=== PATIENT | female | born 1935 | race Caucasian/White ===

== ENCOUNTER 2018-04-13 12:26 | Outpatient (CLI) | payer MEDICARE, BC | END 2018-04-13 12:27 | disposition home or self-care (01) | LOC: BICMAMMO 12:26 | PROVIDERS: ATTEND Internal Medicine | DX: N63.23 Unspecified lump in the left breast, lower outer quadrant (principal) | CPT/HCPCS: 76642; 77066; G0279 ==

== ENCOUNTER → 2018-04-27 | Day surgery (SDC) | payer MEDICARE, BC ==
--- NOTE | 2018-04-27 14:00 | ULT ---
ULTRASOUND GUIDED LEFT BREAST BIOPSY: Date: 04/27/18 HISTORY: Spiculated hypoechoic mass in the left breast. COMPARISON: 04/13/18. FINDINGS: Successful ultrasound guided biopsy of a left breast mass. A total of three 14 gauge cord biopsy samp les were obtained and placed directly in Formalin. Post biopsy clip was placed. Post biopsy mammogram s were performed to confirm needle placement. TECHNIQUE: Consent obtained to perform biopsy of a left breast mass with ultrasound guidance. Left breast was pr epped and draped in the sterile fashion. 1% lidocaine, buffered with sodium bicarbonate, was used for local anesthesia. Under sonographic guidance, three 14 gauge core biopsy samples were obtained and p laced directly in Formalin. Biopsy clip was placed and is approximately 1 cm medial to the lesion of interest. The patient tolerated the procedure well. No immediate postprocedure complications. IMPRESSION: Successful left breast stereotactic biopsy with ultrasound guidance. Final pathologic diagnosis pendi ng. Biopsy clip is 1 cm medial to the lesion. POS: [facility]
== END ==
LOC: BICULT 12:20
PROVIDERS: ATTEND Internal Medicine
PROC: 0HBU3ZX Excision of Left Breast, Percutaneous Approach, Diagnostic (ICD-10-PCS; principal; 2018-04-27)
DX: C50.512 Malignant neoplasm of lower-outer quadrant of left female breast (principal)
CPT/HCPCS: 19083; 88305; 88341; 88342

== ENCOUNTER 2019-07-26 15:53 | Inpatient (IN) | payer MEDICARE, BC ==
[2019-07-26] MEDS ORDERED: Diltiazem 125 MG/25 ML ONE (16:18)
[2019-07-26 16:34] LABS: #Eosinphils 0.1 thou/uL (0.0-0.7); #Lymphocytes 1.1 thou/uL (1.20-3.40); #Monocytes 0.4 thou/uL (0.11-0.59); #Neutrophils 4.6 thou/uL (1.40-6.50); %Basophils 0.7 % (0.0-1.0); %Eosinophils 1.8 % (0.0-10.0); %Lymphocytes 18.3 % (21.0-51.0); %Monocytes 6.2 % (0.0-10.0); %Neutrophils 72.9 % (42.0-75.0); Hemoglobin 11.7 g/dL (12.0-16.0); Mean Corpuscular HGB CONC 32.5 g/dL (32.0-36.0); Mean Corpuscular Hemoglobin 31.2 pg (27.0-31.0); Mean Platelet Volume 7.8 fL (7.4-10.4); Platelet Count 243 thou/uL (130-400); RBC Distribution Width 11.3 % (11.5-14.5); Red Blood Cell (RBC) Count 3.76 mill/uL (4.20-5.40); White Blood Cell (WBC) Count 6.2 thou/uL (4.8-10.8)
[2019-07-26] MEDS ORDERED: Diltiazem HCl 125 MG, Admixture Fee 1 EACH in Sodium Chloride 0.9% 100 ML IVPB SCH (16:45)
--- NOTE | 2019-07-26 16:53 | RAD ---
XR Chest 1 View Portable HISTORY: EKG changes. COMPARISON: None FINDINGS: The heart size is normal. The lungs are well expanded without focal areas of consolidation, pneumothorax or pleural effusions. There is evidence of old granulomatous disease. IMPRESSION: No radiographic evidence of acute cardiopulmonary process.
[2019-07-26 16:54] LABS: ALT (SGPT) 8 U/L (8-55); AST (SGOT) 17 U/L (5-34); Albumin 4.7 g/dL (3.4-4.8); Alkaline Phosphatase 85 U/L (40-110); Anion Gap 16 mmol/L (10-20); BUN (Urea Nitrogen) 16 mg/dL (9.8-20.1); Bilirubin, Total 0.4 mg/dL (0.2-1.2); Calc. Creatinine Clearance 0 mL/min (70-130); Calcium 9.8 mg/dL (7.8-10.44); Carbon Dioxide 32 mmol/L (23-31); Chloride 98 mmol/L (98-107); Estimated GFR-MDRD 34; Globulin 3.5 g/dL (2.4-3.5); Glucose 112 mg/dL (83-110); Magnesium 1.6 mg/dL (1.6-2.6); Protein, Total 8.2 g/dL (6.0-8.3); Sodium 142 mmol/L (136-145)
[2019-07-26] MEDS ORDERED: Aspirin Chewable 81 MG TAB ONE (16:57)
[2019-07-26] MEDS ORDERED: Enoxaparin Sodium 60 MG/0.6 ML SYRINGE ONE (18:05)
--- NOTE | 2019-07-26 18:46 | PDOC.EVN ---
Event Note - Event Note Event Note: [id number] HP
[2019-07-26 20:05] LABS: Troponin I 0.051 ng/mL (< 0.028)
--- NOTE | 2019-07-26 21:13 | HP ---
CHIEF COMPLAINT: New EKG changes. HISTORY OF PRESENT ILLNESS: Ms. Issa is an 83-year-old female with a past medical history of hypothyroidism, ? congestive heart failure, breast cancer treated with radiation and surgery, COPD, presented to the emergency room from her doctor's office with new EKG changes of new-onset atrial fibrillation. The patient reported weakness and fatigue lately. The patient also has been having a nonproductive cough. She had a sore throat and cold over Thanksgiving and has not been able to bounce back. Denies chest pain. Workup in the emergency room, the patient was found to be in atrial fibrillation with rapid ventricular response. The patient was given 20 mg of IV diltiazem, heart rate remains rapid. The patient was started on IV diltiazem drip. The patient is being admitted to hospital for further management. PAST MEDICAL HISTORY: 1. Hypothyroidism. 2. Breast cancer. 3. CHF ? 4. COPD. PAST SURGICAL HISTORY: 1. Left breast lumpectomy. 2. Lymph node removal. PAST PSYCHIATRIC HISTORY: Anxiety and depression. SOCIAL HISTORY: Denies alcohol drinking. Denies drug use. She is a former tobacco user. FAMILY HISTORY: Reviewed and noncontributory. HOME MEDICATIONS: Please see home medication reconciliation form for updated medications. ALLERGIES: ALLERGIC TO CIPRO, DARVON (PROPOXYPHENE). REVIEW OF SYSTEMS: Review of 14 systems is negative except what is mentioned in history of present illness. PHYSICAL EXAMINATION: GENERAL: The patient is awake, alert, does not appear to be in acute distress. VITAL SIGNS: Blood pressure 137/76, pulse is 122, respiratory rate is 16, temperature 98.4. HEAD: Normocephalic, atraumatic. NECK: Supple. No JVD. CHEST: Fair bilateral air entry. HEART: Irregularly irregular, tachycardic. ABDOMEN: Soft, nontender. Bowel sounds present. NEUROLOGIC: Awake, alert, oriented x3. PSYCH: Normal mood. EXTREMITIES: No clubbing, no cyanosis. GENITOURINARY: No suprapubic tenderness. No flank tenderness. MUSCULOSKELETAL: No back tenderness. No joint tenderness. LABORATORY DATA: Troponin 0.01. Sodium 142, potassium 4.0, BUN is 16, creatinine 1.4, glucose 112. WBC 6.2, hemoglobin 11.7, platelets 243. DIAGNOSTIC DATA: Chest x-ray, no acute finding. ASSESSMENT: 1. Atrial fibrillation with rapid ventricular response, new onset. 2. Congestive heart failure ? 3. Chronic obstructive pulmonary disease ? 4. Hypothyroidism. PLAN: 1. Admit. 2. Telemetry monitoring. 3. Continue with diltiazem drip. 4. Check TSH. 5. Serial troponins. 6. The patient was started on Lovenox in the ED. 7. 2D echo. 8. Consult Cardiology in a.m. for evaluation and further recommendations. 9. Reconcile home medications. 10. DVT prophylaxis. The patient is started on Lovenox, low-molecular weight heparin. 11. Expected length of stay, 2 midnights or more. Job ID: [id number]
[2019-07-26 21:37] VITALS: BMI 20.9
[2019-07-26] MEDS ORDERED: rOPINIRole HCl 0.5 MG TAB PO SCH (23:15)
[2019-07-26 23:20] LABS: Troponin I 0.043 ng/mL (< 0.028)
[2019-07-27 06:36] LABS: Anion Gap 11 mmol/L (10-20); BUN (Urea Nitrogen) 23 mg/dL (9.8-20.1); Calc. Creatinine Clearance 30 mL/min (70-130); Calcium 8.9 mg/dL (7.8-10.44); Carbon Dioxide 35 mmol/L (23-31); Chloride 102 mmol/L (98-107); Estimated GFR-MDRD 34; Glucose 92 mg/dL (83-110); Potassium 4.6 mmol/L (3.5-5.1); Sodium 143 mmol/L (136-145)
[2019-07-27] MEDS: Famotidine 20 MG TAB PO SCH (08:45)
[2019-07-27] MEDS ORDERED: Enoxaparin Sodium 60 MG/0.6 ML SYRINGE SC SCH (09:00)
[2019-07-27] MEDS ORDERED: Aspirin 325 mg Enteric Coated Tablet PO SCH (09:00)
[2019-07-27 10:28] LABS: #Eosinphils 0.2 thou/uL (0.0-0.7); #Lymphocytes 1.5 thou/uL (1.20-3.40); #Monocytes 0.5 thou/uL (0.11-0.59); #Neutrophils 4.9 thou/uL (1.40-6.50); %Basophils 0.5 % (0.0-1.0); %Eosinophils 3.4 % (0.0-10.0); %Lymphocytes 20.3 % (21.0-51.0); %Monocytes 7.1 % (0.0-10.0); %Neutrophils 68.8 % (42.0-75.0); Hemoglobin 9.6 g/dL (12.0-16.0); Mean Corpuscular HGB CONC 32.3 g/dL (32.0-36.0); Mean Corpuscular Hemoglobin 31.3 pg (27.0-31.0); Mean Corpuscular Volume 96.8 fL (78.0-98.0); Mean Platelet Volume 8.2 fL (7.4-10.4); Platelet Count 167 thou/uL (130-400); RBC Distribution Width 11.5 % (11.5-14.5); Red Blood Cell (RBC) Count 3.06 mill/uL (4.20-5.40); White Blood Cell (WBC) Count 7.2 thou/uL (4.8-10.8)
[2019-07-27] MEDS ORDERED: PROPOFOL 200 MG/20 ML VIAL ONE (10:34)
--- NOTE | 2019-07-27 10:34 | CON ---
DATE OF CONSULTATION: HISTORY OF PRESENT ILLNESS: The patient is an 83-year-old woman who presents with palpitations. The patient has no previous cardiac history. About a month ago, she started having fevers and chills and was diagnosed with bronchitis. She states that the date of prior to admission started noticing having palpitations. She has noticed increasing dyspnea. The patient also reported having substernal chest discomfort. PAST MEDICAL HISTORY: 1. Hypertension. 2. COPD. 3. Breast carcinoma. PAST SURGICAL HISTORY: Lumpectomy and lymph node removal. SOCIAL HISTORY: Former smoker. ALLERGIES: DARVON AND CIPROFLOXACIN. MEDICATIONS: 1. Cardizem 120 daily. 2. Potassium 10 daily. 3. Lasix 40 daily. 4. Losartan 25 daily. 5. Protonix 40 daily. 6. Synthroid 150 mcg daily. 7. Pravachol 40 at bedtime. 8. Wellbutrin 300 daily. 9. Trazodone 150 daily. REVIEW OF SYSTEMS: No history of easy bruising or bleeding or bright red blood per rectum. PHYSICAL EXAMINATION: GENERAL: This is a thin woman, in no acute distress. VITAL SIGNS: Blood pressure 92/45. NECK: Showed no jugular venous distention. LUNGS: Decreased breath sounds bilateral. HEART: Irregular rate and rhythm. Normal S1 and S2. ABDOMEN: Nondistended. EXTREMITIES: Show no edema. VASCULAR: Radial pulses 2+. LABORATORY DATA: Sodium 143, potassium 4.6, chloride 102, bicarbonate 35, BUN 23, and creatinine 1.48. Troponin was 0.043. White blood cell count 6.2, hemoglobin 11.7, hematocrit 36.1, and her platelets were 243. Her EKG revealed atrial fibrillation with an ST-T wave abnormality suggestive of ischemia. IMPRESSION: 1. New onset atrial fibrillation. 2. Chronic obstructive pulmonary disease. 3. Hypertension. 4. Dyslipidemia. This patient presents with a rapid atrial fibrillation. At this time, we would recommend proceeding with electrical cardioversion. The patient is already on Cardizem. We will check the patient's echocardiogram. We will consider adding an antiarrhythmic therapy. The patient will need long-term anticoagulation therapy. We will follow this patient with you through her hospitalization. Job ID: [id number] [facility]
[2019-07-27 10:55] LABS: Free T4 (Free Thyroxine) 1.19 ng/dL (0.70-1.48); Thyroid Stimulating Hormone 3.6748 uIU/mL (0.35-4.94)
[2019-07-27] MEDS ORDERED: Ketamine 50 MG/ML (10ML VIAL) ONE (11:21)
[2019-07-27] MEDS ORDERED: PROPOFOL 20 ML ONE (11:21)
--- NOTE | 2019-07-27 11:33 | PDOC.EVN ---
Event Note - Event Note Event Note: [id number] progress
--- NOTE | 2019-07-27 12:19 | PRG ---
DATE OF SERVICE: 07/27/2019 The patient is being followed today after she is admitted for new onset atrial fibrillation with rapid ventricular response. SUBJECTIVE: The patient is feeling okay except for coughing. The patient continues to be in atrial fibrillation. Rate is better controlled. The patient is being seen by trout farmer for further management and recommendations. OBJECTIVE: VITAL SIGNS: Blood pressure is 95/60, temperature 97.9, pulse is 78, respiratory rate is 16, and oxygen saturation 99% on 2 L/minute nasal cannula. HEAD AND NECK: Normocephalic and atraumatic. Neck is supple. CHEST: Fair bilateral air entry. HEART: Irregularly irregular. ABDOMEN: Soft and nontender. Bowel sounds present. NEUROLOGIC: Awake, alert, and oriented x3. PSYCHIATRIC: Normal mood. EXTREMITIES: No clubbing. No cyanosis. GENITOURINARY: No suprapubic tenderness. No flank tenderness. MUSCULOSKELETAL: No back tenderness. No joint tenderness. LABORATORY DATA: Troponin 0.01, 0.05, 0.04. Sodium 143, potassium 4.6, BUN is 23, creatinine 1.4, glucose 92. WBC 6.2, hemoglobin 11.7, and platelets 243. 2D echo pending. ASSESSMENT: 1. Atrial fibrillation with rapid ventricular response, new onset. 2. History of chronic obstructive pulmonary disease. 3. Hypothyroidism. PLAN: 1. Continue with telemetry monitoring. 2. Switch to oral diltiazem and discontinue diltiazem drip, as per trout farmer. Cardiology is being consulted for further management. 3. Continue with anticoagulation. 4. Check TSH. 5. DVT prophylaxis. 6. The patient is on anticoagulation. Job ID: [id number]
[2019-07-27] MEDS: Guaifenesin DM 100-10/5 ML UDCUP PO PRN ×2 (14:22→21:22)
--- NOTE | 2019-07-27 14:25 | OP ---
DATE OF PROCEDURE: 07/27/2019 PROCEDURE PERFORMED: Transesophageal echocardiogram. INDICATIONS: Destinee Issa is an 83-year-old woman with paroxysmal atrial fibrillation. DESCRIPTION OF PROCEDURE: The patient was taken to the PACU. The patient was sedated by Anesthesiology. A transesophageal probe was placed into the distal esophagus and stomach. Echocardiographic images were obtained. The transesophageal probe was removed. FINDINGS: 1. There appears to be normal left ventricular systolic function. 2. Moderate left atrial enlargement. 3. Normal mitral and aortic valves. 4. Mild mitral regurgitation. 5. Mild tricuspid regurgitation. 6. No thrombus noted in the left atrium or left atrial appendage. 7. Atherosclerotic debris in the descending aorta. IMPRESSION: No thrombus noted in the left atrium or left atrial appendage. Job ID: [id number]
--- NOTE | 2019-07-27 14:29 | OP ---
DATE OF PROCEDURE: 07/27/2019 PROCEDURE PERFORMED: Electrical cardioversion. INDICATION: An 83-year-old woman with paroxysmal atrial fibrillation. DESCRIPTION OF PROCEDURE: The patient was taken to the PACU. The patient was sedated by Anesthesiology. The patient was shocked with 200 joules of synchronized electricity and the patient converted to normal sinus rhythm. IMPRESSION: Successful electrical cardioversion. Job ID: [id number]
[2019-07-27] MEDS ORDERED: FLU VACC TS2019-20(65YR UP)/PF 180 MCG/0.5 ML SYRINGE IM ONE (14:45)
--- NOTE | 2019-07-27 16:43 | EKG ---
Test Reason : POST KIRSTEN/CARDIOVERSI Blood Pressure : / mmHG Vent. Rate : 076 BPM Atrial Rate : 076 BPM P-R Int : 154 ms QRS Dur : 092 ms QT Int : 446 ms P-R-T Axes : 066 009 058 degrees QTc Int : 501 ms Sinus rhythm with PAC's ST depression, consider subendocardial injury or digitalis effect Nonspecific T wave abnormality Prolonged QT Abnormal ECG When compared with ECG of 26-JUL-2019 16:06, (Unconfirmed) Sinus rhythm has replaced Atrial fibrillation Vent. rate has decreased BY [address] no longer depressed in Inferior leads Confirmed by DR. Tate MCGRATH (3) on 07/27/2019 4:43:29 PM Referred By: ONEYDA Confirmed By:DR. Tate MCGRATH
[2019-07-27] MEDS: traZODone HCl 150 MG TAB PO SCH (21:22)
[2019-07-27] MEDS: rOPINIRole HCl 0.5 MG TAB PO SCH (21:22)
[2019-07-27] MEDS: Pravastatin Sodium 40 MG TAB PO SCH (21:22)
[2019-07-27] MEDS: Apixaban 5 MG TAB PO SCH (21:22)
[2019-07-27] MEDS: Flecainide 50 MG TAB PO SCH (21:22)
[2019-07-28 05:29] LABS: Anion Gap 10 mmol/L (10-20); BUN (Urea Nitrogen) 19 mg/dL (9.8-20.1); Calc. Creatinine Clearance 37 mL/min (70-130); Calcium 8.5 mg/dL (7.8-10.44); Carbon Dioxide 32 mmol/L (23-31); Chloride 103 mmol/L (98-107); Estimated GFR-MDRD 43; Glucose 87 mg/dL (83-110); Potassium 3.5 mmol/L (3.5-5.1); Sodium 141 mmol/L (136-145)
[2019-07-28] MEDS: Acetaminophen 325 MG TAB PO PRN ×2 (06:16→15:32)
[2019-07-28] MEDS ORDERED: Labetalol HCl 100 MG/20 ML VIAL SLOW IVP PRN (07:22)
[2019-07-28] MEDS ORDERED: Loratadine 10 MG TAB PO PRN (07:22)
[2019-07-28] MEDS ORDERED: Diabetic Tussin 200 MG/10 ML UDCUP PO PRN (07:22)
[2019-07-28] MEDS ORDERED: Bisacodyl 10 MG SUPP PR PRN (07:22)
[2019-07-28] MEDS ORDERED: Loperamide HCl 2 MG CAP PO PRN (07:22)
[2019-07-28] MEDS ORDERED: Sodium Chloride 0.65% Nasal 44 ML BOT EA NARE PRN (07:22)
[2019-07-28] MEDS ORDERED: Metoclopramide HCl 10 MG TAB PO PRN (07:22)
[2019-07-28] MEDS ORDERED: Senokot S 8.6-50 MG TAB PO PRN (07:22)
[2019-07-28] MEDS ORDERED: Calcium Carbonate 500 MG ChewTAB PO PRN (07:22)
[2019-07-28] MEDS ORDERED: Cepastat Lozenges 1 LOZ PO PRN (07:22)
[2019-07-28] MEDS ORDERED: Zolpidem Tartrate 5 MG TAB PO PRN (07:22)
[2019-07-28] MEDS: Apixaban 5 MG TAB PO SCH ×2 (09:12→20:42)
[2019-07-28] MEDS: Flecainide 50 MG TAB PO SCH ×2 (09:12→20:42)
[2019-07-28] MEDS: Famotidine 20 MG TAB PO SCH (09:12)
--- NOTE | 2019-07-28 10:06 | PDOC.HOSPP ---
- Subjective Encounter Date: 07/28/19 Encounter Time: 07:50 Subjective: Patient seen and examined. No new complaints. No overnight events - Objective Vital Signs & Weight: Vital Signs (12 hours) Temp Pulse Resp BP Pulse Ox 07/28/19 07:34 97.9 F 71 16 138/65 98 07/28/19 03:41 98.8 F 77 20 124/58 L 98 Weight Weight 143 lb 12.8 oz I&O: 07/27/19 07/28/19 07/29/19 06:59 06:59 06:59 Intake Total 420 960 Output Total 400 900 Balance 20 60 Result Diagrams: 07/27/19 09:53 07/28/19 04:58 Radiology Reviewed by me: Yes EKG Reviewed by me: Yes Hospitalist ROS - Review of Systems ENT: denies: ear pain, ear discharge, nose pain, nose discharge, nose congestion , mouth pain, mouth swelling, throat pain, throat swelling, other Respiratory: denies: cough, dry, shortness of breath, hemoptysis, SOB with excertion, pleuritic pain, sputum, wheezing, other Cardiovascular: denies: chest pain, palpitations, orthopnea, paroxysmal noc. dyspnea, edema, light headedness, other Gastrointestinal: denies: nausea, vomiting, abdominal pain, diarrhea, constipation, melena, hematochezia, other Genitourinary: denies: dysuria, frequency, incontinence, hematuria, retention, other Musculoskeletal: denies: neck pain, shoulder pain, arm pain, back pain, hand pain, leg pain, foot pain, other - Medication Medications: Active Medications Generic Name Dose Route Start Last Admin Trade Name Chaitanyaq PRN Reason Stop Dose Admin Acetaminophen 650 mg 07/26/19 17:46 07/28/19 06:16 Tylenol PO 650 mg Q4H PRN Administration Headache/Fever/Mild Pain (1-3) Apixaban 5 mg 07/27/19 21:00 07/28/19 09:12 Eliquis PO 5 mg BID TENZIN Administration Diltiazem HCl 120 mg 07/28/19 09:00 07/28/19 09:12 Cardizem Cd PO 120 mg DAILY TENZIN Administration Famotidine 20 mg 07/27/19 09:00 07/28/19 09:12 Pepcid PO 20 mg DAILY TENZIN Administration Flecainide Acetate 50 mg 07/27/19 21:00 07/28/19 09:12 Tambocor PO 50 mg Q12HR TENZIN Administration Guaifenesin/Dextromethorphan 10 ml 07/27/19 13:33 07/27/19 21:22 Robitussin Dm PO 10 ml Q6H PRN Administration Cough Pravastatin Sodium 40 mg 07/27/19 21:00 07/27/19 21:22 Pravachol PO 40 mg QPM TENZIN Administration Ropinirole HCl 0.5 mg 07/27/19 21:00 07/27/19 21:22 Requip PO 0.5 mg HS TENZIN Administration Trazodone HCl 150 mg 07/27/19 21:00 07/27/19 21:22 Desyrel PO 150 mg HS TENZIN Administration - Exam General Appearance: NAD, awake alert Eye: PERRL, anicteric sclera ENT: normocephalic atraumatic, no oropharyngeal lesions Neck: supple, symmetric, no JVD Heart: RRR, no murmur, no gallops, no rubs Respiratory: CTAB, no wheezes, no rales Gastrointestinal: soft, non-tender, non-distended, normal bowel sounds Extremities: no cyanosis, no clubbing, no edema Skin: normal turgor, no lesions Neurological: no focal deficits Musculoskeletal: normal tone, normal strength Psychiatric: normal affect, normal behavior Hosp A/P (1) New onset atrial fibrillation Code(s): I48.91 - UNSPECIFIED ATRIAL FIBRILLATION Status: Acute (2) Hypertension Code(s): I10 - ESSENTIAL (PRIMARY) HYPERTENSION Status: Chronic (3) Dyslipidemia Code(s): E78.5 - HYPERLIPIDEMIA, UNSPECIFIED Status: Chronic (4) H/O malignant neoplasm of breast Code(s): Z85.3 - PERSONAL HISTORY OF MALIGNANT NEOPLASM OF BREAST Status: Chronic (5) Hypothyroidism Code(s): E03.9 - HYPOTHYROIDISM, UNSPECIFIED Status: Chronic - Plan old records reviewed/req s/p cardioversion, now nsr, on flecainide, elliquis, medication reviewed and continue to provide symptomatic treatment and supportive care
[2019-07-28] MEDS: rOPINIRole HCl 0.5 MG TAB PO SCH (20:42)
[2019-07-28] MEDS: Benzonatate 100 MG CAP PO PRN (20:42)
[2019-07-28] MEDS: Pravastatin Sodium 40 MG TAB PO SCH (20:43)
[2019-07-28] MEDS: traZODone HCl 150 MG TAB PO SCH (20:43)
[2019-07-28] MEDS: Guaifenesin DM 100-10/5 ML UDCUP PO PRN (20:43)
[2019-07-29] MEDS: Apixaban 5 MG TAB PO SCH (08:49)
[2019-07-29] MEDS: Famotidine 20 MG TAB PO SCH (08:50)
[2019-07-29] MEDS: Flecainide 50 MG TAB PO SCH (08:50)
[2019-07-29] MEDS: Benzonatate 100 MG CAP PO PRN (08:50)
--- NOTE | 2019-07-29 10:18 | PDOC.HOSPP ---
- Subjective Encounter Date: 07/29/19 Encounter Time: 07:25 Subjective: Patient seen and examined. No new complaints. No overnight events - Objective Vital Signs & Weight: Vital Signs (12 hours) Temp Pulse Resp BP BP Pulse Ox 07/29/19 07:24 97.9 F 67 18 119/56 L 95 07/29/19 03:49 98.4 F 66 20 109/50 L 99 Weight Weight 148 lb 12.8 oz I&O: 07/28/19 07/29/19 07/30/19 06:59 06:59 06:59 Intake Total 960 820 Output Total 900 200 Balance 60 620 Result Diagrams: 07/27/19 09:53 07/28/19 04:58 EKG Reviewed by me: Yes Hospitalist ROS - Review of Systems ENT: denies: ear pain, ear discharge, nose pain, nose discharge, nose congestion , mouth pain, mouth swelling, throat pain, throat swelling, other Respiratory: denies: cough, dry, shortness of breath, hemoptysis, SOB with excertion, pleuritic pain, sputum, wheezing, other Cardiovascular: denies: chest pain, palpitations, orthopnea, paroxysmal noc. dyspnea, edema, light headedness, other Gastrointestinal: denies: nausea, vomiting, abdominal pain, diarrhea, constipation, melena, hematochezia, other Genitourinary: denies: dysuria, frequency, incontinence, hematuria, retention, other Musculoskeletal: denies: neck pain, shoulder pain, arm pain, back pain, hand pain, leg pain, foot pain, other - Medication Medications: Active Medications Generic Name Dose Route Start Last Admin Trade Name Freq PRN Reason Stop Dose Admin Acetaminophen 650 mg 07/26/19 17:46 07/28/19 15:32 Tylenol PO 650 mg Q4H PRN Administration Headache/Fever/Mild Pain (1-3) Apixaban 5 mg 07/27/19 21:00 07/29/19 08:49 Eliquis PO 5 mg BID TENZIN Administration Benzonatate 100 mg 07/28/19 17:51 07/29/19 08:50 Tessalon PO 100 mg Q8H PRN Administration Cough Diltiazem HCl 120 mg 07/28/19 09:00 07/29/19 08:50 Cardizem Cd PO 120 mg DAILY TENZIN Administration Famotidine 20 mg 07/27/19 09:00 07/29/19 08:50 Pepcid PO 20 mg DAILY TENZIN Administration Flecainide Acetate 50 mg 07/27/19 21:00 07/29/19 08:50 Tambocor PO 50 mg Q12HR TENZIN Administration Guaifenesin 200 mg 07/28/19 07:22 07/28/19 17:02 Robitussin Sf PO 200 mg Q4H PRN Administration Cough Guaifenesin/Dextromethorphan 10 ml 07/27/19 13:33 07/28/19 20:43 Robitussin Dm PO 10 ml Q6H PRN Administration Cough Pravastatin Sodium 40 mg 07/27/19 21:00 07/28/19 20:43 Pravachol PO 40 mg QPM TENZIN Administration Ropinirole HCl 0.5 mg 07/27/19 21:00 07/28/19 20:42 Requip PO 0.5 mg HS TENZIN Administration Trazodone HCl 150 mg 07/27/19 21:00 07/28/19 20:43 Desyrel PO 150 mg HS TENZIN Administration - Exam General Appearance: NAD, awake alert Eye: PERRL, anicteric sclera ENT: normocephalic atraumatic, no oropharyngeal lesions Neck: supple, symmetric, no JVD, no thyromegaly Heart: RRR, no murmur, no gallops, no rubs Respiratory: CTAB, no wheezes, no rales Gastrointestinal: soft, non-tender, non-distended Extremities: no cyanosis, no clubbing, no edema Skin: normal turgor, no lesions Neurological: cranial nerve grossly intact, no focal deficits Musculoskeletal: normal tone, normal strength Psychiatric: normal affect, normal behavior Hosp A/P (1) New onset atrial fibrillation Code(s): I48.91 - UNSPECIFIED ATRIAL FIBRILLATION Status: Acute (2) Hypertension Code(s): I10 - ESSENTIAL (PRIMARY) HYPERTENSION Status: Chronic (3) Dyslipidemia Code(s): E78.5 - HYPERLIPIDEMIA, UNSPECIFIED Status: Chronic (4) H/O malignant neoplasm of breast Code(s): Z85.3 - PERSONAL HISTORY OF MALIGNANT NEOPLASM OF BREAST Status: Chronic (5) Hypothyroidism Code(s): E03.9 - HYPOTHYROIDISM, UNSPECIFIED Status: Chronic - Plan old records reviewed/req s/p cardioversion, now nsr, on flecainide, elliquis, medication reviewed and continue to provide symptomatic treatment and supportive care 07/29/19 stable for discharge, see discharge zander
[2019-07-29 11:42] VITALS: BP 113/55; TEMP 98.8
--- NOTE | 2019-07-29 14:45 | DIS ---
DATE OF ADMISSION: 07/26/2019 DATE OF DISCHARGE: 07/29/2019 PRIMARY CARE PHYSICIAN: Dr. Betsy Sierra. DISCHARGE DISPOSITION: Home. PRIMARY DISCHARGE DIAGNOSIS: New onset atrial fibrillation, status post cardioversion, converted to normal sinus rhythm. SECONDARY DISCHARGE DIAGNOSES: Hypothyroidism, hypertension, history of breast cancer, dyslipidemia. PRIMARY PROCEDURES/OPERATIONS: Transesophageal echocardiography, DC cardioversion. RADIOLOGICAL INVESTIGATION: Chest x-ray showed no acute cardiopulmonary process. Echocardiography showed normal EF. SIGNIFICANT LABORATORY DATA: WBC 7.2, hemoglobin 9.6, and platelets 167. Sodium 141, creatinine 1.21, calcium 8.5. Troponin 0.043. TSH 3.67. LFT normal. DISCHARGE MEDICATIONS: 1. Arimidex 1 mg p.o. daily. 2. Bupropion XL 300 mg p.o. daily. 3. Cardizem CD 120 mg p.o. daily. 4. Lasix 40 mg daily. 5. Ibandronate 150 mg every month. 6. Levothyroxine 100 mcg p.o. daily. 7. Losartan 25 mg p.o. daily. 8. Remeron 45 mg p.o. daily. 9. Protonix 40 mg daily. 10. Potassium chloride 10 mEq p.o. daily. 11. Pravastatin 40 mg p.o. at bedtime. 12. Ropinirole 0.5 mg p.o. at bedtime. 13. Trazodone 150 mg p.o. at bedtime. 14. Tambocor 50 mg p.o. twice daily. 15. Eliquis 5 mg p.o. b.i.d. 16. Tessalon 100 mg t.i.d. p.r.n. CONTRAINDICATION: None. CODE STATUS: Full code. INPATIENT TANK STAVE ASSEMBLER: Dr. Rodriguez, Cardiology, was following while in hospital. TEST RESULT PENDING ON DISCHARGE: None. ALLERGIES: CIPROFLOXACIN AND PROPOXYPHENE. DISCHARGE PLAN: Posthospital, the patient will follow up with primary care physician in one week. The patient will make appointment with Dr. Leonidas Gregorio in 2 to 3 weeks. HOSPITAL COURSE: An 83-year-old female with above-mentioned medical problem, who was admitted by Dr. Clancy. Please see his H and P for further details. The patient was admitted for palpitation and she was diagnosed with new onset atrial fibrillation based on electrocardiogram. The patient was treated with Cardizem as well as low dose of low molecular weight heparin. Cardiology was consulted and subsequently, the patient was recommended to go for electrocardioversion. Transesophageal echocardiography was done and subsequently, the patient had successful DC cardioversion and the patient converted to sinus rhythm. After that, the patient was observed in hospital for a couple of days. The patient was having dry cough and that is why we prescribed her Tessalon, which improved her cough, and the patient was also found with elevated troponin that was related to new onset atrial fibrillation with rapid ventricular response. By the time of discharge, she was in sinus rhythm and hemodynamically stable, asymptomatic, tolerating p.o. well. All new medication prescription sent to her pharmacy. We have advised to discontinue bupropion while on Tambocor for possible interaction with flecainide. Rest of medications, she will continue as per previous. The patient is seen and examined at bedside today. Please see my progress note from today for further detail. Job ID: [id number]
--- NOTE | 2019-07-30 16:17 | EKG ---
Test Reason : STAT Blood Pressure : / mmHG Vent. Rate : 069 BPM Atrial Rate : 069 BPM P-R Int : 158 ms QRS Dur : 096 ms QT Int : 422 ms P-R-T Axes : 081 035 060 degrees QTc Int : 452 ms Normal sinus rhythm Nonspecific ST and T wave abnormality Abnormal ECG When compared with ECG of 27-JUL-2019 11:56, QT has shortened Confirmed by DR. Tate MCGRATH ([id number]) on 07/30/2019 4:16:36 PM Referred By: MILTON Confirmed By:DR. Tate MCGRATH
--- NOTE | 2019-07-31 01:28 | PQF ---
YUNG THRASHER SALIM NOORJIBHAI MD [id number] [facility]257 [id number] CLINICAL DOCUMENTATION CLARIFICATION FORM: POST DISCHARGE Addendum to original discharge summary date: ____ Late entry note date: __ DATE: 07/31/19 ATTN: Owen Manning Please exercise your independent, professional judgment in responding to the clarification form. Clinical indicators are provided on the bottom of this form for your review Please check appropriate box(s): HEART FAILURE: A. TYPE: [ ] Systolic / HFrEF [ x ] Diastolic / HFpEF [ ] Combined Systolic / Diastolic B. ACUITY [ ] Acute [ ] Acute on Chronic [ x] Chronic [ ] Other diagnosis [ ] Unable to determine In addition, please specify: Present on Admission (POA): [x ] Yes [ ] No [ ] Unable to determine For continuity of documentation, please document condition throughout progress notes and discharge summary. Thank You. CLINICAL INDICATORS - SIGNS / SYMPTOMS / LABS H&P p1 07/26 Dr Venegas Presented to ER with new EKG changes of new-onset Atrial Fibrillation H&P p1 07/26 Dr Venegas Productive cough Operative report 07/27 Impression : Ejection fraction estimated 50-55% RISKS: H&P p1 07/26 History of ? Congestive heart failure H&P p2 07/26 atrial Fibrillation TREATMENTS: Medications: Home medication: Furosemide 40 mg PO daily SEP 22 Aspirin SEP 22 Cardizem H&P p2 07/26 Telemetry monitoring Operative report 07/27 KIRSTEN with Cardioversion (This form is maintained as a part of the permanent medical record) 2014 [employer]. All Rights Reserved Denise [email or web address] [not [email or web address]] [email or web address]
== END 2019-07-29 12:55 | disposition home or self-care (01) | DRG 309 ==
LOC: ERS 15:53 → 2NO 17:15
PROVIDERS: ADMIT Internal Medicine; ATTEND Internal Medicine
PROC: 5A2204Z Restoration of Cardiac Rhythm, Single (ICD-10-PCS; principal; 2019-07-27)
PROC: B24BZZ4 Ultrasonography of Heart with Aorta, Transesophageal (ICD-10-PCS; 2019-07-27)
PROC: 3E02340 Introduction of Influenza Vaccine into Muscle, Percutaneous Approach (ICD-10-PCS; 2019-07-27)
DX: I48.0 Paroxysmal atrial fibrillation (principal); I50.32 Chronic diastolic (congestive) heart failure; E03.9 Hypothyroidism, unspecified; E78.5 Hyperlipidemia, unspecified; J44.9 Chronic obstructive pulmonary disease, unspecified; F41.9 Anxiety disorder, unspecified; F32.9 Major depressive disorder, single episode, unspecified; I11.0 Hypertensive heart disease with heart failure; Z23 Encounter for immunization; Z79.890 Hormone replacement therapy; Z88.1 Allergy status to other antibiotic agents; Z88.8 Allergy status to other drugs, medicaments and biological substances; Z79.899 Other long term (current) drug therapy; Z85.3 Personal history of malignant neoplasm of breast
CPT/HCPCS: 36415; 71045; 80048; 80053; 83735; 84439; 84443; 84481; 84484; 85025; 90471; 90662; 92960; 93005; 93010; 93306; 93312; 94760; G0008; J1650; J2704; J3490

== ENCOUNTER 2019-09-07 07:52 | Inpatient (IN) | payer MEDICARE, BC ==
[2019-09-07 08:46] LABS: #Eosinphils 0.1 thou/uL (0.0-0.7); #Lymphocytes 1.3 thou/uL (1.20-3.40); #Monocytes 0.4 thou/uL (0.11-0.59); #Neutrophils 2.4 thou/uL (1.40-6.50); %Basophils 0.6 % (0.0-1.0); %Eosinophils 2.4 % (0.0-10.0); %Monocytes 9.8 % (0.0-10.0); %Neutrophils 56.1 % (42.0-75.0); Hemoglobin 5.9 g/dL (12.0-16.0); Mean Corpuscular HGB CONC 32.3 g/dL (32.0-36.0); Mean Corpuscular Hemoglobin 32.6 pg (27.0-31.0); Mean Platelet Volume 7.4 fL (7.4-10.4); Platelet Count 215 thou/uL (130-400); Prothrombin Time 13.3 SEC (12.0-14.7); Red Blood Cell (RBC) Count 1.82 mill/uL (4.20-5.40); White Blood Cell (WBC) Count 4.3 thou/uL (4.8-10.8)
[2019-09-07 08:58] LABS: ALT (SGPT) 7 U/L (8-55); AST (SGOT) 11 U/L (5-34); Albumin 3.6 g/dL (3.4-4.8); Alkaline Phosphatase 54 U/L (40-110); Anion Gap 11 mmol/L (10-20); BUN (Urea Nitrogen) 22 mg/dL (9.8-20.1); Bilirubin, Total 0.2 mg/dL (0.2-1.2); Calc. Creatinine Clearance 0 mL/min (70-130); Carbon Dioxide 28 mmol/L (23-31); Chloride 107 mmol/L (98-107); Estimated GFR-MDRD 34; Globulin 2.6 g/dL (2.4-3.5); Glucose 106 mg/dL (83-110); Potassium 4.3 mmol/L (3.5-5.1); Protein, Total 6.2 g/dL (6.0-8.3); Sodium 142 mmol/L (136-145)
[2019-09-07] MEDS ORDERED: Ondansetron PF 4 MG/2 ML Vial IVP PRN (09:38)
--- NOTE | 2019-09-07 09:49 | PDOC.HHP ---
Hospitalist HPI - History of Present Illness Anemia History of Present Illness: This is an 84-year-old female with past medical history of hypertension, hyperlipidemia, hypothyroidism, chronic kidney disease, and recent diagnosis of atrial fibrillation. She was placed on Eliquis at the time of her diagnosis. The patient stated that since her discharge from the hospital she has been experiencing gradual weakness and decrease in her energy. This has prompted her to rule visit with her family doctor who ran some blood tests that revealed presence of hemoglobin of 6. The patient was subsequently sent to the emergency department where a fecal occult blood test was found to be positive. The patient denies any nausea or vomiting and denies any black stools. She takes Protonix daily for acid reflux. Hospitalist ROS - Review of Systems All other systems reviewed; all pertinent +/- noted in HPI/Subj Hospitalist History - Past Medical History Cardiac: reports: AFIB, HTN, Hyperlipidemia Pulmonary: reports: COPD Renal/: reports: Chronic renal failure Other Medical History: Breast CA - Past Surgical History Other Surgical History: Left breast lumpectomy. Lymph node removal. - Family History Family History: reports: no pertinent history - Social History Smoking Status: Former smoker Alcohol: reports: None Drugs: reports: none - Exam General Appearance: NAD, awake alert Eye: PERRL, anicteric sclera ENT: normocephalic atraumatic Neck: supple, symmetric, no JVD Heart: RRR, no murmur, no gallops Respiratory: CTAB, no wheezes, no rales, no ronchi Gastrointestinal: soft, non-tender, non-distended, normal bowel sounds Neurological: cranial nerve grossly intact, no focal deficits Hospitalist Results - Labs Result Diagrams: 09/07/19 08:30 09/07/19 08:30 Lab results: WBC 4.3 thou/uL (4.8-10.8) L 09/07/19 08:30 Hgb 5.9 g/dL (12.0-16.0) L* 09/07/19 08:30 Hct 18.4 % (36.0-47.0) L 09/07/19 08:30 MCV 101.0 fL (78.0-98.0) H 09/07/19 08:30 Plt Count 215 thou/uL (130-400) 09/07/19 08:30 Neutrophils % 56.1 % (42.0-75.0) 09/07/19 08:30 Sodium 142 mmol/L (136-145) 09/07/19 08:30 Potassium 4.3 mmol/L (3.5-5.1) 09/07/19 08:30 Chloride 107 mmol/L (98-107) 09/07/19 08:30 Carbon Dioxide 28 mmol/L (23-31) 09/07/19 08:30 BUN 22 mg/dL (9.8-20.1) H 09/07/19 08:30 Creatinine 1.49 mg/dL (0.6-1.1) H 09/07/19 08:30 Glucose 106 mg/dL (83-110) 09/07/19 08:30 Calcium 9.0 mg/dL (7.8-10.44) 09/07/19 08:30 Total Bilirubin 0.2 mg/dL (0.2-1.2) 09/07/19 08:30 AST 11 U/L (5-34) 09/07/19 08:30 ALT 7 U/L (8-55) L 09/07/19 08:30 Alkaline Phosphatase 54 U/L (40-110) 09/07/19 08:30 Serum Total Protein 6.2 g/dL (6.0-8.3) 09/07/19 08:30 Albumin 3.6 g/dL (3.4-4.8) 09/07/19 08:30 Hospitalist H&P A/P - Problem (1) Afib Code(s): I48.91 - UNSPECIFIED ATRIAL FIBRILLATION Status: Acute (2) GI bleeding Code(s): K92.2 - GASTROINTESTINAL HEMORRHAGE, UNSPECIFIED Status: Acute (3) Anemia due to acute blood loss Code(s): D62 - ACUTE POSTHEMORRHAGIC ANEMIA Status: Acute (4) Hypertension Code(s): I10 - ESSENTIAL (PRIMARY) HYPERTENSION Status: Chronic (5) Dyslipidemia Code(s): E78.5 - HYPERLIPIDEMIA, UNSPECIFIED Status: Chronic (6) Hypothyroidism Code(s): E03.9 - HYPOTHYROIDISM, UNSPECIFIED Status: Chronic - Plan Plan: Placed in telemetry observation. Transfused 2 units of packed RBCs. Check H&H tomorrow. Start Protonix 40 mg IV twice daily. Eliquis has been placed on hold. Gastroenterology consulted.
[2019-09-07] MEDS ORDERED: Pantoprazole 40 MG VIAL IVP SCH ×2 (09:50→11:30)
[2019-09-07] MEDS ORDERED: Benzonatate 100 MG CAP PO PRN (10:08)
[2019-09-07] MEDS ORDERED: Pantoprazole 40 MG VIAL ONE (11:53)
[2019-09-07 14:15] VITALS: BMI 20.9
[2019-09-07] MEDS: Flecainide 50 MG TAB PO SCH ×2 (21:10→23:08)
[2019-09-07] MEDS: traZODone HCl 150 MG TAB PO SCH (21:10)
[2019-09-07] MEDS: Pantoprazole 40 MG VIAL IVP SCH (21:10)
[2019-09-07] MEDS: Atorvastatin Calcium 10 MG TAB PO SCH (21:10)
[2019-09-07] MEDS: rOPINIRole HCl 0.5 MG TAB PO SCH (21:10)
--- NOTE | 2019-09-08 00:11 | CON ---
DATE OF CONSULTATION: 09/07/2019 This is a GI inpatient consultation note. REQUESTING PHYSICIAN: Franklin Carlson MD. REASON FOR CONSULTATION: Anemia and heme-positive stool. HISTORY OF PRESENT ILLNESS: Destinee Issa is a very pleasant 84-year-old woman with a history of chronic kidney disease, COPD, and breast cancer. She was hospitalized early last month with new onset atrial fibrillation. She was started on Eliquis at that time. Notably, hemoglobin was 11.7 during that hospitalization. Over the past five or six weeks since then, the patient reports that she has had progressive fatigue, generalized weakness, and dizziness, as well as increase in nausea. There has been no vomiting or abdominal pain. She presented to her primary care physician whose lab workup demonstrated new severe anemia with hemoglobin of 6. The patient presented here for further evaluation. Hemoglobin is 5.9 and she is getting her 2nd unit of RBC transfusion this evening. Through all of this, the patient reports that she has had no overt bleeding from anywhere. She denies any epistaxis, gross hematuria, melena, or hematochezia. Her bowel movements generally appear normal and fairly regular. No abnormal vaginal bleeding. FOBT was checked and is positive. Her Eliquis is being held today. She was started on Protonix 40 mg IV q.12 hours. REVIEW OF SYSTEMS: Full review of systems including constitutional, head, eyes, ears, nose, throat, GI, , cardiovascular, respiratory, musculoskeletal, neurologic systems is negative except as noted in the HPI. PAST MEDICAL HISTORY: 1. Hypertension, hyperlipidemia, hypothyroidism, chronic kidney disease, atrial fibrillation, diagnosed July 2019. 2. GERD, on daily Protonix. 3. COPD. 4. Breast cancer, status post lumpectomy and radiation 2017. 5. Last colonoscopy in 2007 showing tortuous colon and internal hemorrhoids as well as sigmoid diverticulosis. 6. In 2002, colon polyp removed. 7. Hiatal hernia, demonstrated on 2002 EGD. SOCIAL HISTORY: She is a former smoker. No drug or alcohol abuse. FAMILY HISTORY: Negative for GI illness or malignancy. ALLERGIES: CIPROFLOXACIN, PROPOXYPHENE. OUTPATIENT MEDICATIONS: 1. DuoNebs p.r.n. 2. Arimidex. 3. Pravastatin. 4. Tessalon Perles. 5. Bupropion. 6. Diltiazem. 7. Flecainide. 8. Lasix 40 mg daily. 9. Synthroid. 10. Zofran p.r.n. 11. Protonix 40 mg daily. 12. Ropinirole. 13. Trazodone. 14. Eliquis 5 mg b.i.d. 15. Mirtazapine 45 mg daily. 16. Losartan. PHYSICAL EXAMINATION: VITAL SIGNS: Temperature 98.6, pulse 86, blood pressure 156/64, 96% oxygen saturation on 1 L nasal cannula. GENERAL: An 84-year-old woman, lying in bed comfortably, in no distress. SKIN: She is pale. No jaundice. No rashes were palpable. EYES: No scleral icterus. Extraocular movements intact. ENT: Mucous membranes moist. No oral lesions. LYMPH: No submandibular or supraclavicular lymphadenopathy. THYROID: Nontender to palpation. HEART: Regular rate and rhythm. LUNGS: Clear to auscultation bilaterally. ABDOMEN: Nondistended. Bowel sounds present. Soft, nontender to palpation. EXTREMITIES: No peripheral edema. LABORATORY STUDIES: Hemoglobin 5.9, MCV 101, WBC 4.3, platelets 215. INR 1.0, BUN only 22, creatinine 1.49. LFTs all normal with total bilirubin 0.2, alkaline phosphatase 54, AST 11, ALT 7, albumin 3.6. IMAGING STUDIES: None this admission. ASSESSMENT/PLAN: 1. Severe symptomatic anemia, macrocytic. 2. Heme-positive stool. 3. Atrial fibrillation, on Eliquis for the past 5 to 6 weeks. The patient's new anemia just over the past month since having started Eliquis is quite concerning for occult GI bleeding lesion. Stool is heme positive. She has not had any colonoscopy since 2007 and does have a prior history of colon polyps. We discussed my recommendation that we proceed with EGD and colonoscopy for further assessment. The patient agrees and desires to proceed. We need to hold the Eliquis for 2 days prior to the exam. It is being held today. So we will plan to continue to hold the Eliquis, give her clear liquid diet tomorrow, bowel preparation tomorrow evening, and proceed with EGD/colonoscopy the following day. Thank you for the consultation. Please call anytime with questions or concerns. Job ID: [id number]
[2019-09-08] MEDS ORDERED: rOPINIRole HCl 0.5 MG TAB PO SCH (02:15)
[2019-09-08 05:03] LABS: #Eosinphils 0.1 thou/uL (0.0-0.7); #Lymphocytes 1.1 thou/uL (1.20-3.40); #Monocytes 0.4 thou/uL (0.11-0.59); #Neutrophils 2.1 thou/uL (1.40-6.50); %Basophils 0.5 % (0.0-1.0); %Eosinophils 3.9 % (0.0-10.0); %Lymphocytes 30.1 % (21.0-51.0); %Neutrophils 55.5 % (42.0-75.0); Hemoglobin 8.2 g/dL (12.0-16.0); Mean Corpuscular Hemoglobin 31.8 pg (27.0-31.0); Mean Corpuscular Volume 93.5 fL (78.0-98.0); Mean Platelet Volume 7.7 fL (7.4-10.4); Platelet Count 160 thou/uL (130-400); RBC Distribution Width 15.7 % (11.5-14.5); Red Blood Cell (RBC) Count 2.58 mill/uL (4.20-5.40); White Blood Cell (WBC) Count 3.8 thou/uL (4.8-10.8)
[2019-09-08 05:12] LABS: Anion Gap 9 mmol/L (10-20); BUN (Urea Nitrogen) 15 mg/dL (9.8-20.1); Calc. Creatinine Clearance 39 mL/min (70-130); Calcium 8.3 mg/dL (7.8-10.44); Carbon Dioxide 28 mmol/L (23-31); Chloride 109 mmol/L (98-107); Estimated GFR-MDRD 47; Glucose 86 mg/dL (83-110); Iron 31 ug/dL (50-170); Iron Binding Capacity, Total 301 mcg/dL (265-497); Potassium 4.1 mmol/L (3.5-5.1); Sodium 142 mmol/L (136-145)
[2019-09-08 05:34] LABS: Ferritin 8.49 ng/mL (10-291)
--- NOTE | 2019-09-08 07:25 | PDOC.HOSPP ---
- Subjective Encounter Date: 09/08/19 Encounter Time: 07:24 Subjective: no abd pain, feels better post transfusion - Objective Vital Signs & Weight: Vital Signs (12 hours) Temp Pulse Pulse Resp BP BP Pulse Ox 09/07/19 23:23 97.9 F 62 16 107/75 98 09/07/19 21:26 98.2 F 75 16 138/52 L Weight Weight 142 lb Most Recent Monitor Data Heart Rate from ECG 67 I&O: 09/07/19 09/08/19 09/09/19 06:59 06:59 06:59 Intake Total 1770 Output Total 350 Balance 1420 Result Diagrams: 09/08/19 04:35 09/08/19 04:35 Hospitalist ROS - Medication Medications: Active Medications Generic Name Dose Route Start Last Admin Trade Name Freq PRN Reason Stop Dose Admin Atorvastatin Calcium 10 mg 09/07/19 21:00 09/07/19 21:10 Lipitor PO 10 mg HS TENZIN Administration Flecainide Acetate 50 mg 09/07/19 21:00 09/07/19 23:08 Tambocor PO Not Given Q12HR TENZIN Pantoprazole Sodium 40 mg 09/07/19 21:00 09/07/19 21:10 Protonix IVP 40 mg Q12HR TENZIN Administration Ropinirole HCl 0.5 mg 09/07/19 21:00 09/07/19 21:10 Requip PO 0.5 mg HS TENZIN Administration Trazodone HCl 150 mg 09/07/19 21:00 09/07/19 21:10 Desyrel PO 150 mg HS TENZIN Administration - Exam General Appearance: awake alert Neck: no JVD Heart: no murmur, irregular Respiratory: CTAB Gastrointestinal: soft, normal bowel sounds Extremities: no edema Hosp A/P (1) Atrial fibrillation with controlled ventricular response Code(s): I48.91 - UNSPECIFIED ATRIAL FIBRILLATION Status: Chronic (2) Anemia due to acute blood loss Code(s): D62 - ACUTE POSTHEMORRHAGIC ANEMIA Status: Acute (3) GI bleeding Code(s): K92.2 - GASTROINTESTINAL HEMORRHAGE, UNSPECIFIED Status: Acute Qualifiers: GI bleed type/associated pathology: unspecified gastrointestinal hemorrhage type Qualified Code(s): K92.2 - Gastrointestinal hemorrhage, unspecified (4) Dyslipidemia Code(s): E78.5 - HYPERLIPIDEMIA, UNSPECIFIED Status: Chronic (5) Hypertension Code(s): I10 - ESSENTIAL (PRIMARY) HYPERTENSION Status: Chronic Qualifiers: Hypertension type: essential hypertension Qualified Code(s): I10 - Essential (primary) hypertension (6) Hypothyroidism Code(s): E03.9 - HYPOTHYROIDISM, UNSPECIFIED Status: Chronic - Plan consult cardiology Endoscopy tomorrrow serial H&H hold ethan
[2019-09-08] MEDS: Bupropion 150 MG XL TAB PO SCH (08:05)
[2019-09-08] MEDS: Levothyroxine Sodium 100 MCG TAB PO SCH (08:06)
[2019-09-08] MEDS: Potassium Chloride 10 MEQ TAB PO SCH (08:06)
[2019-09-08] MEDS: Pantoprazole 40 MG VIAL IVP SCH ×2 (08:06→20:13)
[2019-09-08] MEDS: Anastrozole 1 MG TAB PO SCH (08:06)
[2019-09-08] MEDS: Furosemide 40 MG TAB PO SCH (08:06)
[2019-09-08] MEDS: Flecainide 50 MG TAB PO SCH ×2 (08:08→20:12)
[2019-09-08] MEDS ORDERED: Acetaminophen 325 MG TAB PO PRN (08:43)
[2019-09-08] MEDS ORDERED: GoLYTELY 4,000 ml Bottle PO SCH (09:00)
--- NOTE | 2019-09-08 09:45 | PRG ---
DATE OF SERVICE: 09/08/2019 SUBJECTIVE: Ms. Issa is feeling pretty well. She has a little bit more energy after transfusion yesterday, still feels a bit unstable. There has been no abdominal pain or nausea. She is tolerating clear liquids today. OBJECTIVE: VITAL SIGNS: Temperature 98.0, pulse 62, blood pressure 116/53, and 100% oxygen saturation on room air. GENERAL: No acute distress. Sitting up in bed comfortably. HEART: Regular rate and rhythm. LUNGS: Clear to auscultation bilaterally. ABDOMEN: Bowel sounds present. Soft and nontender. EXTREMITIES: No peripheral edema. LABORATORY STUDIES: Hemoglobin up to 8.2 after 2 units transfusion. WBC 3.8, platelets 160. INR is 1.0. Sodium 142, potassium 4.1, BUN 15, creatinine 1.12. Ferritin is only 8.49, iron 31, TIBC 301. Vitamin B12 was low at 162 and folic acid normal at 13.3. ASSESSMENT AND PLAN: 1. Iron-deficiency anemia. 2. Vitamin B12 deficiency. 3. Heme-positive stool. We are going to stick with the plan to administer bowel preparation this evening and proceed with EGD and colonoscopy tomorrow. I have advised that the patient can start the bowel prep a bit early to give her more time to get it down due to her tendency to nausea. She can also get a Zofran as needed to help her tolerate the prep. Following the procedure, the patient is going to need to be on iron and vitamin B12 supplementation going forward. Job ID: [id number]
--- NOTE | 2019-09-08 15:27 | CON ---
DATE OF CONSULTATION: 09/08/2019 REASON FOR CONSULTATION: GI bleed in the setting of Eliquis for atrial fibrillation. PRIMARY YOUTH ACCOMMODATION SUPPORT WORKER: Shola Rodriguez MD HISTORY OF PRESENT ILLNESS: Ms. Issa is a very pleasant 84-year-old white female, who comes to the hospital for feeling tired. She was admitted and found to have a really low hemoglobin of 5.9. She has been given several units of blood and she is up to 8.2 now. She was admitted in the hospital at the beginning of the year on the 26 of July for atrial fibrillation. She was started on Tambocor and Eliquis, and had a KIRSTEN cardioversion and successfully was converted to sinus rhythm and has maintained sinus rhythm since. She noticed feeling worse and worse in last few days, admitted with hemoglobin of 5, given blood transfusions, and scheduled to have endoscopies tomorrow. Cardiology has been consulted to help with stroke prophylaxis in the setting of GI bleed. PAST MEDICAL HISTORY: 1. Hypothyroidism. 2. History of breast cancer. 3. History of heart failure. 4. Paroxysmal atrial fibrillation. PAST SURGICAL HISTORY: 1. Left breast lumpectomy. 2. Lymph node removal. SOCIAL HISTORY: No alcohol, tobacco, or drugs. Former smoker. FAMILY HISTORY: Noncontributory. OUTPATIENT MEDICATIONS: 1. Flecainide 50 mg b.i.d. 2. Tessalon Perles. 3. Eliquis 5 mg b.i.d. 4. Trazodone. 5. Ropinirole. 6. Pravachol. 7. Potassium chloride. 8. Protonix. 9. Mirtazapine. 10. Losartan 25 mg a day. 11. Levothyroxine 100 mcg a day. 12. Ibandronate. 13. Furosemide 40 mg a day. 14. Diltiazem 120 mg a day. 15. Bupropion. 16. Arimidex. ALLERGIES: CIPROFLOXACIN AND DARVON CAUSED HER HIVES. REVIEW OF SYSTEMS: A 12-point review of systems was done and was all negative except stated in the history of present illness. PHYSICAL EXAMINATION: VITAL SIGNS: Temperature 97.5, pulse 81, respiratory rate 19, saturating 93% on room air, blood pressure 122/57. GENERAL: Awake, alert, and oriented x3. No distress. HEENT: Normocephalic and atraumatic. NECK: Supple. LUNGS: Clear. CARDIOVASCULAR: S1 and S2. No S3 or S4. No murmurs. ABDOMEN: Soft. Positive bowel sounds. EXTREMITIES: No edema. SKIN: Warm and dry. LABORATORY DATA: Laboratory work was reviewed. White count of 4.3, hemoglobin of 5.9 up to 8.2, hematocrit from 18 to 24, platelet count of 215. Coags were normal. Chemistries were unremarkable except for a creatinine of 1.49, down to 1.12 after blood transfusions. Ferritin was low at 8.4. Vitamin B12 was low at 162. Folate was normal. Most recent echocardiogram was done on the 27 of July on her last admission. EF was 50% to 55%, dilated left atrium. ASSESSMENT: 1. Paroxysmal atrial fibrillation. 2. Acute blood loss anemia. 3. Gastrointestinal bleed, most likely. 4. CHADS2-VASc score of 4 for a female, age above 75 and hypertension. PLAN: 1. Stop all anticoagulants and antiplatelets since her hemoglobin is stabilized. 2. Await GI recommendations as far as bleeding sources are concerned. Scheduled to have endoscopies tomorrow. 3. She will most likely not be a candidate for full anticoagulation. We spoke about Watchman device and Lariat device. She would probably be a candidate more for Lariat as the Watchman will require 3 months of full anticoagulation. It has only been one month and she already bled quite a few units. Thank you for letting us participate in the care of your patient. We will follow. Further recommendations per results of endoscopies and Dr. Rodriguez will follow up on Tuesday. Job ID: [id number]
[2019-09-08] MEDS: traZODone HCl 150 MG TAB PO SCH (20:12)
[2019-09-08] MEDS: rOPINIRole HCl 0.5 MG TAB PO SCH (20:12)
[2019-09-08] MEDS: Atorvastatin Calcium 10 MG TAB PO SCH (20:12)
[2019-09-09 04:02] LABS: #Eosinphils 0.1 thou/uL (0.0-0.7); #Lymphocytes 0.9 thou/uL (1.20-3.40); #Monocytes 0.4 thou/uL (0.11-0.59); #Neutrophils 2.3 thou/uL (1.40-6.50); %Basophils 0.4 % (0.0-1.0); %Eosinophils 3.3 % (0.0-10.0); %Lymphocytes 23.8 % (21.0-51.0); %Monocytes 11.1 % (0.0-10.0); %Neutrophils 61.5 % (42.0-75.0); Hemoglobin 8.9 g/dL (12.0-16.0); Mean Corpuscular HGB CONC 33.5 g/dL (32.0-36.0); Mean Corpuscular Hemoglobin 31.3 pg (27.0-31.0); Mean Corpuscular Volume 93.3 fL (78.0-98.0); Mean Platelet Volume 7.7 fL (7.4-10.4); Platelet Count 151 thou/uL (130-400); RBC Distribution Width 15.1 % (11.5-14.5); Red Blood Cell (RBC) Count 2.83 mill/uL (4.20-5.40); White Blood Cell (WBC) Count 3.8 thou/uL (4.8-10.8)
[2019-09-09 04:17] LABS: Anion Gap 13 mmol/L (10-20); BUN (Urea Nitrogen) 12 mg/dL (9.8-20.1); Calc. Creatinine Clearance 39 mL/min (70-130); Carbon Dioxide 29 mmol/L (23-31); Chloride 103 mmol/L (98-107); Estimated GFR-MDRD 47; Glucose 89 mg/dL (83-110); Potassium 3.6 mmol/L (3.5-5.1); Sodium 141 mmol/L (136-145)
[2019-09-09] MEDS ORDERED: Ketamine 50 MG/ML (10ML VIAL) ONE (07:44)
[2019-09-09] MEDS ORDERED: Scopolamine 1.5 mg/72 hour Patch ONE (07:49)
[2019-09-09] MEDS ORDERED: Ondansetron HCl/PF 4 MG/2 ML Vial IVP PRN (08:02)
[2019-09-09] MEDS ORDERED: Scopolamine 1.5 mg/72 hour Patch TD SCH (08:15)
[2019-09-09] MEDS ORDERED: PROPOFOL 200 MG/20 ML VIAL ONE (09:45)
[2019-09-09] MEDS: Bupropion 150 MG XL TAB PO SCH (09:46)
[2019-09-09] MEDS: Anastrozole 1 MG TAB PO SCH (09:46)
[2019-09-09] MEDS: Flecainide 50 MG TAB PO SCH ×2 (09:47→20:27)
[2019-09-09] MEDS: Levothyroxine Sodium 100 MCG TAB PO SCH (09:47)
[2019-09-09] MEDS: Furosemide 40 MG TAB PO SCH (09:47)
--- NOTE | 2019-09-09 09:47 | OP ---
DATE OF PROCEDURE: 09/09/2019 YOUTH LIAISON OFFICER SURGEON: None. PROCEDURES: 1. Esophagogastroduodenoscopy, diagnostic. 2. Colonoscopy with snare polypectomy. INDICATIONS: 1. Iron-deficiency anemia, new onset in the context of recently starting anticoagulation. 2. Vitamin B12 deficiency. 3. Heme-positive stool. MEDICATIONS: See Anesthesia record. FINDINGS: After discussion of the risks, benefits, and alternatives of the procedure, informed consent was obtained and witnessed. Pre-endoscopic cardiopulmonary examination was satisfactory. Time-out was performed before sedation was achieved. Sedation was achieved with Anesthesia assistance in the endoscopy unit. A Pentax adult upper endoscope was placed into the oropharynx and passed through the cricopharyngeus under direct visualization. The esophageal mucosa appeared normal throughout with a normal-appearing Z-line. The endoscope was advanced into the stomach. Forward and retroflexed views of the entire gastric mucosa were obtained. The gastric mucosa appeared normal throughout. The endoscope was advanced through the pylorus and into the first and second portions of the duodenum, which also appeared normal. The upper endoscope was completely withdrawn and the patient was repositioned. Digital rectal exam was performed, which was unremarkable. A Pentax adult colonoscope was inserted into the anus and passed forward to the cecum in the usual fashion. The cecal base was identified by the appendiceal orifice as well as the ileocecal valve. The terminal ileum was intubated and the ileal mucosa appeared normal. The colonoscope was slowly withdrawn in a gradual and circumferential manner with careful examination of the entire colonic mucosa. The quality of the prep was good. In the transverse colon, there was a single small 2 mm polyp. This was completely removed with cold snare and retrieved for pathology. There was diverticulosis of the sigmoid colon. Retroflexion in the rectum demonstrates internal hemorrhoids. The remainder of the colonoscopy was normal. The colonoscope was completely withdrawn and the patient allowed to recover. The patient tolerated the procedure well. There were no immediate postprocedure complications. IMPRESSION: 1. Normal EGD. 2. 2 mm transverse colon polyp, completely removed with cold snare and retrieved for pathology. 3. Sigmoid diverticulosis. 4. Internal hemorrhoids. 5. Otherwise normal colonoscopy to the terminal ileum. RECOMMENDATIONS: 1. Follow up pathology on the colon polyps. 2. No plan for repeat colonoscopy, due to the patient's age. 3. Continue with iron and vitamin B12 supplementation. 4. If the decision is made to restart anticoagulation, monitor hemoglobin and hematocrit closely as an outpatient. 5. Follow up in the GI Clinic with Dr. Joseph. If anemia is persistent or worsening, consideration could be given to outpatient small bowel capsule endoscopy. GI will sign off. Please call back if needed. Job ID: [id number]
[2019-09-09] MEDS: Sodium Chloride 0.9% (PF) 10 ML VIAL FS PRN ×2 (09:48→20:28)
[2019-09-09] MEDS: Pantoprazole 40 MG VIAL IVP SCH ×2 (09:48→20:28)
[2019-09-09] MEDS: Potassium Chloride 10 MEQ TAB PO SCH (09:48)
--- NOTE | 2019-09-09 14:28 | PDOC.HOSPP ---
- Subjective Encounter Date: 09/09/19 Subjective: S/P EGD and Colonoscopy Pt tolerated the procedure well tolerating clear liquids - Objective Vital Signs & Weight: Vital Signs (12 hours) Temp Pulse Resp BP Pulse Ox 09/09/19 12:19 97.9 F 65 14 131/60 100 09/09/19 10:09 96 09/09/19 09:47 67 09/09/19 09:39 97.5 F L 67 15 125/54 L 96 09/09/19 04:00 98.5 F 59 L 18 126/80 95 Weight Admit Weight 142 lb Weight 146 lb 3.2 oz Most Recent Monitor Data Heart Rate from ECG 67 I&O: 09/08/19 09/09/19 09/10/19 06:59 06:59 06:59 Intake Total 1770 Output Total 350 Balance 1420 Result Diagrams: 09/09/19 03:47 09/09/19 03:47 Hospitalist ROS - Medication Medications: Active Medications Generic Name Dose Route Start Last Admin Trade Name Freq PRN Reason Stop Dose Admin Acetaminophen 650 mg 09/08/19 08:43 09/08/19 09:18 Tylenol PO 650 mg Q4H PRN Administration Headache/Fever or Pain Anastrozole 1 mg 09/08/19 09:00 09/09/19 09:46 Arimidex PO 1 mg DAILY TENZIN Administration Atorvastatin Calcium 10 mg 09/07/19 21:00 09/08/19 20:12 Lipitor PO 10 mg HS TENZIN Administration Bupropion HCl 300 mg 09/08/19 09:00 09/09/19 09:46 Wellbutrin Xl PO 300 mg DAILY TENZIN Administration Diltiazem HCl 120 mg 09/08/19 09:00 09/09/19 09:47 Cardizem Cd PO 120 mg DAILY TENZIN Administration Flecainide Acetate 50 mg 09/07/19 21:00 09/09/19 09:47 Tambocor PO 50 mg Q12HR TENZIN Administration Furosemide 40 mg 09/08/19 09:00 09/09/19 09:47 Lasix PO 40 mg DAILY TENZIN Administration Levothyroxine Sodium 100 mcg 09/08/19 09:00 09/09/19 09:47 Synthroid PO 100 mcg DAILY TENZIN Administration Ondansetron HCl 4 mg 09/07/19 09:38 09/08/19 18:56 Zofran IVP 4 mg Q6H PRN Administration Nausea/Vomiting Pantoprazole Sodium 40 mg 09/07/19 21:00 09/09/19 09:48 Protonix IVP 40 mg Q12HR TENZIN Administration Potassium Chloride 10 meq 09/08/19 09:00 09/09/19 09:48 Klor-Con 10 PO 10 meq DAILY TENZIN Administration Scopolamine 1.5 mg 09/09/19 08:15 09/09/19 09:44 Transderm Scop TD Not Given Q3D TENZIN Sodium Chloride 10 ml 09/07/19 11:34 09/09/19 09:48 Normal Saline Pf FS 10 ml PRN PRN Administration RECONSTITUTION Trazodone HCl 150 mg 09/07/19 21:00 09/08/19 20:12 Desyrel PO 150 mg HS TENZIN Administration - Exam General Appearance: awake alert Eye: anicteric sclera ENT: normocephalic atraumatic, no oropharyngeal lesions Neck: supple, no JVD Heart: RRR, no murmur, no gallops, no rubs Respiratory: CTAB Gastrointestinal: soft, non-tender, non-distended, normal bowel sounds Hosp A/P (1) Afib Code(s): I48.91 - UNSPECIFIED ATRIAL FIBRILLATION Status: Acute (2) GI bleeding Code(s): K92.2 - GASTROINTESTINAL HEMORRHAGE, UNSPECIFIED Status: Acute Qualifiers: GI bleed type/associated pathology: unspecified gastrointestinal hemorrhage type Qualified Code(s): K92.2 - Gastrointestinal hemorrhage, unspecified (3) Anemia due to acute blood loss Code(s): D62 - ACUTE POSTHEMORRHAGIC ANEMIA Status: Acute (4) Hypertension Code(s): I10 - ESSENTIAL (PRIMARY) HYPERTENSION Status: Chronic Qualifiers: Hypertension type: essential hypertension Qualified Code(s): I10 - Essential (primary) hypertension (5) Dyslipidemia Code(s): E78.5 - HYPERLIPIDEMIA, UNSPECIFIED Status: Chronic (6) Hypothyroidism Code(s): E03.9 - HYPOTHYROIDISM, UNSPECIFIED Status: Chronic - Plan Status post EGD/COLONOSCOPY. EGD unremarkable Colonoscopy with snare biopsy of colonic polyp No further episodes of bleeding Advance to cardiac diet Eliquid on hold Likely DC in th AM
--- NOTE | 2019-09-09 17:40 | PDOC.CPN ---
- Subjective Date: 09/09/19 Time: 17:38 - Review of Systems General: denies: fever/chills, weight/appetite/sleep changes, night sweats, fatigue Respiratory: denies: cough, congestion, shortness of breath, exercise intolerance Cardiovascular: denies: chest pain, palpitation, edema, paroxysmal nocturnal dyspnea, orthopnea Gastrointestinal: denies: nausea, vomiting, diarrhea, constipation, abd pain, GI bleeding Musculoskeletal: denies: pain, tenderness, stiffness, swelling, arthritis/ arthralgias Neurological: denies: numbness, syncope, seizure, weakness - Objective Allergies/Adverse Reactions: Allergies Allergy/AdvReac Type Severity Reaction Status Date / Time ciprofloxacin [From Cipro] Allergy Intermediate Hives Verified 09/07/19 16:06 propoxyphene [From Darvon] Allergy Intermediate Hives Verified 09/07/19 16:06 Visit Medications: Current Medications Acetaminophen (Tylenol) 650 mg PO Q4H PRN PRN Reason: Headache/Fever or Pain Last Admin: 09/08/19 09:18 Dose: 650 mg Albuterol/Ipratropium (Duoneb) 3 ml NEB Q6H PRN PRN Reason: SOB &/or Wheezing Anastrozole (Arimidex) 1 mg PO DAILY [facility] Last Admin: 09/09/19 09:46 Dose: 1 mg Atorvastatin Calcium (Lipitor) 10 mg PO HS [facility] Last Admin: 09/08/19 20:12 Dose: 10 mg Benzonatate (Tessalon) 100 mg PO TIDPRN PRN PRN Reason: Cough Bupropion HCl (Wellbutrin Xl) 300 mg PO DAILY [facility] Last Admin: 09/09/19 09:46 Dose: 300 mg Diltiazem HCl (Cardizem Cd) 120 mg PO DAILY [facility] Last Admin: 09/09/19 09:47 Dose: 120 mg Flecainide Acetate (Tambocor) 50 mg PO Q12HR [facility] Last Admin: 09/09/19 09:47 Dose: 50 mg Furosemide (Lasix) 40 mg PO DAILY [facility] Last Admin: 09/09/19 09:47 Dose: 40 mg Levothyroxine Sodium (Synthroid) 100 mcg PO DAILY [facility] Last Admin: 09/09/19 09:47 Dose: 100 mcg Ondansetron HCl (Zofran) 4 mg IVP Q6H PRN PRN Reason: Nausea/Vomiting Last Admin: 09/08/19 18:56 Dose: 4 mg Pantoprazole Sodium (Protonix) 40 mg IVP Q12HR [facility] Last Admin: 09/09/19 09:48 Dose: 40 mg Potassium Chloride (Klor-Con 10) 10 meq PO DAILY [facility] Last Admin: 09/09/19 09:48 Dose: 10 meq Ropinirole HCl (Requip) 1 mg PO HS [facility] Scopolamine (Transderm Scop) 1.5 mg TD Q3D [facility] Last Admin: 09/09/19 09:44 Dose: Not Given Sodium Chloride (Flush - Normal Saline) 10 ml IVF PRN PRN PRN Reason: Saline Flush Sodium Chloride (Normal Saline Pf) 10 ml FS PRN PRN PRN Reason: RECONSTITUTION Last Admin: 09/09/19 09:48 Dose: 10 ml Trazodone HCl (Desyrel) 150 mg PO HS [facility] Last Admin: 09/08/19 20:12 Dose: 150 mg Vital Signs & Weight: Vital Signs Temp Pulse Resp BP Pulse Ox 09/09/19 16:13 98.1 F 60 15 101/55 L 99 09/09/19 12:19 97.9 F 65 14 131/60 100 09/09/19 10:09 96 09/09/19 09:47 67 09/09/19 09:39 97.5 F L 67 15 125/54 L 96 Admit Weight 142 lb Weight 146 lb 3.2 oz - Physical Exam General: alert & oriented x3 HEENT: mucus membranes moist Neck: supple neck Cardiac: regular rate and rhythm Lungs: clear to auscultation Neuro: grossly intact Abdomen: active bowel sounds Extremities: no edema Skin: clear Musculoskeletal: no pain - Labs Result Diagrams: 09/09/19 03:47 09/09/19 03:47 - Telemetry Sinus rhythms and dysrhythmias: sinus rhythm - Assessment/Plan Assessment/Plan: 1. GI bleeding. 2. Paroxysmal afib 3. CHADs VASc score of 4. PLAN: - Aspirin alone for stroke prophylaxis. - Would be a candidate for Lariat or watchman device. - Dr. Rodriguez to see tomorrow.
[2019-09-09] MEDS: Atorvastatin Calcium 10 MG TAB PO SCH (20:27)
[2019-09-09] MEDS: traZODone HCl 150 MG TAB PO SCH (20:27)
[2019-09-09] MEDS ORDERED: rOPINIRole HCl 1 MG TAB PO SCH (21:00)
[2019-09-10 04:34] LABS: Anion Gap 10 mmol/L (10-20); BUN (Urea Nitrogen) 14 mg/dL (9.8-20.1); Calc. Creatinine Clearance 34 mL/min (70-130); Calcium 7.8 mg/dL (7.8-10.44); Carbon Dioxide 32 mmol/L (23-31); Chloride 102 mmol/L (98-107); Estimated GFR-MDRD 36; Glucose 98 mg/dL (83-110); Potassium 3.9 mmol/L (3.5-5.1); Sodium 140 mmol/L (136-145)
[2019-09-10 06:01] LABS: Hemoglobin 7.6 g/dL (12.0-16.0); Mean Corpuscular HGB CONC 33.3 g/dL (32.0-36.0); Mean Corpuscular Hemoglobin 31.5 pg (27.0-31.0); Mean Corpuscular Volume 94.7 fL (78.0-98.0); Mean Platelet Volume 7.9 fL (7.4-10.4); Platelet Count 152 thou/uL (130-400); RBC Distribution Width 14.5 % (11.5-14.5); Red Blood Cell (RBC) Count 2.42 mill/uL (4.20-5.40); White Blood Cell (WBC) Count 3.5 thou/uL (4.8-10.8)
[2019-09-10] MEDS: Bupropion 150 MG XL TAB PO SCH (08:46)
[2019-09-10] MEDS: Flecainide 50 MG TAB PO SCH (08:47)
[2019-09-10] MEDS: Furosemide 40 MG TAB PO SCH (08:48)
[2019-09-10] MEDS: Potassium Chloride 10 MEQ TAB PO SCH (08:48)
[2019-09-10] MEDS: Anastrozole 1 MG TAB PO SCH (08:48)
[2019-09-10] MEDS: Levothyroxine Sodium 100 MCG TAB PO SCH (08:48)
[2019-09-10] MEDS: Pantoprazole 40 MG VIAL IVP SCH (08:49)
[2019-09-10] MEDS: Sodium Chloride 0.9% (PF) 10 ML VIAL FS PRN (08:49)
[2019-09-10 08:59] LABS: Eosinophils 2 % (0-10); Hypochromia SLIGHT = 6-15 cells (100X) (0-5/hpf); Lymphocytes 21 % (21-51); MDiff Complete? YES; Monocytes 6 % (0-10); Neutrophil 71 % (42-75); Ovalocytes SLIGHT = 2-5 cells (100X) (0-1/hpf); Platelet Morphology Comment Appears Adequate; Polychromasia SLIGHT = 2-3 cells (100X) (0-2/hpf)
[2019-09-10 11:31] VITALS: BP 112/57; TEMP 98
--- NOTE | 2019-09-10 12:52 | CON ---
DATE OF CONSULTATION: 09/10/2019 HISTORY OF PRESENT ILLNESS: I am seeing Ms. 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 Her problems are: 1. Paroxysmal atrial fibrillation. a. Initially received flecainide, stopped due to interaction with Bupropion, now on Multaq in sinus rhythm. 2. History of diastolic heart failure. a. LVEF 50% to 55%, moderate left atrial enlargement and mild right atrial enlargement, mild MR and TR on echo 07/27/2019. 3. CHADS-VASc score of 5 with history of heart failure, hypertension, age, and gender. Previously on Eliquis. a. GI bleed with anemia, prompted discontinuation of Eliquis this admission. b. Upper and lower GI evaluations so far negative for definite bleeding spot, although internal hemorrhoids and sigmoid diverticulosis were seen. 4. History of hypothyroidism. ALLERGIES: CIPROFLOXACIN AND PROPOXYPHENE. MEDICATIONS: At home included: 1. Ibandronate. 2. Levothyroxine. 3. Ropinirole. 4. Trazodone. 5. Atorvastatin. 6. Bupropion. 7. Pantoprazole. 8. Losartan. 9. Furosemide. 10. Anastrozole. 11. Potassium. 12. Mirtazapine. 13. Diltiazem CD 120 mg a day. 14. Flecainide 50 mg twice a day. 15. Apixaban. 16. Benzonatate. 17. The patient has been on Multaq. SUBJECTIVE: Ms. Issa is here after she was found to be severely anemic, hemoglobin of 6. GI bleed was suspected. Her anticoagulation was stopped and she received 2 units of packed red blood cells on the and now hemoglobin levels improved. Her fatigue and tiredness, which was the main symptom has also improved. She denies palpitations at this point. No dizziness or loss of consciousness. No stroke-like symptoms. No neurological deficit. No angina to suggest myocardial process. Rest of 12-point review of system otherwise unremarkable. PAST MEDICAL HISTORY: Past history as above. She has history of breast cancer and left breast lumpectomy and lymph node removal as well. She has been noted to have atrial fibrillation. Last admission in July, after which she was started on flecainide. According to the patient, she was later switched to Multaq due to interaction, but currently she is still on flecainide at this time. SOCIAL HISTORY: The patient denies smoking, EtOH, or drug abuse. Her daughter and son in the room at the time of exam. FAMILY HISTORY: Not contributory. OBJECTIVE DATA: VITAL SIGNS: Blood pressure 139/57, heart rate 60, respirations 14, and temperature 97.9 degrees Fahrenheit. GENERAL: Alert and oriented woman, in no apparent distress. NECK: Supple. Jugular veins not distended. CHEST: Coarse without crackles. HEART: Sounds are regular to rate and rhythm. No murmur or gallop. ABDOMEN: Benign. Bowel sounds positive. EXTREMITIES: Lower extremities without edema, clubbing, or cyanosis. Pulses are adequate. NEUROLOGIC: The patient is nonfocal. MUSCULOSKELETAL: Without joint swelling or deformity. SKIN: Without rash. DATABASE: EKG is reviewed revealing on admission sinus rhythm, no significant ST-T changes, some sinus bradycardia in the 50s are noted. LABORATORY DATA: White blood cell count is 3.5 today, hemoglobin at 7.6, and platelet count is 152. INR 1. Sodium 140, potassium 3.9, BUN is 14, and creatinine is 1.39. The AST and ALT are 11 and 7. INR is 1.0 on admission. ASSESSMENT AND PLAN: Ms. Issa is an 84-year-old woman with history of diastolic heart failure and hypertension, who presented with an atrial fibrillation episode last month following after an upper respiratory tract infection. She underwent a KIRSTEN-guided cardioversion and was placed on antiarrhythmic agents. Also Eliquis was initiated and she maintained sinus rhythm currently. On the other hand, her hemoglobin was found to be severely depressed in the 6 range, required transfusions. Gastroenterology evaluation revealed diverticulosis and hemorrhoids, but no active bleeding. Consideration for capsule endoscopy is planned for outpatient. At this point, she is off anticoagulants and maintain sinus rhythm. We did discuss the issues regarding potential future recurrences of atrial fibrillation and related stroke. Likely at this point, she is still maintaining sinus rhythm on antiarrhythmic agents. On the other hand, longer-term left atrial appendage occlusion would be a strong consideration. We discussed also the differences between a Watchman versus Lariat procedure. For now, she is not clear by Gastroenterology to go back on anticoagulants, but if that becomes feasible, full dose or even half does Eliquis would let her undergo the Watchman device procedure. This will be likely a more simple procedure than a Lariat procedure, which is considered for people with episode of contraindication to anticoagulants. At this point, we agreed to have them follow up with Dr. Joseph, who may have her undergo a videoendoscopy. I will make arrangements to have her follow up in our office after Dr. Joseph potential cleared her for starting for entire anticoagulation. In the meantime, we will continue the flecainide or Multaq of Dr. Rodriguez's choice. We will again see her in three weeks. Job ID: [id number]
[2019-09-10] MEDS ORDERED: Dronedarone HCl 400 MG TAB PO SCH (17:00)
--- NOTE | 2019-09-10 23:47 | DIS ---
DATE OF ADMISSION: 09/08/2019 DATE OF DISCHARGE: 09/10/2019 HISTORY OF PRESENT ILLNESS AND HOSPITAL COURSE: This is an 84-year-old female with past medical history of hypertension, hyperlipidemia, hypothyroidism, chronic kidney disease, and recent diagnosis of atrial fibrillation, on Eliquis. The patient stated that since her discharge from the hospital, she has been experiencing weakness and decrease in her energy. She followed up with her family doctor and laboratory work revealed anemia. The patient was transferred to the emergency department, where a fecal occult blood test was positive. She was admitted to the hospital and GI Service were consulted. The patient underwent EGD and colonoscopy, where EGD showed no acute abnormalities and colonoscopy revealed presence of a colonic polyp that was biopsied. No further episodes of bleeding were noted in the hospital. The patient also received blood transfusion. Eliquis has been placed on hold. She was seen by Cardiology during her hospital stay and aspirin was recommended for CVA prophylaxis and consideration for Watchman device was also recommended. The patient will follow with her PCP in 1 week and was recommended to follow with Cardiology in 1 to 2 weeks as well. DISCHARGE DIAGNOSES: 1. Gastrointestinal bleeding. 2. Atrial fibrillation. 3. Anemia due to acute blood loss. 4. Hypertension. 5. Hyperlipidemia. 6. Hypothyroidism. DISCHARGE MEDICATIONS: 1. Aspirin 81 mg orally daily. 2. mg orally daily. 3. Benzonatate 100 mg orally 3 times a day. 4. Bupropion 300 mg orally daily. 5. Diltiazem 120 mg extended release orally daily. 6. Flecainide 50 mg orally q.12 hours. 7. Furosemide 40 mg orally daily. 8. Levothyroxine 100 mcg orally daily. 9. Potassium chloride 10 mEq orally daily. 10. Pravastatin 40 mg orally nightly. 11. Ropinirole 1 mg orally nightly. 12. Trazodone 50 mg orally nightly. 13. Losartan 25 mg orally daily. 14. Mirtazapine 45 mg orally daily. 15. Pantoprazole 40 mg orally daily. 16. Ibandronate 150 mg orally every 30 days. Job ID: [id number]
--- NOTE | 2019-09-11 04:28 | PQF ---
YUNG THRASHER MOEZ [id number] [facility] [id number] CLINICAL DOCUMENTATION CLARIFICATION FORM: POST DISCHARGE Addendum to original discharge summary date: ____ Late entry note date: __ DATE:09/11/2019 ATTN: Franklin Hedrick Please exercise your independent, professional judgment in responding to the clarification form. Clinical indicators are provided on the bottom of this form for your review In your clinical opinion based on clinical findings below, can you please identify the etiology of GI bleed if due to: Please check appropriate box(s): [ > ] Adverse effect of Eliquis [ ] Diverticulosis [ > ] Colon Polyp [ ] Internal Hemorrhoids [ ] Other diagnosis [ ] Unable to determine In addition, please specify: Present on Admission (POA): [ > ] Yes [ ] No [ ] Unable to determine For continuity of documentation, please document condition throughout progress notes and discharge summary. Thank You. CLINICAL INDICATORS - SIGNS / SYMPTOMS / LABS Chemistry Hematology 09/07 WBC 4.3, RBC 1.82, Hgb 5.9, Hct 18.4 Microbiology 09/07 - stool occult blood positive H&P p1 09/07 Dr Carlson recent diagnosis of Afib. She was placed on Eliquis at the time of her diagnosis H&P p1 09/07 Dr Carlson The pt stated that since her discharge from the hospital she has been experiencing gradual weakness and decrease in her energy H&P p1 09/07 Dr Carlson prompted her to rule visit with her family doctor who ran some blood tests that revealed presence of hemoglobin of 6. H&P p1 09/07 Dr Carlson The pt was subsequent sent to ED where a fecal occult blood test was found to be positive GE consult p3 09/07 Dr Hicks The pt new anemia just over the past month since having started Eliquis is quite concerning of occult GI bleeding lesion Operative report p2 09/09 Impression: Colon polyp, Sigmoid Diverticulosis, Internal hemorrhoids DS p1 09/10 Dr Carlson colonoscopy revealed presence of a colonic polyp that was biopsied. No further episodes of bleeding were noted. RISK FACTORS H&P p1 09/07 84 year-old Female H&P p1 09/07 HTN H&P p1 09/07 Hyperlipidemia H&P p1 09/07 CKD H&P p1 09/07 Former Smoker H&P p1 09/07 Afib on Eliquis H&P p1 09/07 Acid reflux on Protonix H&P p3 09/07 Anemia due to acute blood loss TREATMENTS: SEP 23 IV Zofran 4mg SEP 23 IV Protonix 40mg SEP 23 IVF 1L SEP 23 Transderm Scop 1.5 mg TD Microbiology stool occult blood test ordered 09/07 Blood bank 09/07 - 2U PRBC H&P p3 09/07 Placed in telemetry observation H&P p3 09/07 Eliquis has been placed on hold H&P p3 09/07 Check H&H GE consult 09/07 Cain Worrell EGD performed by Dr Hicks on 09/[address] Hicks on 09/09 (This form is maintained as a part of the permanent medical record) 2014 [employer] All Rights Reserved [email or web address]
== END 2019-09-10 12:50 | disposition home or self-care (01) | DRG 378 ==
LOC: ERS 07:52 → 2SW 13:51 → OBSVTOIN 09-08 07:13 → 2NO 09-08 10:13
PROVIDERS: ADMIT Internal Medicine; ATTEND Internal Medicine
PROC: 30233N1 Transfusion of Nonautologous Red Blood Cells into Peripheral Vein, Percutaneous Approach (ICD-10-PCS; 2019-09-07)
PROC: 0DBL8ZZ Excision of Transverse Colon, Via Natural or Artificial Opening Endoscopic (ICD-10-PCS; principal; 2019-09-09)
PROC: 0DJ08ZZ Inspection of Upper Intestinal Tract, Via Natural or Artificial Opening Endoscopic (ICD-10-PCS; 2019-09-09)
DX: K92.2 Gastrointestinal hemorrhage, unspecified (principal); D62 Acute posthemorrhagic anemia; I50.32 Chronic diastolic (congestive) heart failure; I13.0 Hypertensive heart and chronic kidney disease with heart failure and stage 1 through stage 4 chronic kidney disease, or unspecified chronic kidney disease; D68.32 Hemorrhagic disorder due to extrinsic circulating anticoagulants; E78.5 Hyperlipidemia, unspecified; E03.9 Hypothyroidism, unspecified; N18.9 Chronic kidney disease, unspecified; J44.9 Chronic obstructive pulmonary disease, unspecified; K21.9 Gastro-esophageal reflux disease without esophagitis; E53.8 Deficiency of other specified B group vitamins; I48.0 Paroxysmal atrial fibrillation; K64.8 Other hemorrhoids; K57.30 Diverticulosis of large intestine without perforation or abscess without bleeding; K63.5 Polyp of colon; T45.515A Adverse effect of anticoagulants, initial encounter; Z87.891 Personal history of nicotine dependence; Z79.899 Other long term (current) drug therapy; Z79.01 Long term (current) use of anticoagulants; Z79.890 Hormone replacement therapy; Z88.1 Allergy status to other antibiotic agents; Z88.8 Allergy status to other drugs, medicaments and biological substances; Z85.3 Personal history of malignant neoplasm of breast
CPT/HCPCS: 36415; 36430; 80048; 80053; 82274; 82607; 82728; 82746; 83540; 83550; 85025; 85610; 85730; 86850; 86900; 86901; 88305; 96374; C9113; J2405; J2704; P9016

== ENCOUNTER 2019-09-29 22:56 | Observation (INO) | payer MEDICARE, BC ==
--- NOTE | 2019-09-29 23:47 | RAD ---
Chest AP view INDICATION: Dyspnea COMPARISON: July 26, 2019 FINDINGS: Lungs: Chronic lung changes are stable Cardiac silhouette: Mild cardiomegaly is stable Pulmonary vasculature: Normal Pleural spaces: No pleural effusion or pneumothorax is demonstrated. Upper abdomen: No abnormality seen. Osseous structures: No acute osseous abnormality. Additional findings: None. IMPRESSION: No acute cardiopulmonary abnormality.
[2019-09-30 01:02] LABS: #Eosinphils 0.1 thou/uL (0.0-0.7); #Lymphocytes 0.4 thou/uL (1.20-3.40); #Monocytes 0.4 thou/uL (0.11-0.59); #Neutrophils 3.8 thou/uL (1.40-6.50); %Basophils 0.2 % (0.0-1.0); %Eosinophils 1.4 % (0.0-10.0); %Lymphocytes 9.1 % (21.0-51.0); %Monocytes 8.2 % (0.0-10.0); %Neutrophils 81.1 % (42.0-75.0); Hemoglobin 9.1 g/dL (12.0-16.0); Mean Corpuscular HGB CONC 32.7 g/dL (32.0-36.0); Mean Corpuscular Hemoglobin 31.4 pg (27.0-31.0); Mean Corpuscular Volume 96.2 fL (78.0-98.0); Mean Platelet Volume 8.7 fL (7.4-10.4); Platelet Count 149 thou/uL (130-400); RBC Distribution Width 14.9 % (11.5-14.5); Red Blood Cell (RBC) Count 2.89 mill/uL (4.20-5.40); White Blood Cell (WBC) Count 4.7 thou/uL (4.8-10.8)
[2019-09-30 01:22] LABS: ALT (SGPT) 8 U/L (8-55); AST (SGOT) 13 U/L (5-34); Albumin 3.7 g/dL (3.4-4.8); Alkaline Phosphatase 54 U/L (40-110); Anion Gap 11 mmol/L (10-20); BUN (Urea Nitrogen) 11 mg/dL (9.8-20.1); Bilirubin, Total 0.4 mg/dL (0.2-1.2); Calc. Creatinine Clearance 0 mL/min (70-130); Calcium 9.6 mg/dL (7.8-10.44); Carbon Dioxide 30 mmol/L (23-31); Chloride 100 mmol/L (98-107); Estimated GFR-MDRD 65; Glucose 98 mg/dL (83-110); Potassium 3.7 mmol/L (3.5-5.1); Protein, Total 6.7 g/dL (6.0-8.3); Sodium 137 mmol/L (136-145)
[2019-09-30 04:21] VITALS: BMI 21.2
[2019-09-30] MEDS ORDERED: Nitroglycerin 0.4 MG TAB (25 Tab Bottle) PO PRN (04:36)
--- NOTE | 2019-09-30 04:41 | HP ---
PRIMARY CARE: Betsy Sierra MD PRIMARY TELECOMMUNICATIONS EQUIPMENT INSTALLER: Shola Rodriguez MD CHIEF COMPLAINT: Chest discomfort. HISTORY OF PRESENT ILLNESS: The patient is an 84-year-old female with paroxysmal atrial fibrillation, hypertension, and hyperlipidemia, presented to the emergency room with above complaints. In July of this year, the patient was admitted to the hospital with new onset atrial fibrillation, requiring cardioversion. She was discharged to home on Eliquis. Next month, she presented with GI bleeding. She underwent EGD and colonoscopy, and Eliquis was discontinued. She was on flecainide at that time. Postdischarge, she was evaluated by Cardiology, and flecainide was changed to Multaq per the patient's report. The patient presented to the emergency room with chest discomfort along with shortness of breath that has been ongoing since this morning. The chest discomfort was precordial, 8/10, with some shortness of breath. She also has some dry cough. She felt lightheaded and weak. She denies any nausea, vomiting, diaphoresis, or palpitations. No recent immobilization travel reported. PAST MEDICAL HISTORY: 1. Paroxysmal atrial fibrillation, not an anticoagulation candidate. 2. Recent hospitalization for GI bleed. 3. Hypertension. 4. Hyperlipidemia. 5. Hypothyroidism. 6. COPD with chronic hypoxic respiratory failure, on 1 L O2 nasal cannula. 7. History of breast cancer, status post lumpectomy. 8. Anxiety. PAST SURGICAL HISTORY: 1. Left breast lumpectomy. 2. KIRSTEN cardioversion in July of 2019. 3. Lymph node removal. ALLERGIES: THE PATIENT IS ALLERGIC TO CIPROFLOXACIN AND PROPOXYPHENE. CURRENT HOME MEDICATIONS: The patient is unable to recall all of her home medications. She states that flecainide was recently changed to Multaq. All other home medications were unchanged from last admission. SOCIAL HISTORY: The patient currently lives at [facility]. Denies current use of smoking, alcohol, or drug use. She is full code and makes her own decision with the help of her daughter. FAMILY HISTORY: Negative for heart disease. REVIEW OF SYSTEMS: All other review of systems were reviewed and were found negative. PHYSICAL EXAMINATION: VITAL SIGNS: Temperature 99.4, respirations 28, pulse of 89, blood pressure of 145/77, and O2 saturation 98% on 2 L nasal cannula. GENERAL: An 84-year-old female in no apparent distress. Symptomatically feels much better. HEENT: Head, atraumatic and normocephalic. Sclerae anicteric. Moist mucous membranes. No oral lesion. NECK: Supple. No JVD. No carotid bruit. LUNGS: Clear to auscultation bilaterally. No wheezing, rales, or rhonchi. HEART: S1 and S2 present. Regular rate and rhythm. No rubs or gallops. ABDOMEN: Soft, nontender. Bowel sounds present. No rebound or guarding. No costovertebral angle tenderness. EXTREMITIES: No edema or calf tenderness. NEUROLOGIC: Grossly nonfocal. Moves all 4 extremities. PSYCHIATRY: Alert, awake, and oriented x3. SKIN: Warm and dry. LYMPH NODES: No palpable lymph nodes in the neck. PERIPHERAL VASCULAR: Radial pulses palpable bilaterally. MUSCULOSKELETAL: No joint swelling tenderness. LABORATORY FINDINGS: CBC showed WBC 4.7 with hemoglobin 9.1, hematocrit 27.8, and platelets 149. Chemistry showed sodium 137, potassium 3.7, chloride 100, bicarb 30, BUN 11, and creatinine 0.84. BNP 552. Troponin of 0.031 with normal CK-MB. Chest x-ray by my review was negative for infiltrate. EKG by my review showed sinus rhythm with T-wave changes in the lateral leads. IMPRESSION: 1. Chest discomfort, rule out acute coronary syndrome. 2. Abnormal EKG with prolonged QT. 3. Chronic obstructive pulmonary disease with chronic respiratory failure, on home oxygen. 4. Paroxysmal atrial fibrillation. Anticoagulation recently discontinued due to gastrointestinal bleeding. 5. Hypertension. 6. Hypothyroidism. 7. Hyperlipidemia. 8. History of breast cancer. 9. Chronic leukopenia. PLAN: The patient will be monitored on the telemetry unit. Cardiology will be consulted. We will repeat EKG on a daily basis. We will resume home medications based on recent discharge summary. Continue aspirin for stroke prophylaxis. Nebulizer treatment as needed. The patient understands the above plan of care. Job ID: [id number]
[2019-09-30] MEDS ORDERED: Acetaminophen 325 MG TAB PO PRN (04:52)
[2019-09-30] MEDS ORDERED: Senokot S 8.6-50 MG TAB PO PRN (04:52)
[2019-09-30] MEDS ORDERED: Calcium Carbonate 500 MG ChewTAB PO PRN (04:52)
[2019-09-30 05:32] LABS: Troponin I 0.037 ng/mL (< 0.028)
[2019-09-30] MEDS: Levothyroxine Sodium 100 MCG TAB PO SCH (06:04)
[2019-09-30] MEDS ORDERED: Magnesium 2 GM/50 ML 2 GM in Premix Bag 1 BAG IVPB SCH (07:00)
[2019-09-30] MEDS: Aspirin 81 mg Enteric Coated Tablet PO SCH (08:18)
[2019-09-30] MEDS: Dronedarone HCl 400 MG TAB PO SCH ×2 (08:18→16:39)
[2019-09-30] MEDS: Anastrozole 1 MG TAB PO SCH (08:18)
[2019-09-30] MEDS: Bupropion 150 MG XL TAB PO SCH (08:19)
[2019-09-30] MEDS: Furosemide 40 MG TAB PO SCH (08:19)
[2019-09-30] MEDS: Mirtazapine 15 MG TAB PO SCH (08:19)
[2019-09-30] MEDS: Potassium Chloride 10 MEQ TAB PO SCH (08:19)
[2019-09-30] MEDS: Mometasone/Formoterol 120 PUFF INHALER INH SCH ×2 (08:23→19:08)
[2019-09-30] MEDS: Benzonatate 100 MG CAP PO PRN ×2 (08:24→16:39)
[2019-09-30] MEDS ORDERED: Pantoprazole 40 MG GRANULES PACKET PO SCH (09:00)
[2019-09-30] MEDS ORDERED: Losartan 25 MG TAB PO SCH (09:00)
--- NOTE | 2019-09-30 11:53 | CON ---
DATE OF CONSULTATION: 09/30/2019 REASON FOR CONSULTATION: Chest tightness and shortness of breath. PRIMARY MANAGER: Dr. Shola Rodriguez. HISTORY OF PRESENT ILLNESS: Ms. Issa is a pleasant 84-year-old white female, who comes to the hospital after feeling very short of breath and having some chest tightness yesterday. She was at home, she noted she started coughing up with phlegm earlier yesterday and then started to feel a lot more short of breath than normal. She became very concerned that she may be going back into atrial fibrillation, so she decided to call 911. EMS arrived, and they brought her in for evaluation. During her initial evaluation, she voiced some chest tightness in the midsternal area, so she was admitted for rule out. So far, her troponins have been in the indeterminate range and a BNP of 552. Cardiology has been consulted for further evaluation. Ms. Issa was seen this morning. She is pain free, and her only issue is she continues to have the cough productive of clear sputum. She states that her shortness of breath is pretty much at baseline. She has a history of COPD and paroxysmal atrial fibrillation. Cannot be on anticoagulation due to GI bleeding, hemoglobin went as low as 6 with just one month of Eliquis. PAST MEDICAL HISTORY: 1. Paroxysmal atrial fibrillation. 2. Recent GI bleeding precluding any use of anticoagulation. 3. Hypertension. 4. Hyperlipidemia. 5. Hypothyroidism. 6. COPD with chronic home O2. 7. History of breast cancer, status post lumpectomy. 8. Anxiety. SURGICAL HISTORY: 1. Left breast lumpectomy. 2. KIRSTEN, cardioversion in July of this year. 3. Lymph node removal. OUTPATIENT MEDICATIONS: 1. Multaq 400 mg b.i.d. 2. Arimidex. 3. Ibandronate. 4. Aspirin 81 a day. 5. Diltiazem 120 mg a day. 6. Tessalon Perles. 7. Levothyroxine 100 mcg a day. 8. Furosemide 40 mg a day. 9. Potassium chloride 10 mEq a day. 10. Pantoprazole. 11. Mirtazapine. 12. Losartan 25 mg a day. 13. Trazodone. 14. Ropinirole. 15. Bupropion. 16. Pravastatin 40 mg q.h.s. ALLERGIES: 1. CIPROFLOXACIN GIVES HER HIVES. 2. PROPOXYPHENE FROM DARVON GIVES HER HIVES. SOCIAL HISTORY: No alcohol, tobacco, or drugs. Lives in [facility]. FAMILY HISTORY: Noncontributory. REVIEW OF SYSTEMS: A 12-point review of systems was done and was all negative unless stated in the history of present illness. PHYSICAL EXAMINATION: VITAL SIGNS: Temperature 98.2, pulse 85, respiratory rate 20, saturating 98% on 2 L nasal cannula, and blood pressure 132/59. GENERAL: Awake, alert, and oriented x3, in no distress. HEENT: Normocephalic and atraumatic. NECK: Supple. LUNGS: Have reduced breath sounds with expiratory wheezes. CARDIOVASCULAR: S1 and S2. No S3 or S4. No murmurs. ABDOMEN: Soft, positive bowel sounds. EXTREMITIES: Trace edema. SKIN: Warm and dry. LABORATORY DATA: Laboratory work was reviewed. CBC with a white count of 4.7, hemoglobin 9.1, hematocrit 27.8, and platelet count of 149. Chemistry was completely normal with a GFR of 65. Creatinine was 0.84. BNP was 552. Troponin is 0.03, 0.03, and 0.04 with a normal CK-MB. EKG was reviewed, normal sinus rhythm. No ischemic changes. Chest x-ray showed no acute cardiopulmonary abnormality. ASSESSMENT AND PLAN: 1. Chest tightness. 2. Chronic obstructive pulmonary disease with possible exacerbation. 3. Shortness of breath, improved. 4. History of gastrointestinal bleed. PLAN: 1. We will further risk stratify with a nuclear stress test. We will do Lexiscan given her history of COPD. 2. She may need some nebs and a small steroid course. We will defer to primary team for this. 3. Further recommendations per results of stress testing. No evidence of acute coronary syndrome at this time. Her mildly elevated troponins is likely from her chronic right-sided high pressures from COPD. Thank you for letting us to participate in the care of your patient. Dr. Rodriguez, her primary vp design, will follow up in the morning. Job ID: [id number]
[2019-09-30] MEDS ORDERED: Regadenoson 0.4 MG/5 ML SYRINGE ONE (13:11)
--- NOTE | 2019-09-30 16:56 | NM ---
NUCLEAR MEDICINE CARDIAC MYOCARDIAL PERFUSION SPECT EJECTION FRACTION STUDY WALL MOTION CINE: DATE: 09/30/2019 HISTORY: 84-year-old female with hypertension and hyperlipidemia presents with chest pain TECHNIQUE: Number of days: 1 Rest study: Technetium 99m-sestamibi (Cardiolite) dose: 10.2 mCi Pharmacologic stress: Lexiscan dose: 0.4 mg Stress study: Technetium 99m-sestamibi (Cardiolite) dose: 28.3 mCi FINDINGS: CARDIAC (MYOCARDIAL PERFUSION) SPECT There are no reversible myocardial perfusion defects. EJECTION FRACTION STUDY Left ventricular EF = 41 % WALL MOTION CINE Mild septal hypokinesis. IMPRESSION: 1. No evidence of reversible ischemia. 2. Low left ventricular ejection fraction.
--- NOTE | 2019-09-30 18:07 | PDOC.HOSPP ---
- Subjective Encounter Date: 09/30/19 Encounter Time: 18:06 Subjective: pt up in bed still feels tired and has a cough. she has been dealing with this cough for a while now. - Objective Vital Signs & Weight: Vital Signs (12 hours) Temp Pulse Resp BP Pulse Ox 09/30/19 16:00 97.6 F 74 16 137/63 98 09/30/19 11:30 98.4 F 104 H 20 133/61 95 09/30/19 08:23 85 16 09/30/19 07:38 98.2 F 85 20 132/59 L 98 Weight Weight 143 lb 11.2 oz I&O: 09/29/19 09/30/19 10/01/19 05:59 06:59 06:59 Intake Total 50 Output Total Balance 50 Result Diagrams: 09/29/19 00:51 09/29/19 00:51 Hospitalist ROS - Review of Systems Respiratory: reports: cough Cardiovascular: reports: chest pain Gastrointestinal: denies: nausea, vomiting, abdominal pain, diarrhea, constipation, melena, hematochezia, other Genitourinary: denies: dysuria, frequency, incontinence, hematuria, retention, other - Medication Medications: Active Medications Generic Name Dose Route Start Last Admin Trade Name Freq PRN Reason Stop Dose Admin Anastrozole 1 mg 09/30/19 09:00 09/30/19 08:18 Arimidex PO 1 mg DAILY TENZIN Administration Aspirin 81 mg 09/30/19 09:00 09/30/19 08:18 Ecotrin PO 81 mg DAILY TENZIN Administration Benzonatate 100 mg 09/30/19 04:50 09/30/19 16:39 Tessalon PO 100 mg TID PRN Administration Cough Bupropion HCl 300 mg 09/30/19 09:00 09/30/19 08:19 Wellbutrin Xl PO 300 mg DAILY TENZIN Administration Diltiazem HCl 120 mg 09/30/19 09:00 09/30/19 08:18 Cardizem Cd PO 120 mg DAILY TENZIN Administration Dronedarone 400 mg 09/30/19 08:00 09/30/19 16:39 Multaq PO 400 mg BID-WM TENZIN Administration Furosemide 40 mg 09/30/19 09:00 09/30/19 08:19 Lasix PO 40 mg DAILY TENZIN Administration Levothyroxine Sodium 100 mcg 09/30/19 06:00 09/30/19 06:04 Synthroid PO 100 mcg 0600 TENZIN Administration Mirtazapine 45 mg 09/30/19 09:00 09/30/19 08:19 Remeron PO 45 mg DAILY TENZIN Administration Mometasone Furoate/Formoterol Fumar 2 puff 09/30/19 06:30 09/30/19 08:23 Dulera 200 Mcg/5 Mcg Inhaler INH 2 puff BID-RT TENZIN Administration Potassium Chloride 10 meq 09/30/19 09:00 09/30/19 08:19 Klor-Con 10 PO 10 meq DAILY TENZIN Administration - Exam Neck: negative: supple, symmetric, no JVD, no thyromegaly, no lymphadenopathy, no carotid bruit, JVD Heart: negative: RRR, no murmur, no gallops, no rubs, normal peripheral pulses, irregular, diminshed peripheral pulses, murmur present, II/IV, III/IV Respiratory: wheezes Gastrointestinal: negative: soft, non-tender, non-distended, normal bowel sounds , no palpable masses, no hepatomegaly, no splenomegaly, no bruit, no guarding, no rigidity, tender to palpation, distended, diminished bowl sounds, voluntary guarding Extremities: 1+ LE edema Hosp A/P (1) Chest pain Code(s): R07.9 - CHEST PAIN, UNSPECIFIED Status: Acute (2) Elevated troponin Code(s): R79.89 - OTHER SPECIFIED ABNORMAL FINDINGS OF BLOOD CHEMISTRY Status : Acute (3) COPD (chronic obstructive pulmonary disease) Status: Acute (4) Anemia due to acute blood loss Code(s): D62 - ACUTE POSTHEMORRHAGIC ANEMIA Status: Acute (5) GI bleeding Code(s): K92.2 - GASTROINTESTINAL HEMORRHAGE, UNSPECIFIED Status: Acute Qualifiers: GI bleed type/associated pathology: unspecified gastrointestinal hemorrhage type Qualified Code(s): K92.2 - Gastrointestinal hemorrhage, unspecified (6) Hypothyroidism Code(s): E03.9 - HYPOTHYROIDISM, UNSPECIFIED Status: Chronic - Plan mild elevated trops, stress test done ef of 41%, otherwise normal. will await cardio recommendation. per pt and her daughter she has been having this cough for some time now. she was a smoker 2 pack a day. will start her on some steroids and duonebs. she is also on lisinopril not sure if this is contributing to her cough. However she states she cough's up white phlegm. will also put her on ppi iv to see if this helps here. she recently had a pill capsule to see if any bleed from small bowel. she is suppose to follow up with EP for possible watchman procedure. Her hh is stable. she is in SR. Her qtc was prolonged repeat ekg normal. she has another one for jonathan.
[2019-09-30] MEDS: Pantoprazole 40 MG VIAL IVP SCH (20:00)
[2019-09-30] MEDS ORDERED: Atorvastatin Calcium 10 MG TAB PO SCH (21:00)
[2019-09-30] MEDS ORDERED: rOPINIRole HCl 1 MG TAB PO SCH (21:00)
[2019-09-30] MEDS ORDERED: traZODone HCl 150 MG TAB PO SCH (21:00)
[2019-09-30] MEDS ORDERED: methylPREDNISolone Sod Succ 40 MG VIAL IVP SCH (21:00)
[2019-10-01] MEDS: Levothyroxine Sodium 100 MCG TAB PO SCH (04:50)
[2019-10-01 04:51] LABS: #Lymphocytes 0.2 thou/uL (1.20-3.40); #Neutrophils 2.8 thou/uL (1.40-6.50); %Basophils 0.3 % (0.0-1.0); %Eosinophils 0.3 % (0.0-10.0); %Lymphocytes 6.4 % (21.0-51.0); %Monocytes 1.4 % (0.0-10.0); %Neutrophils 91.5 % (42.0-75.0); Hemoglobin 7.8 g/dL (12.0-16.0); Mean Corpuscular HGB CONC 33.1 g/dL (32.0-36.0); Mean Corpuscular Hemoglobin 31.6 pg (27.0-31.0); Mean Corpuscular Volume 95.4 fL (78.0-98.0); Mean Platelet Volume 8.4 fL (7.4-10.4); Platelet Count 123 thou/uL (130-400); RBC Distribution Width 14.9 % (11.5-14.5); Red Blood Cell (RBC) Count 2.47 mill/uL (4.20-5.40); White Blood Cell (WBC) Count 3.1 thou/uL (4.8-10.8)
[2019-10-01 05:09] LABS: Anion Gap 11 mmol/L (10-20); BUN (Urea Nitrogen) 12 mg/dL (9.8-20.1); Calc. Creatinine Clearance 43 mL/min (70-130); Calcium 8.4 mg/dL (7.8-10.44); Carbon Dioxide 30 mmol/L (23-31); Chloride 98 mmol/L (98-107); Estimated GFR-MDRD 52; Glucose 129 mg/dL (83-110); Potassium 3.8 mmol/L (3.5-5.1); Sodium 135 mmol/L (136-145)
[2019-10-01] MEDS: Mometasone/Formoterol 120 PUFF INHALER INH SCH (08:06)
[2019-10-01] MEDS: Bupropion 150 MG XL TAB PO SCH (08:58)
[2019-10-01] MEDS: Dronedarone HCl 400 MG TAB PO SCH (08:59)
[2019-10-01] MEDS: Anastrozole 1 MG TAB PO SCH (08:59)
[2019-10-01] MEDS: Aspirin 81 mg Enteric Coated Tablet PO SCH (08:59)
[2019-10-01] MEDS: Furosemide 40 MG TAB PO SCH (08:59)
[2019-10-01] MEDS: Losartan 25 MG TAB PO SCH ×2 (09:00→09:06)
[2019-10-01] MEDS: Mirtazapine 15 MG TAB PO SCH (09:00)
[2019-10-01] MEDS: Potassium Chloride 10 MEQ TAB PO SCH (09:00)
[2019-10-01] MEDS: Pantoprazole 40 MG VIAL IVP SCH (09:01)
--- NOTE | 2019-10-01 09:54 | PDOC.HOSPP ---
- Subjective Encounter Date: 10/01/19 Encounter Time: 09:52 Subjective: just a little weak - Objective Vital Signs & Weight: Vital Signs (12 hours) Temp Pulse Resp BP BP Pulse Ox 10/01/19 09:04 80 103/57 L 10/01/19 08:05 82 16 96 10/01/19 07:41 97.8 F 71 16 114/53 L 97 10/01/19 03:54 97.9 F 72 18 100/49 L 97 09/30/19 23:35 98.4 F 81 16 104/49 L 96 09/30/19 23:14 77 16 94 L Weight Weight 141 lb 6.4 oz I&O: 09/30/19 10/01/19 10/02/19 06:59 06:59 06:59 Intake Total 1010 Output Total 400 Balance 610 Result Diagrams: 10/01/19 04:39 10/01/19 04:39 Hospitalist ROS - Medication Medications: Active Medications Generic Name Dose Route Start Last Admin Trade Name Freq PRN Reason Stop Dose Admin Albuterol/Ipratropium 3 ml 09/30/19 19:00 10/01/19 08:05 Duoneb NEB 3 ml [id number] TENZIN Administration Anastrozole 1 mg 09/30/19 09:00 10/01/19 08:59 Arimidex PO 1 mg DAILY TENZIN Administration Aspirin 81 mg 09/30/19 09:00 10/01/19 08:59 Ecotrin PO 81 mg DAILY TENZIN Administration Atorvastatin Calcium 10 mg 09/30/19 21:00 09/30/19 20:00 Lipitor PO 10 mg HS TENZIN Administration Benzonatate 100 mg 09/30/19 04:50 09/30/19 16:39 Tessalon PO 100 mg TID PRN Administration Cough Bupropion HCl 300 mg 09/30/19 09:00 10/01/19 08:58 Wellbutrin Xl PO 300 mg DAILY TENZIN Administration Diltiazem HCl 120 mg 09/30/19 09:00 10/01/19 08:59 Cardizem Cd PO 120 mg DAILY TENZIN Administration Dronedarone 400 mg 09/30/19 08:00 10/01/19 08:59 Multaq PO 400 mg BID-WM TENZIN Administration Furosemide 40 mg 09/30/19 09:00 10/01/19 08:59 Lasix PO 40 mg DAILY TENZIN Administration Levothyroxine Sodium 100 mcg 09/30/19 06:00 10/01/19 04:50 Synthroid PO 100 mcg 0600 TENZIN Administration Losartan Potassium 25 mg 10/01/19 09:00 10/01/19 09:06 Cozaar PO 25 mg DAILY TENZIN Administration Methylprednisolone Sodium Succinate 40 mg 09/30/19 21:00 09/30/19 20:00 Solu-Medrol IVP 40 mg HS TENZIN Administration Mirtazapine 45 mg 09/30/19 09:00 10/01/19 09:00 Remeron PO 45 mg DAILY TENZIN Administration Mometasone Furoate/Formoterol Fumar 2 puff 09/30/19 06:30 10/01/19 08:06 Dulera 200 Mcg/5 Mcg Inhaler INH 2 puff BID-RT TENZIN Administration Pantoprazole Sodium 40 mg 09/30/19 21:00 10/01/19 09:01 Protonix IVP 40 mg Q12HR TENZIN Administration Potassium Chloride 10 meq 09/30/19 09:00 10/01/19 09:00 Klor-Con 10 PO 10 meq DAILY TENZIN Administration Ropinirole HCl 1 mg 09/30/19 21:00 09/30/19 20:01 Requip PO 1 mg HS TENZIN Administration Sodium Chloride 10 ml 09/30/19 04:36 10/01/19 09:09 Flush - Normal Saline IVF 10 ml PRN PRN Administration Saline Flush Trazodone HCl 150 mg 09/30/19 21:00 09/30/19 20:01 Desyrel PO 150 mg HS TENZIN Administration - Exam General Appearance: awake alert Neck: no JVD Heart: no murmur, irregular Respiratory: CTAB Gastrointestinal: soft, non-distended, normal bowel sounds Extremities: no edema Hosp A/P (1) Chest pain Code(s): R07.9 - CHEST PAIN, UNSPECIFIED Status: Acute (2) Anemia, iron deficiency Code(s): D50.9 - IRON DEFICIENCY ANEMIA, UNSPECIFIED Status: Acute Qualifiers: Iron deficiency anemia type: chronic blood loss Qualified Code(s): D50.0 - Iron deficiency anemia secondary to blood loss (chronic) (3) COPD (chronic obstructive pulmonary disease) Status: Acute Qualifiers: COPD type: unspecified COPD Qualified Code(s): J44.9 - Chronic obstructive pulmonary disease, unspecified (4) Afib Code(s): I48.91 - UNSPECIFIED ATRIAL FIBRILLATION Status: Chronic (5) Hypertension Code(s): I10 - ESSENTIAL (PRIMARY) HYPERTENSION Status: Chronic Qualifiers: Hypertension type: essential hypertension Qualified Code(s): I10 - Essential (primary) hypertension (6) Hypothyroidism Code(s): E03.9 - HYPOTHYROIDISM, UNSPECIFIED Status: Chronic - Plan discuss with Dr Jennifer judd current meds load with IV iron
[2019-10-01] MEDS ORDERED: Iron, Sodium Ferric Gluconate 125 MG in Sodium Chloride 0.9% 100 ML IVPB SCH (10:15)
[2019-10-01 12:02] VITALS: BP 150/64; TEMP 98.2
--- NOTE | 2019-10-01 18:21 | DIS ---
DATE OF ADMISSION: 09/30/2019 DATE OF DISCHARGE: 10/01/2019 DISPOSITION: Discharged home. PRIMARY CARE PROVIDER: Betsy Sierra MD DISCHARGE DIAGNOSES: Chest pain, iron-deficiency anemia, chronic obstructive pulmonary disease, atrial fibrillation, hypertension, and hypothyroidism. DISCHARGE MEDICATIONS: 1. Multaq 400 mg p.o. b.i.d. 2. Arimidex 1 mg a day. 3. Ibandronate 150 mg p.o. q.30 days. 4. Aspirin 81 mg a day. 5. Diltiazem 120 mg a day. 6. Levothyroxine 100 mcg a day. 7. Lasix 40 mg a day. 8. Potassium 10 mEq a day. 9. Protonix 40 mg a day. 10. Mirtazapine 45 mg a day. 11. Losartan 25 mg a day. 12. Trazodone 150 mg a day. 13. Ropinirole 1 mg a day. 14. BuSpar 300 mg a day. 15. Pravastatin 40 mg a day. ALLERGIES: TO CIPRO AND PROPOXYPHENE. CODE STATUS: Full. PENDING AT TIME OF DISCHARGE: Nothing. DIET: Heart healthy. HOSPITAL COURSE: The patient admitted to the hospital through the emergency department with chest pain etc. EKG showed sinus rhythm with T-wave changes. Laboratory; white count 4.7, hemoglobin 9.1, and platelet count 149,000. Comprehensive metabolic profile normal. Troponin 0.03, 0.037, 0.04. Nuclear medicine cardiac stress test. No evidence for reversible ischemia. EF was related at 41%; however, the recent echocardiogram has revealed an EF of 50% to 55%. We discussed with her gastroenterology physician Dr. Shola Rodriguez, he agreed with discharge. She was discharged to follow up with her PCP in 3 days on current medications. Job ID: [id number] MTDD
--- NOTE | 2019-10-06 14:47 | EKG ---
Test Reason : Blood Pressure : / mmHG Vent. Rate : 092 BPM Atrial Rate : 092 BPM P-R Int : 200 ms QRS Dur : 094 ms QT Int : 518 ms P-R-T Axes : 110 025 134 degrees QTc Int : 640 ms Sinus rhythm with occasional Premature ventricular complexes Prolonged QT Abnormal ECG Confirmed by AIDAN PANIAGUA M.D. ([id number]), subeditor GALLO FAROOQ ([id number]) on 10/06/2019 2:47:17 PM Referred By: Confirmed By:AIDAN PANIAGUA M.D.
== END 2019-10-01 15:27 | disposition home or self-care (01) ==
LOC: ERS 22:56 → 2SW 09-30 03:18
PROVIDERS: ADMIT Internal Medicine; ATTEND Internal Medicine
DX: R07.89 Other chest pain (principal); D50.9 Iron deficiency anemia, unspecified; J44.9 Chronic obstructive pulmonary disease, unspecified; I48.91 Unspecified atrial fibrillation; I10 Essential (primary) hypertension; E03.9 Hypothyroidism, unspecified; R79.89 Other specified abnormal findings of blood chemistry; D62 Acute posthemorrhagic anemia; K92.2 Gastrointestinal hemorrhage, unspecified; I48.0 Paroxysmal atrial fibrillation; E78.5 Hyperlipidemia, unspecified; F41.9 Anxiety disorder, unspecified; Z85.3 Personal history of malignant neoplasm of breast; Z98.890 Other specified postprocedural states; Z79.899 Other long term (current) drug therapy; Z79.82 Long term (current) use of aspirin; Z88.1 Allergy status to other antibiotic agents; Z88.8 Allergy status to other drugs, medicaments and biological substances
CPT/HCPCS: 36415; 71045; 78452; 80048; 80053; 82553; 83735; 83880; 84484; 85025; 93005; 93010; 93017; 94640; 94664; 94760; A9500; C9113; J2785; J2916; J2920; J3475; J3490; J7620

== ENCOUNTER 2019-10-02 16:22 | Inpatient (IN) | payer MEDICARE, BC ==
[2019-10-02 16:45] LABS: Actual Bicarbonate (HCO3a) 29.9 mEq/L (22-28); Analyzer IN Cardio ER; Base Excess (BEa) 4.6 mEq/L (-2.0 to +3.0); Calcium, Ionized 1.17 mmol/L (1.12-1.30); Carboxyhemoglobin (COHb) 0.5 gm% (0.0-3.0); Hemoglobin (Hb) 10.3 g/dL (12.0-16.0); O2 Tension (PaO2) 60.6 mmHg (> 60.0); Potassium - ABG Lab 3.56 mmol/L (3.70-5.30); Puncture Site RRA; pH, Arterial 7.41 (7.35-7.45)
[2019-10-02] MEDS ORDERED: Vancomycin 1 GM/200 ML BAG ONE (16:51)
[2019-10-02] MEDS ORDERED: Cefepime 2 GM VIAL ONE (16:51)
[2019-10-02] MEDS ORDERED: methylPREDNISolone Sod Succ/PF 125 MG/2 ML VIAL ONE (16:54)
--- NOTE | 2019-10-02 16:54 | RAD ---
EXAM: CHEST ONE VIEW PORTABLE: 10/02/19 HISTORY: Dyspnea and shortness of breath. COMPARISON: 09/29/19. FINDINGS: Hyperinflation and scattered interstitial and reticulonodular parenchymal changes noted bilaterally. Old granulomatous disease. These markings in the mid and lower lung zones do appear more prominent th an on prior study raising concern for some acute bilateral pneumonitis or asymmetric edema. No overt pleural effusion. IMPRESSION: Bilateral hyperinflation and increased interstitial and reticulonodular parenchymal changes bilateral ly. More marked in the bases than seen on the prior study. POS: [facility]
[2019-10-02 16:55] LABS: #Lymphocytes 1.1 thou/uL (1.20-3.40); #Monocytes 0.5 thou/uL (0.11-0.59); #Neutrophils 7.2 thou/uL (1.40-6.50); %Basophils 0.1 % (0.0-1.0); %Eosinophils 0.2 % (0.0-10.0); %Monocytes 5.3 % (0.0-10.0); %Neutrophils 82.4 % (42.0-75.0); Hemoglobin 7.6 g/dL (12.0-16.0); Mean Corpuscular HGB CONC 32.1 g/dL (32.0-36.0); Mean Corpuscular Hemoglobin 31.2 pg (27.0-31.0); Mean Platelet Volume 8.2 fL (7.4-10.4); Platelet Count 204 thou/uL (130-400); RBC Distribution Width 15.4 % (11.5-14.5); Red Blood Cell (RBC) Count 2.43 mill/uL (4.20-5.40); White Blood Cell (WBC) Count 8.8 thou/uL (4.8-10.8)
[2019-10-02 17:17] LABS: ALT (SGPT) 10 U/L (8-55); AST (SGOT) 31 U/L (5-34); Albumin 3.8 g/dL (3.4-4.8); Alkaline Phosphatase 49 U/L (40-110); Anion Gap 16 mmol/L (10-20); BUN (Urea Nitrogen) 14 mg/dL (9.8-20.1); Bilirubin, Total 0.5 mg/dL (0.2-1.2); CK (CPK) 141 U/L (29-168); Calc. Creatinine Clearance 0 mL/min (70-130); Calcium 9.2 mg/dL (7.8-10.44); Carbon Dioxide 25 mmol/L (23-31); Chloride 100 mmol/L (98-107); Estimated GFR-MDRD 51; Globulin 3.6 g/dL (2.4-3.5); Glucose 104 mg/dL (83-110); Protein, Total 7.4 g/dL (6.0-8.3); Sodium 137 mmol/L (136-145)
[2019-10-02 17:38] LABS: CKMB 2.4 ng/mL (0-6.6)
[2019-10-02] MEDS ORDERED: Acetaminophen 500 MG TAB ONE (19:14)
[2019-10-02] MEDS ORDERED: Albuterol Sulfate 2.5 mg/3 ml Neb NEB PRN (20:39)
[2019-10-02] MEDS ORDERED: Acetaminophen 650 MG Suppository PR PRN (20:39)
[2019-10-02] MEDS ORDERED: Ondansetron PF 4 MG/2 ML Vial IVP PRN (20:39)
[2019-10-02] MEDS ORDERED: Bacteriostatic Water 30 ML VIAL FS PRN (21:11)
[2019-10-02 21:12] LABS: Troponin I 0.099 ng/mL (< 0.028)
--- NOTE | 2019-10-02 21:16 | HP ---
PRIMARY CARE PHYSICIAN: Dr. Betsy Sierra. CHIEF COMPLAINT: Shortness of breath and cough. HISTORY OF PRESENT ILLNESS: This is an 84-year-old white female, who was just in the hospital observation for chest pain, had a little cough with it at that time and some shortness of breath. She had a nuclear medicine stress test that was negative for any evidence of ischemia and her symptoms had improved. She looked good yesterday, hence she was discharged home with some cough medicines. The patient reports that she got severely worse as far as her cough and her breathing last night; dry cough, nonproductive, lots of chest congestion and with the cough she has felt like she could not breathe at all. She is on 1 L of oxygen at home typically. This morning, the patient was worst. They called her primary care doctor who told her to call an ambulance. When EMS got there, she was hypoxic into the 70s, was put on BiPAP and given nebs and brought into the ER. Here, she has been given further DuoNeb, given methylprednisolone. She was also found to be febrile to 101.9 and was given Tylenol and blood cultures drawn, was started on vancomycin and cefepime. A flu has not yet been collected, but is currently being collected. The patient did have a negative lactic acid. She was given just 1 L of fluid. The patient is feeling a little bit better on the BiPAP, still having some increased work of breathing, but much improved and not having the severe coughing fits anymore. She has been hospitalized for COPD in the past, but not since 2013. REVIEW OF SYSTEMS: CONSTITUTIONAL: No fevers or chills at home, just a fever here in the emergency room. EYES: No double vision or blurred vision. ENT: No congestion or drainage. She had a little bit of sore throat earlier. CARDIOVASCULAR: No current chest pain. Had chest pain when she came into the hospital a few days ago that has since resolved. No palpitations or racing heart. PULMONARY: See HPI. She does have wheezing and chest tightness. GASTROINTESTINAL: No abdominal pain. She has had some persistent nausea for the last 3 to 5 days. No vomiting. No diarrhea or constipation. She has not had any recent bowel movements; however, since she was cleaned out for colonoscopy and then for a pill study to look for a source for bleeding from when she was put on blood thinners for her atrial fibrillation, has not really been eating well since then. GENITOURINARY: No dysuria or hematuria. MUSCULOSKELETAL: No muscle aches or joint pain. SKIN: No rashes or lesions noted. NEUROLOGICAL: She has a little bit of tingling in her fingers of her left hand earlier, that has resolved now. No other focal neurologic symptoms. PAST MEDICAL HISTORY: 1. Paroxysmal atrial fibrillation. Not an anticoagulation candidate. 2. Recent GI bleed. Unknown source with negative EGD, colonoscopy, and a pill study. 3. COPD with chronic hypoxic respiratory failure, on 1 L O2 nasal cannula at home. 4. Hypertension. 5. Hyperlipidemia. 6. Hypothyroidism. 7. History of breast cancer status post lumpectomy and radiation therapy. 8. Restless legs syndrome. PAST PSYCHIATRIC HISTORY: Positive for anxiety. PAST SURGICAL HISTORY: 1. Left breast lumpectomy. 2. KIRSTEN cardioversion in July 2019. 3. Lumpectomy. SOCIAL HISTORY: The patient currently lives at [facility]. No tobacco, alcohol, or illicit drug use currently. She quit smoking 20 or so years ago. She is a full code. Should she be incapacitated, her son and daughter would be her medical decision makers. Their names are Jose Issa and Chaya Petty. FAMILY HISTORY: Negative for heart disease. ALLERGIES: 1. CIPROFLOXACIN. 2. LISINOPRIL. 3. PROPOXYPHENE. PHYSICAL EXAMINATION: VITAL SIGNS: Blood pressure 121/52, pulse 81, respirations between 20 and 25 right now on BiPAP, temperature 101.9, O2 saturation 98% on BiPAP. GENERAL: This is a well-developed, well-nourished, elderly female, in mild respiratory distress, doing okay on the BiPAP. HEENT: Pupils are equal, round, and reactive to light. Oropharynx with dry mucous membranes. NECK: Supple. No lymphadenopathy. No thyroid nodules or enlargement. HEART: Regular rate and rhythm. No murmurs, rubs, or gallops. LUNGS: She has some tight breath sounds bilaterally. Scattered wheezes. No focal rhonchi or crackles. Decent air movement into all lung gonzalez. ABDOMEN: Soft, nontender to palpation. Normoactive bowel sounds. No hepatosplenomegaly or other masses. EXTREMITIES: No clubbing, cyanosis, or edema. SKIN: No rashes or other lesions noted. NEUROLOGIC: Intact strength and sensation to all extremities. No facial droop. PSYCHIATRIC: Alert and oriented x3. Normal mood and affect. LABORATORY DATA: CBC with a white blood cell count of 8.8, hemoglobin 7.6, hematocrit 23.6, platelet count 204. Hemoglobin was 7.8 yesterday, so relatively stable. Arterial blood gas did show a pH of 7.41, pCO2 of 48, and pO2 of 60 on BiPAP. Complete metabolic panel was within normal limits. Troponin was indeterminate at 0.076, which is a little bit up from the last few days, but CK-MB is normal. Lactic acid was negative, 2.0. IMAGING STUDIES: Chest x-ray; I did review the chest x-ray done in the emergency room along with the radiologist's report. The patient does have some bilateral scarring and COPD changes in the bilateral lung gonzalez along with bilateral hyperinflation. It does seem a little well marked in the bases and seen on the prior study from a few days ago. All of the lung markings are in the same spots as the previous scarring seen, but it does appear more prominent. Uncertain if this is development of infiltrates or just a different penetration of film. ASSESSMENT: 1. Acute on chronic respiratory failure with hypoxia, likely secondary to chronic obstructive pulmonary disease exacerbation along with infection. We will continue steroids and nebulizer treatments, antibiotics and BiPAP. We will get Pulmonology consult once the patient in the IMCU. 2. Sepsis with fever and elevated respiratory rate. The patient does have a normal white count. I am suspicious that the possibility of having picked up flu somewhere. Could be another viral infection as well versus development of a pneumonia. We will continue the cefepime and vancomycin for now. Blood cultures are pending and we are awaiting the flu test. Should the flu test come back positive, we may be able to back off on some of the antibiotics. 3. Chronic obstructive pulmonary disease exacerbation. 4. Atrial fibrillation. We will continue the patient's Multaq and aspirin. 5. History of gastrointestinal bleed while on atrial fibrillation anticoagulation. We will hold any Lovenox for now and we will monitor hemoglobin closely and transfuse as needed. 6. Deep venous thrombosis prophylaxis. Put the patient on sequential compression devices while in bed. 7. Gastrointestinal prophylaxis. We will continue the patient's Protonix. 8. Restless legs syndrome. We will continue the patient's ropinirole along with her medications to help her sleep at night. 9. Code status. The patient is a full code. Should she be incapacitated, her children, Jose Issa and Chaya Petty will be her medical decision makers. Job ID: [id number] MTDD
[2019-10-02] MEDS ORDERED: Famotidine/PF 20 mg/2ml Vial ONE (21:50)
[2019-10-02] MEDS: Famotidine/PF 20 mg/2ml Vial SLOW IVP SCH (22:00)
[2019-10-02] MEDS: Atorvastatin Calcium 10 MG TAB PO SCH (22:07)
[2019-10-02] MEDS: rOPINIRole HCl 1 MG TAB PO SCH (22:07)
[2019-10-02] MEDS: traZODone HCl 150 MG TAB PO SCH (22:08)
[2019-10-02 23:50] LABS: Troponin I 0.097 ng/mL (< 0.028)
[2019-10-03] MEDS: methylPREDNISolone Sod Succ 40 MG VIAL IVP SCH ×4 (04:09→17:42)
[2019-10-03 04:39] LABS: Anion Gap 13 mmol/L (10-20); BUN (Urea Nitrogen) 16 mg/dL (9.8-20.1); Calc. Creatinine Clearance 53 mL/min (70-130); Calcium 8.4 mg/dL (7.8-10.44); Carbon Dioxide 22 mmol/L (23-31); Chloride 105 mmol/L (98-107); Estimated GFR-MDRD 65; Glucose 126 mg/dL (83-110); Potassium 4.4 mmol/L (3.5-5.1); Sodium 136 mmol/L (136-145)
[2019-10-03] MEDS: Cefepime 2 GM in Sodium Chloride 0.9% 100 ML IVPB SCH ×2 (05:51→16:17)
[2019-10-03] MEDS: Levothyroxine Sodium 100 MCG TAB PO SCH (05:52)
[2019-10-03] MEDS ORDERED: IBANDRONATE SODIUM 150 MG PO SCH (06:00)
[2019-10-03 07:34] LABS: #Lymphocytes 0.3 thou/uL (1.20-3.40); #Monocytes 0.1 thou/uL (0.11-0.59); #Neutrophils 5.4 thou/uL (1.40-6.50); %Eosinophils 0.1 % (0.0-10.0); %Monocytes 2.2 % (0.0-10.0); %Neutrophils 92.7 % (42.0-75.0); Hemoglobin 8.8 g/dL (12.0-16.0); Mean Corpuscular HGB CONC 32.3 g/dL (32.0-36.0); Mean Corpuscular Hemoglobin 31.5 pg (27.0-31.0); Mean Corpuscular Volume 97.6 fL (78.0-98.0); Mean Platelet Volume 8.7 fL (7.4-10.4); Platelet Count 122 thou/uL (130-400); RBC Distribution Width 15.3 % (11.5-14.5); White Blood Cell (WBC) Count 5.8 thou/uL (4.8-10.8)
[2019-10-03] MEDS: Losartan 25 MG TAB PO SCH (08:50)
[2019-10-03] MEDS: Mirtazapine 15 MG TAB PO SCH (08:51)
[2019-10-03] MEDS: Furosemide 40 MG TAB PO SCH (08:51)
[2019-10-03] MEDS: Anastrozole 1 MG TAB PO SCH (08:51)
[2019-10-03] MEDS: Dronedarone HCl 400 MG TAB PO SCH ×2 (08:51→16:17)
[2019-10-03] MEDS: Aspirin 81 mg Enteric Coated Tablet PO SCH (08:51)
[2019-10-03] MEDS: Pantoprazole 40 MG GRANULES PACKET PO SCH (08:52)
[2019-10-03] MEDS: Potassium Chloride 10 MEQ TAB PO SCH (08:52)
[2019-10-03] MEDS: Famotidine/PF 20 mg/2ml Vial SLOW IVP SCH (08:52)
[2019-10-03] MEDS: Bupropion 150 MG XL TAB PO SCH (08:52)
[2019-10-03] MEDS: Vancomycin 1 GM in Premix Bag 1 BAG IVPB SCH (08:54)
[2019-10-03] MEDS ORDERED: Prevnar 13-Val Conj/PF 0.5 ML SYRINGE IM ONE (09:00)
[2019-10-03] MEDS ORDERED: FLU VACC TS2019-20(65YR UP)/PF 180 MCG/0.5 ML SYRINGE IM ONE (09:00)
[2019-10-03] MEDS: Acetaminophen 325 MG TAB PO PRN (10:09)
[2019-10-03] MEDS: Senokot S 8.6-50 MG TAB PO PRN (10:09)
--- NOTE | 2019-10-03 10:42 | PDOC.HOSPP ---
- Subjective Encounter Date: 10/03/19 Encounter Time: 12:30 Subjective: Patient feeling much better. Off Bipap since last night. Cough and SOB improved some. - Objective Vital Signs & Weight: Vital Signs (12 hours) Temp Pulse Pulse BP BP Pulse Ox Pulse Ox 10/03/19 09:14 87 92 141/62 H 140/73 96 10/03/19 08:00 95 10/03/19 07:38 98 F 10/03/19 03:45 96.4 F L Pulse Ox 10/03/19 09:14 97 10/03/19 08:00 10/03/19 07:38 10/03/19 03:45 Weight Weight 144 lb 2 oz Most Recent Monitor Data Heart Rate from ECG 81 NIBP 141/62 NIBP BP-Mean 88 Respiration from ECG 26 SpO2 95 Result Diagrams: 10/03/19 07:15 10/03/19 03:27 Hospitalist ROS - Review of Systems Constitutional: denies: fever, chills Respiratory: reports: cough, shortness of breath Cardiovascular: denies: chest pain, palpitations, orthopnea Gastrointestinal: denies: nausea, vomiting, abdominal pain Genitourinary: denies: dysuria, hematuria - Medication Medications: Active Medications Generic Name Dose Route Start Last Admin Trade Name Freq PRN Reason Stop Dose Admin Acetaminophen 650 mg 10/02/19 20:39 10/03/19 10:09 Tylenol PO 650 mg Q4H PRN Administration Headache/Fever/Mild Pain (1-3) Albuterol/Ipratropium 3 ml 10/03/19 01:00 10/03/19 08:22 Duoneb NEB Not Given [id number] TENZIN Anastrozole 1 mg 10/03/19 09:00 10/03/19 08:51 Arimidex PO 1 mg DAILY TENZIN Administration Aspirin 81 mg 10/03/19 09:00 10/03/19 08:51 Ecotrin PO 81 mg DAILY TENZIN Administration Atorvastatin Calcium 10 mg 10/02/19 21:00 10/02/19 22:07 Lipitor PO 10 mg HS TENZIN Administration Bupropion HCl 300 mg 10/03/19 09:00 10/03/19 08:52 Wellbutrin Xl PO 300 mg DAILY TENZIN Administration Dronedarone 400 mg 10/03/19 08:00 10/03/19 08:51 Multaq PO 400 mg BID-WM TENZIN Administration Famotidine 20 mg 10/02/19 21:00 10/03/19 08:52 Pepcid SLOW IVP 20 mg Q12HR TENZIN Administration Furosemide 40 mg 10/03/19 09:00 10/03/19 08:51 Lasix PO 40 mg DAILY TENZIN Administration Cefepime HCl 2 gm/ Sodium 100 mls @ 200 mls/hr 10/03/19 05:00 10/03/19 05:51 Chloride IVPB 100 mls 0500,1700 TENZIN Administration Vancomycin HCl 1 gm/ Device 200 mls @ 200 mls/hr 10/03/19 09:00 10/03/19 08: 54 IVPB 200 mls 0900 TENZIN Administration Levothyroxine Sodium 100 mcg 10/03/19 06:00 10/03/19 05:52 Synthroid PO 100 mcg 0600 TENZIN Administration Losartan Potassium 25 mg 10/03/19 09:00 10/03/19 08:50 Cozaar PO 25 mg DAILY TENZIN Administration Methylprednisolone Sodium Succinate 40 mg 10/02/19 23:59 10/03/19 05:53 Solu-Medrol IVP 40 mg Q6HR TENZIN Administration Mirtazapine 45 mg 10/03/19 09:00 10/03/19 08:51 Remeron PO 45 mg DAILY TENZIN Administration Pantoprazole Sodium 40 mg 10/03/19 09:00 10/03/19 08:52 Protonix PO 40 mg DAILY TENZIN Administration Potassium Chloride 10 meq 10/03/19 08:00 10/03/19 08:52 Klor-Con 10 PO 10 meq QAM-WM TENZIN Administration Ropinirole HCl 1 mg 10/02/19 21:00 10/02/19 22:07 Requip PO 1 mg HS TENZIN Administration Senna/Docusate Sodium 2 tab 10/02/19 20:39 10/03/19 10:09 Senokot S PO 2 tab BIDPRN PRN Administration Constipation Sodium Chloride 10 ml 10/03/19 09:00 10/03/19 08:54 Flush - Normal Saline IVF 10 ml Q12HR TENZIN Administration Trazodone HCl 150 mg 10/02/19 21:00 10/02/19 22:08 Desyrel PO 150 mg HS TENZIN Administration - Exam General Appearance: NAD, awake alert ENT: moist mucosa Heart: RRR, no murmur, no gallops, no rubs Respiratory - other findings: scattered wheezes and decrease breath sounds bilaterally, mild inc WOB Gastrointestinal: soft, non-tender, non-distended, normal bowel sounds Psychiatric: normal affect, normal behavior, A&O x 3 Hosp A/P (1) Acute and chronic respiratory failure with hypoxia Code(s): J96.21 - ACUTE AND CHRONIC RESPIRATORY FAILURE WITH HYPOXIA Status: Acute (2) COPD with exacerbation Code(s): J44.1 - CHRONIC OBSTRUCTIVE PULMONARY DISEASE W (ACUTE) EXACERBATION Status: Acute (3) Sepsis Code(s): A41.9 - SEPSIS, UNSPECIFIED ORGANISM Status: Acute (4) Chronic atrial fibrillation Code(s): I48.20 - CHRONIC ATRIAL FIBRILLATION, UNSPECIFIED Status: Chronic (5) Hx of gastrointestinal hemorrhage Code(s): Z87.19 - PERSONAL HISTORY OF OTHER DISEASES OF THE DIGESTIVE SYSTEM Status: Chronic (6) Anemia due to gastrointestinal blood loss Code(s): D50.0 - IRON DEFICIENCY ANEMIA SECONDARY TO BLOOD LOSS (CHRONIC) Status: Chronic (7) Restless leg syndrome Status: Chronic - Plan Flu negative, WBC normal, possibly viral vs. pneumonia. On Cefepime and Vancomycin since 10/02/2019 Steroids, nebs, Bipap Pulmonology consult DVT proph: SCDs Spoke with Dr. Joseph, EGD and colonoscopy neg, pill endoscopy with possible mass in ileum, if H/H starts dropping should get a CT enterography and notify her.
--- NOTE | 2019-10-03 20:14 | CON ---
DATE OF CONSULTATION: 10/03/2019 HISTORY OF PRESENT ILLNESS: Destinee Issa is an 84-year-old female, who has COPD. She is followed at [facility]. She says she has been feeling poorly with shortness of breath and cough for 3 months. Her primary care physician called her in a prescription for nebulizer. She says she has not felt like going to any body's office. She subsequently presented here with shortness of breath. She lives across the [address] in [facility]. Her chest radiograph was abnormal. She was actually in the hospital on September 28, , and and discharged on the . She came back on the . Chest x-ray on the was unremarkable. Chest x-ray now shows bilateral lower lung field infiltrates consistent with pneumonia. She did have a negative stress test when she was in the hospital on the . PAST MEDICAL HISTORY: Remarkable for: 1. Atrial fibrillation. 2. History of GI bleed. 3. History of hypertension. 4. History of lipid disorder. 5. Hypothyroidism, on replacement. 6. Chronic hypoxic respiratory failure on oxygen at home reportedly for COPD. 7. History of breast cancer, status post lumpectomy. 8. History of cardioversion in July of this year for atrial fibrillation. 9. History of lymph node biopsy with her lumpectomy. She reports Cipro and Darvocet intolerance. She is not sure which she is putting in her nebulizer. MEDICATIONS: Here have been reviewed. SOCIAL HISTORY: She is nonsmoker and nondrinker. FAMILY HISTORY: Negative for lung disease in early age. REVIEW OF SYSTEMS: Otherwise negative. PHYSICAL EXAMINATION: VITAL SIGNS: She is afebrile, heart rate 79, respiratory rate is 18, oximetry is 96%, and blood pressure 131/59. HEENT: Pupils are equal. Sclerae are anicteric. NECK: Supple. No lymphadenopathy. LUNGS: Remarkable for diffuse wheezes that are mild. She has crackles at both lung bases posteriorly. HEART: Regular rhythm. S1 and S2 are normal. ABDOMEN: Soft and nontender. EXTREMITIES: Without clubbing, cyanosis, or edema. LABORATORY DATA: White count 5.8, hemoglobin 8.8, platelets 122. Electrolytes are unremarkable. Creatinine is 0.8. IMPRESSION: 1. Pneumonia. 2. Underlying chronic obstructive pulmonary disease. 3. Chronic hypoxic respiratory failure, on oxygen. PLAN: Antibiotics, nebulizer treatments, steroids, happy to follow the other physicians following her. TIME SPENT: This is a 50-minute consult, 50% of the time spent on the unit coordinating care. Job ID: [id number] ANDRIA
[2019-10-03] MEDS: rOPINIRole HCl 1 MG TAB PO SCH (20:39)
[2019-10-03] MEDS: Famotidine 20 MG TAB PO SCH (20:39)
[2019-10-03] MEDS: guaiFENesin ER 600 MG TAB PO SCH (20:39)
[2019-10-03] MEDS: Atorvastatin Calcium 10 MG TAB PO SCH (20:39)
[2019-10-03] MEDS: traZODone HCl 150 MG TAB PO SCH (20:39)
[2019-10-03] MEDS: Benzonatate 100 MG CAP PO PRN (20:40)
[2019-10-04] MEDS: methylPREDNISolone Sod Succ 40 MG VIAL IVP SCH ×5 (00:16→23:52)
[2019-10-04] MEDS: Guaifenesin DM 100-10/5 ML UDCUP PO PRN (00:20)
[2019-10-04 05:16] LABS: #Lymphocytes 0.2 thou/uL (1.20-3.40); #Monocytes 0.2 thou/uL (0.11-0.59); #Neutrophils 6.7 thou/uL (1.40-6.50); %Eosinophils 0.1 % (0.0-10.0); %Lymphocytes 3.3 % (21.0-51.0); %Monocytes 2.6 % (0.0-10.0); Hemoglobin 7.8 g/dL (12.0-16.0); Mean Corpuscular HGB CONC 32.7 g/dL (32.0-36.0); Mean Corpuscular Hemoglobin 31.6 pg (27.0-31.0); Mean Corpuscular Volume 96.6 fL (78.0-98.0); Platelet Count 127 thou/uL (130-400); RBC Distribution Width 15.1 % (11.5-14.5); Red Blood Cell (RBC) Count 2.46 mill/uL (4.20-5.40); White Blood Cell (WBC) Count 7.2 thou/uL (4.8-10.8)
[2019-10-04] MEDS: Cefepime 2 GM in Sodium Chloride 0.9% 100 ML IVPB SCH ×2 (05:27→18:10)
[2019-10-04] MEDS: Levothyroxine Sodium 100 MCG TAB PO SCH (05:27)
[2019-10-04] MEDS: Benzonatate 100 MG CAP PO PRN (05:30)
[2019-10-04 05:44] LABS: Anion Gap 12 mmol/L (10-20); BUN (Urea Nitrogen) 21 mg/dL (9.8-20.1); Calc. Creatinine Clearance 43 mL/min (70-130); Calcium 8.5 mg/dL (7.8-10.44); Carbon Dioxide 28 mmol/L (23-31); Chloride 102 mmol/L (98-107); Estimated GFR-MDRD 51; Glucose 118 mg/dL (83-110); Potassium 3.3 mmol/L (3.5-5.1); Sodium 139 mmol/L (136-145)
--- NOTE | 2019-10-04 08:21 | PDOC.HOSPP ---
- Subjective Encounter Date: 10/04/19 Encounter Time: 11:40 Subjective: Patient feeling a bit better today. No fever. Getting up with help some today. - Objective Vital Signs & Weight: Vital Signs (12 hours) Temp Pulse Resp BP Pulse Ox 10/04/19 07:31 90 L 10/04/19 07:29 83 16 90 L 10/04/19 03:35 98.5 F 78 18 126/60 92 L 10/03/19 23:55 97.7 F 75 18 117/57 L 94 L 10/03/19 23:50 98 Weight Admit Weight 144 lb 2 oz Weight 143 lb 1.6 oz Most Recent Monitor Data Heart Rate from ECG 88 NIBP 123/46 NIBP BP-Mean 81 Respiration from ECG 33 SpO2 92 I&O: 10/03/19 10/04/19 10/05/19 06:59 06:59 06:59 Intake Total 880 112 Output Total 690 200 Balance 190 -88 Result Diagrams: 10/04/19 04:38 10/04/19 04:38 Hospitalist ROS - Review of Systems Constitutional: denies: fever, chills Respiratory: reports: cough, shortness of breath Cardiovascular: denies: chest pain, palpitations, orthopnea Gastrointestinal: denies: nausea, vomiting, abdominal pain - Medication Medications: Active Medications Generic Name Dose Route Start Last Admin Trade Name Freq PRN Reason Stop Dose Admin Acetaminophen 650 mg 10/02/19 20:39 10/03/19 10:09 Tylenol PO 650 mg Q4H PRN Administration Headache/Fever/Mild Pain (1-3) Albuterol/Ipratropium 3 ml 10/03/19 01:00 10/04/19 07:29 Duoneb NEB 3 ml [id number] TENZIN Administration Anastrozole 1 mg 10/03/19 09:00 10/03/19 08:51 Arimidex PO 1 mg DAILY TENZIN Administration Aspirin 81 mg 10/03/19 09:00 10/03/19 08:51 Ecotrin PO 81 mg DAILY TENZIN Administration Atorvastatin Calcium 10 mg 10/02/19 21:00 10/03/19 20:39 Lipitor PO 10 mg HS TENZIN Administration Benzonatate 100 mg 10/02/19 20:39 10/04/19 05:30 Tessalon PO 100 mg TID PRN Administration Cough Bupropion HCl 300 mg 10/03/19 09:00 10/03/19 08:52 Wellbutrin Xl PO 300 mg DAILY TENZIN Administration Dronedarone 400 mg 10/03/19 08:00 10/03/19 16:17 Multaq PO 400 mg BID-WM TENZIN Administration Famotidine 20 mg 10/03/19 21:00 10/03/19 20:39 Pepcid PO 20 mg Q12HR TENZIN Administration Furosemide 40 mg 10/03/19 09:00 10/03/19 08:51 Lasix PO 40 mg DAILY TENZIN Administration Guaifenesin 600 mg 10/03/19 21:00 10/03/19 20:39 Mucinex PO 600 mg Q12HR TENZIN Administration Guaifenesin/Dextromethorphan 15 ml 10/02/19 20:39 10/04/19 00:20 Robitussin Dm PO 15 ml Q4H PRN Administration Cough Cefepime HCl 2 gm/ Sodium 100 mls @ 200 mls/hr 10/03/19 05:00 10/04/19 05:27 Chloride IVPB 100 mls 0500,1700 TENZIN Administration Vancomycin HCl 1 gm/ Device 200 mls @ 200 mls/hr 10/03/19 09:00 10/03/19 08: 54 IVPB 200 mls 0900 TENZIN Administration Levothyroxine Sodium 100 mcg 10/03/19 06:00 10/04/19 05:27 Synthroid PO 100 mcg 0600 TENZIN Administration Losartan Potassium 25 mg 10/03/19 09:00 10/03/19 08:50 Cozaar PO 25 mg DAILY TENZIN Administration Methylprednisolone Sodium Succinate 40 mg 10/02/19 23:59 10/04/19 05:27 Solu-Medrol IVP 40 mg Q6HR TENZIN Administration Mirtazapine 45 mg 10/03/19 09:00 10/03/19 08:51 Remeron PO 45 mg DAILY TENZIN Administration Pantoprazole Sodium 40 mg 10/03/19 09:00 10/03/19 08:52 Protonix PO 40 mg DAILY TENZIN Administration Potassium Chloride 10 meq 10/03/19 08:00 10/03/19 08:52 Klor-Con 10 PO 10 meq QAM-WM TENZIN Administration Ropinirole HCl 1 mg 10/02/19 21:00 10/03/19 20:39 Requip PO 1 mg HS TENZIN Administration Senna/Docusate Sodium 2 tab 10/02/19 20:39 10/03/19 10:09 Senokot S PO 2 tab BIDPRN PRN Administration Constipation Sodium Chloride 10 ml 10/03/19 09:00 10/03/19 20:43 Flush - Normal Saline IVF 10 ml Q12HR TENZIN Administration Sodium Chloride 10 ml 10/02/19 21:11 10/04/19 05:30 Flush - Normal Saline IVF 10 ml PRN PRN Administration Saline Flush Trazodone HCl 150 mg 10/02/19 21:00 10/03/19 20:39 Desyrel PO 150 mg HS TENZIN Administration - Exam General Appearance: NAD, awake alert ENT: moist mucosa Heart: RRR, no murmur, no gallops, no rubs Respiratory: no rales, no ronchi Respiratory - other findings: mild wheezing Gastrointestinal: soft, non-tender, non-distended, normal bowel sounds Psychiatric: normal affect, normal behavior, A&O x 3 Hosp A/P (1) Acute and chronic respiratory failure with hypoxia Code(s): J96.21 - ACUTE AND CHRONIC RESPIRATORY FAILURE WITH HYPOXIA Status: Acute (2) COPD with exacerbation Code(s): J44.1 - CHRONIC OBSTRUCTIVE PULMONARY DISEASE W (ACUTE) EXACERBATION Status: Acute (3) Pneumonia Code(s): J18.9 - PNEUMONIA, UNSPECIFIED ORGANISM Status: Acute (4) Sepsis Code(s): A41.9 - SEPSIS, UNSPECIFIED ORGANISM Status: Resolved (5) Chronic atrial fibrillation Code(s): I48.20 - CHRONIC ATRIAL FIBRILLATION, UNSPECIFIED Status: Chronic (6) Hx of gastrointestinal hemorrhage Code(s): Z87.19 - PERSONAL HISTORY OF OTHER DISEASES OF THE DIGESTIVE SYSTEM Status: Chronic (7) 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 On Cefepime and Vancomycin since 04/2020 Steroids, nebs, Bipap Pulmonology consult- appreciate Dr. Escalera's imput DVT proph: SCDs Spoke with Dr. Joseph, EGD and colonoscopy neg, pill endoscopy with possible mass in ileum, if H/H starts dropping should get a CT enterography and notify her.
[2019-10-04 08:28] LABS: Vancomycin, Trough 12.2 ug/mL
[2019-10-04] MEDS ORDERED: Potassium Chloride 20 MEQ TAB PO SCH (08:30)
[2019-10-04] MEDS: Bupropion 150 MG XL TAB PO SCH (09:15)
[2019-10-04] MEDS: Mirtazapine 15 MG TAB PO SCH (09:15)
[2019-10-04] MEDS: Anastrozole 1 MG TAB PO SCH (09:15)
[2019-10-04] MEDS: Famotidine 20 MG TAB PO SCH ×2 (09:15→21:06)
[2019-10-04] MEDS: Furosemide 40 MG TAB PO SCH (09:15)
[2019-10-04] MEDS: Dronedarone HCl 400 MG TAB PO SCH ×2 (09:16→18:10)
[2019-10-04] MEDS: Potassium Chloride 10 MEQ TAB PO SCH (09:16)
[2019-10-04] MEDS: Losartan 25 MG TAB PO SCH (09:16)
[2019-10-04] MEDS: Pantoprazole 40 MG GRANULES PACKET PO SCH (09:16)
[2019-10-04] MEDS: Aspirin 81 mg Enteric Coated Tablet PO SCH (09:16)
[2019-10-04] MEDS: guaiFENesin ER 600 MG TAB PO SCH ×2 (09:16→21:06)
[2019-10-04] MEDS: Vancomycin 1 GM in Premix Bag 1 BAG IVPB SCH (09:17)
--- NOTE | 2019-10-04 11:52 | PRG ---
DATE OF SERVICE: 10/04/2019 SUBJECTIVE: Ms. Issa says she feels maybe a little bit better. She had just gotten up, walked into the bathroom, come back to bed when I saw her. OBJECTIVE: VITAL SIGNS: She is afebrile. Heart rates in the 80s, respiratory rates in the teens, oximetry is 90% on 3 L, and blood pressure 126/60. LUNGS: Still remarkable for wheezes bilaterally. HEART: Regular rhythm. ABDOMEN: Soft. IMPRESSION: 1. Pneumonia. 2. Chronic obstructive pulmonary disease exacerbation. 3. Anemia, hemoglobin 7.8 today. PLAN: Continue antibiotics, steroids, and nebulizer treatments. I have encouraged her to spend more time up in a chair today. Job ID: [id number]
[2019-10-04] MEDS: Ondansetron ODT 4 MG TAB PO PRN (11:59)
[2019-10-04] MEDS: traZODone HCl 150 MG TAB PO SCH (21:04)
[2019-10-04] MEDS: rOPINIRole HCl 1 MG TAB PO SCH (21:06)
[2019-10-04] MEDS: Atorvastatin Calcium 10 MG TAB PO SCH (21:06)
[2019-10-05] MEDS: Benzonatate 100 MG CAP PO PRN ×2 (01:32→20:36)
[2019-10-05] MEDS: Cefepime 2 GM in Sodium Chloride 0.9% 100 ML IVPB SCH ×2 (05:29→17:10)
[2019-10-05] MEDS: Levothyroxine Sodium 100 MCG TAB PO SCH (06:04)
[2019-10-05] MEDS: methylPREDNISolone Sod Succ 40 MG VIAL IVP SCH ×3 (06:05→17:11)
[2019-10-05] MEDS: Ondansetron ODT 4 MG TAB PO PRN (08:31)
[2019-10-05] MEDS: Bupropion 150 MG XL TAB PO SCH (08:32)
[2019-10-05] MEDS: Pantoprazole 40 MG GRANULES PACKET PO SCH (08:32)
[2019-10-05] MEDS: Mirtazapine 15 MG TAB PO SCH (08:33)
[2019-10-05] MEDS: Furosemide 40 MG TAB PO SCH (08:34)
[2019-10-05] MEDS: Famotidine 20 MG TAB PO SCH ×2 (08:34→20:36)
[2019-10-05] MEDS: guaiFENesin ER 600 MG TAB PO SCH ×2 (08:34→20:36)
[2019-10-05] MEDS: Potassium Chloride 10 MEQ TAB PO SCH (08:34)
[2019-10-05] MEDS: Aspirin 81 mg Enteric Coated Tablet PO SCH (08:35)
[2019-10-05] MEDS: Losartan 25 MG TAB PO SCH (08:35)
[2019-10-05] MEDS: Anastrozole 1 MG TAB PO SCH (08:35)
[2019-10-05] MEDS: Dronedarone HCl 400 MG TAB PO SCH ×2 (08:35→17:11)
[2019-10-05] MEDS: Vancomycin 1 GM in Premix Bag 1 BAG IVPB SCH (11:29)
--- NOTE | 2019-10-05 16:31 | PDOC.HOSPP ---
- Subjective Encounter Date: 10/05/19 Encounter Time: 08:00 Subjective: Pt seen for followup re; COPD exacerbation. Feels better. - Objective Vital Signs & Weight: Vital Signs (12 hours) Temp Pulse Pulse Resp BP BP Pulse Ox 10/05/19 15:22 98.2 F 88 18 123/75 91 L 10/05/19 12:30 85 20 92 L 10/05/19 11:27 98.2 F 86 18 136/106 H 91 L 10/05/19 09:37 95 124/75 10/05/19 07:24 89 L 10/05/19 07:23 92 16 88 L 10/05/19 07:11 98.2 F 80 18 135/62 91 L Pulse Ox Pulse Ox Pulse Ox 10/05/19 15:22 10/05/19 12:30 10/05/19 11:27 10/05/19 09:37 84 L 94 L 91 L 10/05/19 07:24 10/05/19 07:23 10/05/19 07:11 Weight Admit Weight 144 lb 2 oz Weight 144 lb 8 oz Most Recent Monitor Data Heart Rate from ECG 88 NIBP 123/46 NIBP BP-Mean 81 Respiration from ECG 33 SpO2 92 I&O: 10/04/19 10/05/19 10/06/19 06:59 06:59 06:59 Intake Total 880 937 Output Total 690 600 Balance 190 337 Result Diagrams: 10/04/19 04:38 10/04/19 04:38 Additional Labs: Labs and MARs reviewed by me EKG Reviewed by me: Yes (Tele: NSR) Hospitalist ROS - Review of Systems Constitutional: denies: fever, chills, sweats, weakness, malaise Respiratory: reports: cough, sputum. denies: dry, shortness of breath, hemoptysis, SOB with excertion, pleuritic pain, wheezing Cardiovascular: denies: chest pain, palpitations, orthopnea, paroxysmal noc. dyspnea, edema, light headedness Gastrointestinal: denies: nausea, vomiting, abdominal pain, diarrhea, constipation, melena, hematochezia Genitourinary: denies: dysuria, frequency, incontinence, hematuria, retention Skin: denies: rash, lesions, steve, bruising - Medication Medications: Active Medications Generic Name Dose Route Start Last Admin Trade Name Freq PRN Reason Stop Dose Admin Acetaminophen 650 mg 10/02/19 20:39 10/03/19 10:09 Tylenol PO 650 mg Q4H PRN Administration Headache/Fever/Mild Pain (1-3) Albuterol/Ipratropium 3 ml 10/03/19 01:00 10/05/19 12:30 Duoneb NEB 3 ml [id number] TENZIN Administration Anastrozole 1 mg 10/03/19 09:00 10/05/19 08:35 Arimidex PO 1 mg DAILY TENZIN Administration Aspirin 81 mg 10/03/19 09:00 10/05/19 08:35 Ecotrin PO 81 mg DAILY TENZIN Administration Atorvastatin Calcium 10 mg 10/02/19 21:00 10/04/19 21:06 Lipitor PO 10 mg HS TENZIN Administration Benzonatate 100 mg 10/02/19 20:39 10/05/19 01:32 Tessalon PO 100 mg TID PRN Administration Cough Bupropion HCl 300 mg 10/03/19 09:00 10/05/19 08:32 Wellbutrin Xl PO 300 mg DAILY TENZIN Administration Dronedarone 400 mg 10/03/19 08:00 10/05/19 08:35 Multaq PO 400 mg BID-WM TENZIN Administration Famotidine 20 mg 10/03/19 21:00 10/05/19 08:34 Pepcid PO 20 mg Q12HR TENZIN Administration Furosemide 40 mg 10/03/19 09:00 10/05/19 08:34 Lasix PO 40 mg DAILY TENZIN Administration Guaifenesin 600 mg 10/03/19 21:00 10/05/19 08:34 Mucinex PO 600 mg Q12HR TENZIN Administration Guaifenesin/Dextromethorphan 15 ml 10/02/19 20:39 10/04/19 00:20 Robitussin Dm PO 15 ml Q4H PRN Administration Cough Cefepime HCl 2 gm/ Sodium 100 mls @ 200 mls/hr 10/03/19 05:00 10/05/19 05:29 Chloride IVPB 100 mls 0500,1700 TENZIN Administration Vancomycin HCl 1 gm/ Device 200 mls @ 200 mls/hr 10/03/19 09:00 10/05/19 11: 29 IVPB 200 mls 0900 TENZIN Administration Levothyroxine Sodium 100 mcg 10/03/19 06:00 10/05/19 06:04 Synthroid PO 100 mcg 0600 TENZIN Administration Losartan Potassium 25 mg 10/03/19 09:00 10/05/19 08:35 Cozaar PO 25 mg DAILY TENZIN Administration Methylprednisolone Sodium Succinate 40 mg 10/02/19 23:59 10/05/19 11:29 Solu-Medrol IVP 40 mg Q6HR TENZIN Administration Mirtazapine 45 mg 10/03/19 09:00 10/05/19 08:33 Remeron PO 45 mg DAILY TENZIN Administration Ondansetron HCl 4 mg 10/02/19 20:39 10/05/19 08:31 Zofran Odt PO 4 mg Q6H PRN Administration Nausea/Vomiting Pantoprazole Sodium 40 mg 10/03/19 09:00 10/05/19 08:32 Protonix PO 40 mg DAILY TENZIN Administration Potassium Chloride 10 meq 10/03/19 08:00 10/05/19 08:34 Klor-Con 10 PO 10 meq QAM-WM TENZIN Administration Ropinirole HCl 1 mg 10/02/19 21:00 10/04/19 21:06 Requip PO 1 mg HS TENZIN Administration Senna/Docusate Sodium 2 tab 10/02/19 20:39 10/03/19 10:09 Senokot S PO 2 tab BIDPRN PRN Administration Constipation Sodium Chloride 10 ml 10/03/19 09:00 10/05/19 08:36 Flush - Normal Saline IVF 10 ml Q12HR TENZIN Administration Sodium Chloride 10 ml 10/02/19 21:11 10/05/19 05:29 Flush - Normal Saline IVF 10 ml PRN PRN Administration Saline Flush Trazodone HCl 150 mg 10/02/19 21:00 10/04/19 21:04 Desyrel PO 150 mg HS TENZIN Administration - Exam General Appearance: awake alert Eye: anicteric sclera ENT: normocephalic atraumatic Neck: supple, symmetric, no thyromegaly, no lymphadenopathy Heart: RRR, no gallops, no rubs, normal peripheral pulses Respiratory: CTAB, no wheezes, no rales, no ronchi, normal chest expansion Gastrointestinal: soft, non-tender, non-distended, normal bowel sounds Psychiatric: normal affect, normal behavior, A&O x 3 Hosp A/P - Plan continue antibiotics, PT/OT - Assessment (1) COPD with exacerbation Code(s): J44.1 - CHRONIC OBSTRUCTIVE PULMONARY DISEASE W (ACUTE) EXACERBATION Status: Acute (2) Acute and chronic respiratory failure with hypoxia Code(s): J96.21 - ACUTE AND CHRONIC RESPIRATORY FAILURE WITH HYPOXIA Status: Acute (3) Pneumonia Code(s): J18.9 - PNEUMONIA, UNSPECIFIED ORGANISM Status: Acute (4) Restless leg syndrome Status: Chronic (5) Chronic atrial fibrillation Code(s): I48.20 - CHRONIC ATRIAL FIBRILLATION, UNSPECIFIED Status: Chronic (6) Sepsis Code(s): A41.9 - SEPSIS, UNSPECIFIED ORGANISM Status: Resolved - Plan Continue cefepime and vancomycin, follow cultures. Continue staroids and bronchodilators. Ambulate patient. Check AM labs.
--- NOTE | 2019-10-05 19:04 | PRG ---
DATE OF SERVICE: 10/05/2019 SUBJECTIVE: Ms. Issa is afebrile. OBJECTIVE: VITAL SIGNS: Heart rate is 88, respiratory rate is 18, oximetry is 91% on 2 L, blood pressure is 123/75. GENERAL: She walked 20 feet today. She says she feels even better today than she felt yesterday. She is not coughing near as much. LUNGS: Remarkable for crackles at both bases. HEART: Regular rhythm. ABDOMEN: Soft. LABORATORY DATA: No new lab today. IMPRESSION: 1. Pneumonia. 2. Underlying chronic obstructive pulmonary disease, clinically improved. We need to get her a nebulizer, all she has at home is Anoro. Reviewed her cultures. They are negative. She continues to improve, so we can stop her IV antimicrobial therapy at this point in time and switch her off IV steroids as well. 3. We will continue to follow. I have put an order into arrange for home nebulizer. Job ID: [id number]
[2019-10-05] MEDS: rOPINIRole HCl 1 MG TAB PO SCH (20:36)
[2019-10-05] MEDS: Atorvastatin Calcium 10 MG TAB PO SCH (20:36)
[2019-10-05] MEDS: Cefdinir 300 MG CAP PO SCH (20:36)
[2019-10-05] MEDS: traZODone HCl 150 MG TAB PO SCH (20:37)
[2019-10-05] MEDS: Guaifenesin DM 100-10/5 ML UDCUP PO PRN (21:19)
[2019-10-06] MEDS: Levothyroxine Sodium 100 MCG TAB PO SCH (04:47)
[2019-10-06] MEDS: Benzonatate 100 MG CAP PO PRN ×2 (04:47→20:46)
[2019-10-06 04:49] LABS: #Lymphocytes 0.4 thou/uL (1.20-3.40); #Monocytes 0.3 thou/uL (0.11-0.59); #Neutrophils 5.9 thou/uL (1.40-6.50); %Basophils 0.5 % (0.0-1.0); %Eosinophils 0.1 % (0.0-10.0); %Lymphocytes 6.5 % (21.0-51.0); Hemoglobin 7.8 g/dL (12.0-16.0); Mean Corpuscular HGB CONC 32.7 g/dL (32.0-36.0); Mean Corpuscular Hemoglobin 31.6 pg (27.0-31.0); Mean Corpuscular Volume 96.5 fL (78.0-98.0); Mean Platelet Volume 8.8 fL (7.4-10.4); Platelet Count 169 thou/uL (130-400); RBC Distribution Width 15.1 % (11.5-14.5); Red Blood Cell (RBC) Count 2.46 mill/uL (4.20-5.40); White Blood Cell (WBC) Count 6.7 thou/uL (4.8-10.8)
[2019-10-06 05:13] LABS: Anion Gap 13 mmol/L (10-20); BUN (Urea Nitrogen) 26 mg/dL (9.8-20.1); Calc. Creatinine Clearance 34 mL/min (70-130); Carbon Dioxide 30 mmol/L (23-31); Chloride 99 mmol/L (98-107); Estimated GFR-MDRD 38; Glucose 102 mg/dL (83-110); Potassium 4.2 mmol/L (3.5-5.1); Sodium 138 mmol/L (136-145)
[2019-10-06] MEDS: Dronedarone HCl 400 MG TAB PO SCH ×2 (08:50→17:53)
[2019-10-06] MEDS: Mirtazapine 15 MG TAB PO SCH (08:50)
[2019-10-06] MEDS: Cefdinir 300 MG CAP PO SCH ×2 (08:51→20:46)
[2019-10-06] MEDS: Aspirin 81 mg Enteric Coated Tablet PO SCH (08:51)
[2019-10-06] MEDS: guaiFENesin ER 600 MG TAB PO SCH ×2 (08:51→20:46)
[2019-10-06] MEDS: Bupropion 150 MG XL TAB PO SCH (08:51)
[2019-10-06] MEDS: Potassium Chloride 10 MEQ TAB PO SCH (08:51)
[2019-10-06] MEDS: Famotidine 20 MG TAB PO SCH ×2 (08:51→20:47)
[2019-10-06] MEDS: predniSONE 20 MG TAB PO SCH (08:51)
[2019-10-06] MEDS: Furosemide 40 MG TAB PO SCH (08:52)
[2019-10-06] MEDS: Pantoprazole 40 MG GRANULES PACKET PO SCH (08:52)
[2019-10-06] MEDS: Anastrozole 1 MG TAB PO SCH (08:52)
[2019-10-06] MEDS: Vancomycin 1 GM in Premix Bag 1 BAG IVPB SCH (08:52)
[2019-10-06] MEDS: Losartan 25 MG TAB PO SCH (08:52)
--- NOTE | 2019-10-06 16:04 | PDOC.HOSPP ---
- Subjective Encounter Date: 10/06/19 Encounter Time: 08:40 Subjective: Pt seen for followup re: COPD exacerbation. Feels better today. - Objective Vital Signs & Weight: Vital Signs (12 hours) Temp Pulse Resp BP Pulse Ox 10/06/19 13:36 82 16 10/06/19 08:00 98.3 F 76 20 158/63 H 93 L 10/06/19 07:49 93 L 10/06/19 07:45 76 16 Weight Admit Weight 144 lb 2 oz Weight 144 lb 8 oz Most Recent Monitor Data Heart Rate from ECG 88 NIBP 123/46 NIBP BP-Mean 81 Respiration from ECG 33 SpO2 92 I&O: 10/05/19 10/06/19 10/07/19 06:59 06:59 06:59 Intake Total 937 1530 Output Total 600 1750 Balance 337 -220 Result Diagrams: 10/06/19 04:30 10/06/19 04:30 Additional Labs: Labs and MARs reviewed by me EKG Reviewed by me: Yes (Tele: NSR) Hospitalist ROS - Review of Systems Respiratory: reports: SOB with excertion Cardiovascular: denies: chest pain, palpitations, orthopnea, paroxysmal noc. dyspnea, edema, light headedness Gastrointestinal: denies: nausea, vomiting, abdominal pain, diarrhea, constipation, melena, hematochezia - Medication Medications: Active Medications Generic Name Dose Route Start Last Admin Trade Name Freq PRN Reason Stop Dose Admin Acetaminophen 650 mg 10/02/19 20:39 10/03/19 10:09 Tylenol PO 650 mg Q4H PRN Administration Headache/Fever/Mild Pain (1-3) Albuterol/Ipratropium 3 ml 10/03/19 01:00 10/06/19 13:36 Duoneb NEB 3 ml [id number] TENZIN Administration Anastrozole 1 mg 10/03/19 09:00 10/06/19 08:52 Arimidex PO 1 mg DAILY TENZIN Administration Aspirin 81 mg 10/03/19 09:00 10/06/19 08:51 Ecotrin PO 81 mg DAILY TENZIN Administration Atorvastatin Calcium 10 mg 10/02/19 21:00 10/05/19 20:36 Lipitor PO 10 mg HS TENZIN Administration Benzonatate 100 mg 10/02/19 20:39 10/06/19 04:47 Tessalon PO 100 mg TID PRN Administration Cough Bupropion HCl 300 mg 10/03/19 09:00 10/06/19 08:51 Wellbutrin Xl PO 300 mg DAILY TENZIN Administration Cefdinir 300 mg 10/05/19 21:00 10/06/19 08:51 Omnicef PO 300 mg BID TENZIN Administration Dronedarone 400 mg 10/03/19 08:00 10/06/19 08:50 Multaq PO 400 mg BID-WM TENZIN Administration Famotidine 20 mg 10/03/19 21:00 10/06/19 08:51 Pepcid PO 20 mg Q12HR TENZIN Administration Furosemide 40 mg 10/03/19 09:00 10/06/19 08:52 Lasix PO 40 mg DAILY TENZIN Administration Guaifenesin 600 mg 10/03/19 21:00 10/06/19 08:51 Mucinex PO 600 mg Q12HR TENZIN Administration Guaifenesin/Dextromethorphan 15 ml 10/02/19 20:39 10/05/19 21:19 Robitussin Dm PO 15 ml Q4H PRN Administration Cough Vancomycin HCl 1 gm/ Device 200 mls @ 200 mls/hr 10/03/19 09:00 10/06/19 08: 52 IVPB 200 mls 0900 TENZIN Administration Levothyroxine Sodium 100 mcg 10/03/19 06:00 10/06/19 04:47 Synthroid PO 100 mcg 0600 TENZIN Administration Losartan Potassium 25 mg 10/03/19 09:00 10/06/19 08:52 Cozaar PO 25 mg DAILY TENZIN Administration Mirtazapine 45 mg 10/03/19 09:00 10/06/19 08:50 Remeron PO 45 mg DAILY TENZIN Administration Ondansetron HCl 4 mg 10/02/19 20:39 10/05/19 08:31 Zofran Odt PO 4 mg Q6H PRN Administration Nausea/Vomiting Pantoprazole Sodium 40 mg 10/03/19 09:00 10/06/19 08:52 Protonix PO 40 mg DAILY TENZIN Administration Potassium Chloride 10 meq 10/03/19 08:00 10/06/19 08:51 Klor-Con 10 PO 10 meq QAM-WM TENZIN Administration Prednisone 40 mg 10/06/19 08:00 10/06/19 08:51 Prednisone PO 40 mg QAM-WM TENZIN Administration Ropinirole HCl 1 mg 10/02/19 21:00 10/05/19 20:36 Requip PO 1 mg HS TENZIN Administration Senna/Docusate Sodium 2 tab 10/02/19 20:39 10/03/19 10:09 Senokot S PO 2 tab BIDPRN PRN Administration Constipation Sodium Chloride 10 ml 10/03/19 09:00 10/06/19 08:52 Flush - Normal Saline IVF 10 ml Q12HR TENZIN Administration Sodium Chloride 10 ml 10/02/19 21:11 10/05/19 05:29 Flush - Normal Saline IVF 10 ml PRN PRN Administration Saline Flush Trazodone HCl 150 mg 10/02/19 21:00 10/05/19 20:37 Desyrel PO 150 mg HS TENZIN Administration - Exam General Appearance: awake alert Eye: anicteric sclera ENT: normocephalic atraumatic Neck: supple Heart: RRR Respiratory: CTAB Gastrointestinal: soft, non-tender Psychiatric: normal affect, normal behavior Hosp A/P - Plan PT/OT, out of bed/ambulate - Assessment (1) COPD with exacerbation Code(s): J44.1 - CHRONIC OBSTRUCTIVE PULMONARY DISEASE W (ACUTE) EXACERBATION Status: Acute (2) Acute and chronic respiratory failure with hypoxia Code(s): J96.21 - ACUTE AND CHRONIC RESPIRATORY FAILURE WITH HYPOXIA Status: Acute (3) Pneumonia Code(s): J18.9 - PNEUMONIA, UNSPECIFIED ORGANISM Status: Acute (4) Restless leg syndrome Status: Chronic (5) Chronic atrial fibrillation Code(s): I48.20 - CHRONIC ATRIAL FIBRILLATION, UNSPECIFIED Status: Chronic (6) Sepsis Code(s): A41.9 - SEPSIS, UNSPECIFIED ORGANISM Status: Resolved - Plan Antibiotics discontinued today. Steroids switched to oral. Ambulate patient.
--- NOTE | 2019-10-06 17:02 | PRG ---
DATE OF SERVICE: 10/06/2019 SUBJECTIVE: Ms. Issa did well overnight. She says she feels better than she felt yesterday. OBJECTIVE: VITAL SIGNS: She is afebrile, heart rate is 83, respiratory rate is 18, oximetry is 93% on a 2 L cannula, and blood pressure 136/66. LUNGS: She still has crackles at her lung bases and mild wheezes. She says she is coughing up more sputum now and more easily. HEART: Regular rhythm. ABDOMEN: Soft. LABORATORY DATA: White count 6.7, hemoglobin 7.8, and platelets 169. Electrolytes are normal. Creatinine is 1.3. Intake and output were negative 220. ASSESSMENT AND PLAN: Lasix probably should be held given a rising creatinine. Activity can be increased. She is still on IV vancomycin, so I have discontinued this. There are no positive cultures. Job ID: [id number]
[2019-10-06] MEDS: Guaifenesin DM 100-10/5 ML UDCUP PO PRN (20:47)
[2019-10-06] MEDS: Atorvastatin Calcium 10 MG TAB PO SCH (20:47)
[2019-10-06] MEDS: rOPINIRole HCl 1 MG TAB PO SCH (20:50)
[2019-10-06] MEDS: traZODone HCl 150 MG TAB PO SCH (20:50)
[2019-10-07 04:48] LABS: #Lymphocytes 0.7 thou/uL (1.20-3.40); #Monocytes 0.4 thou/uL (0.11-0.59); #Neutrophils 4.1 thou/uL (1.40-6.50); %Basophils 0.2 % (0.0-1.0); %Eosinophils 0.1 % (0.0-10.0); %Neutrophils 77.8 % (42.0-75.0); Hemoglobin 7.9 g/dL (12.0-16.0); Mean Corpuscular HGB CONC 32.7 g/dL (32.0-36.0); Mean Corpuscular Hemoglobin 31.7 pg (27.0-31.0); Mean Platelet Volume 8.1 fL (7.4-10.4); Platelet Count 182 thou/uL (130-400); RBC Distribution Width 15.2 % (11.5-14.5); Red Blood Cell (RBC) Count 2.49 mill/uL (4.20-5.40); White Blood Cell (WBC) Count 5.3 thou/uL (4.8-10.8)
[2019-10-07] MEDS: Levothyroxine Sodium 100 MCG TAB PO SCH (04:50)
[2019-10-07] MEDS: Benzonatate 100 MG CAP PO PRN ×2 (04:50→21:00)
[2019-10-07] MEDS: Guaifenesin DM 100-10/5 ML UDCUP PO PRN ×2 (04:51→21:01)
[2019-10-07 05:05] LABS: Anion Gap 9 mmol/L (10-20); BUN (Urea Nitrogen) 27 mg/dL (9.8-20.1); Calc. Creatinine Clearance 33 mL/min (70-130); Calcium 7.9 mg/dL (7.8-10.44); Carbon Dioxide 36 mmol/L (23-31); Chloride 101 mmol/L (98-107); Estimated GFR-MDRD 37; Glucose 93 mg/dL (83-110); Potassium 3.4 mmol/L (3.5-5.1); Sodium 143 mmol/L (136-145)
[2019-10-07] MEDS: Potassium Chloride 10 MEQ TAB PO SCH (09:00)
[2019-10-07] MEDS: Aspirin 81 mg Enteric Coated Tablet PO SCH (09:00)
[2019-10-07] MEDS: Bupropion 150 MG XL TAB PO SCH (09:00)
[2019-10-07] MEDS: Cefdinir 300 MG CAP PO SCH ×2 (09:00→21:00)
[2019-10-07] MEDS: Famotidine 20 MG TAB PO SCH ×2 (09:00→21:00)
[2019-10-07] MEDS: guaiFENesin ER 600 MG TAB PO SCH ×2 (09:00→21:00)
[2019-10-07] MEDS: Mirtazapine 15 MG TAB PO SCH (09:00)
[2019-10-07] MEDS: predniSONE 20 MG TAB PO SCH (09:00)
[2019-10-07] MEDS: Anastrozole 1 MG TAB PO SCH (09:00)
[2019-10-07] MEDS: Dronedarone HCl 400 MG TAB PO SCH ×2 (09:00→16:56)
[2019-10-07] MEDS: Senokot S 8.6-50 MG TAB PO PRN (09:09)
[2019-10-07] MEDS ORDERED: Potassium Chloride 20 MEQ TAB PO SCH (10:00)
[2019-10-07] MEDS ORDERED: hydrALAZINE 20 MG/ML VIAL SLOW IVP PRN (11:34)
--- NOTE | 2019-10-07 12:35 | PDOC.HOSPP ---
- Subjective Encounter Date: 10/07/19 Encounter Time: 08:00 Subjective: Pt seen for followup for COPD exacerbation. Feels better. - Objective Vital Signs & Weight: Vital Signs (12 hours) Temp Pulse Resp BP Pulse Ox 10/07/19 12:00 78 20 134/64 92 L 10/07/19 08:00 98.0 F 78 20 186/75 H 92 L 10/07/19 07:34 90 19 10/07/19 05:11 98.5 F 73 14 108/50 L 91 L 10/07/19 01:08 92 L Weight Admit Weight 144 lb 2 oz Weight 144 lb 8 oz Most Recent Monitor Data Heart Rate from ECG 88 NIBP 123/46 NIBP BP-Mean 81 Respiration from ECG 33 SpO2 92 I&O: 10/06/19 10/07/19 10/08/19 06:59 06:59 06:59 Intake Total 1530 1010 Output Total 1750 750 Balance -220 260 Result Diagrams: 10/07/19 04:30 10/07/19 04:30 Additional Labs: Labs and MARs reviewed by me EKG Reviewed by me: Yes (Tele: NSR) Hospitalist ROS - Review of Systems Cardiovascular: denies: chest pain, palpitations, orthopnea, paroxysmal noc. dyspnea, edema, light headedness Gastrointestinal: denies: nausea, vomiting, abdominal pain, diarrhea, constipation, melena, hematochezia - Medication Medications: Active Medications Generic Name Dose Route Start Last Admin Trade Name Freq PRN Reason Stop Dose Admin Acetaminophen 650 mg 10/02/19 20:39 10/03/19 10:09 Tylenol PO 650 mg Q4H PRN Administration Headache/Fever/Mild Pain (1-3) Albuterol/Ipratropium 3 ml 10/03/19 01:00 10/07/19 07:34 Duoneb NEB 3 ml [id number] TENZIN Administration Anastrozole 1 mg 10/03/19 09:00 10/07/19 09:00 Arimidex PO 1 mg DAILY TENZIN Administration Aspirin 81 mg 10/03/19 09:00 10/07/19 09:00 Ecotrin PO 81 mg DAILY TENZIN Administration Atorvastatin Calcium 10 mg 10/02/19 21:00 10/06/19 20:47 Lipitor PO 10 mg HS TENZIN Administration Benzonatate 100 mg 10/02/19 20:39 10/07/19 04:50 Tessalon PO 100 mg TID PRN Administration Cough Bupropion HCl 300 mg 10/03/19 09:00 10/07/19 09:00 Wellbutrin Xl PO 300 mg DAILY TENZIN Administration Cefdinir 300 mg 10/05/19 21:00 10/07/19 09:00 Omnicef PO 300 mg BID TENZIN Administration Dronedarone 400 mg 10/03/19 08:00 10/07/19 09:00 Multaq PO 400 mg BID-WM TENZIN Administration Famotidine 20 mg 10/03/19 21:00 10/07/19 09:00 Pepcid PO 20 mg Q12HR TENZIN Administration Guaifenesin 600 mg 10/03/19 21:00 10/07/19 09:00 Mucinex PO 600 mg Q12HR TENZIN Administration Guaifenesin/Dextromethorphan 15 ml 10/02/19 20:39 10/07/19 04:51 Robitussin Dm PO 15 ml Q4H PRN Administration Cough Levothyroxine Sodium 100 mcg 10/03/19 06:00 10/07/19 04:50 Synthroid PO 100 mcg 0600 TENZIN Administration Mirtazapine 45 mg 10/03/19 09:00 10/07/19 09:00 Remeron PO 45 mg DAILY TENZIN Administration Ondansetron HCl 4 mg 10/02/19 20:39 10/05/19 08:31 Zofran Odt PO 4 mg Q6H PRN Administration Nausea/Vomiting Pantoprazole Sodium 40 mg 10/07/19 09:00 10/07/19 09:00 Protonix PO 40 mg DAILY TENZIN Administration Potassium Chloride 10 meq 10/03/19 08:00 10/07/19 09:00 Klor-Con 10 PO 10 meq QAM-WM TENZIN Administration Prednisone 40 mg 10/06/19 08:00 10/07/19 09:00 Prednisone PO 40 mg QAM-WM TENZIN Administration Ropinirole HCl 1 mg 10/02/19 21:00 10/06/19 20:50 Requip PO 1 mg HS TENZIN Administration Senna/Docusate Sodium 2 tab 10/02/19 20:39 10/07/19 09:09 Senokot S PO 2 tab BIDPRN PRN Administration Constipation Sodium Chloride 10 ml 10/03/19 09:00 10/07/19 09:01 Flush - Normal Saline IVF 10 ml Q12HR TENZIN Administration Sodium Chloride 10 ml 10/02/19 21:11 10/05/19 05:29 Flush - Normal Saline IVF 10 ml PRN PRN Administration Saline Flush Trazodone HCl 150 mg 10/02/19 21:00 10/06/19 20:50 Desyrel PO 150 mg HS TENZIN Administration - Exam General Appearance: awake alert Eye: anicteric sclera ENT: moist mucosa Neck: supple Heart: RRR, no rubs Respiratory: CTAB Gastrointestinal: soft, non-tender Musculoskeletal: normal tone Psychiatric: normal affect, normal behavior Hosp A/P - Plan out of bed/ambulate - Assessment (1) COPD with exacerbation Code(s): J44.1 - CHRONIC OBSTRUCTIVE PULMONARY DISEASE W (ACUTE) EXACERBATION Status: Acute (2) Acute renal failure Code(s): J96.21 - ACUTE AND CHRONIC RESPIRATORY FAILURE WITH HYPOXIA Status: Acute (3) Pneumonia Code(s): J18.9 - PNEUMONIA, UNSPECIFIED ORGANISM Status: Acute (4) Restless leg syndrome Status: Chronic (5) Chronic atrial fibrillation Code(s): I48.20 - CHRONIC ATRIAL FIBRILLATION, UNSPECIFIED Status: Chronic (6) Sepsis Code(s): A41.9 - SEPSIS, UNSPECIFIED ORGANISM Status: Resolved (7) Acute and chronic respiratory failure with hypoxia Code(s): J96.21 - ACUTE AND CHRONIC RESPIRATORY FAILURE WITH HYPOXIA Status: Resolved - Plan DC Cozaar for renal failure. Provide IV hydration and recheck creatinine. Antibiotics discontinued. Steroids switched to oral. Ambulate patient.
[2019-10-07] MEDS: NS 0.9% w/ 20 MEQ KCL 1,000 ML/1,000 ML BAG IV SCH (13:07)
--- NOTE | 2019-10-07 14:21 | PRG ---
DATE OF SERVICE: 10/07/2019 SUBJECTIVE: Ms. Issa says she continues to feel better each day. She did not walk as far today she says. OBJECTIVE: VITAL SIGNS: Heart rate 78, respiratory rate 20, oximetry is 92% on 2 L, blood pressure 135/75. LUNGS: Unchanged. HEART: Unchanged. ABDOMEN: Unchanged. IMPRESSION: 1. Pneumonia. 2. Underlying chronic obstructive pulmonary disease. 3. Deconditioning. 4. Anemia with a hemoglobin of 7.9, which has been stable for 3 days. PLAN: She probably needs reticulocyte count to see if she is making red cells. If she is not, she will probably benefit from a unit of blood. She does have borderline elevated mean corpuscular volume. It does not clinically appear to be blood loss related. Continue with supportive care and placement in a skilled facility eventually. Job ID: [id number]
[2019-10-07] MEDS: Atorvastatin Calcium 10 MG TAB PO SCH (21:00)
[2019-10-07] MEDS: traZODone HCl 150 MG TAB PO SCH (21:00)
[2019-10-07] MEDS: rOPINIRole HCl 1 MG TAB PO SCH (21:00)
[2019-10-08] MEDS: NS 0.9% w/ 20 MEQ KCL 1,000 ML/1,000 ML BAG IV SCH ×2 (02:40→16:14)
[2019-10-08] MEDS: Benzonatate 100 MG CAP PO PRN (02:49)
[2019-10-08] MEDS: Guaifenesin DM 100-10/5 ML UDCUP PO PRN ×2 (02:49→21:31)
[2019-10-08] MEDS: Levothyroxine Sodium 100 MCG TAB PO SCH (02:49)
[2019-10-08 06:42] LABS: #Eosinphils 0.1 thou/uL (0.0-0.7); #Lymphocytes 1.1 thou/uL (1.20-3.40); #Monocytes 0.6 thou/uL (0.11-0.59); #Neutrophils 4.7 thou/uL (1.40-6.50); %Basophils 0.1 % (0.0-1.0); %Eosinophils 0.9 % (0.0-10.0); %Lymphocytes 16.7 % (21.0-51.0); %Monocytes 9.8 % (0.0-10.0); %Neutrophils 72.5 % (42.0-75.0); Hemoglobin 8.1 g/dL (12.0-16.0); Mean Corpuscular HGB CONC 31.5 g/dL (32.0-36.0); Mean Corpuscular Hemoglobin 30.7 pg (27.0-31.0); Mean Corpuscular Volume 97.4 fL (78.0-98.0); Mean Platelet Volume 8.2 fL (7.4-10.4); Platelet Count 227 thou/uL (130-400); RBC Distribution Width 15.4 % (11.5-14.5); Red Blood Cell (RBC) Count 2.65 mill/uL (4.20-5.40); White Blood Cell (WBC) Count 6.5 thou/uL (4.8-10.8)
[2019-10-08 07:20] LABS: Anion Gap 11 mmol/L (10-20); BUN (Urea Nitrogen) 23 mg/dL (9.8-20.1); Calc. Creatinine Clearance 36 mL/min (70-130); Calcium 8.5 mg/dL (7.8-10.44); Carbon Dioxide 28 mmol/L (23-31); Chloride 104 mmol/L (98-107); Estimated GFR-MDRD 42; Glucose 78 mg/dL (83-110); Potassium 4.2 mmol/L (3.5-5.1); Sodium 139 mmol/L (136-145)
[2019-10-08] MEDS: Mirtazapine 15 MG TAB PO SCH (09:30)
[2019-10-08] MEDS: Dronedarone HCl 400 MG TAB PO SCH ×2 (09:31→16:14)
[2019-10-08] MEDS: Cefdinir 300 MG CAP PO SCH ×2 (09:31→21:30)
[2019-10-08] MEDS: Potassium Chloride 10 MEQ TAB PO SCH (09:31)
[2019-10-08] MEDS: guaiFENesin ER 600 MG TAB PO SCH ×2 (09:31→21:30)
[2019-10-08] MEDS: Bupropion 150 MG XL TAB PO SCH (09:31)
[2019-10-08] MEDS: Aspirin 81 mg Enteric Coated Tablet PO SCH (09:31)
[2019-10-08] MEDS: Anastrozole 1 MG TAB PO SCH (09:32)
[2019-10-08] MEDS: Famotidine 20 MG TAB PO SCH (09:32)
[2019-10-08] MEDS: predniSONE 20 MG TAB PO SCH (09:32)
--- NOTE | 2019-10-08 10:14 | PRG ---
DATE OF SERVICE: 10/08/2019 SUBJECTIVE: Destinee Issa says she is feeling better. She is still coughing at night. OBJECTIVE: VITAL SIGNS: She is afebrile. Heart rate is 80, respiratory rate is 18, oximetry is 98%. LUNGS: Clear. HEART: Regular rhythm. ABDOMEN: Soft. IMPRESSION AND PLAN: 1. Pneumonia. 2. Chronic obstructive pulmonary disease. Overall, she is clinically improving and could be transferred to a skilled facility at some point. We will change her Tessalon Perles to around the clock. Job ID: [id number]
[2019-10-08 13:49] VITALS: BMI 21.3
[2019-10-08] MEDS: Benzonatate 100 MG CAP PO SCH ×2 (16:13→21:30)
--- NOTE | 2019-10-08 16:55 | PDOC.HOSPP ---
- Subjective Encounter Date: 10/08/19 Encounter Time: 11:30 Subjective: pt up in bed feels well and wants to go home. - Objective Vital Signs & Weight: Vital Signs (12 hours) Temp Pulse Pulse Resp BP BP Pulse Ox 10/08/19 16:00 98.4 F 77 16 133/67 96 10/08/19 13:50 92 107/70 10/08/19 12:47 79 16 10/08/19 12:00 97.8 F 78 16 138/64 98 10/08/19 08:00 99.0 F 80 18 133/59 L 98 10/08/19 07:10 93 L 10/08/19 07:08 83 16 Pulse Ox Pulse Ox 10/08/19 16:00 10/08/19 13:50 93 L 93 L 10/08/19 12:47 10/08/19 12:00 10/08/19 08:00 10/08/19 07:10 10/08/19 07:08 Weight Admit Weight 144 lb 2 oz Weight 144 lb 8 oz Most Recent Monitor Data Heart Rate from ECG 88 NIBP 123/46 NIBP BP-Mean 81 Respiration from ECG 33 SpO2 92 I&O: 10/07/19 10/08/19 10/09/19 06:59 06:59 06:59 Intake Total 1010 2230 Output Total 750 400 Balance 260 1830 Result Diagrams: 10/08/19 06:22 10/08/19 06:21 Hospitalist ROS - Review of Systems Respiratory: denies: cough, dry, shortness of breath, hemoptysis, SOB with excertion, pleuritic pain, sputum, wheezing, other Cardiovascular: denies: chest pain, palpitations, orthopnea, paroxysmal noc. dyspnea, edema, light headedness, other Gastrointestinal: denies: nausea, vomiting, abdominal pain, diarrhea, constipation, melena, hematochezia, other - Medication Medications: Active Medications Generic Name Dose Route Start Last Admin Trade Name Freq PRN Reason Stop Dose Admin Acetaminophen 650 mg 10/02/19 20:39 10/03/19 10:09 Tylenol PO 650 mg Q4H PRN Administration Headache/Fever/Mild Pain (1-3) Albuterol/Ipratropium 3 ml 10/03/19 01:00 10/08/19 12:47 Duoneb NEB 3 ml [id number] TENZIN Administration Anastrozole 1 mg 10/03/19 09:00 10/08/19 09:32 Arimidex PO 1 mg DAILY TENZIN Administration Aspirin 81 mg 10/03/19 09:00 10/08/19 09:31 Ecotrin PO 81 mg DAILY TENZIN Administration Atorvastatin Calcium 10 mg 10/02/19 21:00 10/07/19 21:00 Lipitor PO 10 mg HS TENZIN Administration Benzonatate 200 mg 10/08/19 15:00 10/08/19 16:13 Tessalon PO 200 mg TID TENZIN Administration Bupropion HCl 300 mg 10/03/19 09:00 10/08/19 09:31 Wellbutrin Xl PO 300 mg DAILY TENZIN Administration Cefdinir 300 mg 10/05/19 21:00 10/08/19 09:31 Omnicef PO 300 mg BID TENZIN Administration Dronedarone 400 mg 10/03/19 08:00 10/08/19 16:14 Multaq PO 400 mg BID-WM TENZIN Administration Guaifenesin 600 mg 10/03/19 21:00 10/08/19 09:31 Mucinex PO 600 mg Q12HR TENZIN Administration Guaifenesin/Dextromethorphan 15 ml 10/02/19 20:39 10/08/19 02:49 Robitussin Dm PO 15 ml Q4H PRN Administration Cough Potassium Chloride/Sodium Chloride 1,000 ml in 1,000 mls @ 75 mls/hr 10/07/19 11:45 10/08/19 16:14 Ns 0.9% W/ 20 Meq Kcl IV Not Given .[id number] [facility] [place] Levothyroxine Sodium 100 mcg 10/03/19 06:00 10/08/19 02:49 Synthroid PO 100 mcg 0600 TENZIN Administration Mirtazapine 45 mg 10/03/19 09:00 10/08/19 09:30 Remeron PO 45 mg DAILY TENZIN Administration Ondansetron HCl 4 mg 10/02/19 20:39 10/05/19 08:31 Zofran Odt PO 4 mg Q6H PRN Administration Nausea/Vomiting Pantoprazole Sodium 40 mg 10/07/19 09:00 10/08/19 09:32 Protonix PO 40 mg DAILY TENZIN Administration Potassium Chloride 10 meq 10/03/19 08:00 03/16/20 09:31 Klor-Con 10 PO 10 meq QAM-WM TENZIN Administration Prednisone 40 mg 10/06/19 08:00 10/08/19 09:32 Prednisone PO 40 mg QAM-WM TENZIN Administration Ropinirole HCl 1 mg 10/02/19 21:00 10/07/19 21:00 Requip PO 1 mg HS TENZIN Administration Senna/Docusate Sodium 2 tab 10/02/19 20:39 10/07/19 09:09 Senokot S PO 2 tab BIDPRN PRN Administration Constipation Sodium Chloride 10 ml 10/03/19 09:00 10/08/19 09:32 Flush - Normal Saline IVF 10 ml Q12HR TENZIN Administration Sodium Chloride 10 ml 10/02/19 21:11 10/05/19 05:29 Flush - Normal Saline IVF 10 ml PRN PRN Administration Saline Flush Trazodone HCl 150 mg 10/02/19 21:00 10/07/19 21:00 Desyrel PO 150 mg HS TENZIN Administration - Exam Neck: negative: supple, symmetric, no JVD, no thyromegaly, no lymphadenopathy, no carotid bruit, JVD Heart: negative: RRR, no murmur, no gallops, no rubs, normal peripheral pulses, irregular, diminshed peripheral pulses, murmur present, II/IV, III/IV Respiratory: negative: CTAB, no wheezes, no rales, no ronchi, normal chest expansion, no tachypnea, normal percussion, rales, rhonchi, tachypneic, wheezes Extremities: 1+ LE edema Hosp A/P - Plan (1) COPD with exacerbation Code(s): J44.1 - CHRONIC OBSTRUCTIVE PULMONARY DISEASE W (ACUTE) EXACERBATION Status: Acute (2) Acute renal failure Code(s): J96.21 - ACUTE AND CHRONIC RESPIRATORY FAILURE WITH HYPOXIA Status: Acute (3) Pneumonia Code(s): J18.9 - PNEUMONIA, UNSPECIFIED ORGANISM Status: Acute (4) Restless leg syndrome Status: Chronic (5) Chronic atrial fibrillation Code(s): I48.20 - CHRONIC ATRIAL FIBRILLATION, UNSPECIFIED Status: Chronic (6) Sepsis Code(s): A41.9 - SEPSIS, UNSPECIFIED ORGANISM Status: Resolved (7) Acute and chronic respiratory failure with hypoxia Code(s): J96.21 - ACUTE AND CHRONIC RESPIRATORY FAILURE WITH HYPOXIA Status: Resolved - Plan DC Cozaar for renal failure. Provide IV hydration and recheck creatinine. Antibiotics discontinued. Steroids switched to oral. Ambulate patient. 10/07 pt to go to snf, spoke with case management. Her creatinine is improving. will check bmp in am.
[2019-10-08] MEDS: Ondansetron ODT 4 MG TAB PO PRN (21:30)
[2019-10-08] MEDS: rOPINIRole HCl 1 MG TAB PO SCH (21:30)
[2019-10-08] MEDS: Atorvastatin Calcium 10 MG TAB PO SCH (21:30)
[2019-10-08] MEDS: traZODone HCl 150 MG TAB PO SCH (21:35)
[2019-10-09] MEDS: NS 0.9% w/ 20 MEQ KCL 1,000 ML/1,000 ML BAG IV SCH ×2 (01:02→18:10)
[2019-10-09] MEDS: Levothyroxine Sodium 100 MCG TAB PO SCH (05:36)
[2019-10-09 05:37] LABS: Anion Gap 12 mmol/L (10-20); BUN (Urea Nitrogen) 18 mg/dL (9.8-20.1); Calc. Creatinine Clearance 42 mL/min (70-130); Carbon Dioxide 23 mmol/L (23-31); Chloride 107 mmol/L (98-107); Estimated GFR-MDRD 49; Glucose 81 mg/dL (83-110); Potassium 4.6 mmol/L (3.5-5.1); Sodium 137 mmol/L (136-145)
[2019-10-09] MEDS: Bupropion 150 MG XL TAB PO SCH (10:03)
[2019-10-09] MEDS: Cefdinir 300 MG CAP PO SCH ×2 (10:04→20:48)
[2019-10-09] MEDS: Aspirin 81 mg Enteric Coated Tablet PO SCH (10:04)
[2019-10-09] MEDS: Benzonatate 100 MG CAP PO SCH ×3 (10:06→20:47)
[2019-10-09] MEDS: predniSONE 20 MG TAB PO SCH (10:06)
[2019-10-09] MEDS: Mirtazapine 15 MG TAB PO SCH (10:07)
[2019-10-09] MEDS: Famotidine 20 MG TAB PO SCH (10:07)
[2019-10-09] MEDS: Anastrozole 1 MG TAB PO SCH (10:07)
[2019-10-09] MEDS: Potassium Chloride 10 MEQ TAB PO SCH (10:07)
[2019-10-09] MEDS: guaiFENesin ER 600 MG TAB PO SCH ×2 (10:08→20:47)
[2019-10-09] MEDS: Acetaminophen 325 MG TAB PO PRN (10:08)
[2019-10-09] MEDS: Dronedarone HCl 400 MG TAB PO SCH ×2 (10:08→16:19)
[2019-10-09] MEDS ORDERED: guaiFENesin/Codeine Phosphate 200 mg/20 mg 10 ml UD Cup PO PRN (13:18)
--- NOTE | 2019-10-09 15:26 | PRG ---
DATE OF SERVICE: 10/09/2019 SUBJECTIVE: Destinee Issa says she is feeling well. She still has cough. She is getting a fever blister. OBJECTIVE: LUNGS: Free of wheezes. HEART: Regular rhythm. ABDOMEN: Soft and nontender. EXTREMITIES: Without edema. In my opinion, she is ready to go into the rehab environment. I will prescribe an antiviral for her fever blisters. Job ID: [id number]
[2019-10-09] MEDS ORDERED: rOPINIRole HCl 1 MG TAB PO SCH ×2 (17:32→17:45)
[2019-10-09] MEDS: Atorvastatin Calcium 10 MG TAB PO SCH (20:47)
[2019-10-09] MEDS: traZODone HCl 150 MG TAB PO SCH (20:48)
[2019-10-10] MEDS: Levothyroxine Sodium 100 MCG TAB PO SCH (05:41)
--- NOTE | 2019-10-10 07:35 | PDOC.HOSPP ---
- Subjective Encounter Date: 10/09/19 Encounter Time: 10:15 Subjective: pt up in bed no complains. she is awaiting placement. - Objective Vital Signs & Weight: Vital Signs (12 hours) Temp Pulse Resp BP Pulse Ox 10/10/19 04:00 98.9 F 77 20 123/68 93 L 10/10/19 00:13 75 18 98 10/09/19 20:00 98.4 F 75 20 123/57 L 93 L Weight Admit Weight 144 lb 2 oz Weight 144 lb 8 oz Most Recent Monitor Data Heart Rate from ECG 88 NIBP 123/46 NIBP BP-Mean 81 Respiration from ECG 33 SpO2 92 I&O: 10/09/19 10/10/19 10/11/19 06:59 06:59 06:59 Intake Total 1680 1010 Output Total 400 500 Balance 1280 510 Result Diagrams: 10/08/19 06:22 10/09/19 04:30 Hospitalist ROS - Review of Systems Cardiovascular: denies: chest pain, palpitations, orthopnea, paroxysmal noc. dyspnea, edema, light headedness, other Gastrointestinal: denies: nausea, vomiting, abdominal pain, diarrhea, constipation, melena, hematochezia, other Genitourinary: denies: dysuria, frequency, incontinence, hematuria, retention, other - Medication Medications: Active Medications Generic Name Dose Route Start Last Admin Trade Name Freq PRN Reason Stop Dose Admin Acetaminophen 650 mg 10/02/19 20:39 10/09/19 10:08 Tylenol PO 650 mg Q4H PRN Administration Headache/Fever/Mild Pain (1-3) Albuterol/Ipratropium 3 ml 10/03/19 01:00 10/10/19 00:13 Duoneb NEB 3 ml [id number] TENZIN Administration Anastrozole 1 mg 10/03/19 09:00 10/09/19 10:07 Arimidex PO 1 mg DAILY TENZIN Administration Aspirin 81 mg 10/03/19 09:00 10/09/19 10:04 Ecotrin PO 81 mg DAILY TENZIN Administration Atorvastatin Calcium 10 mg 10/02/19 21:00 10/09/19 20:47 Lipitor PO 10 mg HS TENZIN Administration Benzonatate 200 mg 10/08/19 15:00 10/09/19 20:47 Tessalon PO 200 mg TID TENZIN Administration Bupropion HCl 300 mg 10/03/19 09:00 10/09/19 10:03 Wellbutrin Xl PO 300 mg DAILY TENZIN Administration Cefdinir 300 mg 10/05/19 21:00 10/09/19 20:48 Omnicef PO 300 mg BID TENZIN Administration Dronedarone 400 mg 10/03/19 08:00 10/09/19 16:19 Multaq PO 400 mg BID-WM TENZIN Administration Famotidine 20 mg 10/09/19 09:00 10/09/19 10:07 Pepcid PO 20 mg DAILY TENZIN Administration Guaifenesin 600 mg 10/03/19 21:00 10/09/19 20:47 Mucinex PO 600 mg Q12HR TENZIN Administration Guaifenesin/Codeine Phosphate 5 ml 10/09/19 13:18 10/09/19 20:48 Robitussin Ac PO 5 ml HS PRN Administration Cough Guaifenesin/Dextromethorphan 15 ml 10/02/19 20:39 10/08/19 21:31 Robitussin Dm PO 15 ml Q4H PRN Administration Cough Levothyroxine Sodium 100 mcg 10/03/19 06:00 10/10/19 05:41 Synthroid PO 100 mcg 0600 TENZIN Administration Mirtazapine 45 mg 10/03/19 09:00 10/09/19 10:07 Remeron PO 45 mg DAILY TENZIN Administration Ondansetron HCl 4 mg 10/02/19 20:39 10/08/19 21:30 Zofran Odt PO 4 mg Q6H PRN Administration Nausea/Vomiting Pantoprazole Sodium 40 mg 10/07/19 09:00 10/09/19 10:06 Protonix PO 40 mg DAILY TENZIN Administration Potassium Chloride 10 meq 10/03/19 08:00 10/09/19 10:07 Klor-Con 10 PO 10 meq QAM-WM TENZIN Administration Prednisone 40 mg 10/06/19 08:00 10/09/19 10:06 Prednisone PO 40 mg QAM-WM TENZIN Administration Senna/Docusate Sodium 2 tab 10/02/19 20:39 10/07/19 09:09 Senokot S PO 2 tab BIDPRN PRN Administration Constipation Sodium Chloride 10 ml 10/03/19 09:00 10/09/19 20:48 Flush - Normal Saline IVF 10 ml Q12HR TENZIN Administration Sodium Chloride 10 ml 10/02/19 21:11 10/05/19 05:29 Flush - Normal Saline IVF 10 ml PRN PRN Administration Saline Flush Trazodone HCl 150 mg 10/02/19 21:00 10/09/19 20:48 Desyrel PO 150 mg HS TENZIN Administration - Exam Heart: negative: RRR, no murmur, no gallops, no rubs, normal peripheral pulses, irregular, diminshed peripheral pulses, murmur present, II/IV, III/IV Respiratory: rhonchi, wheezes Gastrointestinal: negative: soft, non-tender, non-distended, normal bowel sounds , no palpable masses, no hepatomegaly, no splenomegaly, no bruit, no guarding, no rigidity, tender to palpation, distended, diminished bowl sounds, voluntary guarding Extremities: negative: no cyanosis, no clubbing, no edema, 1+ LE edema, 2+ LE edema, clubbing Hosp A/P - Plan (1) COPD with exacerbation Code(s): J44.1 - CHRONIC OBSTRUCTIVE PULMONARY DISEASE W (ACUTE) EXACERBATION Status: Acute (2) Acute renal failure Code(s): J96.21 - ACUTE AND CHRONIC RESPIRATORY FAILURE WITH HYPOXIA Status: Acute (3) Pneumonia Code(s): J18.9 - PNEUMONIA, UNSPECIFIED ORGANISM Status: Acute (4) Restless leg syndrome Status: Chronic (5) Chronic atrial fibrillation Code(s): I48.20 - CHRONIC ATRIAL FIBRILLATION, UNSPECIFIED Status: Chronic (6) Sepsis Code(s): A41.9 - SEPSIS, UNSPECIFIED ORGANISM Status: Resolved (7) Acute and chronic respiratory failure with hypoxia Code(s): J96.21 - ACUTE AND CHRONIC RESPIRATORY FAILURE WITH HYPOXIA Status: Resolved - Plan DC Cozaar for renal failure. Provide IV hydration and recheck creatinine. Antibiotics discontinued. Steroids switched to oral. Ambulate patient. 10/07 pt to go to snf, spoke with case management. Her creatinine is improving. will check bmp in am. 10/08 pt is ready to go to snf. However i was notified by the [facility] that they will not be able to take her since she has a cough. she has been tx and is currently not infectious.
[2019-10-10] MEDS ORDERED: valACYclovir 500 MG TAB PO SCH (09:00)
--- NOTE | 2019-10-10 09:20 | PRG ---
DATE OF SERVICE: 10/10/2019 OBJECTIVE: VITAL SIGNS: Ms. Issa is afebrile, heart rate 77, respiratory rate is 20, oximetry is 93, and blood pressure 123/68. LUNGS: Clear. HEART: Regular rhythm. ABDOMEN: Soft. She says her cough is better. IMPRESSION: 1. Pneumonia. 2. Chronic obstructive pulmonary disease. 3. Deconditioning, to go to rehab. PLAN: Continue supportive care. She probably needs 4 to 6 more days of p.o. antibiotics. Job ID: [id number]
[2019-10-10] MEDS: predniSONE 20 MG TAB PO SCH (09:39)
[2019-10-10] MEDS: Dronedarone HCl 400 MG TAB PO SCH ×2 (09:39→16:25)
[2019-10-10] MEDS: Potassium Chloride 10 MEQ TAB PO SCH (09:39)
[2019-10-10] MEDS: Benzonatate 100 MG CAP PO SCH ×2 (09:40→14:25)
[2019-10-10] MEDS: Aspirin 81 mg Enteric Coated Tablet PO SCH (09:40)
[2019-10-10] MEDS: Bupropion 150 MG XL TAB PO SCH (09:40)
[2019-10-10] MEDS: Anastrozole 1 MG TAB PO SCH (09:40)
[2019-10-10] MEDS: Famotidine 20 MG TAB PO SCH (09:41)
[2019-10-10] MEDS: Mirtazapine 15 MG TAB PO SCH (09:41)
[2019-10-10] MEDS: guaiFENesin ER 600 MG TAB PO SCH (09:41)
[2019-10-10] MEDS: Cefdinir 300 MG CAP PO SCH (09:41)
[2019-10-10] MEDS: Guaifenesin DM 100-10/5 ML UDCUP PO PRN (13:16)
[2019-10-10 16:42] VITALS: BP 163/71; TEMP 99.4
[2019-10-10] MEDS ORDERED: rOPINIRole HCl 1 MG TAB PO SCH (21:00)
--- NOTE | 2019-10-10 21:04 | DIS ---
DATE OF ADMISSION: 10/02/2019 DATE OF DISCHARGE: 10/10/2019 DISCHARGE DIAGNOSES: As of the followin. Chronic obstructive pulmonary disease exacerbation. 2. Acute renal failure, resolved. 3. Pneumonia, currently on antibiotics. 4. Restless legs syndrome. 5. Chronic atrial fibrillation, paroxsymal, currently in sinus rhythm. 6. Sepsis, resolved. 7. Acute on chronic respiratory failure with hypoxia, currently on O2 2 L. Because of her recent gastrointestinal bleed, anticoagulation was stopped. HOSPITAL COURSE: The patient is a very pleasant 84-year-old female who initially presented to the hospital with shortness of breath and cough. Prior to this admission, she had just recently been discharged from the hospital a few days, prior to her current admission with chest pain. At this time, she underwent a nuclear stress test which was negative. She normally is on 1 L of oxygen at home however. However, when she went home, she started having significant amount of dry cough and chest congestion and became very short of breath at this time. She was brought into the ER and was found to be hypoxic in the 70s. She was put on BiPAP and was taken into the IMCU. She continued to improve. She also had a temperature of 101. She was put on hospital-acquired pneumonia antibiotics with vancomycin and cefepime. She was seen by Pulmonary also. The patient's condition continued to improve. Her oxygenation was at from 1 to 2 L. She was then transitioned to oral antibiotics and has been doing well ever since. Due to the fact that she lives alone, a group home facility has been recommended and that is where she is going to be going. HOME MEDICATIONS: Will be as of the following; 1. Requip 1 p.o. at bedtime. 2. Potassium 10 mEq daily. 3. Pravastatin 40 mg at bedtime. 4. Bupropion 300 mg daily. 5. Ropinirole 1 mg at bedtime. 6. Trazodone 150 mg at bedtime. 7. Levothyroxine 100 mcg daily. 8. Losartan 25 mg daily. 9. Mirtazapine mg daily. 10. Pantoprazole 40 mg daily. 11. Multaq 400 mg twice a day. 12. Furosemide 20 mg daily. 13. Arimidex 1 mg p.o. daily. 14. Aspirin 81 mg daily. 15. Tessalon Perles 100 mg t.i.d. p.r.n. 16. Diltiazem 120 mg daily. 17. Lorazepam 0.5 q.4 hours p.r.n. PHYSICAL EXAMINATION: VITAL SIGNS: Temperature 99.4, pulse 80, O2 saturation is 94% on 2 L, respirations 18, and blood pressure 163/71. GENERAL: She is awake, alert, and oriented x3. distress. CV: S1, S2 present. No murmurs, rubs, or gallops. LUNGS: She has some mild rhonchi to the lower lung area. ABDOMEN: Soft and nontender. Bowel sounds are present x2. EXTREMITIES: She has no edema. Again, she will continue her antibiotics for an additional 5 or 6 days. Her steroids will be tapered off per group home facility. Job ID: [id number]
== END 2019-10-10 19:35 | DRG 871 ==
LOC: ERS 16:22 → ERHOLD 20:19 → IMCU/EMU 10-03 03:46 → 2NO 10-03 15:02
PROVIDERS: ADMIT Emergency Medicine; ATTEND Emergency Medicine
DX: A41.9 Sepsis, unspecified organism (principal); J96.21 Acute and chronic respiratory failure with hypoxia; J18.9 Pneumonia, unspecified organism; J44.1 Chronic obstructive pulmonary disease with (acute) exacerbation; I48.20 Chronic atrial fibrillation, unspecified; N17.9 Acute kidney failure, unspecified; J44.0 Chronic obstructive pulmonary disease with (acute) lower respiratory infection; G25.81 Restless legs syndrome; I10 Essential (primary) hypertension; E03.9 Hypothyroidism, unspecified; D64.9 Anemia, unspecified; R53.81 Other malaise; Z79.01 Long term (current) use of anticoagulants; Z91.048 Other nonmedicinal substance allergy status
CPT/HCPCS: 36415; 71045; 78452; 80048; 80053; 80202; 82550; 82553; 82728; 82805; 83540; 83605; 83735; 83880; 84484; 85025; 85046; 87040; 87804; 90471; 90670; 93005; 93017; 94640; 94660; 94664; 94760; 96361; 96365; 96367; 96375; 96376; A9500; C9113; G0009; G0378; J0692; J2785; J2916; J2920; J2930; J3370; J3475; J3480; J3490; J7512; J7620; Q0162; S0028

== ENCOUNTER 2020-05-05 13:25 | Outpatient (CLI) | payer MEDICARE, BC ==
--- NOTE | 2020-05-05 14:19 | MMO ---
Bilateral MAMMO Bilat Screen DDI+MILI. CLINICAL HISTORY: Patient is 84 years old and is seen for diagnostic exam. The patient has no family history of breast cancer. The patient has no personal history of cancer. The patient has a history of left Ultrasound Guided Core Biopsy in April, - dcis and left Lumpectomy in 2018 - dcis. VIEWS: The views performed were: bilateral craniocaudal with tomosynthesis; bilateral mediolateral oblique with tomosynthesis; and bilateral mediolateral with tomosynthesis. FILMS COMPARED: The present examination has been compared to prior imaging studies performed at [facility] on 04/13/2018, and at [facility] on 04/10/2010, 10/06/2011 and 10/11/2012. This study has been interpreted with the assistance of computer-aided detection. MAMMOGRAM FINDINGS: There are scattered fibroglandular densities. Post op distortion outer left breast. Skin thickening from XRT. Recommend 6 month follow up left breast to confirm stability. In the right breast, there are no suspicious masses, calcifications or areas of architectural distortion. IMPRESSION: FINDING IN THE LEFT BREAST IS PROBABLY BENIGN. FOLLOW-UP IN 6 MONTHS IS RECOMMENDED. THE RESULTS OF THIS EXAM WERE SENT TO THE PATIENT. ACR BI-RADS Category 3 - Probably benign finding - short interval follow-up suggested. [facility] will notify the patient of the need for additional imaging services. MAMMOGRAPHY NOTE: 1. A negative mammogram report should not delay a biopsy if a dominant of clinically suspicious mass is present. 2. Approximately 10% to 15% of breast cancers are not detected by mammography. 3. Adenosis and dense breasts may obscure an underlying neoplasm. Reported by: LYRIC JOYCE MD Electonically Signed: [id number]
--- NOTE | 2020-05-05 14:38 | BD ---
EXAM: Bone densitometry using DEXA HISTORY: 84 yo female. Screening for postmenopausal osteoporosis FINDINGS: L1--bone mineral density 0.693 g/sq cm; T score -2.7 ; Z score -0.2 L2--bone mineral density 0.733 g/sq cm; T score -2.7 ; Z score 0.1 L3--bone mineral density 0.845 g/sq cm; T score -2.2 ; Z score 0.7 L4--bone mineral density 0.922 g/sq cm; T score -1.3 ; Z score 1.7 Total L1-L4--bone mineral density 0.803 g/sq cm; T score -2.2 ; Z score 0.6 Left femoral neck--bone mineral density0.560; T score -2.6 ; Z score -0.2 Total proximal left femur--bone mineral density 0.659; T score -2.3 ; Z score -0.1 IMPRESSION: Osteoporosis
== END 2020-05-05 13:26 | disposition home or self-care (01) ==
LOC: BICMAMMO 13:25
PROVIDERS: ATTEND Internal Medicine Hematology & Oncology
DX: Z13.820 Encounter for screening for osteoporosis (principal); Z78.0 Asymptomatic menopausal state; M81.0 Age-related osteoporosis without current pathological fracture; C50.112 Malignant neoplasm of central portion of left female breast
CPT/HCPCS: 77066; 77080; G0279; 77063; 77067

== ENCOUNTER 2020-05-30 11:30 | Inpatient (IN) | payer MEDICARE, BC ==
[2020-05-30] MEDS ORDERED: Dexamethasone 10 MG/ML VIAL ONE (12:46)
[2020-05-30] MEDS ORDERED: Albuterol 200 PUFF (6.7GM INHALER) ONE (12:46)
[2020-05-30 12:48] LABS: #Eosinphils 0.1 thou/uL (0.0-0.7); #Lymphocytes 0.9 thou/uL (1.20-3.40); #Monocytes 0.4 thou/uL (0.11-0.59); %Basophils 0.3 % (0.0-1.0); %Eosinophils 2.4 % (0.0-10.0); %Monocytes 9.3 % (0.0-10.0); %Neutrophils 67.9 % (42.0-75.0); Hemoglobin 10.1 g/dL (12.0-16.0); Mean Corpuscular HGB CONC 33.3 g/dL (32.0-36.0); Mean Corpuscular Hemoglobin 33.2 pg (27.0-31.0); Mean Corpuscular Volume 99.9 fL (78.0-98.0); Mean Platelet Volume 8.9 fL (7.4-10.4); Platelet Count 170 thou/uL (130-400); RBC Distribution Width 11.3 % (11.5-14.5); Red Blood Cell (RBC) Count 3.04 mill/uL (4.20-5.40); White Blood Cell (WBC) Count 4.3 thou/uL (4.8-10.8)
--- NOTE | 2020-05-30 13:03 | RAD ---
EXAM: CHEST ONE VIEW HISTORY: Dyspnea and shortness of breath for 2 to 3 days. Diminished right lung sounds. COMPARISON: 10/02/2019 FINDINGS: Cardiac silhouette is magnified by projection. There are emphysematous changes present within the krunal gs bilaterally greater in the upper lung zones. There are mild chronic interstitial lung changes present. Pleural and parenchymal lung changes are present at the right lung base suggesting a right p leural effusion with patchy opacity right lung base possibly representing atelectasis or pneumonia. Calcified granuloma right midlung zone is present. No other interval change. IMPRESSION: 1. Pleural and parenchymal changes right lung base. Findings are compatible with right pleural effusi on with parenchymal opacity likely due to atelectasis versus pneumonia. Follow-up to resolution is recommended. 2. Chronic lung changes.
[2020-05-30] MEDS ORDERED: cefTRIAXone\\ROCEPHIN 2 GM VIAL ONE (13:30)
[2020-05-30] MEDS ORDERED: Azithromycin 500 MG VIAL ONE (13:30)
[2020-05-30 13:47] LABS: ALT (SGPT) 8 U/L (8-55); AST (SGOT) 10 U/L (5-34); Albumin 3.7 g/dL (3.4-4.8); Alkaline Phosphatase 65 U/L (40-110); BUN (Urea Nitrogen) 26 mg/dL (9.8-20.1); Bilirubin, Total 0.2 mg/dL (0.2-1.2); Calc. Creatinine Clearance 0 mL/min (70-130); Calcium 9.6 mg/dL (7.8-10.44); Estimated GFR-MDRD 41; Glucose 81 mg/dL (83-110); Protein, Total 6.7 g/dL (6.0-8.3)
[2020-05-30 14:00] LABS: Anion Gap 13 mmol/L (10-20); Carbon Dioxide 39 mmol/L (23-31); Chloride 97 mmol/L (98-107); Potassium 3.8 mmol/L (3.5-5.1); Sodium 145 mmol/L (136-145)
[2020-05-30] MEDS ORDERED: Iopamidol-370 76% 500 ML 1 ML ONE (14:09)
--- NOTE | 2020-05-30 15:48 | CT ---
CTA CHEST WITH CONTRAST: 05/30/20 Axial tomograms obtained with multiplanar reconstruction and 3D postprocessing. INDICATIONS: Dyspnea. FINDINGS: Pulmonary arteries show adequate enhancement. No evidence of pulmonary embolus identified. Thoracic aorta shows atherosclerotic changes. No dissection or aneurysm. Images of the lung show severe chronic lung parenchymal changes. There is severe bilateral emphysemat ous changes with bullous formation and fibrotic change. There is a small right pleural effusion with right lower lobe atelectasis. The mediastinum shows nonspecific lymph nodes. Subcarinal adenopathy is noted with subcarinal lymph n ode measuring up to 2.5 cm. Images through the upper abdomen unremarkable. IMPRESSION: 1. No evidence of pulmonary embolus. 2. Nonspecific mediastinal lymph nodes with subcarinal adenopathy. 3. Moderate sized right pleural effusion with right lower lobe atelectasis. 4. Severe chronic lung parenchymal emphysematous change. POS: AH
[2020-05-30 16:44] LABS: SARS-CoV-2 NAA Rapid Test Not Detected (NotDetected)
[2020-05-30 17:02] LABS: Bilirubin Negative (Negative); Blood, Urine Negative (Negative); Clarity Clear (Clear); Glucose, Urine (Dipstick) Normal (Negative); Ketone, Urine Negative (Negative); Leukocyte Negative Leu/uL (Negative); Nitrite Negative (Negative); Protein, Urine (Dipstick) Negative (Neg-Trace); Specific Gravity, Urine 1.018 (1.002-1.036); Urobilinogen Normal mg/dL (Less than 2); pH, Urine 6.5 (5.0-9.0)
[2020-05-30] MEDS ORDERED: Senokot S 8.6-50 MG TAB PO PRN (17:33)
[2020-05-30] MEDS ORDERED: Furosemide 40 MG/4 ML VIAL SLOW IVP SCH (18:00)
[2020-05-30] MEDS ORDERED: methylPREDNISolone Sod Succ 40 MG VIAL IVP SCH (18:00)
[2020-05-30] MEDS ORDERED: Sodium Chloride 0.9% 10 ML ONE ×2 (21:13→21:25)
[2020-05-30] MEDS: Atorvastatin Calcium 10 MG TAB PO SCH (21:27)
[2020-05-30] MEDS: rOPINIRole HCl 1 MG TAB PO SCH (21:27)
[2020-05-30] MEDS: traZODone HCl 150 MG TAB PO SCH (21:27)
[2020-05-30 22:39] VITALS: BMI 19.9
--- NOTE | 2020-05-30 22:46 | HP ---
CHIEF COMPLAINT: Shortness of breath. HISTORY OF PRESENT ILLNESS: Patient is a very pleasant 84-year-old female, with a history of COPD, currently on 2 L of oxygen, who comes to the hospital with worsening shortness of breath for the past few days. Patient states that since the weekend, she has been having worsening shortness of breath. She upped her oxygen to 3 L. She has shortness of breath on exertion. She denies any chest tightness, any nausea, vomiting, or diarrhea. However, she has not been eating very much and has lost a lot of weight. Patient states that she was supposed to see her traveling inventory associate today, however, because she started feeling worse, she came into the hospital for further evaluation. PAST MEDICAL HISTORY: 1. She has a history of COPD. She is on oxygen. 2. She has a history of paroxysmal atrial fibrillation, not on anticoagulation. 3. She had a GI bleed. 4. Hypertension. 5. Hyperlipidemia. 6. Hypothyroidism. 7. History of breast cancer, status post lumpectomy and radiation and restless legs syndrome. REVIEW OF SYSTEMS: All negative for the ones mentioned in the HPI. PAST SURGICAL HISTORY: She has a history of left breast lumpectomy, KIRSTEN, cardioversion in July 2019. SOCIAL HISTORY: She lives at [facility]. Denies any alcohol use. She is a former smoker. Denies any tobacco use currently or drug use. She quit smoking about 20 or so years ago. She is a full code. FAMILY HISTORY: Negative for heart disease. ALLERGIES: SHE IS ALLERGIC TO CIPROFLOXACIN, LISINOPRIL, AND PROPOXYPHENE. MEDICATIONS: As of the followin. She is on Multaq 400 mg twice a day. 2. Bupropion 300 mg daily. 3. Aspirin 81 mg daily. 4. Arimidex 1 mg p.o. daily. 5. Protonix 40 mg daily. 6. Lorazepam 0.5 q.4 hours as needed. 7. Diltiazem 120 mg daily. 8. Furosemide 40 mg daily. 9. Tessalon Perles 100 mg t.i.d. 10. Potassium 10 mEq daily. 11. one inhalation b.i.d. 12. Levothyroxine 100 mcg daily. 13. Losartan 25 mg daily. 14. Mirtazapine 45 mg daily. 15. Pravastatin 40 mg daily. 16. Requip 1 mg p.o. at bedtime. 17. Trazodone 150 mg p.o. at bedtime. PHYSICAL EXAMINATION: VITAL SIGNS: As of the following; temperature of 98.3, 29, 99% on 3 L, 109/51, and 74. GENERAL: She is awake, alert, and oriented x2. Appears in mild distress. She appears malnourished. CV: S1, S2 present. No murmurs, rubs, or gallops. ABDOMEN: Soft and nontender. Bowel sounds are present x2. LUNGS: She has decreased breath sounds to the right lung with dullness on percussion. No wheezing noted. EXTREMITY: Mild 1 to 2+ lower extremity pitting edema. NEUROVASCULAR: There are no focal deficits noted. SKIN: No cuts, lesions, or bruises noted. LABORATORY RESULTS: As of the following; WBCs of 4.3, hemoglobin of 10.1, hematocrit of 30.4, and platelets of 170. Chemistry; sodium of 145, potassium of 3.8, BUN of 26, and creatinine 1.26. Her BNP is 126. Her troponin x1 was negative. She did have a CTA which indicated no evidence of pulmonary embolism, nonspecific mediastinal lymphadenopathy, moderate size right pleural effusion with right lower lobe atelectasis and severe chronic lung parenchymal emphysematous changes. ASSESSMENT AND PLAN: Patient is a very pleasant 84-year-old female, who presents to the hospital with complaints of shortness of breath. 1. Acute hypoxic respiratory failure. Patient is currently oxygen on 3 to 4 L. She has on the CTA a very large right pleural effusion, which appears to be new. She did have an echocardiogram earlier this year, which indicated an EF of 50% to 55%. EKG did not show any ST elevation or ST depression. We will start the patient on IV diuretics. She is taking oral diuretics. I did tell her that most likely she will require thoracentesis. She does follow with Pulmonology. We will get Pulmonology to see the patient. However, she would require diagnostic thoracentesis given the fact that she does also have changes on her CAT scan that shows that she does have some nonspecific mediastinal lymphadenopathy. I will start her on some steroids for now. No embolism has been noted. 2. Mild acute kidney injury. We will continue to monitor. We will hold her losartan. 3. Atrial fibrillation. She is currently sinus. I will continue her home medications. She is not a candidate for anticoagulation given her previous risk of gastrointestinal bleed. 4. Deep venous thrombosis prophylaxis. We will put patient on subcu Lovenox. 5. History of breast cancer. We will continue her Arimidex. Job ID: [id number]
[2020-05-31] MEDS: Levothyroxine Sodium 100 MCG TAB PO SCH (06:21)
[2020-05-31 06:22] LABS: Anion Gap 14 mmol/L (10-20); BUN (Urea Nitrogen) 27 mg/dL (9.8-20.1); Calc. Creatinine Clearance 34 mL/min (70-130); Calcium 8.8 mg/dL (7.8-10.44); Carbon Dioxide 34 mmol/L (23-31); Chloride 98 mmol/L (98-107); Estimated GFR-MDRD 42; Glucose 131 mg/dL (83-110); Sodium 142 mmol/L (136-145)
[2020-05-31 06:22] LABS: #Lymphocytes 0.3 thou/uL (1.20-3.40); #Monocytes 0.1 thou/uL (0.11-0.59); #Neutrophils 3.3 thou/uL (1.40-6.50); %Eosinophils 0.1 % (0.0-10.0); %Lymphocytes 8.2 % (21.0-51.0); %Monocytes 1.9 % (0.0-10.0); %Neutrophils 89.8 % (42.0-75.0); Hemoglobin 9.8 g/dL (12.0-16.0); Mean Corpuscular HGB CONC 33.5 g/dL (32.0-36.0); Mean Corpuscular Hemoglobin 33.8 pg (27.0-31.0); Mean Platelet Volume 8.3 fL (7.4-10.4); Platelet Count 148 thou/uL (130-400); RBC Distribution Width 11.2 % (11.5-14.5); Red Blood Cell (RBC) Count 2.88 mill/uL (4.20-5.40); White Blood Cell (WBC) Count 3.7 thou/uL (4.8-10.8)
[2020-05-31] MEDS ORDERED: Sodium Chloride 0.9% 10 ML ONE (08:48)
[2020-05-31] MEDS: Aspirin 81 mg Enteric Coated Tablet PO SCH (08:54)
[2020-05-31] MEDS: Mirtazapine 30 MG TAB PO SCH (08:55)
[2020-05-31] MEDS: Dronedarone HCl 400 MG TAB PO SCH ×2 (08:56→17:34)
[2020-05-31] MEDS: Bupropion 150 MG XL TAB PO SCH (08:57)
[2020-05-31] MEDS: Anastrozole 1 MG TAB PO SCH (08:58)
[2020-05-31] MEDS: Enoxaparin Sodium 40 MG/0.4 ML SYRINGE SC SCH (08:58)
[2020-05-31] MEDS ORDERED: Losartan 25 MG TAB PO SCH (09:00)
[2020-05-31] MEDS ORDERED: Furosemide 40 MG/4 ML VIAL SLOW IVP SCH (09:00)
[2020-05-31] MEDS: methylPREDNISolone Sod Succ 40 MG VIAL IVP SCH (09:02)
--- NOTE | 2020-05-31 17:16 | PDOC.HOSPP ---
- Subjective Encounter Date: 05/31/20 Encounter Time: 09:00 Subjective: Patient seen and examined for shortness of breath/pleural effusion. Denies any cough. Short of breath on [id number] exertion. Denies any chest pain, palpitations or syncope. - Objective Vital Signs & Weight: Vital Signs (12 hours) Temp Pulse Resp BP Pulse Ox 05/31/20 16:38 97.9 F 81 20 111/50 L 94 L 05/31/20 14:40 77 20 95 05/31/20 12:24 99.1 F 79 18 119/56 L 94 L 05/31/20 08:16 96 05/31/20 07:52 98.6 F 69 21 H 113/53 L 96 05/31/20 07:35 96 05/31/20 07:33 72 16 96 Weight Admit Weight 135 lb Weight 135 lb I&O: 05/30/20 05/31/20 06/01/20 06:59 06:59 06:59 Intake Total 360 Output Total 400 400 Balance -40 -400 Result Diagrams: 05/31/20 06:06 05/31/20 05:47 Additional Labs: Abnormal Lab Results - Last 48 hrs 05/30/20 12:19: Chloride 97 L, Carbon Dioxide 39 H, BUN 26 H, Creatinine 1.26 H 05/30/20 12:19: D-Dimer 0.90 H 05/30/20 12:20: B-Natriuretic Peptide 126.2 H 05/30/20 12:20: WBC 4.3 L, RBC 3.04 L, Hgb 10.1 L, Hct 30.4 L, MCV 99.9 H, MCH 33.2 H, RDW 11.3 L, Lymphocytes % 20.0 L, Lymphocytes # 0.9 L 05/31/20 05:47: Carbon Dioxide 34 H, BUN 27 H, Creatinine 1.23 H 05/31/20 06:06: WBC 3.7 L, RBC 2.88 L, Hgb 9.8 L, Hct 29.1 L, MCV 101.0 H, MCH 33.8 H, RDW 11.2 L, Neutrophils % 89.8 H, Lymphocytes % 8.2 L, Lymphocytes # 0.3 L, Monocytes # 0.1 L Radiology Reviewed by me: Yes (CT chestright-sided pleural effusion) Hospitalist ROS - Review of Systems Constitutional: reports: weakness. denies: fever, chills, sweats, malaise, oth er Gastrointestinal: denies: nausea, vomiting, abdominal pain, diarrhea, co nstipation, melena, hematochezia, other - Medication Medications: Active Medications Generic Name Dose Route Start Last Admin Trade Name Freq PRN Reason Stop Dose Admin Albuterol/Ipratropium 3 ml 05/30/20 19:00 05/31/20 14:40 Ipratropium/Albuterol Sulfate 3 Ml Neb NEB 3 ml [id number] TENZIN Administration Anastrozole 1 mg 05/31/20 09:00 05/31/20 08:58 Anastrozole 1 Mg Tab PO 1 mg DAILY TENZIN Administration Aspirin 81 mg 05/31/20 09:00 05/31/20 08:54 Aspirin 81 Mg Enteric Coated Tablet PO 81 mg DAILY TENZIN Administration Atorvastatin Calcium 10 mg 05/30/20 21:00 05/30/20 21:27 Atorvastatin Calcium 10 Mg Tab PO 10 mg HS TENZIN Administration Bupropion HCl 300 mg 05/31/20 09:00 05/31/20 08:57 Bupropion 150 Mg Xl Tab PO 300 mg DAILY TENZIN Administration Dronedarone 400 mg 05/31/20 08:00 05/31/20 08:56 Dronedarone Hcl 400 Mg Tab PO 400 mg BID-WM TENZIN Administration Enoxaparin Sodium 40 mg 05/31/20 09:00 05/31/20 08:58 Enoxaparin Sodium 40 Mg/0.4 Ml Syringe SC Not Given 0900 TENZIN Furosemide 40 mg 05/31/20 09:00 05/31/20 08:59 Furosemide 40 Mg/4 Ml Vial SLOW IVP 40 mg DAILY TENZIN Administration Levothyroxine Sodium 100 mcg 05/31/20 06:00 05/31/20 06:21 Levothyroxine Sodium 100 Mcg Tab PO 100 mcg 0600 TENZIN Administration Methylprednisolone Sodium Succinate 40 mg 05/31/20 09:00 05/31/20 09:02 Methylprednisolone Sod Succ 40 Mg Vial IVP 40 mg DAILY TENZIN Administration Mirtazapine 45 mg 05/31/20 09:00 05/31/20 08:55 Mirtazapine 30 Mg Tab PO 45 mg DAILY TENZIN Administration Ropinirole HCl 1 mg 05/30/20 21:00 05/30/20 21:27 Ropinirole Hcl 1 Mg Tab PO 1 mg HS TENZIN Administration Trazodone HCl 150 mg 05/30/20 21:00 05/30/20 21:27 Trazodone Hcl 150 Mg Tab PO 150 mg HS TENZIN Administration - Exam General Appearance: ill appearing Neck: supple, no JVD Heart: RRR, no gallops, no rubs, normal peripheral pulses Respiratory: no wheezes, no rales, rhonchi Respiratory - other findings: Diminished air entry right base Gastrointestinal: soft, non-tender, no guarding, no rigidity Extremities: no cyanosis, no clubbing Neurological: no new deficit Psychiatric: normal affect, A&O x 3 Hosp A/P - Plan DVT proph w/lovenox, DVT proph w/SCDs Acute on chronic hypoxic respiratory failure COPD exacerbation Right-sided pleural effusion Paroxysmal atrial fibrillationnot anticoagulation candidate due to GI bleeding Restless leg syndrome Hypothyroidism Hyperlipidemia Hypertension History of breast cancer Chronic anemia suspected due to nutritional deficiency CKD stage III Plan: Continue nebulizer treatments with IV steroids. Add doxycycline. Await pulmonary input. Recheck labs in a.m. Continue other medications as above continue IV Lasix. Continue home dose of aspirin with Multaq
[2020-05-31] MEDS: traZODone HCl 150 MG TAB PO SCH (21:08)
[2020-05-31] MEDS: Doxycycline 100 MG CAP PO SCH (21:09)
[2020-05-31] MEDS: Atorvastatin Calcium 10 MG TAB PO SCH (21:09)
[2020-05-31] MEDS: rOPINIRole HCl 1 MG TAB PO SCH (21:09)
[2020-06-01 05:56] LABS: #Lymphocytes 0.8 thou/uL (1.20-3.40); #Monocytes 0.4 thou/uL (0.11-0.59); #Neutrophils 5.3 thou/uL (1.40-6.50); %Basophils 0.2 % (0.0-1.0); %Eosinophils 0.2 % (0.0-10.0); %Lymphocytes 12.6 % (21.0-51.0); %Monocytes 6.5 % (0.0-10.0); %Neutrophils 80.5 % (42.0-75.0); Hemoglobin 8.8 g/dL (12.0-16.0); Mean Corpuscular HGB CONC 33.2 g/dL (32.0-36.0); Mean Corpuscular Hemoglobin 33.2 pg (27.0-31.0); Mean Platelet Volume 8.2 fL (7.4-10.4); Platelet Count 151 thou/uL (130-400); RBC Distribution Width 11.5 % (11.5-14.5); Red Blood Cell (RBC) Count 2.64 mill/uL (4.20-5.40); White Blood Cell (WBC) Count 6.5 thou/uL (4.8-10.8)
[2020-06-01 06:15] LABS: ALT (SGPT) 7 U/L (8-55); AST (SGOT) 10 U/L (5-34); Albumin 3.2 g/dL (3.4-4.8); Alkaline Phosphatase 46 U/L (40-110); BUN (Urea Nitrogen) 33 mg/dL (9.8-20.1); Bilirubin, Total 0.2 mg/dL (0.2-1.2); CRP (Inflammatory) Less than 0.50 mg/dL (= or < 0.5); Calc. Creatinine Clearance 28 mL/min (70-130); Calcium 8.7 mg/dL (7.8-10.44); Estimated GFR-MDRD 34; Globulin 2.8 g/dL (2.4-3.5); Glucose 94 mg/dL (83-110); Magnesium 1.9 mg/dL (1.6-2.6); Phosphorus 4.5 mg/dL (2.3-4.7)
[2020-06-01 06:24] LABS: Anion Gap 17 mmol/L (10-20); Carbon Dioxide 32 mmol/L (23-31); Chloride 98 mmol/L (98-107); Potassium 3.3 mmol/L (3.5-5.1); Sodium 144 mmol/L (136-145)
[2020-06-01] MEDS: Levothyroxine Sodium 100 MCG TAB PO SCH (06:25)
[2020-06-01] MEDS: Dronedarone HCl 400 MG TAB PO SCH ×2 (09:05→16:56)
[2020-06-01] MEDS: Doxycycline 100 MG CAP PO SCH ×2 (09:05→21:47)
[2020-06-01] MEDS: Bupropion 150 MG XL TAB PO SCH (09:06)
[2020-06-01] MEDS: Mirtazapine 30 MG TAB PO SCH (09:06)
[2020-06-01] MEDS: Anastrozole 1 MG TAB PO SCH (09:07)
[2020-06-01] MEDS: methylPREDNISolone Sod Succ 40 MG VIAL IVP SCH (09:08)
[2020-06-01] MEDS: Enoxaparin Sodium 40 MG/0.4 ML SYRINGE SC SCH (09:08)
[2020-06-01] MEDS ORDERED: Potassium Chloride 20 MEQ TAB PO SCH ×2 (10:00→17:00)
[2020-06-01] MEDS ORDERED: Famotidine 20 MG TAB PO SCH (10:00)
[2020-06-01] MEDS ORDERED: Sodium Chloride 0.65% Nasal 44 ML BOT EA NARE PRN ×2 (12:41→12:45)
--- NOTE | 2020-06-01 12:43 | PDOC.HOSPP ---
- Subjective Encounter Date: 06/01/20 Encounter Time: 10:15 Subjective: Patient seen and examined for respiratory failure. No significant change in shortness of breath. Dry cough. Denies any chest pain, palpitations or syncope. - Objective Vital Signs & Weight: Vital Signs (12 hours) Temp Pulse Resp BP Pulse Ox 06/01/20 12:00 98.7 F 80 16 123/57 L 98 06/01/20 08:45 98 F 80 20 138/62 95 06/01/20 08:00 95 06/01/20 06:40 72 12 06/01/20 05:00 98 F 84 20 116/56 L 94 L Weight Admit Weight 135 lb Weight 135 lb I&O: 05/31/20 06/01/20 06/02/20 06:59 06:59 06:59 Intake Total 360 460 240 Output Total 400 800 Balance -40 -340 240 Result Diagrams: 06/01/20 05:44 06/01/20 05:44 Radiology Reviewed by me: Yes (Chest x-rayreviewed) Hospitalist ROS - Review of Systems Cardiovascular: denies: chest pain, palpitations, orthopnea, paroxysmal noc. dyspnea, edema, light headedness, other Gastrointestinal: denies: nausea, vomiting, abdominal pain, diarrhea, constipation, melena, hematochezia, other - Medication Medications: Active Medications Generic Name Dose Route Start Last Admin Trade Name Freq PRN Reason Stop Dose Admin Anastrozole 1 mg 05/31/20 09:00 06/01/20 09:07 Anastrozole 1 Mg Tab PO 1 mg DAILY TENZIN Administration Aspirin 81 mg 05/31/20 09:00 05/31/20 08:54 Aspirin 81 Mg Enteric Coated Tablet PO 81 mg DAILY TENZIN Administration Atorvastatin Calcium 10 mg 05/30/20 21:00 05/31/20 21:09 Atorvastatin Calcium 10 Mg Tab PO 10 mg HS TENZIN Administration Bupropion HCl 300 mg 05/31/20 09:00 06/01/20 09:06 Bupropion 150 Mg Xl Tab PO 300 mg DAILY ETNZIN Administration Doxycycline Hyclate 100 mg 05/31/20 21:00 06/01/20 09:05 Doxycycline 100 Mg Cap PO 100 mg BID TENZIN Administration Dronedarone 400 mg 05/31/20 08:00 06/01/20 09:05 Dronedarone Hcl 400 Mg Tab PO 400 mg BID-WM TENZIN Administration Furosemide 40 mg 05/31/20 09:00 05/31/20 08:59 Furosemide 40 Mg/4 Ml Vial SLOW IVP 40 mg DAILY TENZIN Administration Levothyroxine Sodium 100 mcg 05/31/20 06:00 06/01/20 06:25 Levothyroxine Sodium 100 Mcg Tab PO 100 mcg 0600 TENZIN Administration Methylprednisolone Sodium Succinate 40 mg 05/31/20 09:00 06/01/20 09:08 Methylprednisolone Sod Succ 40 Mg Vial IVP 40 mg DAILY TENZIN Administration Mirtazapine 45 mg 05/31/20 09:00 06/01/20 09:06 Mirtazapine 30 Mg Tab PO 45 mg DAILY TENZIN Administration Ropinirole HCl 1 mg 05/30/20 21:00 05/31/20 21:09 Ropinirole Hcl 1 Mg Tab PO 1 mg HS TENZIN Administration Trazodone HCl 150 mg 05/30/20 21:00 05/31/20 21:08 Trazodone Hcl 150 Mg Tab PO 150 mg HS TENZIN Administration - Exam General Appearance: ill appearing Heart: RRR, no gallops Respiratory: no wheezes, rhonchi Respiratory - other findings: Diminished air entry at bases Gastrointestinal: soft, non-tender, no guarding, no rigidity Extremities: no cyanosis Neurological: no new deficit Psychiatric: normal affect, A&O x 3 Hosp A/P - Plan DVT proph w/lovenox, DVT proph w/SCDs Acute on chronic hypoxic respiratory failure COPD exacerbation Right-sided pleural effusion Paroxysmal atrial fibrillationnot anticoagulation candidate due to GI bleeding Restless leg syndrome Hypothyroidism Hyperlipidemia Hypertension History of breast cancer Chronic anemia suspected due to nutritional deficiency CKD stage III History of vitamin B12 deficiency Plan: Pulmonary input appreciated. Hold IV Lasix due to worsening creatinine. Continue doxycycline. Continue IV steroids add incentive spirometry replace potassium. Recheck labs in a.m. Continue nebulizer treatments. Continue other medications as above. Add vitamin B12 supplementation.
[2020-06-01 13:20] LABS: Fluid, pH - Pleural Fld 7.46 (7.60 - 7.66)
[2020-06-01 13:59] LABS: Pleural Fluid, Protein 3.1 g/dL; RBC Count-Automated (BF) 1771 /cu.mm; WBC/Nucleated-Auto (BF) 312 uL
--- NOTE | 2020-06-01 14:01 | CON ---
DATE OF CONSULTATION: 06/01/2020 HISTORY OF PRESENT ILLNESS: Destinee Issa is a pleasant 84-year-old female, who was seen by me earlier in the year with pneumonia in both lower lobes. She says she recovered from that 2 weeks ago, felt quite well. About 8 days ago, she started getting short of breath while she is ambulating in the house. She denies having fever. PAST MEDICAL HISTORY: Remarkable for; 1. COPD. 2. History of atrial fibrillation. 3. History of GI bleed in the past. 4. Hypertension. 5. Lipid disorder. 6. History of hypothyroidism. 7. History of restless legs. 8. History of lumpectomy and radiation. 9. History of cardioversion and transesophageal echo early this year. FAMILY HISTORY: Negative for lung disease in early age. SOCIAL HISTORY: She lives in assisted living. She is a nonsmoker and nondrinker. REVIEW OF SYSTEMS: Ten-point is otherwise negative. HOME MEDICATIONS: Have been reviewed. There are 17 of them. PHYSICAL EXAMINATION: GENERAL: She is very pleasant, comfortable, lying flat in bed. VITAL SIGNS: She is afebrile. Heart rate is 84, respiratory rate is 20, oximetry is 94% on 2 L, blood pressure is 116/56. HEENT: Pupils are equal. Sclerae are anicteric. NECK: Supple. LUNGS: Remarkable for decreased breath sounds at the right base. HEART: Regular rhythm. There is a grade 2/6 systolic murmur. ABDOMEN: Soft and nontender. EXTREMITIES: Without clubbing, cyanosis, or edema. LABORATORY DATA: White count 6.5, hemoglobin 8.8, platelets 151. Sodium 144, potassium 3.3, chloride 98, bicarb 32, BUN 33, creatinine 1.49. IMPRESSION: Right pleural effusion. I have looked for a CT scan. This appears to be loculated. There is fluid atypically and fluid inferiorly and posteriorly and very little fluid in between. I think thoracentesis would be low yield as far as removing all of the fluid. I will discuss with Cardiothoracic Surgery. If they want me to try that 1st, I will be happy to, but my gut feeling is that she will need thoracoscopy. This was a 50 min consult with greater than 50% of the time spent on the unit with coordination of care excluding procedures. Job ID: [id number] [facility]
[2020-06-01 14:17] LABS: Body Fluid Source Pleural Fluid; Clarity Hazy (Clear); Tube # EDTA
[2020-06-01 14:18] LABS: BF Color Yellow
[2020-06-01 14:20] LABS: BF Segmented Neutrophils 14 %; Cell Count Non Hematic 46 %; Lymphocytes 40 %
[2020-06-01] MEDS: Aspirin 81 mg Enteric Coated Tablet PO SCH (16:56)
[2020-06-01] MEDS: Folic Acid 1 MG TAB PO SCH (21:46)
[2020-06-01] MEDS: Famotidine 20 MG TAB PO SCH (21:46)
[2020-06-01] MEDS: Cyanocobalamin (Vitamin B-12) 1,000 MCG TAB PO SCH (21:47)
[2020-06-01] MEDS: traZODone HCl 150 MG TAB PO SCH (21:47)
[2020-06-01] MEDS: rOPINIRole HCl 1 MG TAB PO SCH (21:49)
[2020-06-01] MEDS: Atorvastatin Calcium 10 MG TAB PO SCH (21:49)
--- NOTE | 2020-06-02 05:52 | OP ---
DATE OF PROCEDURE: 06/01/2020 INDICATIONS: Mrs. Issa had pleural effusion. It was discussed with her. We elected to attempt to tap it first. She gave consent. Risks of bleeding, infection, and lung collapse were explained. DESCRIPTION OF PROCEDURE: Right posterior hemithorax was cleansed with Betadine. 10 mL of 1% lidocaine was used to anesthetize the skin and the pleura. An 8-Pashto [id number] catheter was inserted over the rib into the pleural space. 1 L of turbid yellow pleural fluid was evacuated without any air being aspirated. Protein is 3.1, LDH is 131, glucose 106. PH on blood gas machine was 7.46. She had 112 white cells, 1771 red cells, predominantly lymphocytes. We are going to repeat a noncontrast CT in the morning to see if the apical fluid was evacuated. If it is a small amount, we may be able to simply watch this as long as this is culture negative. I would bet the cytology will be negative. She said she instantly felt better after the tap. Job ID: [id number]
[2020-06-02] MEDS: Levothyroxine Sodium 100 MCG TAB PO SCH (06:01)
[2020-06-02 07:15] LABS: #Lymphocytes 1.2 thou/uL (1.20-3.40); #Monocytes 0.5 thou/uL (0.11-0.59); #Neutrophils 4.7 thou/uL (1.40-6.50); %Basophils 0.5 % (0.0-1.0); %Eosinophils 0.7 % (0.0-10.0); %Lymphocytes 18.5 % (21.0-51.0); %Monocytes 7.3 % (0.0-10.0); Hemoglobin 8.6 g/dL (12.0-16.0); Mean Corpuscular HGB CONC 33.2 g/dL (32.0-36.0); Mean Corpuscular Hemoglobin 33.4 pg (27.0-31.0); Mean Platelet Volume 8.8 fL (7.4-10.4); Platelet Count 145 thou/uL (130-400); RBC Distribution Width 11.6 % (11.5-14.5); Red Blood Cell (RBC) Count 2.57 mill/uL (4.20-5.40); White Blood Cell (WBC) Count 6.5 thou/uL (4.8-10.8)
[2020-06-02 07:34] LABS: Anion Gap 11 mmol/L (10-20); BUN (Urea Nitrogen) 30 mg/dL (9.8-20.1); Calc. Creatinine Clearance 38 mL/min (70-130); Calcium 9.1 mg/dL (7.8-10.44); Carbon Dioxide 33 mmol/L (23-31); Chloride 101 mmol/L (98-107); Estimated GFR-MDRD 47; Glucose 84 mg/dL (83-110); Potassium 3.8 mmol/L (3.5-5.1); Sodium 141 mmol/L (136-145)
[2020-06-02] MEDS: Doxycycline 100 MG CAP PO SCH ×2 (07:55→21:03)
[2020-06-02] MEDS: Multivit, Therapeutic 1 TAB PO SCH (07:55)
[2020-06-02] MEDS: Aspirin 81 mg Enteric Coated Tablet PO SCH (07:55)
[2020-06-02] MEDS: Famotidine 20 MG TAB PO SCH (07:56)
[2020-06-02] MEDS: Enoxaparin Sodium 30 MG/0.3 ML SYRINGE SC SCH (07:56)
[2020-06-02] MEDS: methylPREDNISolone Sod Succ 40 MG VIAL IVP SCH (07:56)
[2020-06-02] MEDS: Mirtazapine 30 MG TAB PO SCH (08:49)
[2020-06-02] MEDS: Bupropion 150 MG XL TAB PO SCH (08:50)
[2020-06-02] MEDS: Anastrozole 1 MG TAB PO SCH (08:50)
[2020-06-02] MEDS: Dronedarone HCl 400 MG TAB PO SCH ×2 (08:51→17:18)
--- NOTE | 2020-06-02 09:17 | CT ---
CT Chest WO Con History: Pleural effusion Comparison: CT angiogram chest May 30, 2020 Findings: Slight size decrease mild-moderate right layering pleural effusion. Mild loculation of pleural fluid within the right lung base and along the right major fissure. Extensive centrilobular emphysema. No pneumothorax. No significant left-sided pleural effusion. Abnormal pleural-based nodules along the right middle lobe axial image 40 measures up to 8 mm. There is also a pleural-based nodule axial image 43 measuring up to 8 mm. These nodules appear new from 2014 and are relatively similar to the most recent CT examination. There is new nodularity of the right lower lobe posterior basal segment concerning for underlying mas s. There are also abnormal parietal pleural nodules along the posterior right pleural space, for instance axial image 55 and 59. Right major fissure perifissural nodule measures 5 mm axial image 46. Calcified precarinal lymph nodes. Heart size is enlarged. No significant pericardial effusion. Interposition of bowel between the right hemidiaphragm and the liver. Hypodensity superior pole right kidney measures over fluid attenuation is concerning for possible malignant process. Impression: 1. Slight interval size decrease right layering pleural effusion with new nodularity along the life science research assistant ior right lower lobe parenchyma as well as abnormal pleural nodules concerning for malignancy. Cytologic evaluation of pleural fluid recommended. 2. Abnormal mass superior pole right kidney concerning for malignancy. Dr. Escalera notified of findings via [employer] at 9:15 AM. Transcribed Date/Time: 06/02/2020 10:17 AM
--- NOTE | 2020-06-02 15:53 | PRG ---
DATE OF SERVICE: 06/02/2020 OBJECTIVE: VITAL SIGNS: Ms. Issa is afebrile. Heart rate is in the 70s, respiratory rate in the teens, oximetry is 98% on 2 L, blood pressure 119/47. LUNGS: Clear. HEART: Regular rhythm. ABDOMEN: Soft. DIAGNOSTIC DATA: Chest CT shows significant improvement in the right pleural effusion. No longer does appear that fluid is loculated apically or inferiorly. Radiologist read out pulmonary nodules saying that they are worrisome for malignancy. With calcified mediastinal lymphadenopathy, it is unlikely these are malignant. Thoracentesis fluid is exudative. PH was over 7.4. Pathology is pending. This most likely represents a sterile parapneumonic effusion. No further workup or thoracoscopy is indicated at this time. She will need a followup chest CT without contrast in 3 to 4 months. I do not see any adjacent infiltrates on her CT suggestive that she currently has a pneumonia. Her steroids can be stopped. She is not bronchospastic. A low dose of prednisone is reasonable, is an option. We should have cytology back tomorrow. It is imperative that we get this back with her history flynn cancer and the unusual presentation of fluid without an infiltrate. Job ID: [id number] [facility]
[2020-06-02] MEDS: Acetaminophen 325 MG TAB PO PRN (16:09)
[2020-06-02] MEDS: guaiFENesin ER 600 MG TAB PO SCH (21:01)
[2020-06-02] MEDS: traZODone HCl 150 MG TAB PO SCH (21:01)
[2020-06-02] MEDS: Folic Acid 1 MG TAB PO SCH (21:01)
[2020-06-02] MEDS: Cyanocobalamin (Vitamin B-12) 1,000 MCG TAB PO SCH (21:01)
[2020-06-02] MEDS: rOPINIRole HCl 1 MG TAB PO SCH (21:02)
[2020-06-02] MEDS: Atorvastatin Calcium 10 MG TAB PO SCH (21:03)
[2020-06-02] MEDS: Lorazepam 0.5 MG TAB PO PRN (21:07)
--- NOTE | 2020-06-02 21:15 | PDOC.HOSPP ---
- Subjective Encounter Date: 06/02/20 Encounter Time: 09:30 Subjective: Patient seen and examined for respiratory failure. Shortness of breath improving. Denies any fever or chills. No overnight events. - Objective Vital Signs & Weight: Vital Signs (12 hours) Temp Pulse Resp BP Pulse Ox 06/02/20 19:31 16 06/02/20 19:15 99.1 F 75 18 116/50 L 99 06/02/20 16:10 98.9 F 82 20 123/52 L 96 06/02/20 14:52 76 16 98 06/02/20 12:56 98.9 F 78 20 119/47 L 96 06/02/20 10:45 75 16 97 Weight Admit Weight 135 lb Weight 135 lb I&O: 06/01/20 06/02/20 06/03/20 06:59 06:59 06:59 Intake Total 460 980 Output Total 800 700 700 Balance -340 280 -700 Result Diagrams: 06/02/20 06:55 06/02/20 06:55 Additional Labs: Abnormal Lab Results - Last 48 hrs 06/01/20 05:44: Potassium 3.3 L, Carbon Dioxide 32 H, BUN 33 H, Creatinine 1.49 H, ALT 7 L, Albumin 3.2 L, Albumin/Globulin Ratio 1.1 L 06/01/20 05:44: RBC 2.64 L, Hgb 8.8 L, Hct 26.4 L, MCV 100.0 H, MCH 33.2 H, Neutrophils % 80.5 H, Lymphocytes % 12.6 L, Lymphocytes # 0.8 L 06/01/20 13:00: Fluid Clarity Hazy H 06/02/20 06:55: RBC 2.57 L, Hgb 8.6 L, Hct 25.9 L, MCV 101.0 H, MCH 33.4 H, Lymphocytes % 18.5 L 06/02/20 06:55: Carbon Dioxide 33 H, BUN 30 H, Creatinine 1.11 H Microbiology - Entire Visit 06/01/20 13:00 Paracentesis fluid Body Fluid Culture - Preliminary Radiology Reviewed by me: Yes (Chest CT scanreviewed) Hospitalist ROS - Review of Systems Cardiovascular: denies: chest pain, palpitations, orthopnea, paroxysmal noc. dyspnea, edema, light headedness, other Gastrointestinal: denies: nausea, vomiting, abdominal pain, diarrhea, constipation, melena, hematochezia, other - Medication Medications: Active Medications Generic Name Dose Route Start Last Admin Trade Name Freq PRN Reason Stop Dose Admin Acetaminophen 650 mg 05/30/20 17:33 06/02/20 16:09 Acetaminophen 325 Mg Tab PO 650 mg Q6H PRN Administration Headache/Fever/Mild Pain (1-3) Albuterol/Ipratropium 3 ml 06/01/20 14:30 06/02/20 19:31 Ipratropium/Albuterol Sulfate 3 Ml Neb NEB 3 ml [id number] TENZIN Administration Anastrozole 1 mg 05/31/20 09:00 06/02/20 08:50 Anastrozole 1 Mg Tab PO 1 mg DAILY TENZIN Administration Aspirin 81 mg 05/31/20 09:00 06/02/20 07:55 Aspirin 81 Mg Enteric Coated Tablet PO 81 mg DAILY TENZIN Administration Atorvastatin Calcium 10 mg 05/30/20 21:00 06/02/20 21:03 Atorvastatin Calcium 10 Mg Tab PO 10 mg HS TENZIN Administration Bupropion HCl 300 mg 05/31/20 09:00 06/02/20 08:50 Bupropion 150 Mg Xl Tab PO 300 mg DAILY TENZIN Administration Cyanocobalamin 1,000 mcg 06/01/20 21:00 06/02/20 21:01 Cyanocobalamin (Vitamin B-12) 1,000 Mcg Tab PO 1,000 mcg HS TENZIN Administration Doxycycline Hyclate 100 mg 05/31/20 21:00 06/02/20 21:03 Doxycycline 100 Mg Cap PO 100 mg BID TENZIN Administration Dronedarone 400 mg 05/31/20 08:00 06/02/20 17:18 Dronedarone Hcl 400 Mg Tab PO 400 mg BID-WM TENZIN Administration Enoxaparin Sodium 30 mg 06/02/20 09:00 06/02/20 07:56 Enoxaparin Sodium 30 Mg/0.3 Ml Syringe SC Not Given 899 TENZIN Folic Acid 1 mg 06/01/20 21:00 06/02/20 21:01 Folic Acid 1 Mg Tab PO 1 mg HS TENZIN Administration Furosemide 40 mg 05/31/20 09:00 05/31/20 08:59 Furosemide 40 Mg/4 Ml Vial SLOW IVP 40 mg DAILY TENZIN Administration Guaifenesin 600 mg 06/02/20 21:00 06/02/20 21:01 Guaifenesin Er 600 Mg Tab PO 600 mg Q12HR TENZIN Administration Levothyroxine Sodium 100 mcg 05/31/20 06:00 06/02/20 06:01 Levothyroxine Sodium 100 Mcg Tab PO 100 mcg 0600 TENZIN Administration Lorazepam 0.5 mg 05/30/20 17:47 06/02/20 21:07 Lorazepam 0.5 Mg Tab PO 0.5 mg Q4H PRN Administration Anxiety Mirtazapine 45 mg 05/31/20 09:00 06/02/20 08:49 Mirtazapine 30 Mg Tab PO 45 mg DAILY TENZIN Administration Multivitamins 1 tab 06/02/20 09:00 06/02/20 07:55 Multivit, Therapeutic 1 Tab PO 1 tab DAILY TENZIN Administration Ropinirole HCl 1 mg 05/30/20 21:00 06/02/20 21:02 Ropinirole Hcl 1 Mg Tab PO 1 mg HS TENZIN Administration Sodium Chloride 10 ml 06/01/20 21:00 06/02/20 21:01 Flush - Normal Saline 10 Ml Syringe IVF 10 ml Q12HR TENZIN Administration Trazodone HCl 150 mg 05/30/20 21:00 06/02/20 21:01 Trazodone Hcl 150 Mg Tab PO 150 mg HS TENZIN Administration - Exam General Appearance: NAD Neck: supple Heart: RRR, no gallops Respiratory: no wheezes, rhonchi Gastrointestinal: soft, non-tender, normal bowel sounds Extremities: no cyanosis Neurological: no new deficit Hosp A/P - Plan DVT proph w/lovenox, DVT proph w/SCDs Acute on chronic hypoxic respiratory failure COPD exacerbation Right-sided pleural effusion Paroxysmal atrial fibrillationnot anticoagulation candidate due to GI bleeding Restless leg syndrome Hypothyroidism Hyperlipidemia Hypertension History of breast cancer Chronic anemia suspected due to nutritional deficiency CKD stage III History of vitamin B12 deficiency Chronic respiratory failure on 2 L home oxygen Plan: Await cytology. Renal function improving. Continue doxycycline. Change IV steroids to po. Continue incentive spirometry. Potassium normal. Resume home health care at discharge. Continue other medications as above. Discharge 24 hours if stable
[2020-06-03] MEDS: Levothyroxine Sodium 100 MCG TAB PO SCH (05:04)
[2020-06-03] MEDS: Acetaminophen 325 MG TAB PO PRN ×2 (09:22→16:20)
[2020-06-03] MEDS: Doxycycline 100 MG CAP PO SCH ×2 (09:23→21:18)
[2020-06-03] MEDS: guaiFENesin ER 600 MG TAB PO SCH ×2 (09:23→21:18)
[2020-06-03] MEDS: Aspirin 81 mg Enteric Coated Tablet PO SCH (09:23)
[2020-06-03] MEDS: predniSONE 20 MG TAB PO SCH (09:23)
[2020-06-03] MEDS: Famotidine 20 MG TAB PO SCH (09:23)
[2020-06-03] MEDS: Multivit, Therapeutic 1 TAB PO SCH (09:23)
[2020-06-03] MEDS: Mirtazapine 30 MG TAB PO SCH (09:24)
[2020-06-03] MEDS: Enoxaparin Sodium 30 MG/0.3 ML SYRINGE SC SCH (09:24)
[2020-06-03] MEDS: Dronedarone HCl 400 MG TAB PO SCH ×2 (10:44→16:43)
[2020-06-03] MEDS: Anastrozole 1 MG TAB PO SCH (10:44)
[2020-06-03] MEDS: Bupropion 150 MG XL TAB PO SCH (10:45)
[2020-06-03] MEDS ORDERED: Iopamidol-370 76% 500 ML 1 ML ONE (10:49)
[2020-06-03] MEDS: Lorazepam 0.5 MG TAB PO PRN ×2 (14:22→21:22)
--- NOTE | 2020-06-03 14:32 | CT ---
CT OF THE ABDOMEN AND PELVIS WITH AND WITHOUT IV CONTRAST: 06/03/20 INDICATION: Evaluate renal mass with history of breast cancer and left lumpectomy. COMPARISON: Prior CT of the chest dated 06/02/20. FINDINGS: The soft tissue mass involving the superior pole of the right kidney is consistent with renal malign sandy and measures 3.9 x 4.2 x 3.7 cm. The lesion is heterogeneously enhancing and is consistent with a solid mass. There is no evidence of suggest presence of extension into the right renal vein. There is a proteinaceous cyst measuring 1.2 cm involving the superior pole of the right kidney. There is an additional 1.1 cm proteinaceous cyst involving the superior pole of the left kidney. No hydron ephrosis is evident. No gross urothelial lesion is evident. The mass lesion does cause some mass effe ct on the superior calyx of the right kidney without definite invasion. Moderate sized right pleural effusions with pleural nodularity and basilar atelectasis. No suspicious hepatic lesion is evident. The gallbladder, pancreas, adrenal glands, and spleen appear within normal limits. There is a moderate amount of retained stool in the colon. reproductive structures, rectum and perire ctal soft tissues are unremarkable appearing. There is diffuse osteopenia. There is scattered degenerative and osteoarthritic change. No definite a cute osseous abnormality is evident. IMPRESSION: 1. Enhancing solid mass superior pole right kidney consistent with renal malignancy. 2. No evidence to suggest presence of intra-abdominal or intrapelvic metastatic disease. 3. Moderate sized right pleural effusion with right basilar atelectasis is slightly more pronoun gregory than on the prior exam. There is some enhancing soft tissue nodules seen within the right pleural suspicious for pleural based metastatic disease. POS: RADHA
--- NOTE | 2020-06-03 14:49 | PRG ---
DATE OF SERVICE: 06/03/2020 Destinee Issa's pathology is still pending. I discussed her CAT scan after the tap with Radiology. They felt that there might be a mass in the kidney on the last few cuts, so we ordered an abdomen and pelvis CT. There does appear to be a mass in the kidney. The call was that there were subpleural nodules . It is unclear to me though whether or not these are actual metastatic lesions or related to recent inflammatory process or the effusion. She also has calcified nodes which come with granulomarous disease. We will have to wait for the results of the above test. She is supposed to follow up with me after last admission and did not. I am concerned about her failing to follow up. It would be nice if we get at least a plan in place if it does appear that there is a malignancy in the kidney when there is a final interpretation of the CT. Also if there is a mass and effusion is reklated it will come back....which is why she is in hospital. Job ID: [id number] MTDD
--- NOTE | 2020-06-03 16:17 | PDOC.HOSPP ---
- Subjective Encounter Date: 06/03/20 Encounter Time: 14:00 Subjective: Patient seen and examined for respiratory failure. Denies new shortness of breath. Feels generally weak. No chest pain or palpitations. - Objective Vital Signs & Weight: Vital Signs (12 hours) Temp Pulse Resp BP Pulse Ox 06/03/20 14:57 79 16 99 06/03/20 12:00 97.9 F 78 20 114/56 L 98 06/03/20 11:20 79 16 97 06/03/20 08:00 98.5 F 73 20 123/58 L 99 06/03/20 07:37 78 16 98 06/03/20 07:00 98 06/03/20 05:00 98.0 F 75 18 101/49 L Weight Admit Weight 135 lb Weight 135 lb I&O: 06/02/20 06/03/20 06/04/20 06:59 06:59 06:59 Intake Total 980 Output Total 700 700 Balance 280 -700 Result Diagrams: 06/02/20 06:55 06/02/20 06:55 Radiology Reviewed by me: Yes (CT abdomenrenal mass) Hospitalist ROS - Review of Systems Cardiovascular: denies: chest pain, palpitations, orthopnea, paroxysmal noc. dyspnea, edema, light headedness, other Gastrointestinal: denies: nausea, vomiting, abdominal pain, diarrhea, constipati on, melena, hematochezia, other - Medication Medications: Active Medications Generic Name Dose Route Start Last Admin Trade Name Freq PRN Reason Stop Dose Admin Acetaminophen 650 mg 05/30/20 17:33 06/03/20 09:22 Acetaminophen 325 Mg Tab PO 650 mg Q6H PRN Administration Headache/Fever/Mild Pain (1-3) Albuterol/Ipratropium 3 ml 06/01/20 14:30 06/03/20 14:57 Ipratropium/Albuterol Sulfate 3 Ml Neb NEB 3 ml [id number] TENZIN Administration Anastrozole 1 mg 05/31/20 09:00 06/03/20 10:44 Anastrozole 1 Mg Tab PO 1 mg DAILY TENZIN Administration Aspirin 81 mg 05/31/20 09:00 06/03/20 09:23 Aspirin 81 Mg Enteric Coated Tablet PO 81 mg DAILY TENZIN Administration Atorvastatin Calcium 10 mg 05/30/20 21:00 06/02/20 21:03 Atorvastatin Calcium 10 Mg Tab PO 10 mg HS TENZIN Administration Bupropion HCl 300 mg 05/31/20 09:00 06/03/20 10:45 Bupropion 150 Mg Xl Tab PO 300 mg DAILY TENZIN Administration Cyanocobalamin 1,000 mcg 06/01/20 21:00 06/02/20 21:01 Cyanocobalamin (Vitamin B-12) 1,000 Mcg Tab PO 1,000 mcg HS TENZIN Administration Doxycycline Hyclate 100 mg 05/31/20 21:00 06/03/20 09:23 Doxycycline 100 Mg Cap PO 100 mg BID TENZIN Administration Dronedarone 400 mg 05/31/20 08:00 06/03/20 10:44 Dronedarone Hcl 400 Mg Tab PO 400 mg BID-WM TENZIN Administration Enoxaparin Sodium 30 mg 06/02/20 09:00 06/03/20 09:24 Enoxaparin Sodium 30 Mg/0.3 Ml Syringe SC Not Given 0900 TENZIN Famotidine 20 mg 06/03/20 09:00 06/03/20 09:23 Famotidine 20 Mg Tab PO 20 mg DAILY TENZIN Administration Folic Acid 1 mg 06/01/20 21:00 06/02/20 21:01 Folic Acid 1 Mg Tab PO 1 mg HS TENZIN Administration Guaifenesin 600 mg 06/02/20 21:00 06/03/20 09:23 Guaifenesin Er 600 Mg Tab PO 600 mg Q12HR TENZIN Administration Levothyroxine Sodium 100 mcg 05/31/20 06:00 06/03/20 05:04 Levothyroxine Sodium 100 Mcg Tab PO 100 mcg 0600 TENZIN Administration Lorazepam 0.5 mg 05/30/20 17:47 06/03/20 14:22 Lorazepam 0.5 Mg Tab PO 0.5 mg Q4H PRN Administration Anxiety Mirtazapine 45 mg 05/31/20 09:00 06/03/20 09:24 Mirtazapine 30 Mg Tab PO 45 mg DAILY TENZIN Administration Multivitamins 1 tab 06/02/20 09:00 06/03/20 09:23 Multivit, Therapeutic 1 Tab PO 1 tab DAILY TENZIN Administration Prednisone 20 mg 06/03/20 08:00 06/03/20 09:23 Prednisone 20 Mg Tab PO 20 mg QAM-WM TENZIN Administration Ropinirole HCl 1 mg 05/30/20 21:00 06/02/20 21:02 Ropinirole Hcl 1 Mg Tab PO 1 mg HS TENZIN Administration Sodium Chloride 10 ml 06/01/20 21:00 06/03/20 09:25 Flush - Normal Saline 10 Ml Syringe IVF 10 ml Q12HR TENZIN Administration Trazodone HCl 150 mg 05/30/20 21:00 06/02/20 21:01 Trazodone Hcl 150 Mg Tab PO 150 mg HS TENZIN Administration - Exam General Appearance: NAD Heart: RRR, no gallops Respiratory: no wheezes, no ronchi Gastrointestinal: soft, non-distended, normal bowel sounds Extremities: no cyanosis Neurological: no new deficit Hosp A/P - Plan DVT proph w/SCDs Acute on chronic hypoxic respiratory failure COPD exacerbation Right-sided pleural effusion? Malignants/p thoracentesis this admission Renal masssuspected malignant Paroxysmal atrial fibrillationnot anticoagulation candidate due to GI bleeding Restless leg syndrome Hypothyroidism Hyperlipidemia Hypertension History of breast cancerfollows Dr. Henderson (last seen in March) Chronic anemia suspected due to nutritional deficiency CKD stage III History of vitamin B12 deficiency Chronic respiratory failure on 2 L home oxygen Plan: Cytology pending. Continue doxycycline with low-dose steroid. CT abdomen reviewed. I discussed with urology Dr. Olmos who will see the patient on 06/13 as outpatient. I also discussed with oncology service. Patient normally follows Dr. Henderson for breast cancer. Will continue other medications as above. Continue nebulizer treatments. DC planning. Radiology investigations: Chest x-ray11/6right-sided pleural effusion CTA chest11/6nonspecific mediastinal lymph node, moderate size right-sided pleural effusion CT chest11/9posterior right lower lobe parenchymal changes with pleural nodules concerning for malignancy with abnormal mass in the right kidney concerning for malignancy. CT avzrrov05/10enhancing solid mass in the superior pole of the right kidney consistent with renal malignancy. Moderate size right pleural effusion with rig ht basilar atelectasis. Enhancing soft tissue nodules within the right pleura suspicious for metastatic disease.
[2020-06-03] MEDS: Atorvastatin Calcium 10 MG TAB PO SCH (21:18)
[2020-06-03] MEDS: Cyanocobalamin (Vitamin B-12) 1,000 MCG TAB PO SCH (21:18)
[2020-06-03] MEDS: Folic Acid 1 MG TAB PO SCH (21:18)
[2020-06-03] MEDS: traZODone HCl 150 MG TAB PO SCH (21:18)
[2020-06-03] MEDS: rOPINIRole HCl 1 MG TAB PO SCH (21:18)
[2020-06-04] MEDS: Acetaminophen 325 MG TAB PO PRN ×2 (02:50→14:32)
[2020-06-04] MEDS: Levothyroxine Sodium 100 MCG TAB PO SCH (06:05)
[2020-06-04] MEDS: Doxycycline 100 MG CAP PO SCH ×2 (09:22→21:08)
[2020-06-04] MEDS: predniSONE 20 MG TAB PO SCH (09:22)
[2020-06-04] MEDS: Aspirin 81 mg Enteric Coated Tablet PO SCH (09:22)
[2020-06-04] MEDS: guaiFENesin ER 600 MG TAB PO SCH ×2 (09:22→21:08)
[2020-06-04] MEDS: Famotidine 20 MG TAB PO SCH (09:22)
[2020-06-04] MEDS: Multivit, Therapeutic 1 TAB PO SCH (09:22)
[2020-06-04] MEDS: Enoxaparin Sodium 30 MG/0.3 ML SYRINGE SC SCH (09:22)
[2020-06-04] MEDS: Anastrozole 1 MG TAB PO SCH (09:23)
[2020-06-04] MEDS: Dronedarone HCl 400 MG TAB PO SCH ×2 (09:23→17:31)
[2020-06-04] MEDS: Bupropion 150 MG XL TAB PO SCH (09:23)
[2020-06-04] MEDS: Mirtazapine 30 MG TAB PO SCH (09:26)
--- NOTE | 2020-06-04 11:01 | RAD ---
Exam: Chest one view HISTORY:Pleural effusion. Shortness of breath. Comparison: 05/30/2020 FINDINGS: Cardiac silhouette:Enlarged Aorta: Atherosclerotic Pulmonary vessels: Normal Costophrenic angles: Persistent right-sided pleural effusion. LUNGS: Scattered parenchymal opacities, greatest in the right lung base. The degree of parenchymal op acification has not changed. Pneumothorax: None Osseous abnormalities: None IMPRESSION: No significant interval change.
--- NOTE | 2020-06-04 12:45 | CON ---
DATE OF CONSULTATION: 06/04/2020 HISTORY OF PRESENT ILLNESS: I was called by Dr. Escalera to see Destinee Issa. She had a pleural effusion causing significant shortness of breath that was tapped on Tuesday. Cytology has shown malignant cells which were returned as probable small cell. She has had a CT of her abdomen, showing renal mass. 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 I have been asked to see her to place a PleurX catheter on the right. PAST MEDICAL HISTORY: 1. COPD. 2. History of atrial fibrillation. 3. History of GI bleed. 4. Hypertension. 5. Dyslipidemia. 6. Hypothyroidism. 7. History of breast cancer, status post lumpectomy and radiation. PAST SURGICAL HISTORY: As above. CURRENT MEDICATIONS: Noted. ALLERGIES: 1. CIPROFLOXACIN. 2. PROPOXYPHENE. 3. LISINOPRIL. PHYSICAL EXAMINATION: GENERAL: This is a thin elderly woman, resting comfortably. LUNGS: Diminished breath sounds over both bases. There is dullness to percussion of the right base. HEART: Rhythm is regular. ABDOMEN: Soft and nontender. ASSESSMENT AND PLAN: I have reviewed her chest x-ray series and CT scans. Dr. Escalera tapped a liter off her on Tuesday. I would like to give her another day or 2 to reaccumulate and then plan for right PleurX catheter placement. Job ID: [id number]
--- NOTE | 2020-06-04 14:24 | PDOC.HOSPP ---
- Subjective Encounter Date: 06/04/20 Encounter Time: 10:30 Subjective: Patient seen and examined for respiratory failure. More short of breath this morning. Denies any cough or wheezing. No fever or chills reported. - Objective Vital Signs & Weight: Vital Signs (12 hours) Temp Pulse Resp BP BP Pulse Ox 06/04/20 12:51 78 20 100 06/04/20 11:49 98.0 F 76 22 H 116/56 L 98 06/04/20 09:15 74 20 99 06/04/20 08:00 99 06/04/20 07:54 98.0 F 81 22 H 133/63 97 06/04/20 06:00 98.5 F 79 15 138/51 L 98 06/04/20 02:43 18 98 Weight Admit Weight 135 lb Weight 135 lb I&O: 06/03/20 06/04/20 06/05/20 06:59 06:59 06:59 Intake Total 980 280 Output Total 700 1000 Balance -700 -20 280 Result Diagrams: 06/02/20 06:55 06/02/20 06:55 Additional Labs: Microbiology - Entire Visit 06/01/20 13:00 Paracentesis fluid Body Fluid Culture - Preliminary Radiology Reviewed by me: Yes (Chest x-rayno new changes) Hospitalist ROS - Review of Systems Cardiovascular: denies: chest pain, palpitations, orthopnea, paroxysmal noc. dyspnea, edema, light headedness, other Gastrointestinal: denies: nausea, vomiting, abdominal pain, diarrhea, c onstipation, melena, hematochezia, other - Medication Medications: Active Medications Generic Name Dose Route Start Last Admin Trade Name Chaitanyaq PRN Reason Stop Dose Admin Acetaminophen 650 mg 05/30/20 17:33 06/04/20 02:50 Acetaminophen 325 Mg Tab PO 650 mg Q6H PRN Administration Headache/Fever/Mild Pain (1-3) Albuterol/Ipratropium 3 ml 06/01/20 14:30 06/04/20 12:51 Ipratropium/Albuterol Sulfate 3 Ml Neb NEB 3 ml [id number] TENZIN Administration Albuterol/Ipratropium 3 ml 06/01/20 11:53 06/04/20 09:15 Ipratropium/Albuterol Sulfate 3 Ml Neb NEB 3 ml Q2H PRN Administration SOB &/or Wheezing Anastrozole 1 mg 05/31/20 09:00 06/04/20 09:23 Anastrozole 1 Mg Tab PO 1 mg DAILY TENZIN Administration Aspirin 81 mg 05/31/20 09:00 06/04/20 09:22 Aspirin 81 Mg Enteric Coated Tablet PO 81 mg DAILY TENZIN Administration Atorvastatin Calcium 10 mg 05/30/20 21:00 06/03/20 21:18 Atorvastatin Calcium 10 Mg Tab PO 10 mg HS TENZIN Administration Bupropion HCl 300 mg 05/31/20 09:00 06/04/20 09:23 Bupropion 150 Mg Xl Tab PO 300 mg DAILY TENZIN Administration Cyanocobalamin 1,000 mcg 06/01/20 21:00 06/03/20 21:18 Cyanocobalamin (Vitamin B-12) 1,000 Mcg Tab PO 1,000 mcg HS TENZIN Administration Doxycycline Hyclate 100 mg 05/31/20 21:00 06/04/20 09:22 Doxycycline 100 Mg Cap PO 100 mg BID TENZIN Administration Dronedarone 400 mg 05/31/20 08:00 06/04/20 09:23 Dronedarone Hcl 400 Mg Tab PO 400 mg BID-WM TENZIN Administration Enoxaparin Sodium 30 mg 06/02/20 09:00 06/04/20 09:22 Enoxaparin Sodium 30 Mg/0.3 Ml Syringe SC Not Given 09 TENZIN Famotidine 20 mg 06/03/20 09:00 06/04/20 09:22 Famotidine 20 Mg Tab PO 20 mg DAILY TENZIN Administration Folic Acid 1 mg 06/01/20 21:00 06/03/20 21:18 Folic Acid 1 Mg Tab PO 1 mg HS TENZIN Administration Guaifenesin 600 mg 06/02/20 21:00 06/04/20 09:22 Guaifenesin Er 600 Mg Tab PO 600 mg Q12HR TENZIN Administration Levothyroxine Sodium 100 mcg 05/31/20 06:00 06/04/20 06:05 Levothyroxine Sodium 100 Mcg Tab PO 100 mcg 0600 ETNZIN Administration Lorazepam 0.5 mg 05/30/20 17:47 06/03/20 21:22 Lorazepam 0.5 Mg Tab PO 0.5 mg Q4H PRN Administration Anxiety Mirtazapine 45 mg 05/31/20 09:00 06/04/20 09:26 Mirtazapine 30 Mg Tab PO 45 mg DAILY TENZIN Administration Multivitamins 1 tab 06/02/20 09:00 06/04/20 09:22 Multivit, Therapeutic 1 Tab PO 1 tab DAILY TENZIN Administration Prednisone 20 mg 06/03/20 08:00 06/04/20 09:22 Prednisone 20 Mg Tab PO 20 mg QAM-WM TENZIN Administration Ropinirole HCl 1 mg 05/30/20 21:00 06/03/20 21:18 Ropinirole Hcl 1 Mg Tab PO 1 mg HS TENZIN Administration Sodium Chloride 10 ml 06/01/20 21:00 06/04/20 09:24 Flush - Normal Saline 10 Ml Syringe IVF 10 ml Q12HR TENZIN Administration Trazodone HCl 150 mg 05/30/20 21:00 06/03/20 21:18 Trazodone Hcl 150 Mg Tab PO 150 mg HS TENZIN Administration - Exam General Appearance: ill appearing Neck: supple, no JVD Heart: RRR, no rubs Respiratory: no wheezes, rales, rhonchi, tachypneic Gastrointestinal: soft, non-tender, no guarding, no rigidity Extremities: no cyanosis Musculoskeletal: generalized weakness Psychiatric: normal affect, A&O x 3 Hosp A/P - Plan DVT proph w/SCDs Acute on chronic hypoxic respiratory failure COPD exacerbation Right-sided pleural effusion? Malignants/p thoracentesis Renal masssuspected malignant Follow-up with urology on 06/13 Paroxysmal atrial fibrillationnot anticoagulation candidate due to GI bleeding Restless leg syndrome Hypothyroidism Hyperlipidemia Hypertension History of breast cancerfollows Dr. Henderson (last seen in March) Chronic anemia suspected due to nutritional deficiency CKD stage III History of vitamin B12 deficiency Chronic respiratory failure on 2 L home oxygen Plan: Await cytology. Patient will probably require Pleurx catheter. Continue nebulizer treatment with steroids and doxycycline. Repeat chest x-ray reviewed. Continue Multaq, anastrozole, Lipitor and other medications as above. Recheck labs in a.m. Radiology investigations: Chest x-ray11/6right-sided pleural effusion CTA chest116nonspecific mediastinal lymph node, moderate size right-sided pleural effusion CT chest9posterior right lower lobe parenchymal changes with pleural nodules concerning for malignancy with abnormal mass in the right kidney concerning for malignancy. CT [id number] solid mass in the superior pole of the right kidney consistent with renal malignancy. Moderate size right pleural effusion with right basilar atelectasis. Enhancing soft tissue nodules within the right pleur a suspicious for metastatic disease.
--- NOTE | 2020-06-04 16:48 | PRG ---
DATE OF SERVICE: 06/04/2020 SUBJECTIVE: Destinee Issa is afebrile. OBJECTIVE: VITAL SIGNS: Heart rates in the 70s, respiratory rates in the 20s. She is afebrile. Her O2 for some reason was turned up to 4 L a minute. She is on 2 L a minute earlier and her sats were 99%. Blood pressure 116/56. LUNGS: Remarkable for decreased breath sounds at the right base. HEART: Regular rhythm. ABDOMEN: Soft. She says she does not feel as good as she did yesterday. Preliminary on the pleural fluid is small cell. The origin of small cell at this point in time unclear. She does have a renal mass. IMPRESSION: Malignant effusion. I asked Dr. Delgado to consider placing a tunneled catheter. By Tuesday, she will have more fluid accumulation and this can be done. He agreed. She will need to stay in the hospital . By Tuesday, we will also have an idea more of whether or not more specimens are needed. Pathologist whom I had talked to today felt he had adequate fluid to make final diagnosis with special stains. Job ID: [id number]
[2020-06-04] MEDS: traMADol HCl 50 MG TAB PO PRN (17:30)
[2020-06-04] MEDS: Cyanocobalamin (Vitamin B-12) 1,000 MCG TAB PO SCH (21:05)
[2020-06-04] MEDS: Atorvastatin Calcium 10 MG TAB PO SCH (21:07)
[2020-06-04] MEDS: rOPINIRole HCl 1 MG TAB PO SCH (21:08)
[2020-06-04] MEDS: Folic Acid 1 MG TAB PO SCH (21:08)
[2020-06-04] MEDS: traZODone HCl 150 MG TAB PO SCH (21:08)
[2020-06-05] MEDS: Lorazepam 0.5 MG TAB PO PRN ×3 (02:18→22:43)
[2020-06-05] MEDS: traMADol HCl 50 MG TAB PO PRN ×3 (02:18→22:43)
[2020-06-05] MEDS: Levothyroxine Sodium 100 MCG TAB PO SCH (06:17)
[2020-06-05 07:33] LABS: #Eosinphils 0.1 thou/uL (0.0-0.7); #Monocytes 0.5 thou/uL (0.11-0.59); #Neutrophils 3.7 thou/uL (1.40-6.50); %Basophils 0.5 % (0.0-1.0); %Eosinophils 2.1 % (0.0-10.0); %Lymphocytes 18.6 % (21.0-51.0); %Monocytes 9.6 % (0.0-10.0); %Neutrophils 69.3 % (42.0-75.0); Hemoglobin 8.7 g/dL (12.0-16.0); Mean Corpuscular HGB CONC 31.2 g/dL (32.0-36.0); Mean Corpuscular Hemoglobin 32.6 pg (27.0-31.0); Mean Platelet Volume 8.1 fL (7.4-10.4); Platelet Count 158 thou/uL (130-400); RBC Distribution Width 11.4 % (11.5-14.5); Red Blood Cell (RBC) Count 2.68 mill/uL (4.20-5.40); White Blood Cell (WBC) Count 5.4 thou/uL (4.8-10.8)
[2020-06-05 07:52] LABS: Anion Gap 8 mmol/L (10-20); BUN (Urea Nitrogen) 23 mg/dL (9.8-20.1); Calc. Creatinine Clearance 43 mL/min (70-130); Calcium 8.7 mg/dL (7.8-10.44); Carbon Dioxide 31 mmol/L (23-31); Chloride 104 mmol/L (98-107); Estimated GFR-MDRD 55; Glucose 77 mg/dL (83-110); Sodium 139 mmol/L (136-145)
[2020-06-05] MEDS: Doxycycline 100 MG CAP PO SCH (08:28)
[2020-06-05] MEDS: Famotidine 20 MG TAB PO SCH (08:28)
[2020-06-05] MEDS: Enoxaparin Sodium 30 MG/0.3 ML SYRINGE SC SCH (08:29)
[2020-06-05] MEDS: predniSONE 20 MG TAB PO SCH (08:29)
[2020-06-05] MEDS: guaiFENesin ER 600 MG TAB PO SCH ×2 (08:29→20:40)
[2020-06-05] MEDS: Multivit, Therapeutic 1 TAB PO SCH (08:29)
[2020-06-05] MEDS: Bupropion 150 MG XL TAB PO SCH (08:30)
[2020-06-05] MEDS: Aspirin 81 mg Enteric Coated Tablet PO SCH (08:32)
[2020-06-05] MEDS: Anastrozole 1 MG TAB PO SCH (08:33)
[2020-06-05] MEDS: Mirtazapine 30 MG TAB PO SCH (08:34)
[2020-06-05] MEDS: Dronedarone HCl 400 MG TAB PO SCH ×2 (08:35→18:10)
--- NOTE | 2020-06-05 15:00 | PDOC.HOSPP ---
- Subjective Encounter Date: 06/05/20 Encounter Time: 09:30 Subjective: Patient seen and examined for respiratory failure due to pleural effusion. Short of breath on minimal exertion. Denies any chest pain or palpitations. - Objective Vital Signs & Weight: Vital Signs (12 hours) Temp Pulse Resp BP Pulse Ox 06/05/20 12:22 77 20 100 06/05/20 11:44 97.9 F 76 22 H 120/76 99 06/05/20 08:21 75 18 99 06/05/20 08:00 96 06/05/20 07:53 98.6 F 81 24 H 134/63 97 Weight Admit Weight 135 lb Weight 135 lb I&O: 06/04/20 06/05/20 06/06/20 06:59 06:59 06:59 Intake Total 980 1160 Output Total 1000 750 Balance -20 410 Result Diagrams: 06/05/20 06:56 06/05/20 06:56 Additional Labs: Abnormal Lab Results - Last 48 hrs 06/05/20 06:56: Anion Gap 8 L, BUN 23 H 06/05/20 06:56: RBC 2.68 L, Hgb 8.7 L, Hct 28.0 L, MCV 104.0 H, MCH 32.6 H, MCHC 31.2 L, RDW 11.4 L, Lymphocytes % 18.6 L, Lymphocytes # 1.0 L Microbiology - Entire Visit 06/01/20 13:00 Paracentesis fluid Body Fluid Culture - Preliminary Radiology Reviewed by me: Yes (Chest x-raypleural effusion) Hospitalist ROS - Review of Systems Cardiovascular: denies: chest pain, palpitations, orthopnea, paroxysmal noc. dyspnea, edema, light headedness, other Gastrointestinal: denies: nausea, vomiting, abdominal pain, diarrhea, constipation, melena, hematochezia, other - Medication Medications: Active Medications Generic Name Dose Route Start Last Admin Trade Name Freq PRN Reason Stop Dose Admin Acetaminophen 650 mg 05/30/20 17:33 06/04/20 14:32 Acetaminophen 325 Mg Tab PO 650 mg Q6H PRN Administration Headache/Fever/Mild Pain (1-3) Albuterol/Ipratropium 3 ml 06/01/20 14:30 06/05/20 12:22 Ipratropium/Albuterol Sulfate 3 Ml Neb NEB 3 ml [id number] TENZIN Administration Albuterol/Ipratropium 3 ml 06/01/20 11:53 06/04/20 09:15 Ipratropium/Albuterol Sulfate 3 Ml Neb NEB 3 ml Q2H PRN Administration SOB &/or Wheezing Anastrozole 1 mg 05/31/20 09:00 06/05/20 08:33 Anastrozole 1 Mg Tab PO 1 mg DAILY TENZIN Administration Aspirin 81 mg 05/31/20 09:00 06/05/20 08:32 Aspirin 81 Mg Enteric Coated Tablet PO 81 mg DAILY TENZIN Administration Atorvastatin Calcium 10 mg 05/30/20 21:00 06/04/20 21:07 Atorvastatin Calcium 10 Mg Tab PO 10 mg HS TENZIN Administration Bupropion HCl 300 mg 05/31/20 09:00 06/05/20 08:30 Bupropion 150 Mg Xl Tab PO 300 mg DAILY TENZIN Administration Cyanocobalamin 1,000 mcg 06/01/20 21:00 06/04/20 21:05 Cyanocobalamin (Vitamin B-12) 1,000 Mcg Tab PO 1,000 mcg HS TENZIN Administration Doxycycline Hyclate 100 mg 05/31/20 21:00 06/05/20 08:28 Doxycycline 100 Mg Cap PO 100 mg BID TENZIN Administration Dronedarone 400 mg 05/31/20 08:00 06/05/20 08:35 Dronedarone Hcl 400 Mg Tab PO 400 mg BID-WM TENZIN Administration Enoxaparin Sodium 30 mg 06/02/20 09:00 06/05/20 08:29 Enoxaparin Sodium 30 Mg/0.3 Ml Syringe SC Not Given 0900 TENZIN Famotidine 20 mg 06/03/20 09:00 06/05/20 08:28 Famotidine 20 Mg Tab PO 20 mg DAILY TENZIN Administration Folic Acid 1 mg 06/01/20 21:00 06/04/20 21:08 Folic Acid 1 Mg Tab PO 1 mg HS TENZIN Administration Guaifenesin 600 mg 06/02/20 21:00 06/05/20 08:29 Guaifenesin Er 600 Mg Tab PO 600 mg Q12HR TENZIN Administration Levothyroxine Sodium 100 mcg 05/31/20 06:00 06/05/20 06:17 Levothyroxine Sodium 100 Mcg Tab PO 100 mcg 0600 TENZIN Administration Lorazepam 0.5 mg 05/30/20 17:47 06/05/20 10:44 Lorazepam 0.5 Mg Tab PO 0.5 mg Q4H PRN Administration Anxiety Mirtazapine 45 mg 05/31/20 09:00 06/05/20 08:34 Mirtazapine 30 Mg Tab PO 45 mg DAILY TENZIN Administration Multivitamins 1 tab 06/02/20 09:00 06/05/20 08:29 Multivit, Therapeutic 1 Tab PO 1 tab DAILY TENZIN Administration Prednisone 20 mg 06/03/20 08:00 06/05/20 08:29 Prednisone 20 Mg Tab PO 20 mg QAM-WM TENZIN Administration Ropinirole HCl 1 mg 05/30/20 21:00 06/04/20 21:08 Ropinirole Hcl 1 Mg Tab PO 1 mg HS TENZIN Administration Sodium Chloride 10 ml 06/01/20 21:00 06/05/20 08:40 Flush - Normal Saline 10 Ml Syringe IVF Not Given Q12HR TENZIN Tramadol HCl 50 mg 06/04/20 17:03 06/05/20 10:44 Tramadol Hcl 50 Mg Tab PO 50 mg Q4H PRN Administration Moderate Pain (4-6) Trazodone HCl 150 mg 05/30/20 21:00 06/04/20 21:08 Trazodone Hcl 150 Mg Tab PO 150 mg HS TENZIN Administration - Exam General Appearance: NAD Heart: RRR, no gallops Respiratory: no wheezes, tachypneic Respiratory - other findings: Diminished air entry at bases Gastrointestinal: soft, non-distended Extremities: no cyanosis Neurological: no new deficit Hosp A/P - Plan DVT proph w/SCDs Acute on chronic hypoxic respiratory failure COPD exacerbation Right-sided pleural effusion? Malignants/p thoracentesis Renal masssuspected malignant Follow-up with urology on 06/13 Paroxysmal atrial fibrillation not anticoagulation candidate due to GI bleeding Restless leg syndrome Hypothyroidism Hyperlipidemia Hypertension History of breast cancerfollows Dr. Hendesron (last seen in March) Chronic anemia suspected due to nutritional deficiency SULEIMAN on CKD stage IIIimproving History of vitamin B12 deficiency Chronic respiratory failure on 2 L home oxygen Plan: Pleurx catheter in a.m. Continue nebulizer treatments. Discontinue doxycycline. Hold Lovenox for Pleurx catheter. Renal function improving. Continue Multaq, levothyroxine and other medications as above. Patient is declining inpatient rehab. Resume home health care at discharge Radiology investigations: Chest x-ray11/6right-sided pleural effusion CTA chest11/6nonspecific mediastinal lymph node, moderate size right-sided pleural effusion CT chest11/9posterior right lower lobe parenchymal changes with pleural nodules concerning for malignancy with abnormal mass in the right kidney concerning for malignancy. CT [id number] solid mass in the superior pole of the right kidney consistent with renal malignancy. Moderate size right pleural effusion with right basilar atelectasis. Enhancing soft tissue nodules within the right pleura suspicious for metastatic disease.
--- NOTE | 2020-06-05 19:12 | PRG ---
DATE OF SERVICE: 06/05/2020 Ms. Issa remains stable. 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 The only way to sort through this would be with a renal biopsy. She is tentatively scheduled for tunneled pleural catheter tomorrow since clinically her pleural effusion appears to be recurring. She is not short of breath at rest, so there is no reason to retap her prior to the procedure. Pleural fluid makes procedure easier to perform. We will continue to follow. Job ID: [id number]
[2020-06-05] MEDS: traZODone HCl 150 MG TAB PO SCH (20:40)
[2020-06-05] MEDS: Atorvastatin Calcium 10 MG TAB PO SCH (20:40)
[2020-06-05] MEDS: Cyanocobalamin (Vitamin B-12) 1,000 MCG TAB PO SCH (20:40)
[2020-06-05] MEDS: Folic Acid 1 MG TAB PO SCH (20:40)
[2020-06-05] MEDS: rOPINIRole HCl 1 MG TAB PO SCH (20:40)
[2020-06-06] MEDS ORDERED: CEFAZOLIN 2 GM in Premix Bag 1 BAG IVPB SCH (07:30)
[2020-06-06] MEDS: Levothyroxine Sodium 100 MCG TAB PO SCH (07:32)
[2020-06-06] MEDS ORDERED: Fentanyl 100 MCG/2 ML VIAL ONE ×2 (09:19→10:23)
[2020-06-06] MEDS ORDERED: Midazolam HCl 2 mg/2 ml Vial ONE (09:19)
[2020-06-06] MEDS ORDERED: Ondansetron HCl/PF 4 MG/2 ML Vial IVP PRN (10:05)
--- NOTE | 2020-06-06 10:12 | OP ---
DATE OF PROCEDURE: 06/06/2020 PREOPERATIVE DIAGNOSIS: Malignant right pleural effusion. POSTOPERATIVE DIAGNOSIS: Malignant right pleural effusion. PROCEDURE PERFORMED: Right PleurX catheter placement. ANESTHESIA: 1% lidocaine for local with IV sedation provided by Dr. Tello Larson. ESTIMATED BLOOD LOSS: Minimal. TOTAL DRAINAGE: 1500 mL. DESCRIPTION OF PROCEDURE: After consent was obtained, the patient was brought to the operating room and placed in supine position on the operating table. Appropriate central line was placed and IV sedation begun. Right chest wall was prepped and draped in usual sterile fashion. Skin was anesthetized with 1% lidocaine. Percutaneous access to the thorax was obtained and a guidewire passed. The catheter was tunneled from the midclavicular line over to the access point. The access point was then dilated and the catheter passed into the thorax. 1500 mL was then drained. The catheter was secured with silk suture. Sterile dressings were applied. The patient tolerated the procedure well and was transferred to the recovery room in stable condition. Job ID: [id number]
[2020-06-06] MEDS ORDERED: PROPOFOL 200 MG/20 ML VIAL ONE (10:14)
[2020-06-06] MEDS ORDERED: Ondansetron PF 4 MG/2 ML Vial ONE (10:27)
[2020-06-06 11:09] VITALS: TEMP 98
[2020-06-06] MEDS ORDERED: Ondansetron PF 4 MG/2 ML Vial IVP SCH (12:15)
[2020-06-06] MEDS: traMADol HCl 50 MG TAB PO PRN (12:30)
[2020-06-06] MEDS: Dronedarone HCl 400 MG TAB PO SCH (13:45)
[2020-06-06] MEDS: Anastrozole 1 MG TAB PO SCH (13:45)
[2020-06-06] MEDS: Bupropion 150 MG XL TAB PO SCH (13:45)
[2020-06-06] MEDS: Aspirin 81 mg Enteric Coated Tablet PO SCH (13:45)
[2020-06-06] MEDS: Famotidine 20 MG TAB PO SCH (13:45)
[2020-06-06] MEDS: predniSONE 20 MG TAB PO SCH (13:45)
[2020-06-06] MEDS: guaiFENesin ER 600 MG TAB PO SCH (13:46)
[2020-06-06] MEDS: Mirtazapine 30 MG TAB PO SCH (13:47)
[2020-06-06] MEDS: Multivit, Therapeutic 1 TAB PO SCH (13:47)
--- NOTE | 2020-06-06 14:34 | PDOC.HOSPP ---
- Subjective Encounter Date: 06/06/20 Encounter Time: 08:30 Subjective: Patient seen and examined for respiratory failure due to malignant pleural effusion. No significant change in shortness of breath overnight. Some dry cough. No fever or chills. - Objective Vital Signs & Weight: Vital Signs (12 hours) Temp Pulse Resp BP BP Pulse Ox 06/06/20 12:35 74 119/59 L 06/06/20 12:05 70 119/53 L 06/06/20 11:35 69 118/44 L 06/06/20 11:05 98.0 F 70 20 121/53 L 06/06/20 08:00 97.9 F 78 22 H 137/61 99 06/06/20 07:01 73 16 99 Weight Admit Weight 135 lb Weight 135 lb I&O: 06/05/20 06/06/20 06/07/20 06:59 06:59 06:59 Intake Total 1160 720 Output Total 750 1000 Balance 410 -280 Result Diagrams: 06/05/20 06:56 06/05/20 06:56 Additional Labs: Abnormal Lab Results - Last 48 hrs 06/05/20 06:56: Anion Gap 8 L, BUN 23 H 06/05/20 06:56: RBC 2.68 L, Hgb 8.7 L, Hct 28.0 L, MCV 104.0 H, MCH 32.6 H, MCHC 31.2 L, RDW 11.4 L, Lymphocytes % 18.6 L, Lymphocytes # 1.0 L Microbiology - Entire Visit 06/01/20 13:00 Paracentesis fluid Body Fluid Culture - Final Radiology Reviewed by me: Yes (Chest x-rayreviewed) Hospitalist ROS - Review of Systems Cardiovascular: denies: chest pain, palpitations, orthopnea, paroxysmal noc. dyspnea, edema, light headedness, other Gastrointestinal: denies: nausea, vomiting, abdominal pain, diarrhea, constipation, melena, hematochezia, other - Medication Medications: Active Medications Generic Name Dose Route Start Last Admin Trade Name Freq PRN Reason Stop Dose Admin Acetaminophen 650 mg 05/30/20 17:33 06/04/20 14:32 Acetaminophen 325 Mg Tab PO 650 mg Q6H PRN Administration Headache/Fever/Mild Pain (1-3) Albuterol/Ipratropium 3 ml 06/01/20 14:30 06/06/20 13:41 Ipratropium/Albuterol Sulfate 3 Ml Neb NEB 3 ml [id number] TENZIN Administration Albuterol/Ipratropium 3 ml 06/01/20 11:53 06/04/20 09:15 Ipratropium/Albuterol Sulfate 3 Ml Neb NEB 3 ml Q2H PRN Administration SOB &/or Wheezing Anastrozole 1 mg 05/31/20 09:00 06/06/20 13:45 Anastrozole 1 Mg Tab PO Not Given DAILY TENZIN Aspirin 81 mg 05/31/20 09:00 06/06/20 13:45 Aspirin 81 Mg Enteric Coated Tablet PO Not Given DAILY TENZIN Atorvastatin Calcium 10 mg 05/30/20 21:00 06/05/20 20:40 Atorvastatin Calcium 10 Mg Tab PO 10 mg HS TENZIN Administration Bupropion HCl 300 mg 05/31/20 09:00 06/06/20 13:45 Bupropion 150 Mg Xl Tab PO Not Given DAILY TENZIN Cyanocobalamin 1,000 mcg 06/01/20 21:00 06/05/20 20:40 Cyanocobalamin (Vitamin B-12) 1,000 Mcg Tab PO 1,000 mcg HS TENZIN Administration Dronedarone 400 mg 05/31/20 08:00 06/06/20 13:45 Dronedarone Hcl 400 Mg Tab PO Not Given BID-WM TENZIN Enoxaparin Sodium 30 mg 06/02/20 09:00 06/05/20 08:29 Enoxaparin Sodium 30 Mg/0.3 Ml Syringe SC Not Given 0900 TENZIN Famotidine 20 mg 06/03/20 09:00 06/06/20 13:45 Famotidine 20 Mg Tab PO Not Given DAILY TENZIN Folic Acid 1 mg 06/01/20 21:00 06/05/20 20:40 Folic Acid 1 Mg Tab PO 1 mg HS TENZIN Administration Guaifenesin 600 mg 06/02/20 21:00 06/06/20 13:46 Guaifenesin Er 600 Mg Tab PO Not Given Q12HR TENZIN Levothyroxine Sodium 100 mcg 05/31/20 06:00 06/06/20 07:32 Levothyroxine Sodium 100 Mcg Tab PO Not Given 0600 TENZIN Lorazepam 0.5 mg 05/30/20 17:47 06/05/20 22:43 Lorazepam 0.5 Mg Tab PO 0.5 mg Q4H PRN Administration Anxiety Mirtazapine 45 mg 05/31/20 09:00 06/06/20 13:47 Mirtazapine 30 Mg Tab PO Not Given DAILY TENZIN Multivitamins 1 tab 06/02/20 09:00 06/06/20 13:47 Multivit, Therapeutic 1 Tab PO Not Given DAILY TENZIN Prednisone 20 mg 06/03/20 08:00 06/06/20 13:45 Prednisone 20 Mg Tab PO Not Given QAM-WM TENZIN Ropinirole HCl 1 mg 05/30/20 21:00 06/05/20 20:40 Ropinirole Hcl 1 Mg Tab PO 1 mg HS TENZIN Administration Sodium Chloride 10 ml 06/01/20 21:00 06/06/20 13:47 Flush - Normal Saline 10 Ml Syringe IVF Not Given Q12HR TENZIN Tramadol HCl 50 mg 06/04/20 17:03 06/06/20 12:30 Tramadol Hcl 50 Mg Tab PO 50 mg Q4H PRN Administration Moderate Pain (4-6) Trazodone HCl 150 mg 05/30/20 21:00 06/05/20 20:40 Trazodone Hcl 150 Mg Tab PO 150 mg HS TENZIN Administration - Exam Heart: RRR, no gallops Respiratory: no wheezes, rhonchi Gastrointestinal: soft, non-distended Extremities: no cyanosis Neurological: no new deficit Hosp A/P - Plan DVT proph w/SCDs Acute on chronic hypoxic respiratory failure COPD exacerbation Malignant right-sided pleural effusions/p thoracentesis Renal masssuspected malignant Follow-up with urology on 06/13 Paroxysmal atrial fibrillation not anticoagulation candidate due to GI bleeding Restless leg syndrome Hypothyroidism Hyperlipidemia Hypertension History of breast cancerfollows Dr. Henderson (last seen in March) Chronic anemia suspected due to nutritional deficiency SULEIMAN on CKD stage IIIimproving History of vitamin B12 deficiency Chronic respiratory failure on 2 L home oxygen Plan: Pleurx catheter today. Lovenox on hold due to procedure. Continue Multaq, levothyroxine, prednisone with nebulizer treatments. DC later today if cleared by consultants. Continue other medications as above. Continue physical therapy. Patient is declining nursing home facility or rehab. Home health care at discharge. Radiology investigations: Chest x-ray6right-sided pleural effusion CTA chest6nonspecific mediastinal lymph node, moderate size right-sided pleural effusion CT chest11/9posterior right lower lobe parenchymal changes with pleural nodules concerning for malignancy with abnormal mass in the right kidney concerning for malignancy. CT limftgb04/10enhancing solid mass in the superior pole of the right kidney consistent with renal malignancy. Moderate size right pleural effusion with right basilar atelectasis. Enhancing soft tissue nodules within the right pleura suspicious for metastatic disease.
--- NOTE | 2020-06-06 17:05 | PDOC.DS.DS ---
Provider - Provider Date of Admission: 05/30/20 16:36 Date of Discharge: 06/06/20 Admitting Provider: Vane Muhammad MD Consultations: Pulmonary, Other (Cardiovascular) Primary Care Physician: David Henderson MD Course - Hospital Course Hospital Course: Patient is a 84-year-old female with COPD on 2 L home oxygen presented to the hospital on 05/30 with worsening shortness of breath. CT angiogram of the chest showed moderate size right pleural effusion with right lower lobe atelectasis. Patient underwent thoracentesis on 06/02 draining approximately 1 L of turbid yellow pleural fluid. 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 Patient underwent Pleurx catheter draining approximately 1500 mL on the day of discharge. She has been cleared by consultants for discharge. Patient underwent a CT scan of the abdomen and pelvis on 06/03 that was consistent with enhancing solid mass in the superior pole of the right kidney. I discussed with urology who will see the patient on 06/13. I also discussed with oncology service. Patient will follow up with oncology on 06/10. 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 Henderson (last seen in March) Chronic anemia suspected due to nutritional deficiency SULEIMAN on CKD stage IIIimproving History of vitamin B12 deficiency Chronic respiratory failure on 2 L home oxygen Resuscitation Status: 05/30/20 17:33 Resuscitation Status Routine Resuscitation Status: FULL: Full Resuscitation - Labs Lab Results: 06/05/20 06:56 06/05/20 06:56 Abnormal Lab Results - Last 48 hrs 06/05/20 06:56: Anion Gap 8 L, BUN 23 H 06/05/20 06:56: RBC 2.68 L, Hgb 8.7 L, Hct 28.0 L, MCV 104.0 H, MCH 32.6 H, MCHC 31.2 L, RDW 11.4 L, Lymphocytes % 18.6 L, Lymphocytes # 1.0 L Microbiology - Entire Visit 06/01/20 13:00 thoracentesis fluid Body Fluid Culture - Final - Diagnostic Interpretation Other Additional comments: Chest x-ray6right-sided pleural effusion CTA chest116nonspecific mediastinal lymph node, moderate size right-sided pleural effusion CT chest119posterior right lower lobe parenchymal changes with pleural nodules concerning for malignancy with abnormal mass in the right kidney concerning for malignancy. CT [id number] solid mass in the superior pole of the right kidney consistent with renal malignancy. Moderate size right pleural effusion with right basilar atelectasis. Enhancing soft tissue nodules within the right pleura suspicious for metastatic disease. - Physical Exam Vitals: Vital Signs (12 hours) Temp Pulse Resp BP BP Pulse Ox Pulse Ox 06/06/20 15:20 100 06/06/20 14:35 74 16 129/62 06/06/20 12:35 74 119/59 L 06/06/20 12:05 70 119/53 L 06/06/20 11:35 69 118/44 L 06/06/20 11:05 98.0 F 70 20 121/53 L 06/06/20 08:00 97.9 F 78 22 H 137/61 99 06/06/20 07:01 73 16 99 Pulse Ox 06/06/20 15:20 93 L 06/06/20 14:35 06/06/20 12:35 06/06/20 12:05 06/06/20 11:35 06/06/20 11:05 06/06/20 08:00 06/06/20 07:01 Weight Admit Weight 135 lb Weight 135 lb Physical Exam: The patient was seen and examined on the day of discharge. Plan - Discharge Medications Prescriptions: Folic Acid [Folvite] 1 mg PO DAILY #30 tab predniSONE 10 mg PO ASDIR #10 tab Cyanocobalamin (Vitamin B-12) [Vitamin B-12] 1,000 mcg PO DAILY #30 tab Home Medications: Medication Instructions Recorded Confirmed Type Anastrozole [Arimidex] 1 mg PO DAILY 07/26/19 05/30/20 History Diltiazem HCl [Diltiazem 24Hr Cd] 120 mg PO DAILY PRN 07/26/19 05/30/20 History Furosemide 40 mg PO DAILY 07/26/19 05/30/20 History Ibandronate Sodium 150 mg PO Q30D 07/26/19 05/30/20 History Levothyroxine Sodium [Euthyrox] 100 mcg PO DAILY 07/26/19 05/30/20 History Losartan Potassium 25 mg PO DAILY 07/26/19 05/30/20 History Mirtazapine 45 mg PO DAILY 07/26/19 05/30/20 History Pantoprazole Sodium [Protonix] 40 mg PO DAILY 07/26/19 05/30/20 History Potassium Chloride [Klor-Con 10] 10 meq PO DAILY 07/26/19 05/30/20 History Pravastatin Sodium [Pravachol] 40 mg PO HS 07/26/19 05/30/20 History buPROPion HCl [buPROPion HCl XL] 300 mg PO DAILY 07/26/19 05/30/20 History traZODone HCl [Trazodone HCl] 150 mg PO HS 07/26/19 05/30/20 History Aspirin [Aspirin EC] 81 mg PO DAILY #30 tablet. 09/10/19 05/30/20 Rx Dronedarone HCl [Multaq] 400 mg PO BID-WM 09/30/19 05/30/20 History LORazepam [Lorazepam] 0.5 mg PO Q4HR PRN 10/03/19 05/30/20 History Umeclidinium Brm/Vilanterol Tr 1 inh EA NARE BID PRN 10/03/19 05/30/20 History [Anoro Ellipta] rOPINIRole HCl [Requip] 1 mg PO HS tab 10/10/19 05/30/20 Rx Levothyroxine Sodium [Euthyrox] 50 mcg PO SEEPHYS 05/30/20 05/30/20 History Ascorbic Acid [Vitamin C] 500 mg PO DAILY 06/01/20 06/01/20 History Calcium Carbonate [Calcium] 1,200 mg PO QAM 06/01/20 06/01/20 History Cholecalciferol (Vitamin D3) 125 mcg PO QAM 06/01/20 06/01/20 History [Vitamin D3] Cyanocobalamin 1000 MCG/ML VIA 1,000 mcg IM Q28D 06/01/20 06/01/20 History [Vitamin B-12] Cyclobenzaprine HCl 10 mg PO PRN PRN 06/01/20 06/01/20 History Ferrous Sulfate [Iron] 325 mg PO DAILY 06/01/20 06/01/20 History Ipratropium 0.06% Nasal Inhale 2 sprays INH TID 06/01/20 06/01/20 History [Atrovent 0.06% Nasal [place]] Ondansetron [Zofran ODT] 4 mg PO QAM PRN 06/01/20 06/01/20 History Polyethylene Glycol 3350 [Miralax] 17 gm PO DAILY PRN 06/01/20 06/01/20 History traMADol HCl [Tramadol HCl] 50 mg PO PRN PRN 06/01/20 06/01/20 History Cyanocobalamin (Vitamin B-12) 1,000 mcg PO DAILY #30 tab 06/06/20 Rx [Vitamin B-12] Folic Acid [Folvite] 1 mg PO DAILY #30 tab 06/06/20 Rx Multivit, Therapeutic [Theragran] 1 tab PO DAILY tab 06/06/20 Rx predniSONE 10 mg PO ASDIR #10 tab 06/06/20 Rx Allergies: ciprofloxacin [From Cipro] Allergy (Intermediate, Verified 10/12/19 18:30) Hives propoxyphene [From Darvon] Allergy (Intermediate, Verified 10/12/19 18:30) Hives lisinopril Allergy (Verified 10/12/19 18:30) - Follow up Plan Referrals: David Henderson MD [Primary Care Provider] - 06/10/20 9:00 am ([facility] [address] [facility], [place] [address]) Betsy Sierra MD [Active] - 7 Days Liana Lopez DO [Active] - 06/13/20 11:15 am Avery Escalera MD [Active] - 14 Days Elmo Delgado MD [Active] - 10 Days Disposition: HOME HEALTH Quality - Care Measures CORE MEASURES:: N/A
[2020-06-06 17:27] VITALS: BP 121/52
== END 2020-06-06 17:40 | disposition home health service (06) | DRG 686 ==
LOC: ERS 11:30 → 3SE 16:36 → 3SW 06-01 18:00 → 3SE 06-02 18:24
PROVIDERS: ADMIT Internal Medicine; ATTEND Internal Medicine
PROC: 0W993ZZ Drainage of Right Pleural Cavity, Percutaneous Approach (ICD-10-PCS; 2020-06-01)
PROC: 0W9930Z Drainage of Right Pleural Cavity with Drainage Device, Percutaneous Approach (ICD-10-PCS; principal; 2020-06-06)
DX: C64.1 Malignant neoplasm of right kidney, except renal pelvis (principal); J96.21 Acute and chronic respiratory failure with hypoxia; J18.9 Pneumonia, unspecified organism; J44.1 Chronic obstructive pulmonary disease with (acute) exacerbation; J91.0 Malignant pleural effusion; N17.9 Acute kidney failure, unspecified; I13.0 Hypertensive heart and chronic kidney disease with heart failure and stage 1 through stage 4 chronic kidney disease, or unspecified chronic kidney disease; J98.11 Atelectasis; J44.0 Chronic obstructive pulmonary disease with (acute) lower respiratory infection; Z20.828 Contact with and (suspected) exposure to other viral communicable diseases; I48.0 Paroxysmal atrial fibrillation; G25.81 Restless legs syndrome; E03.9 Hypothyroidism, unspecified; E78.5 Hyperlipidemia, unspecified; D53.9 Nutritional anemia, unspecified; E53.8 Deficiency of other specified B group vitamins; N18.30 Chronic kidney disease, stage 3 unspecified; I50.9 Heart failure, unspecified; F41.9 Anxiety disorder, unspecified; F32.9 Major depressive disorder, single episode, unspecified; Z85.3 Personal history of malignant neoplasm of breast; Z99.81 Dependence on supplemental oxygen; Z88.1 Allergy status to other antibiotic agents; Z88.8 Allergy status to other drugs, medicaments and biological substances; Z92.3 Personal history of irradiation; Z87.891 Personal history of nicotine dependence; Z79.899 Other long term (current) drug therapy; Z79.890 Hormone replacement therapy
CPT/HCPCS: 36415; 71045; 71250; 71275; 74178; 80048; 80053; 81003; 82945; 83615; 83735; 83880; 83986; 84100; 84157; 84484; 85025; 85060; 85379; 86140; 87070; 87205; 88112; 88305; 88341; 88342; 89051; 93005; 94640; 96365; 96367; 96375; C1729; J0456; J0690; J0696; J1100; J1940; J2250; J2405; J2704; J2920; J3010; J7512; J7620; Q9967; U0002

== ENCOUNTER 2020-06-18 09:37 | Emergency (ER) | payer MEDICARE, BC | END 2020-06-18 12:32 | disposition home or self-care (01) | LOC: ERS 09:37 | DX: J90 Pleural effusion, not elsewhere classified (principal); E03.9 Hypothyroidism, unspecified; I50.9 Heart failure, unspecified; F41.9 Anxiety disorder, unspecified; F32.9 Major depressive disorder, single episode, unspecified; Z87.891 Personal history of nicotine dependence; Z79.899 Other long term (current) drug therapy | CPT/HCPCS: 99284 ==

== ENCOUNTER 2020-06-26 17:34 | Day surgery (SDC) | payer MEDICARE, BC ==
[2020-06-26] MEDS ORDERED: diphenhydrAMINE 25 MG CAP PO SCH (18:15)
[2020-06-26] MEDS ORDERED: Acetaminophen 500 MG TAB PO SCH (20:45)
[2020-06-27 04:52] VITALS: BP 107/55; TEMP 98.1
[2020-06-27 05:49] LABS: Hemoglobin 8.7 g/dL (12.0-16.0); Mean Corpuscular HGB CONC 33.6 g/dL (32.0-36.0); Mean Corpuscular Hemoglobin 30.8 pg (27.0-31.0); Mean Corpuscular Volume 91.5 fL (78.0-98.0); Mean Platelet Volume 13.5 fL (7.4-10.4); Platelet Count 13 thou/uL (130-400); RBC Distribution Width 20.5 % (11.5-14.5); Red Blood Cell (RBC) Count 2.81 mill/uL (4.20-5.40); White Blood Cell (WBC) Count 0.7 thou/uL (4.8-10.8)
[2020-06-27 05:53] LABS: Band 14 % (5-11); Lymphocytes 66 % (21-51); MDiff Complete? YES; Monocytes 6 % (0-10); Neutrophil 14 % (42-75); Platelet Morphology Comment Appears Decreased
== END 2020-06-27 07:55 | disposition home or self-care (01) ==
LOC: SDC/OP 17:34 → ONC 17:59 → SDC/OP 06-27 07:55
PROVIDERS: ATTEND Internal Medicine Hematology & Oncology
PROC: 30233N1 Transfusion of Nonautologous Red Blood Cells into Peripheral Vein, Percutaneous Approach (ICD-10-PCS; principal; 2020-06-26)
DX: D64.9 Anemia, unspecified (principal); D69.6 Thrombocytopenia, unspecified; Z88.1 Allergy status to other antibiotic agents; Z88.5 Allergy status to narcotic agent; Z88.8 Allergy status to other drugs, medicaments and biological substances
CPT/HCPCS: 36430; 36591; 85025; 86850; 86900; 86901; 86920; 96523; G0463; P9016; 36592; 99211; J1642; Q0163

== ENCOUNTER 2020-06-29 11:53 | Inpatient (IN) | payer MEDICARE, BC ==
--- NOTE | 2020-06-29 12:38 | RAD ---
EXAM: Chest one view: HISTORY: Generalized weakness, unknown cancer COMPARISON: 06/04/2020 FINDINGS: Right Port-A-Cath. Small caliber right chest tube in place. Stable to minimally decreasing right pleural effusion. Heart size: Borderline enlarged. Lungs: Stable patchy parenchymal changes bilaterally. IMPRESSION: Right Port-A-Cath and right chest tube in place with slightly decreased right pleural effusion with s table linear and interstitial parenchymal changes bilaterally.
[2020-06-29 13:13] LABS: Hemoglobin 9.1 g/dL (12.0-16.0); Mean Corpuscular Hemoglobin 30.3 pg (27.0-31.0); Mean Corpuscular Volume 94.7 fL (78.0-98.0); Mean Platelet Volume 14.8 fL (7.4-10.4); Platelet Count 5 thou/uL (130-400); RBC Distribution Width 17.2 % (11.5-14.5); Red Blood Cell (RBC) Count 3.01 mill/uL (4.20-5.40)
[2020-06-29 13:21] LABS: ALT (SGPT) 10 U/L (8-55); AST (SGOT) 9 U/L (5-34); Albumin 2.8 g/dL (3.4-4.8); Alkaline Phosphatase 56 U/L (40-110); BUN (Urea Nitrogen) 15 mg/dL (9.8-20.1); Bilirubin, Total 0.4 mg/dL (0.2-1.2); Calc. Creatinine Clearance 0 mL/min (70-130); Globulin 2.6 g/dL (2.4-3.5); Glucose 113 mg/dL (83-110); Protein, Total 5.4 g/dL (6.0-8.3)
[2020-06-29 13:29] LABS: Band 33 % (5-11); Hypochromia SLIGHT = 6-15 cells (100X) (0-5/hpf); Lymphocytes 43 % (21-51); MDiff Complete? YES; Metamyelocyte 1 % (0-0); Monocytes 8 % (0-10); Neutrophil 10 % (42-75); Platelet Morphology Comment Appears Decreased; Polychromasia SLIGHT = 2-3 cells (100X) (0-2/hpf); Reactive Lymphocytes 5 % (0-10)
[2020-06-29 13:32] LABS: Anion Gap 15 mmol/L (10-20); Carbon Dioxide 38 mmol/L (23-31); Chloride 93 mmol/L (98-107); Potassium 3.9 mmol/L (3.5-5.1); Sodium 142 mmol/L (136-145)
[2020-06-29 13:43] LABS: CKMB 0.7 ng/mL (0-6.6)
[2020-06-29 15:02] LABS: Bilirubin Negative (Negative); Blood, Urine Negative (Negative); Clarity Clear (Clear); Glucose, Urine (Dipstick) Normal (Negative); Ketone, Urine Negative (Negative); Leukocyte Negative Leu/uL (Negative); Nitrite Negative (Negative); Protein, Urine (Dipstick) Negative (Neg-Trace); Specific Gravity, Urine 1.011 (1.002-1.036); Urobilinogen Normal mg/dL (Less than 2); pH, Urine 5.5 (5.0-9.0)
[2020-06-29] MEDS ORDERED: Acetaminophen 325 MG TAB PO PRN (16:27)
[2020-06-29] MEDS ORDERED: Bisacodyl 10 MG SUPP PR PRN (16:27)
[2020-06-29] MEDS ORDERED: Guaifenesin DM 100-10/5 ML UDCUP PO PRN (16:27)
[2020-06-29] MEDS ORDERED: Calcium Carbonate 500 MG ChewTAB PO PRN (16:27)
--- NOTE | 2020-06-29 17:23 | HP ---
REASON FOR ADMISSION: Pancytopenia and severe thrombocytopenia both secondary to chemotherapy, generalized weakness, failure to thrive, moderate dehydration, moderate protein calorie malnutrition. HISTORY OF PRESENTING ILLNESS: The patient gives history of feeling very sick after her third round of chemotherapy. Her last chemotherapy was on the . The next dose is on the . She is also on immunotherapy. The family is unable to say the exact medications they are on. She has been feeling very sleepy, unable to stand, become very weak. She is not eating or drinking enough. She also got constipated and has had a bowel movement after having a suppository. She has a PleurX drain on the right side and drains on alternate days. The last drainage was only 300 mL yesterday. She normally drains between 500 to 625 mL. She has chronic dry cough, no expectoration. No complaints of fever, abdominal pain, nausea, urinary frequency or urgency. No bleeding per rectum, nostril, or in the urine. The patient has been diagnosed with small-cell lung cancer on June [address] David Henderson. 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 CURRENT MEDICATIONS: The patient is on; 1. Anastrozole 1 mg p.o. daily. 2. Anoro Ellipta daily. 3. Bupropion extended release 300 mg p.o. daily. 4. Vitamin B12, 1000 mcg IM once monthly. 5. 10 mg daily as needed. 6. Cardizem CD 120 mg p.o. as needed for rapid heart rate. 7. Folic acid 1 mg p.o. daily. 8. Lasix 40 mg daily. 9. Ibandronate 150 mg once a month. 10. DuoNeb q.6 hourly p.r.n. 11. Ferrous sulfate 325 mg twice daily. 12. Potassium chloride 10 mEq p.o. daily. 13. Levothyroxine 100 mcg p.o. daily. 14. Lorazepam p.r.n. 15. Losartan 25 mg daily. 16. MiraLAX 17 g daily. 17. Mirtazapine 45 mg daily. 18. Multaq 400 mg twice daily. 19. Protonix 40 mg daily. 20. Pravastatin 40 mg p.o. at bedtime. 21. Ropinirole 2 mg p.o. at bedtime. 22. Trazodone 150 mg p.o. at bedtime. 23. Vitamin C 1000 mg p.o. daily. ALLERGIES: TO HYDROCODONE, LISINOPRIL, PROPOXYPHENE, AND CIPROFLOXACIN. PERSONAL HISTORY: Quit smoking around 18 years back. Does not abuse alcohol or drugs. Her daughter lives with her and is helping her out during this chemotherapy session. She is wheelchair bound after her diagnosis of cancer. FAMILY HISTORY: Both parents in their 80s of natural causes. CODE STATUS: Do not attempt to resuscitate. Power of criminal attorney is her son and daughter. REVIEW OF SYSTEMS: CONSTITUTIONAL: Negative for weight loss or gain, ability conduct usual activities. SKIN: Negative for rash, itching. EYES: Negative for double vision, pain. ENT/MOUTH: Negative for nose bleeding, neck stiffness, pain, tenderness. CARDIOVASCULAR: Negative for palpitations, dyspnea on exertion, orthopnea. RESPIRATORY: Negative for shortness of breath, wheezing, cough, hemoptysis, fever or night sweats. GASTROINTESTINAL: Negative for poor appetite, abdominal pain, heartburn, nausea, vomiting, constipation, or diarrhea. GENITOURINARY: Negative for urgency, frequency, dysuria, nocturia. MUSCULOSKELETAL: Negative for pain, swelling. NEUROLOGIC/PSYCHIATRIC: Negative for anxiety, depression. ALLERGY/IMMUNOLOGIC: Negative for skin rash, bleeding tendency. PHYSICAL EXAMINATION: GENERAL: The patient is an 84-year-old female, who is currently not in any acute distress. VITAL SIGNS: Blood pressure 116/50, pulse 84 per minute, respiratory rate 18 per minute, temperature 98.4 degrees Fahrenheit, and saturating 100% on 3.5 L of oxygen by nasal cannula. NECK: Supple. No elevated JVD. HEENT: Eyes; extraocular muscles are intact. Pupils reacting to light. Oral cavity, mucous membranes are dry. No exudates or congestion. CARDIOVASCULAR: S1 and S2 heard. Regular rhythm. RESPIRATORY: Air entry 1+ bilateral. Scattered rhonchi plus bilateral. The patient has a PleurX catheter on the right. ABDOMEN: Soft. Bowel sounds heard. No tenderness, rigidity, or guarding. EXTREMITIES: Mild peripheral edema. No calf tenderness. VASCULAR: Peripheral pulses 1+ bilateral. No ischemic ulcers or gangrene. CENTRAL NERVOUS SYSTEM: No gross focal motor deficits noted. The patient is lethargic, but oriented well. PSYCHIATRIC: The patient's mood is euthymic. No hallucinations or delusions. LABORATORY DATA: White count of 1, hemoglobin and hematocrit of 9 and 28, platelet count is 5, MCV is 94 with 10% neutrophils, 33% bands, 43% lymphocytes. Serum bicarb 38, BUN 15, creatinine 0.9, serum glucose 113. Liver enzymes are within normal limits. Troponin-I 0.03. Albumin is 2.8. IMAGING STUDIES: Chest x-ray done shows right pleural effusion with PleurX catheter, has interstitial parenchymal changes bilaterally, which are chronic. EKG done shows normal sinus rhythm at 74 beats per minute. CLINICAL IMPRESSION AND PLAN: The patient will be admitted to Oncology floor for severe deconditioning, loss of appetite, moderate dehydration, severe thrombocytopenia and pancytopenia both due to chemotherapy. She is being given 6 pack of single donor platelets. There are no obvious signs of bleeding. She has some petechiae over the anterior chest wall. We will also gently hydrate her with D5 normal saline at 80 mL per hour. We will continue most of her home medications including Arimidex, vitamin C, bupropion XL, Multaq, ferrous sulfate, DuoNeb, levothyroxine, ropinirole, and Protonix. We will consult Dr. David Henderson in the morning. We will obtain PT/OT evaluations and if needed rehab evaluation based on her progress. The patient does not want to be resuscitated. We will place her on regular diet along with Ensure 1 can four times daily. Job ID: [id number] [facility]
[2020-06-29] MEDS ORDERED: Dextrose 5%-Lactated Ringers 1,000 ML IV SCH (18:15)
[2020-06-29] MEDS ORDERED: Dronedarone HCl 400 MG TAB PO SCH (18:30)
[2020-06-29] MEDS: rOPINIRole HCl 1 MG TAB PO SCH (21:13)
[2020-06-29] MEDS: Levothyroxine Sodium 100 MCG TAB PO SCH (21:24)
[2020-06-29] MEDS: Senokot S 8.6-50 MG TAB PO SCH (21:24)
[2020-06-29] MEDS ORDERED: Furosemide 40 MG/4 ML VIAL ONE ×2 (21:55→21:58)
[2020-06-29] MEDS ORDERED: Furosemide 40 MG/4 ML VIAL SLOW IVP SCH ×2 (22:00)
[2020-06-29 22:02] LABS: Actual Bicarbonate (HCO3a) 49.8 mEq/L (22-28); Base Excess (BEa) 18.5 mEq/L (-2.0 to +3.0); Calcium, Ionized (arterial) 1.23 mmol/L (1.12-1.30); Carboxyhemoglobin (COHb) 1.3 gm% (0.0-3.0); Hemoglobin (Hb) 9.8 g/dL (12.0-16.0); Potassium - ABG Lab 3.49 mmol/L (3.70-5.30)
[2020-06-29 22:05] LABS: CO2 Tension 120.2 mmHg (35.0-45.0); pH, Arterial 7.24 (7.35-7.45)
[2020-06-29 22:06] LABS: Puncture Site RBA
[2020-06-29] MEDS ORDERED: Azithromycin 500 MG in Syringe 0 ML IVPB ONE (22:06)
--- NOTE | 2020-06-29 22:10 | RAD ---
Exam: Chest one view HISTORY:Shortness of breath Comparison: 06/29/2020 FINDINGS: Cardiac silhouette:Stable cardiomegaly. Stable right-sided Mediport catheter and right-sided chest tu be. Aorta: Unremarkable Pulmonary vessels: Normal Costophrenic angles: Slightly increased right-sided pleural effusion. LUNGS: Increased interstitial opacities throughout the lung parenchyma with increasing more focal sunday eolar opacity in the right lower lobe. Pneumothorax: None Osseous abnormalities: None IMPRESSION: Worsening interstitial and alveolar opacities. Worsening right-sided pleural effusion.
--- NOTE | 2020-06-29 22:18 | PDOC.BPN ---
- Brief Progress Note Encounter Date: 06/29/20 Encounter Time: 22:13 code green note called to bedside for hypoxia to 70s, improved to 99 on venti mask, patient just finished transfusion of platelets and has history of CHF on lasix 40mg daily usually, lungs w/ dependant crackles and very faint wheeze on physical exam, CXR prelim read by me concerning for worsening pulmonary edema, ABG prelim report concerning for pH ~7.1 w/ pCO2 of 120, patient given 80mg IV lasix once, transferred to [facility] for BIPAP, family updated by house officer, patient o2 sat recovered to 99% before transfer. empiric steroids, abx and moire frequent nebs ordered as well
[2020-06-29 22:41] VITALS: BMI 19.5
[2020-06-29] MEDS: Ipratropium Bromide 0.06% Nasal Inhaler 15ml EA NARE SCH (22:58)
[2020-06-29] MEDS: methylPREDNISolone Sod Succ 40 MG VIAL IVP SCH (23:23)
[2020-06-29] MEDS: Azithromycin 500 MG in Sodium Chloride 0.9% 250 ML 250 ML IVPB SCH (23:54)
[2020-06-30 00:51] LABS: Bacteria/HPF None Seen HPF (None Seen); Bilirubin Negative (Negative); Blood, Urine Negative (Negative); Clarity Clear (Clear); Glucose, Urine (Dipstick) Normal (Negative); Ketone, Urine Negative (Negative); Leukocyte Negative Leu/uL (Negative); Nitrite Negative (Negative); Protein, Urine (Dipstick) Negative (Neg-Trace); RBC/HPF 0-3 HPF (0-3); Specific Gravity, Urine 1.008 (1.002-1.036); Squamous Epithelial 0-3 HPF (0-3); Urobilinogen Normal mg/dL (Less than 2); WBC/HPF 0-3 HPF (0-3); pH, Urine 6.5 (5.0-9.0)
[2020-06-30 01:00] LABS: Urine Culture Reflex No No
[2020-06-30 02:32] LABS: SARS-CoV-2 MS2 Positive; SARS-CoV-2 N Gene Negative; SARS-CoV-2 S Gene Negative; SARS-CoV-2 by NAA Not Detected (NotDetected); SARS-CoV-2 orf1ab Negative
[2020-06-30 04:24] LABS: Hemoglobin 8.4 g/dL (12.0-16.0); Mean Corpuscular Hemoglobin 29.1 pg (27.0-31.0); Mean Corpuscular Volume 93.8 fL (78.0-98.0); Mean Platelet Volume 9.5 fL (7.4-10.4); Platelet Count 69 thou/uL (130-400); RBC Distribution Width 16.9 % (11.5-14.5); Red Blood Cell (RBC) Count 2.89 mill/uL (4.20-5.40); White Blood Cell (WBC) Count 0.9 thou/uL (4.8-10.8)
[2020-06-30 04:32] LABS: BUN (Urea Nitrogen) 13 mg/dL (9.8-20.1); Calc. Creatinine Clearance 50 mL/min (70-130); Calcium 8.8 mg/dL (7.8-10.44); Glucose 105 mg/dL (83-110)
[2020-06-30 04:43] LABS: Anion Gap 16 mmol/L (10-20); Chloride 89 mmol/L (98-107); Potassium 3.6 mmol/L (3.5-5.1); Sodium 143 mmol/L (136-145)
[2020-06-30 05:01] LABS: Carbon Dioxide 42 mmol/L (23-31)
[2020-06-30 06:15] LABS: Anisocytosis SLIGHT = 6-15 cells (100X) (0-5/hpf); Band 23 % (5-11); Lymphocytes 27 % (21-51); MDiff Complete? YES; Monocytes 11 % (0-10); Neutrophil 39 % (42-75); Platelet Morphology Comment Appears Decreased
[2020-06-30] MEDS: Levothyroxine Sodium 50 MCG TAB PO SCH (07:30)
[2020-06-30] MEDS: methylPREDNISolone Sod Succ 40 MG VIAL IVP SCH ×3 (07:30→23:10)
[2020-06-30] MEDS ORDERED: FLU VACC QS2020-21(65YR UP)/PF 240 MCG/0.7 ML SYRINGE IM ONE (09:00)
--- NOTE | 2020-06-30 11:35 | CON ---
DATE OF CONSULTATION: HISTORY OF PRESENT ILLNESS: Destinee Issa is an 84-year-old female with history of small-cell bronchogenic carcinoma with a right-sided pleural catheter inserted, who presented with marked fatigue and shortness of breath of several days duration. Last night, she became acutely confused and hypotensive and transferred to the MICU, the reason for consult. Apparently, they have drained 650 mL of fluid from her right chest yesterday. This morning, she is awake, alert, and responsive. She is weak, having some difficulty breathing, but no coughing. PAST MEDICAL HISTORY: History of small-cell lung cancer, history of breast cancer, history of COPD, history of atrial fibrillation, congestive heart failure, previous surgery, left breast lumpectomy, pleural catheter recently inserted. SOCIAL HISTORY: Tobacco, former smoker. No alcohol abuse. HOME MEDICATIONS: Include: 1. Trazodone 150. 2. Tramadol. 3. Requip. 4. Ibuprofen. 5. Anoro. 6. Vitamins. 7. Synthroid 100. 8. Nasal spray. 9. Ascorbic acid. 10. Arimidex 1 mg. ALLERGIES: CIPRO, HYDROCODONE, LISINOPRIL. REVIEW OF SYSTEMS: Otherwise, negative. The patient is a DNR. PHYSICAL EXAMINATION: VITAL SIGNS: Temperature 97, respirations 22, pulse 79, saturations 100% on 3 L, she was on BiPAP last night with a blood pressure 116/38. CHEST: Rhonchi and crackles. CARDIAC: Normal S1 and S2. No gallops. ABDOMEN: No masses. LABORATORY DATA: White count is , H and H of , platelet count 69. PO2 is 60, pCO2 was 120, pH 7.24, bicarb was 42. ASSESSMENT AND PLAN: 1. [id number]-[id number] respiratory failure, right pleural effusion, small-cell lung cancer. 2. Continue low-flow O2. 3. Marked respiratory acidosis probably from underlying chronic lung disease and pleural effusion. Avoid excessive diuretics. 4. This may clearly aggravate her metabolic alkalosis, which is complicated by chronic CO2 retention. 5. I may add low-dose Diamox to present regime. Otherwise, continue steroids. Supportive care. We will notify Dr. Escalera, who has seen the patient in the past. Consultation note, 70 minutes, 50% direct patient care. Job ID: [id number]
[2020-06-30] MEDS: Dronedarone HCl 400 MG TAB PO SCH ×2 (12:03→16:27)
[2020-06-30] MEDS: Anastrozole 1 MG TAB PO SCH (12:03)
[2020-06-30] MEDS: Ascorbic Acid 500 mg Chewable Tablet PO SCH (12:06)
[2020-06-30] MEDS: Multivit, Therapeutic 1 TAB PO SCH (12:07)
[2020-06-30] MEDS: Folic Acid 1 MG TAB PO SCH (12:07)
[2020-06-30] MEDS: Ferrous Sulfate 325 MG TAB PO SCH (12:07)
[2020-06-30] MEDS: Ipratropium Bromide 0.06% Nasal Inhaler 15ml EA NARE SCH ×3 (12:07→21:29)
[2020-06-30] MEDS: Senokot S 8.6-50 MG TAB PO SCH ×2 (12:08→21:26)
[2020-06-30] MEDS: Pantoprazole 40 MG GRANULES PACKET PO SCH (12:08)
[2020-06-30] MEDS: Bupropion 150 MG XL TAB PO SCH (12:12)
[2020-06-30] MEDS: Lorazepam 0.5 MG TAB PO PRN ×2 (17:54→23:19)
--- NOTE | 2020-06-30 19:32 | CON ---
DATE OF CONSULTATION: REASON FOR CONSULT: Pancytopenia from chemo. HISTORY OF PRESENT ILLNESS: Ms. 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 She also has a large renal mass. She was in the facility in mid May, where she had a PleurX catheter placed for a large pleural effusion. She underwent her cycle 1 of carboplatin, etoposide, and Tecentriq on June 18. She did receive Neulasta support. She was seen last week by Dr. Henderson. She was feeling much worse. She was having weakness and shakiness. She had been recently to the ER for a thoracentesis. She was draining around 300 mL from her PleurX cath. She was transfused 2 units of packed RBCs last week for hemoglobin of 7. Her white count was 0.5, and platelet count was low as well. Over the last few days, she has gotten progressively short of breath and presented to the emergency room for evaluation. She was dehydrated, placed on BiPAP, and admitted for further treatment. She was started on empiric antibiotics and seen by Dr. Carter. During her conversations with Dr. Henderson last week, they did discuss hospice and she was referred to [facility]. She states she is feeling stronger and eating some today. She is on O2 with nasal cannula. PAST MEDICAL HISTORY: 1. Stage IIB left breast cancer. 2. Small-cell lung cancer with large right pleural effusion. 3. PleurX catheter placement. 4. Hypertension. 5. High cholesterol. 6. COPD. 7. Anxiety and depression. 8. Hypothyroidism. 9. GERD. PAST SURGICAL HISTORY: 1. EGD and colonoscopy. 2. Cardiac catheterization. 3. Ultrasound-guided left breast biopsy. 4. PleurX catheter placement. ALLERGIES: TO CIPRO, HYDROCODONE, LISINOPRIL. HOME MEDICATIONS: 1. Anastrozole. 2. Aspirin. 3. Bupropion. 4. Diltiazem ER. 5. Dronedarone. 6. Folic acid. 7. Lasix. 8. Ibandronate. 9. Iron. 10. Levothyroxine. 11. Losartan. 12. Mirtazapine. 13. Protonix. 14. Potassium. 15. Pravastatin. 16. Ropinirole. 17. Tramadol. 18. Trazodone. 19. Vitamin C. FAMILY HISTORY: Noncontributory. SOCIAL HISTORY: . Has 2 children. Lives alone. A 50 pack-year history of smoking. No alcohol or illicit drug use. REVIEW OF SYSTEMS: Positive for weakness, anxiety, depression, and shortness of breath. PHYSICAL EXAMINATION: VITAL SIGNS: Temperature is 97.9, pulse is 88, respiratory rate 18, blood pressure is 122/39, she is 100% on 3 L. GENERAL: This is a frail female, in no acute distress. HEENT: Normocephalic, atraumatic. Pupils are equal and reactive to light. NECK: Supple. CV: Regular rate and rhythm. LUNGS: Diminished throughout. ABDOMEN: Soft and nontender. Bowel sounds are positive. EXTREMITIES: 1+ edema in the ankles. SKIN: No rash. HEMATOLOGICAL: No petechiae or purpura. NEUROLOGIC: Nonfocal. PERTINENT LABORATORY DATA AND X-RAYS: WBCs are 0.9, hemoglobin 8.4, hematocrit 27.1, platelet count 69,000, 39% neutrophils, 23% bands, 27% lymphocytes. Sodium 143, potassium 3.6, chloride 89, CO2 is 42, BUN is 13, creatinine 0.83, lactic acid 0.7, calcium 8.8, bilirubin 0.4, AST is 9, ALT is 10, alkaline phosphatase is 56, serum total protein is 5.4, albumin 2.8, globulin 2.6. Urine and COVID negative. Chest x-ray showed worsening interstitial and alveolar opacities and a right-sided pleural effusion. ASSESSMENT: 1. Small-cell lung cancer, status post cycle 1 of chemotherapy. 2. Pancytopenia secondary to chemotherapy. 3. Xgsbi-hz-orjljho respiratory failure. 4. Protein deficient malnutrition. DISCUSSION: The patient's pancytopenia is certainly from chemotherapy. She did receive Neulasta approximately a week ago. I do see she has increase in bands and her white count will start to climb over the next day or so. She is on empiric antibiotics. Her breathing has improved with treatment. We did discuss that chemotherapy will be held until she is feeling stronger. We also again discussed hospice as an option. Case has been discussed with Dr. Henderson and we will follow along with her hospital course. We will recheck her CBC in a.m. Thank you for the consult. Job ID: [id number]
--- NOTE | 2020-06-30 20:03 | PDOC.HOSPP ---
- Subjective Encounter Date: 06/30/20 Encounter Time: 14:30 Subjective: Patient seen and examined for generalized weakness with respiratory failure. Overnight events noted. Shortness of breath improving. Mild coughessentially dry. Currently off BiPAP. - Objective Vital Signs & Weight: Vital Signs (12 hours) Temp Pulse Pulse Pulse Resp BP BP 06/30/20 19:17 77 14 06/30/20 16:00 98.9 F 06/30/20 11:41 97.9 F 06/30/20 11:34 88 18 06/30/20 09:35 85 92 122/39 L 113/36 L Pulse Ox Pulse Ox Pulse Ox 06/30/20 19:17 100 06/30/20 16:00 06/30/20 11:41 06/30/20 11:34 100 06/30/20 09:35 96 98 Weight Admit Weight 134 lb 4 oz Weight 134 lb 4 oz Most Recent Monitor Data Heart Rate from ECG 75 NIBP 120/36 NIBP BP-Mean 64 Respiration from ECG 22 SpO2 100 I&O: 06/29/20 06/30/20 07/01/20 06:59 06:59 06:59 Intake Total 800 650 Output Total 1950 350 Balance -1150 300 Result Diagrams: 06/30/20 03:30 06/30/20 03:30 Additional Labs: Abnormal Lab Results - Last 48 hrs 06/29/20 12:44: Chloride 93 L, Carbon Dioxide 38 H, Serum Total Protein 5.4 L, Albumin 2.8 L, Albumin/Globulin Ratio 1.1 L 06/29/20 12:44: WBC 1.0 L, RBC 3.01 L, Hgb 9.1 L, Hct 28.5 L, RDW 17.2 H, Plt Count 5 L*, MPV 14.8 H, Neutrophils % (Manual) 10 L, Band Neuts % (Manual) 33 H, Metamyelocytes % (Man) 1 H, Plt Morphology Comment Appears Decreased L 06/29/20 12:44: Troponin I 0.032 H 06/29/20 22:00: Bicarbonate Actual 49.8 H, ABG pH 7.24 L*, ABG pCO2 120.2 H*, ABG O2 Sat (Measured) 89.2 L, ABG O2 Content 12.1 L, ABG Base Excess 18.5 H, ABG Hematocrit 29.0 L, ABG Hemoglobin 9.8 L, ABG Oxyhemoglobin 87.8 L, ABG Deoxyhemoglobin 10.6 H, Potassium 3.49 L, Chloride 94 L 06/30/20 00:00: Hyaline Casts 7-10 A 06/30/20 03:30: Chloride 89 L, Carbon Dioxide 42 H* 06/30/20 03:30: WBC 0.9 L*, RBC 2.89 L, Hgb 8.4 L, Hct 27.1 L, MCHC 31.0 L, RDW 16.9 H, Plt Count 69 L, Neutrophils % (Manual) 39 L, Band Neuts % (Manual) 23 H, Monocytes % (Manual) 11 H, Plt Morphology Comment Appears Decreased L Microbiology - Entire Visit 06/29/20 13:26 Port - Right Subclavian Vein Blood Culture - Preliminary Specimen has been received and culture in progress. No Growth to date. 06/29/20 12:44 Port - Right Subclavian Vein Blood Culture - Preliminary Specimen has been received and culture in progress. No Growth to date. EKG Reviewed by me: Yes (Sinus rhythm on telemetry) Hospitalist ROS - Review of Systems Cardiovascular: denies: chest pain, palpitations, orthopnea, paroxysmal noc. dyspnea, edema, light headedness, other Gastrointestinal: denies: nausea, vomiting, abdominal pain, diarrhea, constipation, melena, hematochezia, other - Medication Medications: Active Medications Generic Name Dose Route Start Last Admin Trade Name Freq PRN Reason Stop Dose Admin Albuterol/Ipratropium 3 ml 06/29/20 22:30 06/30/20 19:17 Ipratropium/Albuterol Sulfate 3 Ml Neb NEB 3 ml [id number] TENZIN Administration Anastrozole 1 mg 06/30/20 09:00 06/30/20 12:03 Anastrozole 1 Mg Tab PO 1 mg DAILY TENZIN Administration Ascorbic Acid 500 mg 06/30/20 09:00 06/30/20 12:06 Ascorbic Acid 500 Mg Chewable Tablet PO 500 mg DAILY TENZIN Administration Bupropion HCl 300 mg 06/30/20 09:00 06/30/20 12:12 Bupropion 150 Mg Xl Tab PO 300 mg DAILY TENZIN Administration Dronedarone 400 mg 06/30/20 08:00 06/30/20 16:27 Dronedarone Hcl 400 Mg Tab PO 400 mg BID-WM TENZIN Administration Ferrous Sulfate 325 mg 06/30/20 09:00 06/30/20 12:07 Ferrous Sulfate 325 Mg Tab PO 325 mg DAILY TENZIN Administration Folic Acid 1 mg 06/30/20 09:00 06/30/20 12:07 Folic Acid 1 Mg Tab PO 1 mg DAILY TENZIN Administration Azithromycin 500 mg/ Sodium 250 mls @ 250 mls/hr 06/29/20 23:00 06/29/20 23:54 Chloride IVPB 250 mls Q24HR TENZIN Administration Ipratropium [place] 0 ml 06/29/20 21:00 06/30/20 17:57 Ipratropium [place] 0.06% Nasal Inhaler 15ml EA NARE 07/09/20 15:01 Not Given TID TENZIN Levothyroxine Sodium 50 mcg 06/30/20 06:00 06/30/20 07:30 Levothyroxine Sodium 50 Mcg Tab PO 50 mcg 0600 TENZIN Administration Levothyroxine Sodium 100 mcg 06/29/20 06:00 06/29/20 21:24 Levothyroxine Sodium 100 Mcg Tab PO Not Given SuSa TENZIN Lorazepam 0.5 mg 06/30/20 17:26 06/30/20 17:54 Lorazepam 0.5 Mg Tab PO 0.5 mg Q4H PRN Administration Anxiety Methylprednisolone Sodium Succinate 60 mg 06/29/20 22:00 06/30/20 16:19 Methylprednisolone Sod Succ 40 Mg Vial IVP 60 mg Q8HR TENZIN Administration Multivitamins 1 tab 06/30/20 09:00 06/30/20 12:07 Multivit, Therapeutic 1 Tab PO 1 tab DAILY TENZIN Administration Pantoprazole Sodium 40 mg 06/30/20 09:00 06/30/20 12:08 Pantoprazole 40 Mg Granules Packet PO 40 mg DAILY TENZIN Administration Ropinirole HCl 1 mg 06/29/20 21:00 06/29/20 21:13 Ropinirole Hcl 1 Mg Tab PO 1 mg HS TENZIN Administration Senna/Docusate Sodium 2 tab 06/29/20 21:00 06/30/20 12:08 Senokot S 8.6-50 Mg Tab PO 2 tab BID TENZIN Administration - Exam General Appearance: ill appearing Neck: supple Heart: RRR, no gallops Respiratory: rales, rhonchi Gastrointestinal: soft, normal bowel sounds, no guarding, no rigidity Extremities: no cyanosis, no clubbing Neurological: no new deficit Hosp A/P - Plan DVT proph w/SCDs (No heparin or Lovenox due to thrombocytopenia) Generalized weaknessmultifactorial Pancytopenia due to chemotherapy S/p platelet transfusion Acute on chronic hypoxic respiratory failure requiring NIPPV COPD exacerbation 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 Henderson (last seen in March) Chronic anemia suspected due to nutritional deficiency CKD 2 History of vitamin B12 deficiency Chronic respiratory failure on 2 L home oxygen Moderate protein calorie malnutrition Plan: Continue empiric antibiotics. Continue O2 supplementation with steroids. Started on acetazolamide per pulmonary. Oncology and pulmonary input appreciated. Continue nebulizer treatments every 4 hourly. Neutropenic precautions. Await cultures. A.m. labs. Continue other medications as above.
[2020-06-30] MEDS ORDERED: Azithromycin 500 MG in Syringe 0 ML IVPB SCH (21:00)
[2020-06-30] MEDS: rOPINIRole HCl 1 MG TAB PO SCH (21:26)
[2020-06-30] MEDS: Azithromycin 500 MG in Sodium Chloride 0.9% 250 ML 250 ML IVPB SCH (23:10)
[2020-07-01] MEDS: Levothyroxine Sodium 50 MCG TAB PO SCH (06:03)
[2020-07-01] MEDS: methylPREDNISolone Sod Succ 40 MG VIAL IVP SCH ×3 (06:03→22:29)
[2020-07-01 06:38] LABS: Hemoglobin 7.3 g/dL (12.0-16.0); Mean Corpuscular HGB CONC 32.1 g/dL (32.0-36.0); Mean Corpuscular Hemoglobin 29.5 pg (27.0-31.0); Mean Corpuscular Volume 91.8 fL (78.0-98.0); Mean Platelet Volume 10.5 fL (7.4-10.4); Platelet Count 44 thou/uL (130-400); RBC Distribution Width 17.2 % (11.5-14.5); Red Blood Cell (RBC) Count 2.49 mill/uL (4.20-5.40); White Blood Cell (WBC) Count 1.3 thou/uL (4.8-10.8)
[2020-07-01 06:41] LABS: Band 22 % (5-11); Lymphocytes 32 % (21-51); MDiff Complete? YES; Monocytes 7 % (0-10); Neutrophil 39 % (42-75); Platelet Morphology Comment Appears Decreased
[2020-07-01 06:51] LABS: ALT (SGPT) 10 U/L (8-55); AST (SGOT) 9 U/L (5-34); Albumin 2.7 g/dL (3.4-4.8); Alkaline Phosphatase 50 U/L (40-110); BUN (Urea Nitrogen) 24 mg/dL (9.8-20.1); Bilirubin, Total 0.3 mg/dL (0.2-1.2); Calc. Creatinine Clearance 45 mL/min (70-130); Calcium 8.9 mg/dL (7.8-10.44); Globulin 2.4 g/dL (2.4-3.5); Glucose 131 mg/dL (83-110); Magnesium 1.5 mg/dL (1.6-2.6); Phosphorus 2.1 mg/dL (2.3-4.7); Protein, Total 5.1 g/dL (6.0-8.3)
[2020-07-01 07:01] LABS: Anion Gap 13 mmol/L (10-20); Chloride 90 mmol/L (98-107); Potassium 3.4 mmol/L (3.5-5.1); Sodium 143 mmol/L (136-145)
[2020-07-01 07:08] LABS: Carbon Dioxide 43 mmol/L (23-31)
[2020-07-01] MEDS ORDERED: Potassium Phosphate 15 MMOL in Sodium Chloride 0.9% 250 ML 250 ML IVPB SCH (09:00)
[2020-07-01] MEDS ORDERED: Magnesium Sulfate 4 GM in Sodium Chloride 0.9% 250 ML 250 ML IVPB SCH (09:30)
[2020-07-01] MEDS: Bupropion 150 MG XL TAB PO SCH (09:38)
[2020-07-01] MEDS: Ascorbic Acid 500 mg Chewable Tablet PO SCH (09:38)
[2020-07-01] MEDS: Multivit, Therapeutic 1 TAB PO SCH (09:38)
[2020-07-01] MEDS: Dronedarone HCl 400 MG TAB PO SCH ×2 (09:38→16:52)
[2020-07-01] MEDS: Pantoprazole 40 MG GRANULES PACKET PO SCH (09:38)
[2020-07-01] MEDS: Folic Acid 1 MG TAB PO SCH (09:39)
[2020-07-01] MEDS: Senokot S 8.6-50 MG TAB PO SCH ×2 (09:39→20:39)
[2020-07-01] MEDS: Anastrozole 1 MG TAB PO SCH (09:39)
[2020-07-01] MEDS: Ferrous Sulfate 325 MG TAB PO SCH (09:39)
[2020-07-01] MEDS: Ipratropium Bromide 0.06% Nasal Inhaler 15ml EA NARE SCH ×3 (09:39→20:47)
[2020-07-01] MEDS: acetaZOLAMIDE Sodium 500 mg Vial IVP SCH (09:39)
[2020-07-01] MEDS ORDERED: Potassium Bicarbonate/Cit Ac 20 MEQ TAB PO SCH ×2 (10:15→17:00)
[2020-07-01] MEDS: K-Phos Neutral 250 MG TAB PO SCH ×2 (13:46→16:52)
--- NOTE | 2020-07-01 14:42 | PRG ---
DATE OF SERVICE: 07/01/2020 SUBJECTIVE: Ms. Issa says she is feeling a little bit better. She is in no distress. She actually wants to go home, event though she acknowledges that she is quite weak. She has not stood since she has been in the hospital except at the bedside with Physical Therapy. SUBJECTIVE: VITAL SIGNS: She is afebrile. Heart rate 77, respiratory rate 21, oximetry is 100%. LUNGS: Distant, clear. HEART: Regular rhythm. ABDOMEN: Soft. IMPRESSION: 1. Lung cancer. 2. Chronic obstructive pulmonary disease. 3. Deconditioning. She tells me she is contemplating stopping treatment. She wants to talk to her oncologist today. We will follow with the other physicians. Job ID: [id number]
--- NOTE | 2020-07-01 16:02 | PDOC.MOPN ---
Interval History: Breathing improved. Remains weak and needs support standing. - Vital Signs Vital Signs: Vital Signs (12 hours) Temp Pulse Resp Pulse Ox 07/01/20 15:52 98.9 F 07/01/20 14:10 77 21 H 100 07/01/20 12:00 98.6 F 07/01/20 08:24 100 07/01/20 08:23 81 28 H 100 07/01/20 08:00 96 07/01/20 07:32 98.6 F Weight Admit Weight 134 lb 4 oz Weight 134 lb 4 oz Most Recent Monitor Data Heart Rate from ECG 87 NIBP 109/46 NIBP BP-Mean 67 Respiration from ECG 25 SpO2 100 - Physical Exam General: Alert, Oriented x3, No acute distress HEENT: Atraumatic, PERRLA, EOMI, Mucous membr. moist/pink Lungs: Other Cardiovascular: Regular rate Abdomen: Normal bowel sounds Extremities: No clubbing, No cyanosis, No edema, Normal pulses, No tenderness/swelling Neurological: Normal speech - Labs Result Diagrams: 07/01/20 06:15 07/01/20 06:15 Lab results: Laboratory Results - last 24 hr 07/01/20 06:15: WBC 1.3 L, RBC 2.49 L, Hgb 7.3 L, Hct 22.9 L, MCV 91.8, MCH 29.5, MCHC 32.1, RDW 17.2 H, Plt Count 44 L, MPV 10.5 H, Neutrophils % (Manual) 39 L, Band Neuts % (Manual) 22 H, Lymphocytes % (Manual) 32, Monocytes % (Manual) 7, Plt Morphology Comment Appears Decreased L 07/01/20 06:15: Sodium 143, Potassium 3.4 L, Chloride 90 L, Carbon Dioxide 43 H*, Anion Gap 13, BUN 24 H, Creatinine 0.92, Estimated GFR (MDRD) 58, Glucose 131 H, Calcium 8.9, Phosphorus 2.1 L, Magnesium 1.5 L, Total Bilirubin 0.3, AST 9, ALT 10, Alkaline Phosphatase 50, Serum Total Protein 5.1 L, Albumin 2.7 L, Globulin 2.4, Albumin/Globulin Ratio 1.1 L Status: lab reviewed by me A/P - Problem (1) Small cell lung cancer Current Visit: Yes Code(s): C34.90 - MALIGNANT NEOPLASM OF UNSP PART OF UNSP BRONCHUS OR LUNG Status: Acute (2) Acute and chronic respiratory failure with hypoxia Current Visit: No Code(s): J96.21 - ACUTE AND CHRONIC RESPIRATORY FAILURE WITH HYPOXIA Status: Acute - Plan Plan: 1. spoke with patient and daughter at bedside 2. Patient's breathing improved but remains very weak. Needs help with standing. 3. discussed holding chemo until stronger. She would like to go to SNU 4. Will follow-up in clinic after SNU to discuss resuming treatment. 5. Continue Anastrazole
[2020-07-01] MEDS: rOPINIRole HCl 1 MG TAB PO SCH (20:38)
[2020-07-01] MEDS: Lorazepam 0.5 MG TAB PO PRN (20:39)
--- NOTE | 2020-07-01 21:29 | PDOC.HOSPP ---
- Subjective Encounter Date: 07/01/20 Encounter Time: 11:30 Subjective: Patient seen and examined for generalized weakness with respiratory failure and pancytopenia. He generally weak and fatigued. Denies any fever or chills. Mild dry cough without significant production. Shortness of breath gradually improving. - Objective Vital Signs & Weight: Vital Signs (12 hours) Temp Pulse Pulse Pulse Resp BP BP 07/01/20 19:09 73 18 07/01/20 16:15 93 77 111/40 L 102/53 L 07/01/20 15:52 98.9 F 07/01/20 14:10 77 21 H 07/01/20 12:00 98.6 F Pulse Ox Pulse Ox Pulse Ox 07/01/20 19:09 98 07/01/20 16:15 100 100 07/01/20 15:52 07/01/20 14:10 100 07/01/20 12:00 Weight Admit Weight 134 lb 4 oz Weight 134 lb 4 oz Most Recent Monitor Data Heart Rate from ECG 73 NIBP 111/40 NIBP BP-Mean 63 Respiration from ECG 20 SpO2 100 I&O: 06/30/20 07/01/20 07/02/20 06:59 06:59 06:59 Intake Total 800 1150 930 Output Total 1950 550 400 Balance -1150 600 530 Result Diagrams: 07/01/20 06:15 07/01/20 06:15 Additional Labs: Abnormal Lab Results - Last 48 hrs 06/29/20 22:00: Bicarbonate Actual 49.8 H, ABG pH 7.24 L*, ABG pCO2 120.2 H*, ABG O2 Sat (Measured) 89.2 L, ABG O2 Content 12.1 L, ABG Base Excess 18.5 H, ABG Hematocrit 29.0 L, ABG Hemoglobin 9.8 L, ABG Oxyhemoglobin 87.8 L, ABG Deoxyhemoglobin 10.6 H, Potassium 3.49 L, Chloride 94 L 06/30/20 00:00: Hyaline Casts 7-10 A 06/30/20 03:30: Chloride 89 L, Carbon Dioxide 42 H* 06/30/20 03:30: WBC 0.9 L*, RBC 2.89 L, Hgb 8.4 L, Hct 27.1 L, MCHC 31.0 L, RDW 16.9 H, Plt Count 69 L, Neutrophils % (Manual) 39 L, Band Neuts % (Manual) 23 H, Monocytes % (Manual) 11 H, Plt Morphology Comment Appears Decreased L 07/01/20 06:15: Potassium 3.4 L, Chloride 90 L, Carbon Dioxide 43 H*, BUN 24 H, Phosphorus 2.1 L, Magnesium 1.5 L, Serum Total Protein 5.1 L, Albumin 2.7 L, Albumin/Globulin Ratio 1.1 L 07/01/20 06:15: WBC 1.3 L, RBC 2.49 L, Hgb 7.3 L, Hct 22.9 L, RDW 17.2 H, Plt Count 44 L, MPV 10.5 H, Neutrophils % (Manual) 39 L, Band Neuts % (Manual) 22 H, Plt Morphology Comment Appears Decreased L Microbiology - Entire Visit 06/29/20 13:26 Port - Right Subclavian Vein Blood Culture - Preliminary NO GROWTH AT 48 HOURS 06/29/20 12:44 Port - Right Subclavian Vein Blood Culture - Preliminary NO GROWTH AT 48 HOURS EKG Reviewed by me: Yes (Sinus rhythm on telemetry) Hospitalist ROS - Review of Systems Constitutional: reports: weakness. denies: fever, chills, sweats, malaise, other Gastrointestinal: denies: nausea, vomiting, abdominal pain, diarrhea, constipation, melena, hematochezia, other - Medication Medications: Active Medications Generic Name Dose Route Start Last Admin Trade Name Freq PRN Reason Stop Dose Admin Acetazolamide Sodium 500 mg 07/01/20 09:00 07/01/20 09:39 Acetazolamide Sodium 500 Mg Vial IVP 07/04/20 09:01 500 mg DAILY TENZIN Administration Albuterol/Ipratropium 3 ml 06/29/20 22:30 07/01/20 19:09 Ipratropium/Albuterol Sulfate 3 Ml Neb NEB 3 ml [id number] TENZIN Administration Anastrozole 1 mg 06/30/20 09:00 07/01/20 09:39 Anastrozole 1 Mg Tab PO 1 mg DAILY TENZIN Administration Ascorbic Acid 500 mg 06/30/20 09:00 07/01/20 09:38 Ascorbic Acid 500 Mg Chewable Tablet PO 500 mg DAILY TENZIN Administration Bupropion HCl 300 mg 06/30/20 09:00 07/01/20 09:38 Bupropion 150 Mg Xl Tab PO 300 mg DAILY TENZIN Administration Dronedarone 400 mg 06/30/20 08:00 07/01/20 16:52 Dronedarone Hcl 400 Mg Tab PO 400 mg BID-WM TENZIN Administration Ferrous Sulfate 325 mg 06/30/20 09:00 07/01/20 09:39 Ferrous Sulfate 325 Mg Tab PO 325 mg DAILY TENZIN Administration Folic Acid 1 mg 06/30/20 09:00 07/01/20 09:39 Folic Acid 1 Mg Tab PO 1 mg DAILY TENZIN Administration Azithromycin 500 mg/ Sodium 250 mls @ 250 mls/hr 06/29/20 23:00 06/30/20 23:10 Chloride IVPB 250 mls Q24HR TENZIN Administration Ipratropium [place] 0 ml 06/29/20 21:00 07/01/20 20:47 Ipratropium [place] 0.06% Nasal Inhaler 15ml EA NARE 07/09/20 15:01 Not Given TID TENZIN Levothyroxine Sodium 50 mcg 06/30/20 06:00 07/01/20 06:03 Levothyroxine Sodium 50 Mcg Tab PO 50 mcg 0600 TENZIN Administration Levothyroxine Sodium 100 mcg 06/29/20 06:00 06/29/20 21:24 Levothyroxine Sodium 100 Mcg Tab PO Not Given SuSa TENZIN Lorazepam 0.5 mg 06/30/20 17:26 07/01/20 20:39 Lorazepam 0.5 Mg Tab PO 0.5 mg Q4H PRN Administration Anxiety Methylprednisolone Sodium Succinate 60 mg 06/29/20 22:00 07/01/20 13:45 Methylprednisolone Sod Succ 40 Mg Vial IVP 60 mg Q8HR TENZIN Administration Multivitamins 1 tab 06/30/20 09:00 07/01/20 09:38 Multivit, Therapeutic 1 Tab PO 1 tab DAILY TENZIN Administration Pantoprazole Sodium 40 mg 06/30/20 09:00 07/01/20 09:38 Pantoprazole 40 Mg Granules Packet PO 40 mg DAILY TENZIN Administration Phosphorus 250 mg 07/01/20 12:00 07/01/20 16:52 K-Phos Neutral 250 Mg Tab PO 250 mg TID-WM TENZIN Administration Ropinirole HCl 1 mg 06/29/20 21:00 07/01/20 20:38 Ropinirole Hcl 1 Mg Tab PO 1 mg HS TENZIN Administration Senna/Docusate Sodium 2 tab 06/29/20 21:00 07/01/20 20:39 Senokot S 8.6-50 Mg Tab PO 2 tab BID TENZIN Administration - Exam General Appearance: ill appearing Neck: supple Heart: RRR, no gallops Respiratory: no wheezes, rhonchi Gastrointestinal: soft, non-distended Extremities: no cyanosis, no clubbing Neurological: no new deficit Hosp A/P - Plan DVT proph w/SCDs Generalized weaknessmultifactorial Pancytopenia due to chemotherapy S/p platelet transfusion Acute on chronic hypoxic respiratory failure requiring NIPPV COPD exacerbation Hypokalemia/hypomagnesemia 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 Henderson (last seen in March) Chronic anemia suspected due to nutritional deficiency CKD 2 History of vitamin B12 deficiency Chronic respiratory failure on 2 L home oxygen Moderate protein calorie malnutrition Plan: Continue supportive care. Continue azithromycin with steroids. Continue therapy. shelter facility evaluation. AM labs. Continue IMCU monitoring. Patient would like to wait patient will resume chemotherapy post discharge from care home. Replace magnesium and potassium.
[2020-07-01] MEDS ORDERED: Electrolyte Replacement Protocol 1 EACH FS SCH (21:30)
[2020-07-01] MEDS: Azithromycin 500 MG in Sodium Chloride 0.9% 250 ML 250 ML IVPB SCH (22:29)
[2020-07-02] MEDS: Levothyroxine Sodium 50 MCG TAB PO SCH (05:11)
[2020-07-02] MEDS: methylPREDNISolone Sod Succ 40 MG VIAL IVP SCH ×3 (05:11→21:05)
[2020-07-02 06:11] LABS: BUN (Urea Nitrogen) 29 mg/dL (9.8-20.1); Calc. Creatinine Clearance 44 mL/min (70-130); Calcium 8.7 mg/dL (7.8-10.44); Glucose 122 mg/dL (83-110); Magnesium 2.4 mg/dL (1.6-2.6); Phosphorus 3.4 mg/dL (2.3-4.7)
[2020-07-02 06:15] LABS: Anion Gap 14 mmol/L (10-20); Carbon Dioxide 35 mmol/L (23-31); Chloride 97 mmol/L (98-107); Sodium 143 mmol/L (136-145)
--- NOTE | 2020-07-02 09:06 | PDOC.MOPN ---
Interval History: Pt feeling better today w/improvement in SOB and appetite. Currently on nebulizer treatment. - Vital Signs Vital Signs: Vital Signs (12 hours) Temp Pulse Resp Pulse Ox 07/02/20 08:09 75 15 95 07/02/20 04:00 98.8 F 07/02/20 02:07 81 26 H 98 07/02/20 00:00 99.0 F 07/01/20 22:23 74 21 H 100 Weight Admit Weight 134 lb 4 oz Weight 134 lb 4 oz Most Recent Monitor Data Heart Rate from ECG 85 NIBP 105/43 NIBP BP-Mean 63 Respiration from ECG 18 SpO2 100 - Physical Exam General: Alert, Oriented x3, Cooperative HEENT: EOMI Lungs: Other (regular rate, on nebulizer, speaking in full sentences) Cardiovascular: Regular rate Abdomen: Soft Neurological: Cranial nerves 3-12 NL Psych/Mental Status: Mood NL - Labs Result Diagrams: 07/01/20 06:15 07/02/20 04:30 Lab results: Laboratory Results - last 24 hr 07/02/20 04:30: Sodium 143, Potassium 3.0 L, Chloride 97 L, Carbon Dioxide 35 H, Anion Gap 14, BUN 29 H, Creatinine 0.95, Estimated GFR (MDRD) 56, Glucose 122 H, Calcium 8.7, Phosphorus 3.4, Magnesium 2.4 A/P - Problem (1) Small cell lung cancer Current Visit: Yes Code(s): C34.90 - MALIGNANT NEOPLASM OF UNSP PART OF UNSP BRONCHUS OR LUNG Status: Acute - Plan Plan: DC to SNF once stable as per pulm and ANC 1.0 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
[2020-07-02] MEDS: Dronedarone HCl 400 MG TAB PO SCH ×3 (09:38→21:05)
[2020-07-02] MEDS: Lorazepam 0.5 MG TAB PO PRN ×2 (09:38→23:48)
[2020-07-02] MEDS: Folic Acid 1 MG TAB PO SCH (09:38)
[2020-07-02] MEDS: K-Phos Neutral 250 MG TAB PO SCH ×4 (09:38→21:05)
[2020-07-02] MEDS: Ferrous Sulfate 325 MG TAB PO SCH (09:38)
[2020-07-02] MEDS: Senokot S 8.6-50 MG TAB PO SCH ×2 (09:38→21:04)
[2020-07-02] MEDS: Bupropion 150 MG XL TAB PO SCH (09:38)
[2020-07-02] MEDS: Multivit, Therapeutic 1 TAB PO SCH (09:39)
[2020-07-02] MEDS: Ascorbic Acid 500 mg Chewable Tablet PO SCH (09:39)
[2020-07-02] MEDS: Pantoprazole 40 MG GRANULES PACKET PO SCH (09:39)
[2020-07-02] MEDS: acetaZOLAMIDE Sodium 500 mg Vial IVP SCH (09:39)
[2020-07-02] MEDS ORDERED: Potassium Chloride 20 MEQ TAB PO SCH (09:45)
[2020-07-02] MEDS: Ipratropium Bromide 0.06% Nasal Inhaler 15ml EA NARE SCH ×3 (09:54→21:08)
[2020-07-02] MEDS: Ondansetron PF 4 MG/2 ML Vial IVP PRN (10:57)
[2020-07-02 11:55] LABS: Hemoglobin 7.9 g/dL (12.0-16.0); Mean Corpuscular Hemoglobin 29.6 pg (27.0-31.0); Mean Corpuscular Volume 92.3 fL (78.0-98.0); Mean Platelet Volume 11.3 fL (7.4-10.4); Platelet Count 38 thou/uL (130-400); RBC Distribution Width 17.5 % (11.5-14.5); Red Blood Cell (RBC) Count 2.68 mill/uL (4.20-5.40)
[2020-07-02 12:00] LABS: Band 22 % (5-11); Lymphocytes 20 % (21-51); MDiff Complete? YES; Monocytes 12 % (0-10); Neutrophil 45 % (42-75); Platelet Morphology Comment Appears Decreased; Polychromasia SLIGHT = 2-3 cells (100X) (0-2/hpf); Promyelocytes 1 % (0-0)
[2020-07-02] MEDS: Anastrozole 1 MG TAB PO SCH (12:03)
--- NOTE | 2020-07-02 18:47 | PDOC.HOSPP ---
- Subjective Encounter Date: 07/02/20 Encounter Time: 10:30 Subjective: Patient seen and examined for respiratory failure due to pleural effusion. Shortness of breath improving. Denies any chest pain, cough or fever. - Objective Vital Signs & Weight: Vital Signs (12 hours) Temp Pulse Resp Pulse Ox 07/02/20 18:40 80 18 96 07/02/20 12:58 97.7 F 07/02/20 11:01 85 23 H 100 07/02/20 08:09 75 15 95 07/02/20 08:00 100 Weight Admit Weight 134 lb 4 oz Weight 134 lb 4 oz Most Recent Monitor Data Heart Rate from ECG 96 NIBP 105/43 NIBP BP-Mean 63 Respiration from ECG 25 SpO2 83 I&O: 07/01/20 07/02/20 07/03/20 06:59 06:59 06:59 Intake Total 1150 1450 Output Total 550 1050 Balance 600 400 Result Diagrams: 07/02/20 04:30 07/02/20 04:30 EKG Reviewed by me: Yes (Sinus rhythm on telemetry) Hospitalist ROS - Review of Systems Cardiovascular: denies: chest pain, palpitations, orthopnea, paroxysmal noc. dyspnea, edema, light headedness, other Gastrointestinal: denies: nausea, vomiting, abdominal pain, diarrhea, constipation, melena, hematochezia, other - Medication Medications: Active Medications Generic Name Dose Route Start Last Admin Trade Name Freq PRN Reason Stop Dose Admin Acetazolamide Sodium 500 mg 07/01/20 09:00 07/02/20 09:39 Acetazolamide Sodium 500 Mg Vial IVP 07/04/20 09:01 500 mg DAILY TENZIN Administration Albuterol/Ipratropium 3 ml 06/29/20 22:30 07/02/20 18:40 Ipratropium/Albuterol Sulfate 3 Ml Neb NEB 3 ml [id number] TENZIN Administration Ascorbic Acid 500 mg 06/30/20 09:00 07/02/20 09:39 Ascorbic Acid 500 Mg Chewable Tablet PO 500 mg DAILY TENZIN Administration Bupropion HCl 300 mg 06/30/20 09:00 07/02/20 09:38 Bupropion 150 Mg Xl Tab PO 300 mg DAILY TENZIN Administration Dronedarone 400 mg 06/30/20 08:00 07/02/20 09:38 Dronedarone Hcl 400 Mg Tab PO 400 mg BID-WM TENZIN Administration Ferrous Sulfate 325 mg 06/30/20 09:00 07/02/20 09:38 Ferrous Sulfate 325 Mg Tab PO 325 mg DAILY TENZIN Administration Folic Acid 1 mg 06/30/20 09:00 07/02/20 09:38 Folic Acid 1 Mg Tab PO 1 mg DAILY TENZIN Administration Azithromycin 500 mg/ Sodium 250 mls @ 250 mls/hr 06/29/20 23:00 07/01/20 22:29 Chloride IVPB 250 mls Q24HR TENZIN Administration Ipratropium [place] 0 ml 06/29/20 21:00 07/02/20 09:54 Ipratropium [place] 0.06% Nasal Inhaler 15ml EA NARE 07/09/20 15:01 Not Given TID TENZIN Levothyroxine Sodium 50 mcg 06/30/20 06:00 07/02/20 05:11 Levothyroxine Sodium 50 Mcg Tab PO 50 mcg 0600 TENZIN Administration Levothyroxine Sodium 100 mcg 06/29/20 06:00 06/29/20 21:24 Levothyroxine Sodium 100 Mcg Tab PO Not Given SuSa TENZIN Lorazepam 0.5 mg 06/30/20 17:26 07/02/20 09:38 Lorazepam 0.5 Mg Tab PO 0.5 mg Q4H PRN Administration Anxiety Methylprednisolone Sodium Succinate 60 mg 06/29/20 22:00 07/02/20 13:08 Methylprednisolone Sod Succ 40 Mg Vial IVP 60 mg Q8HR TENZIN Administration Multivitamins 1 tab 06/30/20 09:00 07/02/20 09:39 Multivit, Therapeutic 1 Tab PO 1 tab DAILY TENZIN Administration Ondansetron HCl 4 mg 06/29/20 16:27 07/02/20 10:57 Ondansetron Pf 4 Mg/2 Ml Vial IVP 4 mg Q6H PRN Administration Nausea/Vomiting Pantoprazole Sodium 40 mg 06/30/20 09:00 07/02/20 09:39 Pantoprazole 40 Mg Granules Packet PO 40 mg DAILY TENZIN Administration Phosphorus 250 mg 07/01/20 12:00 07/02/20 13:09 K-Phos Neutral 250 Mg Tab PO 250 mg TID-WM TENZIN Administration Ropinirole HCl 1 mg 06/29/20 21:00 07/01/20 20:38 Ropinirole Hcl 1 Mg Tab PO 1 mg HS TENZIN Administration Senna/Docusate Sodium 2 tab 06/29/20 21:00 07/02/20 09:38 Senokot S 8.6-50 Mg Tab PO 2 tab BID TENZIN Administration - Exam General Appearance: NAD Heart: RRR, no gallops Respiratory: no wheezes, rales, rhonchi Gastrointestinal: soft, non-distended Extremities: no cyanosis, no clubbing Neurological: no new deficit Psychiatric: normal affect, A&O x 3 Hosp A/P - Plan DVT proph w/SCDs Generalized weaknessmultifactorial Pancytopenia due to chemotherapy S/p platelet transfusion Acute on chronic hypoxic respiratory failure requiring NIPPV COPD exacerbation Hypokalemia/hypomagnesemia/hypophosphatemia 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 Henderson (last seen in March) Chronic anemia suspected due to nutritional deficiency CKD 2 History of vitamin B12 deficiency Chronic respiratory failure on 2 L home oxygen Moderate protein calorie malnutrition Plan: Replace potassium. WBC improving. Monitor platelets. Continue antibiotics and steroids. Continue nebulizer treatment. Arimidex discontinued. Continue other medications including Multaq, levothyroxine, Protonix, Requip. senior living facility evaluation.
--- NOTE | 2020-07-02 18:53 | PRG ---
DATE OF SERVICE: 07/02/2020 SUBJECTIVE: Ms. Issa was evaluated again today. She says she is feeling a little better. She actually surprisingly wants to go to rehab for a while before she goes home. OBJECTIVE: VITAL SIGNS: She is afebrile, heart rate is 85, respiratory rates in the low 20s, oximetry is 100% on 2 L. LUNGS: Clear. HEART: Regular rhythm. ABDOMEN: Soft. LABORATORY DATA: White count is 2, hemoglobin 7.9, platelets 45. Electrolytes; sodium 143, potassium 3, chloride 97, bicarb 35, BUN 29, creatinine 0.95. IMPRESSION AND PLAN: We discussed end-of-life issues. We have also discussed future treatment issues. She wants everything to put on hold for now. She is under the impression that she was a full code. She has a do not resuscitate bracelet on. I would encourage her and did encourage her to keep her do not resuscitate status. She wants to talk to her son and daughter about this. Hopefully, she will qualify for rehab in the next day or two. Her pancytopenia appears to be stable. Job ID: [id number]
[2020-07-02] MEDS: rOPINIRole HCl 1 MG TAB PO SCH (21:04)
[2020-07-02] MEDS: Azithromycin 500 MG in Sodium Chloride 0.9% 250 ML 250 ML IVPB SCH (22:48)
[2020-07-03 04:31] LABS: Band 15 % (5-11); Hemoglobin 7.7 g/dL (12.0-16.0); Lymphocytes 17 % (21-51); MDiff Complete? YES; Mean Corpuscular HGB CONC 33.8 g/dL (32.0-36.0); Mean Corpuscular Hemoglobin 31.1 pg (27.0-31.0); Mean Corpuscular Volume 92.2 fL (78.0-98.0); Mean Platelet Volume 10.8 fL (7.4-10.4); Monocytes 9 % (0-10); Neutrophil 59 % (42-75); Platelet Count 30 thou/uL (130-400); Platelet Morphology Comment Appears Decreased; RBC Distribution Width 17.3 % (11.5-14.5); Red Blood Cell (RBC) Count 2.46 mill/uL (4.20-5.40)
[2020-07-03] MEDS: Levothyroxine Sodium 50 MCG TAB PO SCH (05:25)
[2020-07-03] MEDS: methylPREDNISolone Sod Succ 40 MG VIAL IVP SCH ×3 (05:26→21:45)
[2020-07-03] MEDS: Bupropion 150 MG XL TAB PO SCH (08:00)
[2020-07-03] MEDS: Pantoprazole 40 MG GRANULES PACKET PO SCH (08:00)
[2020-07-03] MEDS: Ascorbic Acid 500 mg Chewable Tablet PO SCH (08:00)
[2020-07-03] MEDS: Multivit, Therapeutic 1 TAB PO SCH (08:00)
[2020-07-03] MEDS: Folic Acid 1 MG TAB PO SCH (08:00)
[2020-07-03] MEDS: Senokot S 8.6-50 MG TAB PO SCH ×2 (08:00→20:11)
[2020-07-03] MEDS: Ferrous Sulfate 325 MG TAB PO SCH (08:00)
[2020-07-03] MEDS: K-Phos Neutral 250 MG TAB PO SCH ×3 (08:33→17:51)
[2020-07-03] MEDS: Dronedarone HCl 400 MG TAB PO SCH ×2 (08:33→17:51)
[2020-07-03] MEDS: acetaZOLAMIDE Sodium 500 mg Vial IVP SCH (08:53)
[2020-07-03] MEDS: Ipratropium Bromide 0.06% Nasal Inhaler 15ml EA NARE SCH ×3 (08:56→20:10)
[2020-07-03] MEDS: Ondansetron PF 4 MG/2 ML Vial IVP PRN (09:45)
--- NOTE | 2020-07-03 15:40 | PDOC.HOSPP ---
- Subjective Encounter Date: 07/03/20 Encounter Time: 11:00 Subjective: Patient seen and examined for respiratory failure with generalized weakness. Denies any new complaints. No new chest pain, palpitations or syncope. - Objective Vital Signs & Weight: Vital Signs (12 hours) Temp Pulse Resp BP Pulse Ox Pulse Ox Pulse Ox 07/03/20 15:16 98.7 F 79 18 110/51 L 100 07/03/20 14:45 77 20 100 07/03/20 14:13 100 98 07/03/20 11:34 98.8 F 78 18 116/54 L 100 07/03/20 11:22 85 18 99 07/03/20 08:15 79 18 99 07/03/20 07:52 98 F 77 20 118/51 L 97 07/03/20 03:47 99.9 F H 80 16 108/52 L 95 Weight Admit Weight 134 lb 4 oz Weight 134 lb 4 oz Most Recent Monitor Data Heart Rate from ECG 96 NIBP 105/43 NIBP BP-Mean 63 Respiration from ECG 25 SpO2 83 I&O: 07/02/20 07/03/20 07/04/20 06:59 06:59 06:59 Intake Total 1450 860 Output Total 1050 400 Balance 400 460 Result Diagrams: 07/03/20 03:53 07/02/20 04:30 Hospitalist ROS - Review of Systems Cardiovascular: denies: chest pain, palpitations, orthopnea, paroxysmal noc. dyspnea, edema, light headedness, other Genitourinary: denies: dysuria, frequency, incontinence, hematuria, retention, other - Medication Medications: Active Medications Generic Name Dose Route Start Last Admin Trade Name Chaitanyaq PRN Reason Stop Dose Admin Acetazolamide Sodium 500 mg 07/01/20 09:00 07/03/20 08:53 Acetazolamide Sodium 500 Mg Vial IVP 07/04/20 09:01 500 mg DAILY TENZIN Administration Albuterol/Ipratropium 3 ml 06/29/20 22:30 07/03/20 14:45 Ipratropium/Albuterol Sulfate 3 Ml Neb NEB 3 ml [id number] TENZIN Administration Ascorbic Acid 500 mg 06/30/20 09:00 07/03/20 08:00 Ascorbic Acid 500 Mg Chewable Tablet PO 500 mg DAILY TENZIN Administration Bupropion HCl 300 mg 06/30/20 09:00 07/03/20 08:00 Bupropion 150 Mg Xl Tab PO 300 mg DAILY TENZIN Administration Dronedarone 400 mg 06/30/20 08:00 07/03/20 08:33 Dronedarone Hcl 400 Mg Tab PO 400 mg BID-WM TENZIN Administration Ferrous Sulfate 325 mg 06/30/20 09:00 07/03/20 08:00 Ferrous Sulfate 325 Mg Tab PO 325 mg DAILY TENZIN Administration Folic Acid 1 mg 06/30/20 09:00 07/03/20 08:00 Folic Acid 1 Mg Tab PO 1 mg DAILY TENZIN Administration Azithromycin 500 mg/ Sodium 250 mls @ 250 mls/hr 06/29/20 23:00 07/02/20 22:48 Chloride IVPB 250 mls Q24HR TENZIN Administration Ipratropium [place] 0 ml 06/29/20 21:00 07/03/20 15:08 Ipratropium [place] 0.06% Nasal Inhaler 15ml EA NARE 07/09/20 15:01 1 spr TID TENZIN Administration Levothyroxine Sodium 50 mcg 06/30/20 06:00 07/03/20 05:25 Levothyroxine Sodium 50 Mcg Tab PO 50 mcg 0600 TENZIN Administration Levothyroxine Sodium 100 mcg 06/29/20 06:00 06/29/20 21:24 Levothyroxine Sodium 100 Mcg Tab PO Not Given SuSa [facility] Lorazepam 0.5 mg 06/30/20 17:26 07/02/20 23:48 Lorazepam 0.5 Mg Tab PO 0.5 mg Q4H PRN Administration Anxiety Methylprednisolone Sodium Succinate 60 mg 06/29/20 22:00 07/03/20 15:06 Methylprednisolone Sod Succ 40 Mg Vial IVP 60 mg Q8HR TENZIN Administration Multivitamins 1 tab 06/30/20 09:00 07/03/20 08:00 Multivit, Therapeutic 1 Tab PO 1 tab DAILY TENZIN Administration Ondansetron HCl 4 mg 06/29/20 16:27 07/03/20 09:45 Ondansetron Pf 4 Mg/2 Ml Vial IVP 4 mg Q6H PRN Administration Nausea/Vomiting Pantoprazole Sodium 40 mg 06/30/20 09:00 07/03/20 08:00 Pantoprazole 40 Mg Granules Packet PO 40 mg DAILY TENZIN Administration Phosphorus 250 mg 07/01/20 12:00 07/03/20 14:07 K-Phos Neutral 250 Mg Tab PO Not Given TID-WM TENZIN Ropinirole HCl 1 mg 06/29/20 21:00 07/02/20 21:04 Ropinirole Hcl 1 Mg Tab PO 1 mg HS TENZIN Administration Senna/Docusate Sodium 2 tab 06/29/20 21:00 07/03/20 08:00 Senokot S 8.6-50 Mg Tab PO 2 tab BID TENZIN Administration - Exam General Appearance: ill appearing Neck: supple, no JVD Heart: RRR, no gallops Respiratory: no wheezes, rhonchi Gastrointestinal: soft, non-distended Extremities: no cyanosis Neurological: no new deficit Psychiatric: A&O x 3 Hosp A/P - Plan DVT proph w/SCDs (No heparin or Lovenox due to thrombocytopenia) Generalized weaknessmultifactorial Pancytopenia due to chemotherapy S/p platelet transfusion Acute on chronic hypoxic respiratory failure requiring NIPPV COPD exacerbation Hypokalemia/hypomagnesemia/hypophosphatemia 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 Henderson (last seen in March) Chronic anemia suspected due to nutritional deficiency CKD 2 History of vitamin B12 deficiency Chronic respiratory failure on 2 L home oxygen Moderate protein calorie malnutrition Plan: Continue supportive care. Replace potassium. Continue antibiotics with steroids. Continue levothyroxine and other medications as above. Continue therapy. Continue nebulizer treatment. Await fpc facility placement. [facility]-way facility is not comfortable accepting the patient at current hemoglobin. Case discussed with oncology who recommended 1 unit of PRBC prior to discharge. Will change antibiotics and steroid to p.o. if okay with Dr. Escalera.
--- NOTE | 2020-07-03 16:45 | PDOC.PALCO ---
Palliative Care Consult - Consult Details Requesting Physician: Dr Venegas Reason for Consult: goals of care, advance directives assistance, complex decision-making Family Members Present: Patient daughter - Allergies Allergies/Adverse Reactions: Allergies Allergy/AdvReac Type Severity Reaction Status Date / Time ciprofloxacin [From Cipro] Allergy Intermediate Hives Verified 06/29/20 23:10 propoxyphene [From Darvon] Allergy Intermediate Hives Verified 06/29/20 23:10 hydrocodone [From Vicodin] Allergy Verified 06/29/20 23:10 lisinopril Allergy Verified 06/29/20 23:10 - Objective Vital Signs: Vital Signs - Most Recent Temp Pulse Resp BP Pulse Ox 98.7 F 79 18 110/51 L 100 07/03/20 15:16 07/03/20 15:16 07/03/20 15:16 07/03/20 15:16 07/03/20 15:16 - Plan/Recommendations Plan: [] minutes spent on this encounter with >50% of the time in counseling and coordination of care. Thank you for this very appropriate consult.
--- NOTE | 2020-07-03 16:51 | PDOC.FMACP ---
Advance Care Planning - Problem (1) Palliative care encounter Status: Acute Code(s): Z51.5 - ENCOUNTER FOR PALLIATIVE CARE (2) Small cell lung cancer Status: Acute Code(s): C34.90 - MALIGNANT NEOPLASM OF UNSP PART OF UNSP BRONCHUS OR LUNG (3) Acute and chronic respiratory failure with hypoxia Status: Acute Code(s): J96.21 - ACUTE AND CHRONIC RESPIRATORY FAILURE WITH HYPOXIA (4) Anemia, iron deficiency Status: Acute Code(s): D50.9 - IRON DEFICIENCY ANEMIA, UNSPECIFIED Qualifiers: Iron deficiency anemia type: chronic blood loss Qualified Code(s): D50.0 - Iron deficiency anemia secondary to blood loss (chronic) (5) H/O malignant neoplasm of breast Status: Chronic Code(s): Z85.3 - PERSONAL HISTORY OF MALIGNANT NEOPLASM OF BREAST - Note Participants: patient, family, palliative care Summary: Revisited Advanced Care Planning with patient and daughter. The diagnosis, prog nosis and goals of care were discussed. Appropriate forms and documentation to accomplish the goals of care were discussed. All questions were answered. *OOHDNAR and MPOA documents were completed *Patient previously on Palliative Care services with [facility] *Understanding of disease process and trajectory *Currently to forgo any treatment for cancer, but desires to weigh treatment options if strength gained verses hospice *Hopeful to transition to rehab at "[facility]" however this is delayed secondary to mildly decreased H&H *Ms Issa is hopeful to gain strength, eventually return to home setting. Palliative care had originally signed off, however secondary to unknown discharge will stay on at a distance to revisit goal of care as needed. Please refer to Palliative Care notes in note section. Time Spent (mins): 40
[2020-07-03] MEDS: rOPINIRole HCl 1 MG TAB PO SCH (20:10)
[2020-07-03] MEDS: Lorazepam 0.5 MG TAB PO PRN (21:45)
[2020-07-04] MEDS: Azithromycin 500 MG in Sodium Chloride 0.9% 250 ML 250 ML IVPB SCH (02:30)
[2020-07-04 05:51] LABS: Hemoglobin 8.6 g/dL (12.0-16.0)
[2020-07-04] MEDS: methylPREDNISolone Sod Succ 40 MG VIAL IVP SCH ×2 (06:26→14:09)
[2020-07-04] MEDS: Levothyroxine Sodium 50 MCG TAB PO SCH (06:26)
[2020-07-04] MEDS: Lorazepam 0.5 MG TAB PO PRN ×2 (06:32→22:40)
[2020-07-04] MEDS: Artificial Tear Sol 15 ML BOT EA EYE PRN ×2 (07:07→22:40)
[2020-07-04] MEDS: Folic Acid 1 MG TAB PO SCH (08:52)
[2020-07-04] MEDS: Multivit, Therapeutic 1 TAB PO SCH (08:52)
[2020-07-04] MEDS: Bupropion 150 MG XL TAB PO SCH (08:52)
[2020-07-04] MEDS: Senokot S 8.6-50 MG TAB PO SCH ×2 (08:52→22:40)
[2020-07-04] MEDS: Ascorbic Acid 500 mg Chewable Tablet PO SCH (08:52)
[2020-07-04] MEDS: K-Phos Neutral 250 MG TAB PO SCH ×3 (08:53→18:40)
[2020-07-04] MEDS: Ferrous Sulfate 325 MG TAB PO SCH (08:53)
[2020-07-04] MEDS: Dronedarone HCl 400 MG TAB PO SCH ×2 (08:55→18:40)
[2020-07-04] MEDS ORDERED: acetaZOLAMIDE Sodium 500 mg Vial IVP SCH (12:30)
[2020-07-04] MEDS: acetaZOLAMIDE Sodium 500 mg Vial IVP SCH (12:34)
[2020-07-04] MEDS: Ipratropium Bromide 0.06% Nasal Inhaler 15ml EA NARE SCH ×3 (12:38→22:40)
--- NOTE | 2020-07-04 18:50 | PDOC.HOSPP ---
- Subjective Encounter Date: 07/04/20 Encounter Time: 09:30 Subjective: Patient seen and examined for respiratory failure. Denies any chest pain or shortness of breath. No fever or chills reported. Feels generally weak and fatigue. Received 1 unit of PRBC yesterday. - Objective Vital Signs & Weight: Vital Signs (12 hours) Temp Pulse Resp BP Pulse Ox 07/04/20 14:18 78 16 07/04/20 12:41 96.9 F L 78 16 107/50 L 96 07/04/20 10:43 96 16 07/04/20 06:59 98.6 F 79 16 124/56 L 97 Weight Admit Weight 134 lb 4 oz Weight 134 lb 4 oz Most Recent Monitor Data Heart Rate from ECG 96 NIBP 122/56 NIBP BP-Mean 63 Respiration from ECG 25 SpO2 83 I&O: 07/03/20 07/04/20 07/05/20 06:59 06:59 06:59 Intake Total 860 1640 Output Total 400 350 Balance 460 1290 Result Diagrams: 07/04/20 05:39 07/02/20 04:30 Additional Labs: Abnormal Lab Results - Last 48 hrs 07/03/20 03:53: WBC 3.0 L, RBC 2.46 L, Hgb 7.7 L, Hct 22.7 L, MCH 31.1 H, RDW 17.3 H, Plt Count 30 L, MPV 10.8 H, Band Neuts % (Manual) 15 H, Lymphocytes % (Manual) 17 L, Plt Morphology Comment Appears Decreased L 07/03/20 17:29: Crossmatch See Detail 07/04/20 05:39: Hgb 8.6 L, Hct 26.8 L Microbiology - Entire Visit 06/29/20 13:26 Port - Right Subclavian Vein Blood Culture - Final NO GROWTH IN 5 DAYS 06/29/20 12:44 Port - Right Subclavian Vein Blood Culture - Final NO GROWTH IN 5 DAYS Hospitalist ROS - Review of Systems Cardiovascular: denies: chest pain, palpitations, orthopnea, paroxysmal noc. dyspnea, edema, light headedness, other Gastrointestinal: denies: nausea, vomiting, abdominal pain, diarrhea, constipation, melena, hematochezia, other - Medication Medications: Active Medications Generic Name Dose Route Start Last Admin Trade Name Freq PRN Reason Stop Dose Admin Albuterol/Ipratropium 3 ml 06/29/20 22:30 07/04/20 14:18 Ipratropium/Albuterol Sulfate 3 Ml Neb NEB 3 ml [id number] TENZIN Administration Artificial Tears 2 drop 07/02/20 18:12 07/04/20 07:07 Artificial Tear Isha 15 Ml Bot EA EYE 2 drp QIDPRN PRN Administration Dry Eyes Ascorbic Acid 500 mg 06/30/20 09:00 07/04/20 08:52 Ascorbic Acid 500 Mg Chewable Tablet PO Not Given DAILY TENZIN Bupropion HCl 300 mg 06/30/20 09:00 07/04/20 08:52 Bupropion 150 Mg Xl Tab PO 300 mg DAILY TENZIN Administration Dronedarone 400 mg 06/30/20 08:00 07/04/20 18:40 Dronedarone Hcl 400 Mg Tab PO 400 mg BID-WM TENZIN Administration Ferrous Sulfate 325 mg 06/30/20 09:00 07/04/20 08:53 Ferrous Sulfate 325 Mg Tab PO 325 mg DAILY TENZIN Administration Folic Acid 1 mg 06/30/20 09:00 07/04/20 08:52 Folic Acid 1 Mg Tab PO 1 mg DAILY TENZIN Administration Azithromycin 500 mg/ Sodium 250 mls @ 250 mls/hr 06/29/20 23:00 07/04/20 02:30 Chloride IVPB 250 mls Q24HR TENZIN Administration Ipratropium [place] 0 ml 06/29/20 21:00 07/04/20 18:40 Ipratropium [place] 0.06% Nasal Inhaler 15ml EA NARE 07/09/20 15:01 1 spr TID TENZIN Administration Levothyroxine Sodium 50 mcg 06/30/20 06:00 07/04/20 06:26 Levothyroxine Sodium 50 Mcg Tab PO 50 mcg 0600 TENZIN Administration Levothyroxine Sodium 100 mcg 06/29/20 06:00 06/29/20 21:24 Levothyroxine Sodium 100 Mcg Tab PO Not Given SuSa TENZIN Lorazepam 0.5 mg 06/30/20 17:26 07/04/20 06:32 Lorazepam 0.5 Mg Tab PO 0.5 mg Q4H PRN Administration Anxiety Methylprednisolone Sodium Succinate 60 mg 06/29/20 22:00 07/04/20 14:09 Methylprednisolone Sod Succ 40 Mg Vial IVP 60 mg Q8HR TENZIN Administration Multivitamins 1 tab 06/30/20 09:00 07/04/20 08:52 Multivit, Therapeutic 1 Tab PO 1 tab DAILY TENZIN Administration Ondansetron HCl 4 mg 06/29/20 16:27 07/03/20 09:45 Ondansetron Pf 4 Mg/2 Ml Vial IVP 4 mg Q6H PRN Administration Nausea/Vomiting Pantoprazole Sodium 40 mg 07/04/20 09:00 07/04/20 14:09 Pantoprazole 40 Mg Tab PO 40 mg DAILY TENZIN Administration Phosphorus 250 mg 07/01/20 12:00 07/04/20 18:40 K-Phos Neutral 250 Mg Tab PO 250 mg TID-WM TENZIN Administration Ropinirole HCl 1 mg 06/29/20 21:00 07/03/20 20:10 Ropinirole Hcl 1 Mg Tab PO 1 mg HS TENZIN Administration Senna/Docusate Sodium 2 tab 06/29/20 21:00 07/04/20 08:52 Senokot S 8.6-50 Mg Tab PO Not Given BID TENZIN Sodium Chloride 10 ml 07/03/20 16:49 07/04/20 14:12 Flush - Normal Saline 10 Ml Syringe IVF 10 ml PRN PRN Administration Saline Flush - Exam General Appearance: NAD Heart: RRR, no gallops Respiratory: no wheezes, no ronchi Gastrointestinal: soft, non-distended Extremities: no cyanosis Neurological: no new deficit Musculoskeletal: generalized weakness Hosp A/P - Plan DVT proph w/SCDs Generalized weaknessmultifactorial Pancytopenia due to chemotherapy S/p platelet transfusion Acute on chronic hypoxic respiratory failure requiring NIPPV COPD exacerbation Hypokalemia/hypomagnesemia/hypophosphatemia 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 Henderson (last seen in March) Chronic anemia suspected due to nutritional deficiency S/p 1 unit PRBC on 07/03 CKD 2 History of vitamin B12 deficiency Chronic respiratory failure on 2 L home oxygen Moderate protein calorie malnutrition Plan: Patient was declined by [facility]. Referral has been sent to other half-way facility. Continue nebulizer treatment. Change antibiotics and steroids to p.o. continue supportive care. Continue Multaq and other medications as above. Continue with therapy.
[2020-07-04] MEDS: rOPINIRole HCl 1 MG TAB PO SCH (22:39)
[2020-07-04] MEDS: Doxycycline 100 MG CAP PO SCH (22:40)
[2020-07-04] MEDS ORDERED: traZODone HCl 50 MG TAB PO PRN (23:02)
[2020-07-05] MEDS: Levothyroxine Sodium 50 MCG TAB PO SCH (05:53)
[2020-07-05] MEDS: Levothyroxine Sodium 100 MCG TAB PO SCH (05:53)
[2020-07-05] MEDS: K-Phos Neutral 250 MG TAB PO SCH ×3 (08:54→16:53)
[2020-07-05] MEDS: Senokot S 8.6-50 MG TAB PO SCH ×2 (08:54→21:47)
[2020-07-05] MEDS: Doxycycline 100 MG CAP PO SCH ×2 (08:54→21:38)
[2020-07-05] MEDS: Dronedarone HCl 400 MG TAB PO SCH ×2 (08:54→16:52)
[2020-07-05] MEDS: Ascorbic Acid 500 mg Chewable Tablet PO SCH (08:55)
[2020-07-05] MEDS: Bupropion 150 MG XL TAB PO SCH (08:55)
[2020-07-05] MEDS: Ferrous Sulfate 325 MG TAB PO SCH (08:56)
[2020-07-05] MEDS: Folic Acid 1 MG TAB PO SCH (08:56)
[2020-07-05] MEDS: Multivit, Therapeutic 1 TAB PO SCH (08:56)
[2020-07-05] MEDS: predniSONE 20 MG TAB PO SCH ×2 (08:57→16:52)
[2020-07-05] MEDS: Artificial Tear Sol 15 ML BOT EA EYE PRN ×2 (09:02→21:39)
[2020-07-05] MEDS: Ipratropium Bromide 0.06% Nasal Inhaler 15ml EA NARE SCH ×3 (09:02→21:38)
[2020-07-05] MEDS: ALPRAZolam 0.25 MG TAB PO PRN (11:03)
[2020-07-05] MEDS: rOPINIRole HCl 1 MG TAB PO SCH (21:38)
[2020-07-05] MEDS: Lorazepam 0.5 MG TAB PO PRN (21:38)
--- NOTE | 2020-07-05 22:14 | PDOC.HOSPP ---
- Subjective Encounter Date: 07/05/20 Encounter Time: 09:50 Subjective: Patient up in bed appears to be a bit anxious. - Objective Vital Signs & Weight: Vital Signs (12 hours) Temp Pulse Resp BP Pulse Ox 07/05/20 20:00 98.3 F 91 16 101/50 L 97 07/05/20 19:01 96 16 97 07/05/20 14:55 98 16 Weight Admit Weight 134 lb 4 oz Weight 134 lb 4 oz Most Recent Monitor Data Heart Rate from ECG 96 NIBP 122/56 NIBP BP-Mean 63 Respiration from ECG 25 SpO2 83 I&O: 07/04/20 07/05/20 07/06/20 06:59 06:59 06:59 Intake Total 1640 360 720 Output Total 350 400 Balance 1290 -40 720 Result Diagrams: 07/06/20 06:30 07/06/20 06:30 Hospitalist ROS - Review of Systems Respiratory: denies: cough, dry, shortness of breath, hemoptysis, SOB with excertion, pleuritic pain, sputum, wheezing, other Cardiovascular: denies: chest pain, palpitations, orthopnea, paroxysmal noc. dyspnea, edema, light headedness, other Gastrointestinal: denies: nausea, vomiting, abdominal pain, diarrhea, constipation, melena, hematochezia, other - Medication Medications: Active Medications Generic Name Dose Route Start Last Admin Trade Name Freq PRN Reason Stop Dose Admin Albuterol/Ipratropium 3 ml 06/29/20 22:30 07/05/20 19:01 Ipratropium/Albuterol Sulfate 3 Ml Neb NEB 3 ml [id number] TENZIN Administration Alprazolam 0.25 mg 07/05/20 10:30 07/05/20 11:03 Alprazolam 0.25 Mg Tab PO 0.25 mg BIDPRN PRN Administration Anxiety Artificial Tears 2 drop 07/02/20 18:12 07/05/20 21:39 Artificial Tear Isha 15 Ml Bot EA EYE 2 drp QIDPRN PRN Administration Dry Eyes Ascorbic Acid 500 mg 06/30/20 09:00 07/05/20 08:55 Ascorbic Acid 500 Mg Chewable Tablet PO Not Given DAILY TENZIN Bupropion HCl 300 mg 06/30/20 09:00 07/05/20 08:55 Bupropion 150 Mg Xl Tab PO 300 mg DAILY TENZIN Administration Doxycycline Hyclate 100 mg 07/04/20 21:00 07/05/20 21:38 Doxycycline 100 Mg Cap PO 100 mg BID TENZIN Administration Dronedarone 400 mg 06/30/20 08:00 07/05/20 16:52 Dronedarone Hcl 400 Mg Tab PO 400 mg BID-WM TENZIN Administration Ferrous Sulfate 325 mg 06/30/20 09:00 07/05/20 08:56 Ferrous Sulfate 325 Mg Tab PO 325 mg DAILY TENZIN Administration Folic Acid 1 mg 06/30/20 09:00 07/05/20 08:56 Folic Acid 1 Mg Tab PO 1 mg DAILY TENZIN Administration Ipratropium [place] 0 ml 06/29/20 21:00 07/05/20 21:[address] [place] 0.06% Nasal Inhaler 15ml EA NARE 07/09/20 15:01 1 spr TID TENZIN Administration Levothyroxine Sodium 50 mcg 06/30/20 06:00 07/05/20 05:53 Levothyroxine Sodium 50 Mcg Tab PO 50 mcg 0600 TENZIN Administration Levothyroxine Sodium 100 mcg 06/29/20 06:00 07/05/20 05:53 Levothyroxine Sodium 100 Mcg Tab PO 100 mcg SuSa TENZIN Administration Lorazepam 0.5 mg 06/30/20 17:26 07/05/20 21:38 Lorazepam 0.5 Mg Tab PO 0.5 mg Q4H PRN Administration Anxiety Multivitamins 1 tab 06/30/20 09:00 07/05/20 08:56 Multivit, Therapeutic 1 Tab PO 1 tab DAILY TENZIN Administration Ondansetron HCl 4 mg 06/29/20 16:27 07/03/20 09:45 Ondansetron Pf 4 Mg/2 Ml Vial IVP 4 mg Q6H PRN Administration Nausea/Vomiting Pantoprazole Sodium 40 mg 07/04/20 09:00 07/05/20 08:57 Pantoprazole 40 Mg Tab PO 40 mg DAILY TENZIN Administration Phosphorus 250 mg 07/01/20 12:00 07/05/20 16:53 K-Phos Neutral 250 Mg Tab PO 250 mg TID-WM TENZIN Administration Prednisone 20 mg 07/05/20 08:00 07/05/20 16:52 Prednisone 20 Mg Tab PO 20 mg BID-WM TENZIN Administration Ropinirole HCl 1 mg 06/29/20 21:00 07/05/20 21:38 Ropinirole Hcl 1 Mg Tab PO 1 mg HS TENZIN Administration Senna/Docusate Sodium 2 tab 06/29/20 21:00 07/05/20 21:47 Senokot S 8.6-50 Mg Tab PO Not Given BID TENZIN Sodium Chloride 10 ml 07/03/20 16:49 07/04/20 14:12 Flush - Normal Saline 10 Ml Syringe IVF 10 ml PRN PRN Administration Saline Flush Trazodone HCl 100 mg 07/04/20 23:02 07/04/20 23:25 Trazodone Hcl 50 Mg Tab PO 100 mg HS PRN Administration Insomnia - Exam Neck: negative: supple, symmetric, no JVD, no thyromegaly, no lymphadenopathy, no carotid bruit, JVD Respiratory: negative: CTAB, no wheezes, no rales, no ronchi, normal chest expansion, no tachypnea, normal percussion, rales, rhonchi, tachypneic, wheezes Gastrointestinal: negative: soft, non-tender, non-distended, normal bowel sounds, no palpable masses, no hepatomegaly, no splenomegaly, no bruit, no guarding, no rigidity, tender to palpation, distended, diminished bowl sounds, voluntary guarding Hosp A/P - Plan Generalized weaknessmultifactorial Pancytopenia due to chemotherapy S/p platelet transfusion Acute on chronic hypoxic respiratory failure requiring NIPPV COPD exacerbation Hypokalemia/hypomagnesemia/hypophosphatemia 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 Henderson (last seen in March) Chronic anemia suspected due to nutritional deficiency S/p 1 unit PRBC on 07/03 CKD 2 History of vitamin B12 deficiency Chronic respiratory failure on 2 L home oxygen Moderate protein calorie malnutrition Plan: Patient was declined by [facility]. [facility]. Continue nebulizer treatment. Change antibiotics and steroids to p.o. continue supportive care. Continue Multaq and other medications as above. Continue with therapy. 07/05 we will start patient on some Xanax as needed. Patient awaiting placement. She is eating and drinking without any problems. Will check labs in a.m.
[2020-07-06] MEDS: Levothyroxine Sodium 50 MCG TAB PO SCH (06:24)
[2020-07-06] MEDS: Levothyroxine Sodium 100 MCG TAB PO SCH (06:24)
[2020-07-06] MEDS: Artificial Tear Sol 15 ML BOT EA EYE PRN ×2 (06:26→21:11)
[2020-07-06 06:58] LABS: Band 12 % (5-11); Hemoglobin 9.3 g/dL (12.0-16.0); Lymphocytes 21 % (21-51); MDiff Complete? YES; Mean Corpuscular HGB CONC 32.5 g/dL (32.0-36.0); Mean Corpuscular Hemoglobin 29.2 pg (27.0-31.0); Mean Platelet Volume 9.3 fL (7.4-10.4); Monocytes 6 % (0-10); Neutrophil 61 % (42-75); Platelet Count 74 thou/uL (130-400); Platelet Morphology Comment Appears Decreased; RBC Distribution Width 17.1 % (11.5-14.5); Red Blood Cell (RBC) Count 3.18 mill/uL (4.20-5.40); White Blood Cell (WBC) Count 8.2 thou/uL (4.8-10.8)
[2020-07-06 07:09] LABS: Anion Gap 10 mmol/L (10-20); BUN (Urea Nitrogen) 24 mg/dL (9.8-20.1); Calc. Creatinine Clearance 49 mL/min (70-130); Calcium 7.9 mg/dL (7.8-10.44); Carbon Dioxide 30 mmol/L (23-31); Chloride 107 mmol/L (98-107); Glucose 91 mg/dL (83-110); Sodium 144 mmol/L (136-145)
[2020-07-06 07:12] LABS: Potassium 2.8 mmol/L (3.5-5.1)
[2020-07-06] MEDS: Doxycycline 100 MG CAP PO SCH ×2 (08:16→21:11)
[2020-07-06] MEDS: Dronedarone HCl 400 MG TAB PO SCH ×2 (08:17→17:45)
[2020-07-06] MEDS: Bupropion 150 MG XL TAB PO SCH (08:17)
[2020-07-06] MEDS: K-Phos Neutral 250 MG TAB PO SCH ×3 (08:17→17:45)
[2020-07-06] MEDS: Ipratropium Bromide 0.06% Nasal Inhaler 15ml EA NARE SCH ×3 (08:18→21:11)
[2020-07-06] MEDS: Ferrous Sulfate 325 MG TAB PO SCH (08:18)
[2020-07-06] MEDS: Ascorbic Acid 500 mg Chewable Tablet PO SCH (08:18)
[2020-07-06] MEDS: Folic Acid 1 MG TAB PO SCH (08:18)
[2020-07-06] MEDS: Potassium Chloride 20 MEQ TAB PO SCH ×2 (08:18→12:20)
[2020-07-06] MEDS: Senokot S 8.6-50 MG TAB PO SCH ×2 (08:19→21:12)
[2020-07-06] MEDS: Multivit, Therapeutic 1 TAB PO SCH (08:19)
[2020-07-06] MEDS: predniSONE 20 MG TAB PO SCH ×2 (08:19→17:45)
[2020-07-06] MEDS: ALPRAZolam 0.25 MG TAB PO PRN (17:48)
[2020-07-06] MEDS: rOPINIRole HCl 1 MG TAB PO SCH (21:11)
[2020-07-06] MEDS: Lorazepam 0.5 MG TAB PO PRN (21:11)
[2020-07-07] MEDS: ALPRAZolam 0.25 MG TAB PO PRN (02:41)
[2020-07-07] MEDS: Levothyroxine Sodium 50 MCG TAB PO SCH (05:52)
--- NOTE | 2020-07-07 08:26 | PDOC.HOSPP ---
- Subjective Encounter Date: 07/06/20 Encounter Time: 10:30 Subjective: Patient up in bed denies any complaints. - Objective Vital Signs & Weight: Vital Signs (12 hours) Pulse Resp Pulse Ox 07/07/20 06:10 79 16 07/07/20 02:41 16 07/06/20 22:14 85 16 98 07/06/20 21:00 100 Weight Admit Weight 134 lb 4 oz Weight 134 lb 4 oz Most Recent Monitor Data Heart Rate from ECG 96 NIBP 122/56 NIBP BP-Mean 63 Respiration from ECG 25 SpO2 83 I&O: 07/06/20 07/07/20 07/08/20 06:59 06:59 06:59 Intake Total 720 720 Output Total 800 Balance -80 720 Result Diagrams: 07/06/20 06:30 07/06/20 06:30 Hospitalist ROS - Review of Systems Respiratory: denies: cough, dry, shortness of breath, hemoptysis, SOB with excertion, pleuritic pain, sputum, wheezing, other Cardiovascular: denies: chest pain, palpitations, orthopnea, paroxysmal noc. dyspnea, edema, light headedness, other Gastrointestinal: denies: nausea, vomiting, abdominal pain, diarrhea, c onstipation, melena, hematochezia, other - Medication Medications: Active Medications Generic Name Dose Route Start Last Admin Trade Name Freq PRN Reason Stop Dose Admin Albuterol/Ipratropium 3 ml 06/29/20 22:30 07/07/20 06:10 Ipratropium/Albuterol Sulfate 3 Ml Neb NEB 3 ml [id number] TENZIN Administration Alprazolam 0.25 mg 07/05/20 10:30 07/07/20 02:41 Alprazolam 0.25 Mg Tab PO 0.25 mg BIDPRN PRN Administration Anxiety Artificial Tears 2 drop 07/02/20 18:12 07/06/20 21:11 Artificial Tear [place] 15 Ml Bot EA EYE 2 drp QIDPRN PRN Administration Dry Eyes Ascorbic Acid 500 mg 06/30/20 09:00 07/06/20 08:18 Ascorbic Acid 500 Mg Chewable Tablet PO 500 mg DAILY TENZIN Administration Bupropion HCl 300 mg 06/30/20 09:00 07/06/20 08:17 Bupropion 150 Mg Xl Tab PO 300 mg DAILY TENZIN Administration Doxycycline Hyclate 100 mg 07/04/20 21:00 07/06/20 21:11 Doxycycline 100 Mg Cap PO 100 mg BID TENZIN Administration Dronedarone 400 mg 06/30/20 08:00 07/06/20 17:45 Dronedarone Hcl 400 Mg Tab PO 400 mg BID-WM TENZIN Administration Ferrous Sulfate 325 mg 06/30/20 09:00 07/06/20 08:18 Ferrous Sulfate 325 Mg Tab PO 325 mg DAILY TENZIN Administration Folic Acid 1 mg 06/30/20 09:00 07/06/20 08:18 Folic Acid 1 Mg Tab PO 1 mg DAILY TENZIN Administration Ipratropium [place] 0 ml 06/29/20 21:00 07/06/20 21:11 Ipratropium [place] 0.06% Nasal Inhaler 15ml EA NARE 07/09/20 15:01 1 spr TID TENZIN Administration Levothyroxine Sodium 50 mcg 06/30/20 06:00 07/07/20 05:52 Levothyroxine Sodium 50 Mcg Tab PO 50 mcg 0600 TENZIN Administration Levothyroxine Sodium 100 mcg 06/29/20 06:00 07/06/20 06:24 Levothyroxine Sodium 100 Mcg Tab PO 100 mcg SuSa TENZIN Administration Lorazepam 0.5 mg 06/30/20 17:26 07/06/20 21:11 Lorazepam 0.5 Mg Tab PO 0.5 mg Q4H PRN Administration Anxiety Multivitamins 1 tab 06/30/20 09:00 07/06/20 08:19 Multivit, Therapeutic 1 Tab PO 1 tab DAILY TENZIN Administration Ondansetron HCl 4 mg 06/29/20 16:27 07/03/20 09:45 Ondansetron Pf 4 Mg/2 Ml Vial IVP 4 mg Q6H PRN Administration Nausea/Vomiting Pantoprazole Sodium 40 mg 07/04/20 09:00 07/06/20 08:18 Pantoprazole 40 Mg Tab PO 40 mg DAILY TENZIN Administration Phosphorus 250 mg 07/01/20 12:00 07/06/20 17:45 K-Phos Neutral 250 Mg Tab PO 250 mg TID-WM TENZIN Administration Prednisone 20 mg 07/05/20 08:00 07/06/20 17:45 Prednisone 20 Mg Tab PO 20 mg BID-WM TENZIN Administration Ropinirole HCl 1 mg 06/29/20 21:00 12/13/20 21:11 Ropinirole Hcl 1 Mg Tab PO 1 mg HS TENZIN Administration Senna/Docusate Sodium 2 tab 06/29/20 21:00 07/06/20 21:12 Senokot S 8.6-50 Mg Tab PO Not Given BID TENZIN Sodium Chloride 10 ml 07/03/20 16:49 07/07/20 02:44 Flush - Normal Saline 10 Ml Syringe IVF 10 ml PRN PRN Administration Saline Flush Trazodone HCl 100 mg 07/04/20 23:02 07/04/20 23:25 Trazodone Hcl 50 Mg Tab PO 100 mg HS PRN Administration Insomnia - Exam Neck: negative: supple, symmetric, no JVD, no thyromegaly, no lymphadenopathy, no carotid bruit, JVD Heart: negative: RRR, no murmur, no gallops, no rubs, normal peripheral pulses, irregular, diminshed peripheral pulses, murmur present, II/IV, III/IV Respiratory: negative: CTAB, no wheezes, no rales, no ronchi, normal chest expansion, no tachypnea, normal percussion, rales, rhonchi, tachypneic, wheezes Gastrointestinal: negative: soft, non-tender, non-distended, normal bowel sounds, no palpable masses, no hepatomegaly, no splenomegaly, no bruit, no guarding, no rigidity, tender to palpation, distended, diminished bowl sounds, voluntary guarding Hosp A/P - Plan Generalized weaknessmultifactorial Pancytopenia due to chemotherapy S/p platelet transfusion Acute on chronic hypoxic respiratory failure requiring NIPPV COPD exacerbation Hypokalemia/hypomagnesemia/hypophosphatemia 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 Henderson (last seen in March) Chronic anemia suspected due to nutritional deficiency S/p 1 unit PRBC on 07/03 CKD 2 History of vitamin B12 deficiency Chronic respiratory failure on 2 L home oxygen Moderate protein calorie malnutrition Plan: Patient was declined by [facility]. Referral has been sent to other [facility] facility. Continue nebulizer treatment. Change antibiotics and steroids to p.o. continue supportive care. Continue Multaq and other medications as above. Continue with therapy. 07/05 we will start patient on some Xanax as needed. Patient awaiting placement. She is eating and drinking without any problems. Will check labs in a.m. 07/06 we will continue current management. Patient to be discharged to [facility]dc facility tomorrow. replace potassium.
[2020-07-07] MEDS: Lorazepam 0.5 MG TAB PO PRN (08:49)
[2020-07-07] MEDS: Ascorbic Acid 500 mg Chewable Tablet PO SCH (08:49)
[2020-07-07] MEDS: Multivit, Therapeutic 1 TAB PO SCH (08:49)
[2020-07-07] MEDS: Bupropion 150 MG XL TAB PO SCH (08:49)
[2020-07-07] MEDS: Senokot S 8.6-50 MG TAB PO SCH (08:49)
[2020-07-07] MEDS: Doxycycline 100 MG CAP PO SCH (08:50)
[2020-07-07] MEDS: predniSONE 20 MG TAB PO SCH (08:50)
[2020-07-07] MEDS: Folic Acid 1 MG TAB PO SCH (08:50)
[2020-07-07] MEDS: Ferrous Sulfate 325 MG TAB PO SCH (08:50)
[2020-07-07] MEDS: Dronedarone HCl 400 MG TAB PO SCH (08:50)
[2020-07-07] MEDS: K-Phos Neutral 250 MG TAB PO SCH ×2 (08:51→14:34)
[2020-07-07] MEDS: Ipratropium Bromide 0.06% Nasal Inhaler 15ml EA NARE SCH (08:52)
[2020-07-07 09:00] VITALS: BP 132/60; TEMP 97.8
[2020-07-07 09:08] LABS: Anion Gap 11 mmol/L (10-20); BUN (Urea Nitrogen) 23 mg/dL (9.8-20.1); Calc. Creatinine Clearance 53 mL/min (70-130); Carbon Dioxide 28 mmol/L (23-31); Chloride 109 mmol/L (98-107); Glucose 84 mg/dL (83-110); Magnesium 1.5 mg/dL (1.6-2.6); Potassium 3.3 mmol/L (3.5-5.1); Sodium 145 mmol/L (136-145)
[2020-07-07] MEDS ORDERED: Magnesium 2 GM/50 ML 2 GM in Premix Bag 1 BAG IVPB SCH (09:30)
[2020-07-07] MEDS ORDERED: Potassium Chloride 20 MEQ TAB PO SCH (09:30)
--- NOTE | 2020-07-07 16:27 | PDOC.DS.DS ---
Provider - Provider Date of Admission: 06/29/20 15:41 Date of Discharge: 07/07/20 Admitting Provider: Owen Sullivan MD Consultations: Oncology, Pulmonary Primary Care Physician: Betsy Sierra MD Course - Hospital Course Hospital Course: #1. Generalized weaknessmultifactorial #2 pancytopenia due to chemotherapy S/p platelet transfusion #3 acute on chronic hypoxic respiratory failure requiring NIPPV #4 COPD exacerbation #5 hypokalemia/hypomagnesemia/hypophosphatemia 6 small cell lung cancer with malignant right-sided pleural effusion 7 history of renal mass #8 paroxysmal atrial fibrillation not anticoagulation candidate due to history of GI bleeding #9 restless leg syndrome #10 hypothyroidism #12 Hyperlipidemia #13 Hypertension #14 History of breast cancerfollows Dr. Henderson (last seen in March) #15 Chronic anemia suspected due to nutritional deficiency S/p 1 unit PRBC on 07/03 CKD 2 # 16 History of vitamin B12 deficiency Chronic respiratory failure on 2 L home oxygen #17 Moderate protein calorie malnutrition Patient is a very pleasant 84-year-old female who initially presented to the hospital on 06 29 with pancytopenia and severe thrombocytopenia secondary to chemotherapy. She was also noted to have generalized weakness and moderate calorie protein malnutrition. Hospital stay was complicated with shortness of breath and rapid response was called. Patient at this time was transferred to higher level of care for further evaluation. Patient was seen by pulmonary. 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 Pleurx catheter was inserted. Patient continued to improve through the hospital stay. She will be discharged to half-way with her Pleurx catheter. He was also started on steroids and antibiotics which have been continued. She was seen by oncology and her Arimidex was discontinued. Resuscitation Status: 06/29/20 16:21 Resuscitation Status Routine Resuscitation Status: DNAR: NO Resuscitation Discussed with: d/w patient and daughter at bedside - Labs Lab Results: 07/06/20 06:30 07/07/20 08:35 Abnormal Lab Results - Last 48 hrs 07/06/20 06:30: Potassium 2.8 L*, BUN 24 H 07/06/20 06:30: RBC 3.18 L, Hgb 9.3 L, Hct 28.6 L, RDW 17.1 H, Plt Count 74 L, Band Neuts % (Manual) 12 H, Plt Morphology Comment Appears Decreased L 07/07/20 08:35: Potassium 3.3 L, Chloride 109 H, BUN 23 H, Magnesium 1.5 L Microbiology - Entire Visit 06/29/20 13:26 Port - Right Subclavian Vein Blood Culture - Final NO GROWTH IN 5 DAYS 06/29/20 12:44 Port - Right Subclavian Vein Blood Culture - Final NO GROWTH IN 5 DAYS - Physical Exam Vitals: Vital Signs (12 hours) Temp Pulse Resp BP Pulse Ox 07/07/20 10:56 96 18 07/07/20 08:00 97.8 F 86 16 132/60 97 07/07/20 06:10 79 16 Weight Admit Weight 134 lb 4 oz Weight 134 lb 4 oz Most Recent Monitor Data Heart Rate from ECG 96 NIBP 122/56 NIBP BP-Mean 63 Respiration from ECG 25 SpO2 83 Physical Exam: The patient was seen and examined on the day of discharge. Plan - Discharge Medications Home Medications: Medication Instructions Recorded Confirmed Type Diltiazem HCl [Diltiazem 24Hr Cd] 120 mg PO DAILY PRN 07/26/19 06/30/20 History Ibandronate Sodium 150 mg PO Q30D 07/26/19 06/30/20 History Mirtazapine 45 mg PO DAILY 07/26/19 06/30/20 History Pantoprazole Sodium [Protonix] 40 mg PO DAILY 07/26/19 06/30/20 History Potassium Chloride [Klor-Con 10] 10 meq PO DAILY 07/26/19 06/30/20 History Pravastatin Sodium [Pravachol] 40 mg PO HS 07/26/19 06/30/20 History buPROPion HCl [buPROPion HCl XL] 300 mg PO DAILY 07/26/19 06/30/20 History traZODone HCl [Trazodone HCl] 150 mg PO HS 07/26/19 06/30/20 History Dronedarone HCl [Multaq] 400 mg PO BID-WM 09/30/19 06/30/20 History LORazepam [Lorazepam] 0.5 mg PO Q4HR PRN 10/03/19 06/30/20 History Umeclidinium Brm/Vilanterol Tr 1 inh EA NARE HS 10/03/19 06/30/20 History [Anoro Ellipta] rOPINIRole HCl [Requip] 1 mg PO HS tab 10/10/19 06/30/20 Rx Levothyroxine Sodium [Euthyrox] 50 mcg PO SEEPHYS 05/30/20 06/30/20 History Ascorbic Acid [Vitamin C] 500 mg PO DAILY 06/01/20 06/30/20 History Ferrous Sulfate [Iron] 325 mg PO DAILY 06/01/20 06/30/20 History Ipratropium 0.06% Nasal Inhale 2 sprays INH TID 06/01/20 06/30/20 History [Atrovent 0.06% Nasal [place]] Ondansetron [Zofran ODT] 4 mg PO QAM PRN 06/01/20 06/30/20 History Polyethylene Glycol 3350 [Miralax] 17 gm PO DAILY PRN 06/01/20 06/30/20 History traMADol HCl [Tramadol HCl] 50 mg PO PRN PRN 06/01/20 06/30/20 History Folic Acid [Folvite] 1 mg PO DAILY #30 tab 06/06/20 06/30/20 Rx Multivit, Therapeutic [Theragran] 1 tab PO DAILY tab 06/06/20 06/30/20 Rx Potassium Chloride [Klor-Con 10] 10 meq PO DAILY 06/30/20 06/30/20 History Prochlorperazine Maleate 10 mg PO Q6HR PRN 06/30/20 06/30/20 History [Compazine] Ipratropium/Albuterol Sulfate 3 ml NEB [id number] PRN neb 07/07/20 Rx [DuoNeb] Ipratropium/Albuterol Sulfate 3 ml NEB [id number] neb 07/07/20 Rx [DuoNeb] KPhos Neutral [Phospha 250 Neutral] 250 mg PO TID-WM tab 07/07/20 Rx Levothyroxine Sodium [Synthroid] 100 mcg PO SuSa tab 07/07/20 Rx predniSONE 20 mg PO BID-WM tab 07/07/20 Rx Allergies: ciprofloxacin [From Cipro] Allergy (Intermediate, Verified 06/29/20 23:10) Hives propoxyphene [From Darvon] Allergy (Intermediate, Verified 06/29/20 23:10) Hives hydrocodone [From Vicodin] Allergy (Verified 06/29/20 23:10) lisinopril Allergy (Verified 06/29/20 23:10) - Discharge Instructions Discharge Instructions:: DC Arimidex PLEASE TAPER STEROIDS. PLEASE CHECK ELECTROLYTES EVERY OTHER DAY MAGNESIUM, POTASSIUM AND PHOSPHORUS. PleurX cath to be drained via PleurX bottle Q3 days or as needed. Activity:: Activity as Tolerated Nourishment:: Heart Healthy Diet - Follow up Plan Referrals: Betsy Sierra MD [Primary Care Provider] - Disposition: HOME Quality - Care Measures CORE MEASURES:: N/A
== END 2020-07-07 16:10 | DRG 808 ==
LOC: ERS 11:53 → ONC 15:41 → IMCU/EMU 22:50 → ONC 07-02 18:11
PROVIDERS: ADMIT Internal Medicine; ATTEND Internal Medicine
PROC: 30233N1 Transfusion of Nonautologous Red Blood Cells into Peripheral Vein, Percutaneous Approach (ICD-10-PCS; principal; 2020-06-29)
PROC: 5A09357 Assistance with Respiratory Ventilation, Less than 24 Consecutive Hours, Continuous Positive Airway Pressure (ICD-10-PCS; 2020-06-29)
PROC: 30233R1 Transfusion of Nonautologous Platelets into Peripheral Vein, Percutaneous Approach (ICD-10-PCS; 2020-07-03)
DX: D61.810 Antineoplastic chemotherapy induced pancytopenia (principal); J96.21 Acute and chronic respiratory failure with hypoxia; J44.1 Chronic obstructive pulmonary disease with (acute) exacerbation; C34.91 Malignant neoplasm of unspecified part of right bronchus or lung; J91.0 Malignant pleural effusion; E44.0 Moderate protein-calorie malnutrition; Z68.1 Body mass index [BMI] 19.9 or less, adult; I13.0 Hypertensive heart and chronic kidney disease with heart failure and stage 1 through stage 4 chronic kidney disease, or unspecified chronic kidney disease; E87.4 Mixed disorder of acid-base balance; Z66 Do not resuscitate; Z20.828 Contact with and (suspected) exposure to other viral communicable diseases; T45.1X5A Adverse effect of antineoplastic and immunosuppressive drugs, initial encounter; E87.6 Hypokalemia; E83.42 Hypomagnesemia; E83.39 Other disorders of phosphorus metabolism; I48.0 Paroxysmal atrial fibrillation; G25.81 Restless legs syndrome; E03.9 Hypothyroidism, unspecified; E78.5 Hyperlipidemia, unspecified; D53.9 Nutritional anemia, unspecified; N18.2 Chronic kidney disease, stage 2 (mild); E53.8 Deficiency of other specified B group vitamins; I50.9 Heart failure, unspecified; F41.9 Anxiety disorder, unspecified; F32.9 Major depressive disorder, single episode, unspecified; E86.0 Dehydration; E78.00 Pure hypercholesterolemia, unspecified; K21.9 Gastro-esophageal reflux disease without esophagitis; Z85.3 Personal history of malignant neoplasm of breast; Z99.81 Dependence on supplemental oxygen; Z92.3 Personal history of irradiation; Z90.12 Acquired absence of left breast and nipple; Z87.891 Personal history of nicotine dependence; Z79.899 Other long term (current) drug therapy; Z79.890 Hormone replacement therapy; Z88.1 Allergy status to other antibiotic agents; Z88.8 Allergy status to other drugs, medicaments and biological substances; Z87.448 Personal history of other diseases of urinary system
CPT/HCPCS: 36415; 36430; 36591; 36592; 36600; 51701; 71045; 80048; 80053; 81001; 81003; 82553; 82805; 83605; 83735; 84100; 84484; 85007; 85014; 85018; 85025; 85027; 86850; 86900; 86901; 87635; 93005; 94640; 94660; 96523; 99211; G0463; J0456; J1120; J1642; J1940; J2405; J2920; J3475; J7050; J7512; J7620; P9016; P9035; Q0163; U0003